=== PATIENT | female | born 1950 | race Caucasian/White ===

== ENCOUNTER 2017-01-01 16:59 | Inpatient (IN) | payer MEDICARE ==
[2017-01-01] MEDS: Albuterol 2.5 MG/3 ML NEB.SOL* (0.083%) INH SCH ×2 (18:00→21:34)
[2017-01-01] MEDS ORDERED: Piperac/Tazob 3.375 gm in NS* 3.375 GM/100 ML BAG IVPB ONE (18:00)
[2017-01-01 19:00] LABS: Albumin 3.8 g/dL (3.2-5.2); BUN/Creatinine Ratio 12.3 (8-20); C Reactive Protein 128.24 mg/L (< 5.00); Calcium 9.7 mg/dL (8.6-10.3); EGFR African American 117.3 (>60); EGFR Non-African American 91.2 (>60); Globulin 3.6 g/dL (2-4); Potassium 3.5 mmol/L (3.5-5.0); Total Bilirubin 0.5 mg/dL (0.2-1.0); Total Protein 7.4 g/dL (6.4-8.9)
[2017-01-01] MEDS: guaiFENesin/CODIEN 100MG-10MG* 5 ML UDC PO PRN (20:13)
--- NOTE | 2017-01-01 21:18 | HP ---
ADMITTING HISTORY AND PHYSICAL: DATE OF ADMISSION: 01/01/17 PRESENTING COMPLAINT: Paroxysmal cough, wheezing, right upper lobe pneumonia with consolidation. HISTORY OF PRESENT ILLNESS: Anali Bassett is a 66-year-old white female. Ten days ago, she developed sore throat, following that paroxysmal coughing; this worsened. She came in to my office to see a nurse practitioner last week, who started her on nebulizer and she worsened. A chest x-ray was ordered on . There was a right infrahilar mass noted. I therefore ordered a chest CAT scan on 12/31/16 that showed a small focus of alveolar consolidation at the apical segment of the right upper lobe with air bronchograms suggesting pneumonia. Blood work included a CBC on 12/27/16, white count 9.7, hemoglobin 12.6, hematocrit 38, platelet count 327, neutrophil percentage 81.8%. Her cough has progressed and become more paroxysmal with periods of apnea with coughing episodes with difficulty taking a deep breath. Consequently, she came in to my office today and I elected to admit her directly to the [facility]. It took some persuasion, but she agreed to do this. She has had no fevers, but she has had night sweats. No rigors or chills. She is not bringing up much sputum. No hemoptysis. She has some dyspnea particularly on exertion. She has no chest pain. PREVIOUS MEDICAL HISTORY: Tonsillectomy, age 2; total hysterectomy but has intact right ovary; bilateral mastectomy, May of 2014; she had a skin pinch graft on 04/26/15. OTHER SURGERIES: Laminectomy, C3 to C7, 2000. She has had a fracture of the right index finger. She has a history of breast cancer with carcinoma in situ. Surgery of her breast cancer, which was poorly differentiated, on 01/05/14. It was HER-2 positive. It was ER positive, [place] negative. She has had a bilateral mastectomy and radiotherapy. OTHER COMORBIDITIES: Insomnia, osteoarthritis of the knee, Dupuytren's contracture, depression, hypertension, primary hypothyroidism, obesity, mild intermittent asthma, hyperlipidemia, and gout. CURRENT MEDICATIONS: 1. Albuterol 0.63 in 3 mL solution for nebulizer; she has been using this 4 times a day. 2. Amlodipine 2.5 mg daily. 3. Anastrozole 1 mg daily. 4. Centrum Silver 1 tablet daily. 5. Vitamin D 1000 units daily. 6. Guaifenesin with Codeine 100 mg/5 mL every 6 hours as needed. 7. Diclofenac 75 mg 1 twice a day as needed. 8. Duloxetine 20 mg 2 tablets daily. 9. Flunisolide nasal spray 25 mcg 2 sprays daily as needed. 10. Furosemide 20 mg half a pill 3 times a week. 11. Gabapentin 2 pills 3 times a day. 12. Klor-Con 20 mEq on the day she takes furosemide. 13. Levothyroxine 112 mcg a day. 14. Misoprostol 200 mcg twice daily. 15. Symbicort 160/4.5 per actuation 2 puffs twice daily. MEDICATION ALLERGIES: ADHESIVE TAPE, ERYTHROMYCIN. FAMILY HISTORY: Mother, carcinoma of the lung. Maternal grandmother, atherosclerosis, hypertensive disease. Maternal grandfather, kidney disease with kidney failure. Father has cancer. SOCIAL HISTORY: Lifelong nonsmoker. Does not drink alcohol. REVIEW OF SYSTEMS: Review of systems x12: Respiratory: Wheezing, shortness of breath, a sensation of suction in her lungs, difficulty catching her breath, oxygen saturation variable with coughing fits, 90% to 98% in the medical office. She has gas pain in her abdomen. She has fatigue. PHYSICAL EXAMINATION In my office: GENERAL: She had no cyanosis, anemia, jaundice, clubbing, or lymphadenopathy. She did not appear hemodynamically compromised. She was not dehydrated clinically. She has paroxysms of coughing which caused great distress. VITAL SIGNS: Height 5 feet 6.5 inches, weight 216 pounds, body mass index 34.3 , her blood pressure 132/94, temperature 99.5 degrees Fahrenheit, pulse 100 beats per minute, respiratory rate 16. HEENT: Tympanic membranes were normal. NECK: Supple. No goiter. RESPIRATORY: Chest expansion was full and symmetrical. Percussion note resonant. Breath sounds were diminished. She had wide-spread expiratory wheezes , particularly in the right upper chest. There were some crackles in right upper chest and some rhonchi. CARDIOVASCULAR: Her pulse was regular, normal character and volume. Venous pressure not elevated. Her heart sounds were normal. No added sounds or murmurs. No pedal edema. Pedal pulses present. No carotid bruits. ABDOMEN: No distention, masses, tenderness, or organomegaly. NERVOUS SYSTEM: Alert and oriented. Conjugate eye movements. Cranial nerves II through XII intact. Arms and Legs: Full power. Normal tone. Gait was normal. ASSESSMENT AND PLAN: 1. Right upper lobe pneumonia: This patient presents with community-acquired pneumonia. This is also a cause in exacerbation of asthma. I will bring her in to the hospital as a full admission to give her IV antibacterials, in particular Zosyn and azithromycin. Prior to that, I will check blood cultures, a rapid flu test, sputum Gram stain and culture, blood cultures, and other routine lab work. I will ask Respiratory Therapy to see her. She will have oxygen therapy as needed. I will give her a cough suppressant. She will have nebulizer treatments and oral prednisone. 2. Hypertension: Not acute problem. 3. Primary hypothyroidism: Not a problem. 4. Obesity: Ongoing situation. 5. History of breast cancer: She will continue on her aromatase inhibitor. I discussed with the patient DVT prophylaxis and she agrees to this. I discussed resuscitation status. At present, she wants to be full code. [id number] #: [id number] [facility]
[2017-01-01] MEDS: Mometasone 220 MCG MDI INH SCH (21:34)
[2017-01-01] MEDS: Azithromycin IV(*) 500 MG in NS 0.9% 250 ML* 250 ML IVPB SCH (22:03)
[2017-01-01] MEDS: Gabapentin CAP(*) 300 MG PO SCH (22:04)
[2017-01-01] MEDS: predniSONE TAB* 20 MG PO SCH (22:05)
[2017-01-01] MEDS: Misoprostol TAB* 200 MCG PO SCH (22:05)
[2017-01-01] MEDS: Heparin VIAL(*) 5000 UNITS/ML VIAL (FIVE THOUSAND) SUBCUT SCH (22:26)
[2017-01-01] MEDS: Acetaminophen TAB* 325 MG PO PRN (22:58)
[2017-01-01] MEDS: Diclofenac Sodium EC TAB* 25 MG PO SCH (23:05)
[2017-01-02] MEDS: Piperac/Tazob 3.375 gm in NS* 3.375 GM/100 ML BAG IVPB SCH ×3 (00:56→16:51)
[2017-01-02] MEDS: Albuterol 2.5 MG/3 ML NEB.SOL* (0.083%) INH SCH ×6 (01:42→23:18)
[2017-01-02] MEDS: guaiFENesin/CODIEN 100MG-10MG* 5 ML UDC PO PRN ×3 (05:33→20:08)
[2017-01-02] MEDS: Heparin VIAL(*) 5000 UNITS/ML VIAL (FIVE THOUSAND) SUBCUT SCH ×3 (05:33→21:45)
[2017-01-02] MEDS: Levothyroxine TAB* 112 MCG TAB PO SCH (05:37)
[2017-01-02 06:41] LABS: Hematocrit 36 % (35-47); Hemoglobin 11.8 g/dl (12.0-16.0); Mean Corpuscular HGB Conc 33 g/dl (31-36); Mean Corpuscular Hemoglobin 28 pg (27-31); Mean Corpuscular Volume 84 fL (80-97); Mean Platelet Volume 7 um3 (7.4-10.4); Red Blood Count 4.23 10^6/ul (4.0-5.4); Red Cell Distribution Width 15 % (10.5-15); White Blood Count 12.8 10^3/ul (3.5-10.8)
[2017-01-02] MEDS: Mometasone 220 MCG MDI INH SCH ×2 (08:22→19:47)
[2017-01-02] MEDS: DULoxetine DR CAP* 20 MG CAP.DR PO SCH (10:23)
[2017-01-02] MEDS: Misoprostol TAB* 200 MCG PO SCH ×2 (10:24→20:09)
[2017-01-02] MEDS: Diclofenac Sodium EC TAB* 25 MG PO SCH ×2 (10:24→20:09)
[2017-01-02] MEDS: predniSONE TAB* 20 MG PO SCH ×2 (10:25→20:09)
[2017-01-02] MEDS: Gabapentin CAP(*) 300 MG PO SCH ×3 (10:25→20:48)
--- NOTE | 2017-01-02 10:26 | PN ---
Subjective - Subjective Reason for Note: Progress Note History: She continues to have a paroxysmal cough - this is becoming more productive. She has pain in her right lower rib cage from all this coughing. She has had no fevers or shakes. She has shortness of breath talking. She has a poor appetite. She had a small bowel movement this morning. Otherwise, no new symptoms Active Problems: Active Problems Right upper lobe pneumonia (Acute) J18.1 Chronic back pain (Chronic) M54.9, G89.29 Essential hypertension (Chronic) I10 Obesity (Chronic) E66.9 Primary hypothyroidism (Chronic) E03.9 Current Medications: Current Medications Acetaminophen (Tylenol Tab*) 650 mg PO Q4H PRN PRN Reason: PAIN/FEVER Last Admin: 01/01/17 22:58 Dose: 650 mg Albuterol (Ventolin 2.5 Mg/3 Ml Neb.Nia*) 2.5 mg INH Q4H [facility] Amlodipine Besylate (Norvasc Tab*) 2.5 mg PO DAILY [facility] Anastrozole (Arimidex (Nf)) 1 mg PO QAM [facility] Diclofenac Sodium (Voltaren Ec Tab*) 75 mg PO BID [facility] Last Admin: 01/01/17 23:05 Dose: 75 mg Duloxetine HCl (Cymbalta Cap*) 40 mg PO DAILY [facility] Gabapentin (Neurontin Cap(*)) 600 mg PO TID [facility] Last Admin: 01/01/17 22:04 Dose: 600 mg Guaifenesin/Codeine Phosphate (Robitussin Ac 100mg-10mg*) 5 ml PO Q6H PRN PRN Reason: COUGH Last Admin: 01/02/17 05:33 Dose: 5 ml Heparin Sodium (Porcine) (Heparin Vial(*)) 5,000 units SUBCUT Q8HR [facility] Last Admin: 01/02/17 05:33 Dose: 5,000 units Azithromycin 500 mg/ Sodium (Chloride) 250 mls @ 250 mls/hr IVPB Q24H [facility] Last Admin: 01/01/17 22:03 Dose: 250 mls/hr Piperacillin Sod/Tazobactam Sod (Zosyn 3.375 Gm In Ns Premix*) 3.375 gm in 100 mls @ 25 mls/hr IVPB Q8H [facility] Last Admin: 01/02/17 00:56 Dose: 25 mls/hr Levothyroxine Sodium (Synthroid Tab*) 112 mcg PO DAILY@0600 [facility] Last Admin: 01/02/17 05:37 Dose: 112 mcg Misoprostol (Cytotec Tab*) 200 mcg PO BID [facility] Last Admin: 01/01/17 22:05 Dose: 200 mcg Mometasone Furoate (Asmanex 220 Mcg Mdi *) 2 puff INH RT.BID [facility] Last Admin: 01/02/17 08:22 Dose: 2 puff Prednisone (Deltasone Tab*) 20 mg PO BID [facility] Last Admin: 01/01/17 22:05 Dose: 20 mg Home Medications: Home Medications Medication Instructions Recorded Confirmed Type Furosemide 10 tab PO SEE INSTRUCTIONS 03/18/14 01/01/17 History Levothyroxine Sodium 112 mcg PO QAM 03/18/14 01/01/17 History Psyllium [Metamucil] 1 cap PO QPM 03/18/14 01/01/17 History Budesonide-Formoterol Fumarate 2 puff INH QAM 03/21/14 01/01/17 History [Symbicort 160-4.5 Mcg/Act] Flunisolide (Nasal) [Flunisolide] 2 spray BOTH NARES QAM PRN 05/19/14 01/01/17 History Anastrozole [Arimidex] 1 mg PO QAM 11/11/14 01/01/17 History DULoxetine CAP* [Cymbalta CAP*] 1 cap PO BEDTIME 04/19/15 01/01/17 History Gabapentin CAP(*) [Neurontin 2 cap PO TID 04/19/15 01/01/17 History CAP(*)] Tizanidine HCl [Zanaflex] 1 - 2 tab PO DAILY PRN 10/19/15 01/01/17 History Acetaminophen [Arthritis Pain] 1 tab PO TID PRN 11/20/15 01/01/17 History Docusate Sodium [Gnp Stool 250 mg PO DAILY 11/20/15 01/01/17 History Softener] Loperamide CAP* [Imodium CAP*] 1 cap PO ONCE PRN 11/20/15 01/01/17 History Multiple Vitamins W/ Minerals 1 tab PO QAM 11/20/15 01/01/17 History [Multivitamin Adults 50+] Polyethylene Glycol 3350 [Miralax] 1 dose PO DAILY PRN 11/20/15 01/01/17 History Potassium Chloride Microencaps 20 meq PO QAM 11/20/15 01/01/17 History [Klor-Con M20] Senna TAB* [Senokot TAB*] 2 tab PO DAILY PRN 11/20/15 01/01/17 History Vitamin D2 1,000 unit PO QAM 11/20/15 01/01/17 History Amlodipine Besylate [Norvasc 5 mg 5 mg PO DAILY 12/12/16 01/01/17 History tab] Diclofenac [Zorvolex] 75 mg PO BID 12/12/16 01/01/17 History Misoprostol TAB* [Cytotec TAB*] 200 mg PO BID 12/12/16 01/01/17 History Guaifenesin [Guaifenesin ER] 1,200 mg PO BID 01/01/17 01/01/17 History Allergies: Allergies Allergy/AdvReac Type Severity Reaction Status Date / Time Adhesive Tape Allergy Rash Verified 12/12/16 16:03 [Tegaderm Dressing] Erythromycin Allergy Diarrhea Verified 12/12/16 16:03 Objective - Vital Signs Vital Signs: Vital Signs 01/01/17 01/01/17 01/01/17 17:30 18:03 21:30 Temperature 99.4 F 97.8 F Pulse Rate 89 82 96 Respiratory 30 20 Rate Blood Pressure 136/85 160/93 (mmHg) O2 Sat by Pulse 98 98 99 Oximetry 01/01/17 01/01/17 01/01/17 21:34 22:04 23:13 Temperature 98.3 F Pulse Rate 62 97 Respiratory 17 16 Rate Blood Pressure 158/98 (mmHg) O2 Sat by Pulse 98 97 Oximetry 01/02/17 01/02/17 01/02/17 00:03 01:42 03:09 Temperature 97.7 F Pulse Rate 51 69 Respiratory 17 16 Rate Blood Pressure 127/86 (mmHg) O2 Sat by Pulse 97 100 Oximetry 01/02/17 01/02/17 01/02/17 05:36 07:31 08:00 Temperature 97.3 F Pulse Rate 77 77 77 Respiratory 16 16 Rate Blood Pressure 113/92 (mmHg) O2 Sat by Pulse 98 98 98 Oximetry - Intake and Output Intake and Output: Intake & Output 12/30/16 12/31/16 01/01/17 01/02/17 11:59 11:59 11:59 11:59 Intake Total 1835 Output Total 600 Balance 1235 Weight 214 lb 1.6 oz Intake: IVPB 495 Oral 1340 Output: Urine 600 Other: # Bowel Movements 0 ADLs: Meal Record Start: 01/01/17 17: 34 Freq: DAILY@0900,1400,1800 Status: Active Document 01/01/17 17:30 [id number] (Rec: 01/02/17 09:24 [id number] MED-M10) Created 01/01/17 17:34 System (Rec: 01/01/17 17:34 System [id number]) Document 01/01/17 18:00 [id number] (Rec: 01/01/17 19:39 [id number] MED-C09) Intake and Output Start: 01/01/17 17: 34 Freq: DAILY@0600,1400,2200 Status: Active Created 01/01/17 17:34 System (Rec: 01/01/17 17:34 System [id number]) Document 01/01/17 22:00 [id number] (Rec: 01/01/17 22:11 [id number] MED-C09) Document 01/02/17 04:24 [id number] (Rec: 01/02/17 04:24 [id number] MED-C42) - Physical Exam General: No Cyanosis, No Anemia, No Jaundice, No Lymphadenopathy, No Clubbing Lungs and Chest: Yes: Chest Expansion Full, Chest Expansion Symetrica, Percussion Note Resonant, Vessicular Breath Sounds, Crackles - coarse crackles right upper chest, Wheezes - expiratory wheeze particularly prominent right upper chest, Respiratory Distress, Use of Accessory Muscles, Other - paroxysmal coughing Heart Rate and Rhythm: Regular JVP: Not Elevated Additional Cardiovascular: Yes: Normal Heart Sounds. No: Heart Murmur, Pedal Edema Abdominal Exam: Yes: Soft, Bowel Sounds Present. No: Distention, Abdominal Mass , Abdominal Tenderness Results - Results Lab Results: Laboratory Results - last 24 hr 01/01/17 01/01/17 01/01/17 17:29 18:23 18:23 WBC RBC Hgb Hct MCV MCH MCHC RDW Plt Count MPV Neut % (Auto) Lymph % (Auto) Norman % (Auto) Eos % (Auto) Baso % (Auto) Absolute Neuts (auto) Absolute Lymphs (auto) Absolute Monos (auto) Absolute Eos (auto) Absolute Basos (auto) Absolute Nucleated RBC Nucleated RBC % ESR 79 H Sodium 138 Potassium 3.5 Chloride 101 Carbon Dioxide 29 Anion Gap 8 BUN 8 Creatinine 0.65 Est GFR ( Amer) 117.3 Est GFR (Non-Af Amer) 91.2 BUN/Creatinine Ratio 12.3 Glucose 130 H Calcium 9.7 Total Bilirubin 0.50 AST 15 ALT 22 Alkaline Phosphatase 51 C-Reactive Protein 128.24 H Total Protein 7.4 Albumin 3.8 Globulin 3.6 Albumin/Globulin Ratio 1.1 Procalcitonin < 0.1 Influenza A (Rapid) Influenza B (Rapid) 01/01/17 01/02/17 23:14 06:09 WBC 12.8 H RBC 4.23 Hgb 11.8 L Hct 36 MCV 84 MCH 28 MCHC 33 RDW 15 Plt Count 356 MPV 7 L Neut % (Auto) 90.8 H Lymph % (Auto) 5.9 L Norman % (Auto) 3.0 Eos % (Auto) 0 Baso % (Auto) 0.3 Absolute Neuts (auto) 11.7 H Absolute Lymphs (auto) 0.8 L Absolute Monos (auto) 0.4 Absolute Eos (auto) 0 Absolute Basos (auto) 0 Absolute Nucleated RBC 0 Nucleated RBC % 0 ESR Sodium Potassium Chloride Carbon Dioxide Anion Gap BUN Creatinine Est GFR ( Amer) Est GFR (Non-Af Amer) BUN/Creatinine Ratio Glucose Calcium Total Bilirubin AST ALT Alkaline Phosphatase C-Reactive Protein Total Protein Albumin Globulin Albumin/Globulin Ratio Procalcitonin Influenza A (Rapid) Negative Influenza B (Rapid) Negative Assessment - Problem List Assessment: Patient Problems Right upper lobe pneumonia (Acute) Chronic back pain (Chronic) Essential hypertension (Chronic) Obesity (Chronic) Primary hypothyroidism (Chronic) Breast cancer, right (Chronic 05/27/14) Plan: Right upper lobe pneumonia (Acute) She continues to have distress from her paroxysmal coughing and she has dyspnea. I note her procalcitonin was negative , but her CRP and Sed rate were elevated. I will repeat the CXR today. Her rapid flu test was negative. She continues to require IV antibacterials and oral prednisone. Chronic back pain (Chronic) controlled Essential hypertension (Chronic) BP on target Obesity (Chronic) ongoing Primary hypothyroidism (Chronic) secondary diagnosis Breast cancer, right (Chronic 05/27/14) secondary diagnosis I spoke with the patient. She is aware of her diagnosis and agrees she continues to require acute medical care.
[2017-01-02] MEDS: amLODIPine TAB* 5 MG PO SCH (10:27)
[2017-01-02] MEDS: CMC:Anastrozole (NF) 1 MG TAB PO SCH (10:31)
--- NOTE | 2017-01-02 12:27 | RAD ---
INDICATION: Worsening pneumonia. COMPARISON: Comparison is made with a prior chest x-ray study from December 26, [address] of the chest from December 31, 2016. TECHNIQUE: Dual-energy PA and lateral views of the chest were obtained. FINDINGS: The heart is within normal limits in size. There is increased density in the right cardiophrenic angle which correlates with a prominent pericardial fat pad on the prior CT study. The lungs are clear. No pleural effusion is present. The patient is status post right axillary node dissection. IMPRESSION: NO EVIDENCE FOR ACTIVE CARDIOPULMONARY DISEASE.
[2017-01-02] MEDS: Acetaminophen TAB* 325 MG PO PRN ×2 (14:25→20:48)
[2017-01-02] MEDS: Azithromycin IV(*) 500 MG in NS 0.9% 250 ML* 250 ML IVPB SCH (21:28)
[2017-01-03] MEDS: Piperac/Tazob 3.375 gm in NS* 3.375 GM/100 ML BAG IVPB SCH ×3 (01:05→17:37)
[2017-01-03] MEDS: Albuterol 2.5 MG/3 ML NEB.SOL* (0.083%) INH SCH ×6 (02:56→23:09)
[2017-01-03] MEDS: Levothyroxine TAB* 112 MCG TAB PO SCH (05:24)
[2017-01-03] MEDS: guaiFENesin/CODIEN 100MG-10MG* 5 ML UDC PO PRN ×3 (05:24→17:37)
[2017-01-03] MEDS: Heparin VIAL(*) 5000 UNITS/ML VIAL (FIVE THOUSAND) SUBCUT SCH ×3 (05:25→22:22)
[2017-01-03 05:47] LABS: Hematocrit 32 % (35-47); Hemoglobin 10.7 g/dl (12.0-16.0); Mean Corpuscular HGB Conc 34 g/dl (31-36); Mean Corpuscular Hemoglobin 28 pg (27-31); Mean Corpuscular Volume 84 fL (80-97); Mean Platelet Volume 7 um3 (7.4-10.4); Red Blood Count 3.81 10^6/ul (4.0-5.4); Red Cell Distribution Width 15 % (10.5-15); White Blood Count 10.9 10^3/ul (3.5-10.8)
[2017-01-03 07:13] LABS: Albumin 3.3 g/dL (3.2-5.2); BUN/Creatinine Ratio 13.8 (8-20); C Reactive Protein 81.67 mg/L (< 5.00); Calcium 9.1 mg/dL (8.6-10.3); Direct Bilirubin 0.1 mg/dL (0.03-0.18); EGFR African American 117.3 (>60); EGFR Non-African American 91.2 (>60); Indirect Bilirubin 0.3 mg/dL (0.3-1.0); Total Bilirubin 0.4 mg/dL (0.2-1.0); Total Protein 6.3 g/dL (6.4-8.9)
--- NOTE | 2017-01-03 08:03 | PN ---
Subjective - Subjective Reason for Note: Progress Note History: She continues to have a paroxysmal cough with respiratory distress. She has had loosening of her cough with more sputum production. Her lungs remain tight and she has a lot of wheezing. She can't talk without exhausting coughing attacks. She is tolerating the antibacterials. Her appetite is recovering and she has had a normal bowel movement Active Problems: Active Problems Right upper lobe pneumonia (Acute) J18.1 Chronic back pain (Chronic) M54.9, G89.29 Essential hypertension (Chronic) I10 Obesity (Chronic) E66.9 Primary hypothyroidism (Chronic) E03.9 Current Medications: Current Medications Acetaminophen (Tylenol Tab*) 650 mg PO Q4H PRN PRN Reason: PAIN/FEVER Last Admin: 01/02/17 20:48 Dose: 650 mg Albuterol (Ventolin 2.5 Mg/3 Ml Neb.Nia*) 2.5 mg INH Q4H [facility] Last Admin: 01/03/17 02:56 Dose: 2.5 mg Amlodipine Besylate (Norvasc Tab*) 2.5 mg PO DAILY [facility] Last Admin: 01/02/17 10:27 Dose: 2.5 mg Anastrozole (Arimidex (Nf)) 1 mg PO QAM [facility] Last Admin: 01/02/17 10:31 Dose: 1 mg Diclofenac Sodium (Voltaren Ec Tab*) 75 mg PO BID [facility] Last Admin: 01/02/17 20:09 Dose: 75 mg Duloxetine HCl (Cymbalta Cap*) 40 mg PO DAILY [facility] Last Admin: 01/02/17 10:23 Dose: 40 mg Gabapentin (Neurontin Cap(*)) 600 mg PO TID [facility] Last Admin: 01/02/17 20:48 Dose: 600 mg Guaifenesin/Codeine Phosphate (Robitussin Ac 100mg-10mg*) 5 ml PO Q6H PRN PRN Reason: COUGH Last Admin: 01/03/17 05:24 Dose: 5 ml Heparin Sodium (Porcine) (Heparin Vial(*)) 5,000 units SUBCUT Q8HR [facility] Last Admin: 01/03/17 05:25 Dose: 5,000 units Azithromycin 500 mg/ Sodium (Chloride) 250 mls @ 250 mls/hr IVPB Q24H [facility] Last Admin: 01/02/17 21:28 Dose: 250 mls/hr Piperacillin Sod/Tazobactam Sod (Zosyn 3.375 Gm In Ns Premix*) 3.375 gm in 100 mls @ 25 mls/hr IVPB Q8H [facility] Last Admin: 01/03/17 01:05 Dose: 25 mls/hr Levothyroxine Sodium (Synthroid Tab*) 112 mcg PO DAILY@0600 [facility] Last Admin: 01/03/17 05:24 Dose: 112 mcg Misoprostol (Cytotec Tab*) 200 mcg PO BID [facility] Last Admin: 01/02/17 20:09 Dose: 200 mcg Mometasone Furoate (Asmanex 220 Mcg Mdi *) 2 puff INH RT.BID [facility] Last Admin: 01/02/17 19:47 Dose: 2 puff Prednisone (Deltasone Tab*) 20 mg PO BID [facility] Last Admin: 01/02/17 20:09 Dose: 20 mg Home Medications: Home Medications Medication Instructions Recorded Confirmed Type Furosemide 10 tab PO SEE INSTRUCTIONS 03/18/14 01/01/17 History Levothyroxine Sodium 112 mcg PO QAM 03/18/14 01/01/17 History Psyllium [Metamucil] 1 cap PO QPM 03/18/14 01/01/17 History Budesonide-Formoterol Fumarate 2 puff INH QAM 03/21/14 01/01/17 History [Symbicort 160-4.5 Mcg/Act] Flunisolide (Nasal) [Flunisolide] 2 spray BOTH NARES QAM PRN 05/19/14 01/01/17 History Anastrozole [Arimidex] 1 mg PO QAM 11/11/14 01/01/[address] CAP* [Cymbalta CAP*] 1 cap PO BEDTIME 04/19/15 01/01/17 History Gabapentin CAP(*) [Neurontin 2 cap PO TID 04/19/15 01/01/17 History CAP(*)] Tizanidine HCl [Zanaflex] 1 - 2 tab PO DAILY PRN 10/19/15 01/01/17 History Acetaminophen [Arthritis Pain] 1 tab PO TID PRN 11/20/15 01/01/17 History Docusate Sodium [Gnp Stool 250 mg PO DAILY 11/20/15 01/01/17 History Softener] Loperamide CAP* [Imodium CAP*] 1 cap PO ONCE PRN 11/20/15 01/01/17 History Multiple Vitamins W/ Minerals 1 tab PO QAM 11/20/15 01/01/17 History [Multivitamin Adults 50+] Polyethylene Glycol 3350 [Miralax] 1 dose PO DAILY PRN 11/20/15 01/01/17 History Potassium Chloride Microencaps 20 meq PO QAM 11/20/15 01/01/17 History [Klor-Con M20] Senna TAB* [Senokot TAB*] 2 tab PO DAILY PRN 11/20/15 01/01/17 History Vitamin D2 1,000 unit PO QAM 11/20/15 01/01/17 History Amlodipine Besylate [Norvasc 5 mg 5 mg PO DAILY 12/12/16 01/01/17 History tab] Diclofenac [Zorvolex] 75 mg PO BID 12/12/16 01/01/17 History Misoprostol TAB* [Cytotec TAB*] 200 mg PO BID 12/12/16 01/01/17 History Guaifenesin [Guaifenesin ER] 1,200 mg PO BID 01/01/17 01/01/17 History Allergies: Allergies Allergy/AdvReac Type Severity Reaction Status Date / Time Adhesive Tape Allergy Rash Verified 12/12/16 16:03 [Tegaderm Dressing] Erythromycin Allergy Diarrhea Verified 12/12/16 16:03 Objective - Vital Signs Vital Signs: Vital Signs 01/02/17 01/02/17 01/02/17 08:00 10:25 11:25 Temperature 97.3 F Pulse Rate 77 91 Respiratory 16 24 14 Rate Blood Pressure 148/93 (mmHg) O2 Sat by Pulse 98 98 Oximetry 01/02/17 01/02/17 01/02/17 11:42 12:25 14:14 Temperature Pulse Rate 72 Respiratory 16 16 18 Rate Blood Pressure (mmHg) O2 Sat by Pulse 98 Oximetry 01/02/17 01/02/17 01/02/17 15:11 15:22 16:07 Temperature 98.5 F Pulse Rate 81 86 Respiratory 20 18 18 Rate Blood Pressure 142/82 (mmHg) O2 Sat by Pulse 100 97 Oximetry 01/02/17 01/02/17 01/02/17 19:51 20:00 20:22 Temperature 97.6 F Pulse Rate 78 109 Respiratory 18 18 24 Rate Blood Pressure 140/70 (mmHg) O2 Sat by Pulse 96 94 Oximetry 01/02/17 01/02/17 01/02/17 20:48 22:48 23:15 Temperature 97.9 F Pulse Rate 71 Respiratory 16 18 16 Rate Blood Pressure 151/86 (mmHg) O2 Sat by Pulse 97 Oximetry 01/02/17 01/03/17 01/03/17 23:21 02:58 07:22 Temperature 97.3 F Pulse Rate 81 68 63 Respiratory 16 18 18 Rate Blood Pressure 138/68 (mmHg) O2 Sat by Pulse 98 96 97 Oximetry - Intake and Output Intake and Output: Intake & Output 12/31/16 01/01/17 01/02/17 01/03/17 11:59 11:59 11:59 11:59 Intake Total 1835 1965 Output Total 600 Balance 1235 1965 Weight 214 lb 1.6 oz Intake: IV Fluids 105 zosyn 105 IVPB 495 10 zosyn 10 Oral 1340 1850 Output: Urine 600 Other: Estimated Void Medium # Bowel Movements 0 0 # Voids 1 ADLs: Meal Record Start: 01/01/17 17: 34 Freq: DAILY@0900,1400,1800 Status: Active Document 01/01/17 17:30 [id number] (Rec: 01/02/17 09:24 [id number] MED-M10) Created 01/01/17 17:34 System (Rec: 01/01/17 17:34 System RESP-C01) Document 01/01/17 18:00 [id number] (Rec: 01/01/17 19:39 [id number] MED-C09) Document 01/02/17 09:00 [id number] (Rec: 01/02/17 11:51 [id number] MED-C11) Document 01/02/17 13:46 [id number] (Rec: 01/02/17 13:46 [id number] MED-C11) Document 01/02/17 18:00 [id number] (Rec: 01/02/17 23:08 [id number] MEDL-C02) Intake and Output Start: 01/01/17 17: 34 Freq: DAILY@0600,1400,2200 Status: Active Created 01/01/17 17:34 System (Rec: 01/01/17 17:34 System RESP-C01) Document 01/01/17 22:00 [id number] (Rec: 01/01/17 22:11 [id number] MED-C09) Document 01/02/17 04:24 [id number] (Rec: 01/02/17 04:24 [id number] MED-C42) Document 01/02/17 13:46 [id number] (Rec: 01/02/17 13:48 [id number] MED-C11) Document 01/02/17 22:00 [id number] (Rec: 01/02/17 23:10 [id number] MEDL-C02) Document 01/03/17 04:38 [id number] (Rec: 01/03/17 04:38 [id number] MED-C15) - Physical Exam General Physical Exam Comment: She has one coughing paroxysm followed by the next. She is using accessory muscles of respiration and has marked expiratory wheezing. General: No Cyanosis, No Anemia, No Jaundice, No Clubbing Lungs and Chest: Yes: Chest Expansion Full - prolonged expiratory phase, Chest Expansion Symetrica, Percussion Note Resonant, Crackles, Wheezes, Respiratory Distress, Use of Accessory Muscles, Other - cough++++. No: Vessicular Breath Sounds Heart Rate and Rhythm: Normal JVP: Not Elevated Additional Cardiovascular: Yes: Normal Heart Sounds. No: Heart Murmur, Pedal Edema Abdominal Exam: Yes: Soft, Bowel Sounds Present. No: Distention, Abdominal Mass , Abdominal Tenderness Results - Results Lab Results: Laboratory Results - last 24 hr 01/03/17 01/03/17 05:02 05:02 WBC 10.9 H RBC 3.81 L Hgb 10.7 L Hct 32 L MCV 84 MCH 28 MCHC 34 RDW 15 Plt Count 304 MPV 7 L Neut % (Auto) 90.1 H Lymph % (Auto) 5.6 L Barren % (Auto) 3.9 Eos % (Auto) 0 Baso % (Auto) 0.4 Absolute Neuts (auto) 9.8 H Absolute Lymphs (auto) 0.6 L Absolute Monos (auto) 0.4 Absolute Eos (auto) 0 Absolute Basos (auto) 0 Absolute Nucleated RBC 0 Nucleated RBC % 0 Sodium 138 Potassium 4.0 Chloride 104 Carbon Dioxide 22 Anion Gap 12 H BUN 9 Creatinine 0.65 Est GFR ( Amer) 117.3 Est GFR (Non-Af Amer) 91.2 BUN/Creatinine Ratio 13.8 Glucose 141 H Calcium 9.1 Total Bilirubin 0.40 Direct Bilirubin 0.10 Indirect Bilirubin 0.3 AST 17 ALT 20 Alkaline Phosphatase 50 C-Reactive Protein 81.67 H Total Protein 6.3 L Albumin 3.3 Globulin 3.0 Albumin/Globulin Ratio 1.1 Assessment - Problem List Assessment: Patient Problems Right upper lobe pneumonia (Acute) Chronic back pain (Chronic) Essential hypertension (Chronic) Obesity (Chronic) Primary hypothyroidism (Chronic) Breast cancer, right (Chronic 05/27/14) Plan: Right upper lobe pneumonia (Acute) She has marked exacerbation of her airways disease with distressing paroxysms of coughing with little time for recovery inbetween. She is having nebulizer treatments and oral steroids. Her pneumonia is recovering - more evident on CT than on CXR Chronic back pain (Chronic) secondary diagnosis Essential hypertension (Chronic) secondary diagnosis Obesity (Chronic) secondary diagnosis Primary hypothyroidism (Chronic) secondary diagnosis Breast cancer, right (Chronic 05/27/14) secondary diagnosis I discussed the above with the patient. We will continue with the current regimen. She continues to require an acute hospital bed for both IV antibacterials and respiratory therapy
[2017-01-03] MEDS ORDERED: Polyethylene Glycol 3350 BTL* 238 GM BTL PO PRN (08:07)
[2017-01-03] MEDS: Mometasone 220 MCG MDI INH SCH ×2 (08:20→19:22)
[2017-01-03] MEDS ORDERED: Polyethylene Glycol 3350* 17 GM PACKET PO PRN (09:05)
[2017-01-03] MEDS: Diclofenac Sodium EC TAB* 25 MG PO SCH ×2 (10:03→20:10)
[2017-01-03] MEDS: amLODIPine TAB* 5 MG PO SCH (10:03)
[2017-01-03] MEDS: Misoprostol TAB* 200 MCG PO SCH ×2 (10:04→20:13)
[2017-01-03] MEDS: DULoxetine DR CAP* 20 MG CAP.DR PO SCH (10:04)
[2017-01-03] MEDS: Benzonatate CAP* 100 MG PO PRN ×2 (10:04→20:10)
[2017-01-03] MEDS: predniSONE TAB* 20 MG PO SCH ×2 (10:04→20:09)
[2017-01-03] MEDS: CMC:Anastrozole (NF) 1 MG TAB PO SCH (10:06)
[2017-01-03] MEDS: Acetaminophen TAB* 325 MG PO PRN ×2 (11:31→20:11)
[2017-01-03] MEDS: Gabapentin CAP(*) 300 MG PO SCH ×3 (11:31→20:11)
[2017-01-03] MEDS: Azithromycin IV(*) 500 MG in NS 0.9% 250 ML* 250 ML IVPB SCH (20:01)
[2017-01-04] MEDS: guaiFENesin/CODIEN 100MG-10MG* 5 ML UDC PO PRN ×3 (01:20→20:32)
[2017-01-04] MEDS: Piperac/Tazob 3.375 gm in NS* 3.375 GM/100 ML BAG IVPB SCH ×3 (01:21→17:31)
[2017-01-04] MEDS: Albuterol 2.5 MG/3 ML NEB.SOL* (0.083%) INH SCH ×6 (03:21→23:03)
[2017-01-04] MEDS: Levothyroxine TAB* 112 MCG TAB PO SCH (05:10)
[2017-01-04] MEDS: Heparin VIAL(*) 5000 UNITS/ML VIAL (FIVE THOUSAND) SUBCUT SCH ×3 (05:10→20:37)
[2017-01-04] MEDS: Mometasone 220 MCG MDI INH SCH ×2 (08:56→20:15)
[2017-01-04] MEDS: amLODIPine TAB* 5 MG PO SCH (10:10)
--- NOTE | 2017-01-04 10:17 | PN ---
Subjective - Subjective Reason for Note: Progress Note History: She continues to have a paroxysmal cough and dyspnea/wheeze. Yesterday, her O2 desaturated when she was walking. She continues to receive IV antibacterials and oral steroids without adverse effect. She managed to get some sleep last night for the first time and feels improved as a result. She has twinges of pain in her back when she coughs Current Medications: Current Medications Acetaminophen (Tylenol Tab*) 650 mg PO Q4H PRN PRN Reason: PAIN/FEVER Last Admin: 01/03/17 20:11 Dose: 650 mg Albuterol (Ventolin 2.5 Mg/3 Ml Neb.Nia*) 2.5 mg INH Q4H [facility] Last Admin: 01/04/17 08:56 Dose: 2.5 mg Amlodipine Besylate (Norvasc Tab*) 2.5 mg PO DAILY [facility] Last Admin: 01/03/17 10:03 Dose: 2.5 mg Anastrozole (Arimidex (Nf)) 1 mg PO QAM [facility] Last Admin: 01/03/17 10:06 Dose: 1 mg Benzonatate (Tessalon Cap*) 100 mg PO TID PRN PRN Reason: COUGH Last Admin: 01/03/17 20:10 Dose: 100 mg Diclofenac Sodium (Voltaren Ec Tab*) 75 mg PO BID [facility] Last Admin: 01/03/17 20:10 Dose: 75 mg Duloxetine HCl (Cymbalta Cap*) 40 mg PO DAILY [facility] Last Admin: 01/03/17 10:04 Dose: 40 mg Gabapentin (Neurontin Cap(*)) 600 mg PO TID [facility] Last Admin: 01/03/17 20:11 Dose: 600 mg Guaifenesin/Codeine Phosphate (Robitussin Ac 100mg-10mg*) 5 ml PO Q6H PRN PRN Reason: COUGH Last Admin: 01/04/17 01:20 Dose: 5 ml Heparin Sodium (Porcine) (Heparin Vial(*)) 5,000 units SUBCUT Q8HR [facility] Last Admin: 01/04/17 05:10 Dose: 5,000 units Azithromycin 500 mg/ Sodium (Chloride) 250 mls @ 250 mls/hr IVPB Q24H [facility] Last Admin: 01/03/17 20:01 Dose: 250 mls/hr Piperacillin Sod/Tazobactam Sod (Zosyn 3.375 Gm In Ns Premix*) 3.375 gm in 100 mls @ 25 mls/hr IVPB Q8H [facility] Last Admin: 01/04/17 01:21 Dose: 25 mls/hr Levothyroxine Sodium (Synthroid Tab*) 112 mcg PO DAILY@0600 [facility] Last Admin: 01/04/17 05:10 Dose: 112 mcg Misoprostol (Cytotec Tab*) 200 mcg PO BID [facility] Last Admin: 01/03/17 20:13 Dose: 200 mcg Mometasone Furoate (Asmanex 220 Mcg Mdi *) 2 puff INH RT.BID [facility] Last Admin: 01/04/17 08:56 Dose: 2 puff Polyethylene Glycol/Electrolytes (Miralax*) 17 gm PO DAILY PRN PRN Reason: CONSTIPATION Prednisone (Deltasone Tab*) 20 mg PO BID [facility] Last Admin: 01/03/17 20:09 Dose: 20 mg Home Medications: Home Medications Medication Instructions Recorded Confirmed Type Furosemide 10 tab PO SEE INSTRUCTIONS 03/18/14 01/01/17 History Levothyroxine Sodium 112 mcg PO QAM 03/18/14 01/01/17 History Psyllium [Metamucil] 1 cap PO QPM 03/18/14 01/01/17 History Budesonide-Formoterol Fumarate 2 puff INH QAM 03/21/14 01/01/17 History [Symbicort 160-4.5 Mcg/Act] Flunisolide (Nasal) [Flunisolide] 2 spray BOTH NARES QAM PRN 05/19/14 01/01/17 History Anastrozole [Arimidex] 1 mg PO QAM 11/11/14 01/01/[address] CAP* [Cymbalta CAP*] 1 cap PO BEDTIME 04/19/15 01/01/17 History Gabapentin CAP(*) [Neurontin 2 cap PO TID 04/19/15 01/01/17 History CAP(*)] Tizanidine HCl [Zanaflex] 1 - 2 tab PO DAILY PRN 10/19/15 01/01/17 History Acetaminophen [Arthritis Pain] 1 tab PO TID PRN 11/20/15 01/01/17 History Docusate Sodium [Gnp Stool 250 mg PO DAILY 11/20/15 01/01/17 History Softener] Loperamide CAP* [Imodium CAP*] 1 cap PO ONCE PRN 11/20/15 01/01/17 History Multiple Vitamins W/ Minerals 1 tab PO QAM 11/20/15 01/01/17 History [Multivitamin Adults 50+] Polyethylene Glycol 3350 [Miralax] 1 dose PO DAILY PRN 11/20/15 01/01/17 History Potassium Chloride Microencaps 20 meq PO QAM 11/20/15 01/01/17 History [Klor-Con M20] Senna TAB* [Senokot TAB*] 2 tab PO DAILY PRN 11/20/15 01/01/17 History Vitamin D2 1,000 unit PO QAM 11/20/15 01/01/17 History Amlodipine Besylate [Norvasc 5 mg 5 mg PO DAILY 12/12/16 01/01/17 History tab] Diclofenac [Zorvolex] 75 mg PO BID 12/12/16 01/01/17 History Misoprostol TAB* [Cytotec TAB*] 200 mg PO BID 12/12/16 01/01/17 History Guaifenesin [Guaifenesin ER] 1,200 mg PO BID 01/01/17 01/01/17 History Allergies: Allergies Allergy/AdvReac Type Severity Reaction Status Date / Time Adhesive Tape Allergy Rash Verified 12/12/16 16:03 [Tegaderm Dressing] Erythromycin Allergy Diarrhea Verified 12/12/16 16:03 Objective - Vital Signs Vital Signs: Vital Signs 01/03/17 01/03/17 01/03/17 11:31 12:18 12:43 Temperature 98.1 F Pulse Rate 80 80 Respiratory 22 18 18 Rate Blood Pressure 152/87 (mmHg) O2 Sat by Pulse 98 98 Oximetry 01/03/17 01/03/17 01/03/17 13:31 15:01 15:37 Temperature 97.9 F Pulse Rate 81 Respiratory 18 16 24 Rate Blood Pressure 151/89 (mmHg) O2 Sat by Pulse 96 Oximetry 01/03/17 01/03/17 01/03/17 16:03 17:01 19:22 Temperature Pulse Rate 80 74 Respiratory 16 Rate Blood Pressure (mmHg) O2 Sat by Pulse 97 96 Oximetry 01/03/17 01/03/17 01/03/17 20:00 20:11 22:11 Temperature Pulse Rate Respiratory 16 24 18 Rate Blood Pressure (mmHg) O2 Sat by Pulse Oximetry 01/03/17 01/03/17 01/04/17 23:09 23:23 03:21 Temperature 97.8 F Pulse Rate 69 78 90 Respiratory 16 Rate Blood Pressure 141/94 (mmHg) O2 Sat by Pulse 95 96 99 Oximetry 01/04/17 01/04/17 07:22 08:00 Temperature 97.6 F Pulse Rate 80 Respiratory 14 18 Rate Blood Pressure 155/91 (mmHg) O2 Sat by Pulse 97 Oximetry - Intake and Output Intake and Output: Intake & Output 01/01/17 01/02/17 01/03/17 01/04/17 11:59 11:59 11:59 11:59 Intake Total 1835 2084 2180 Output Total 600 0 Balance 1234 2084 2179 Weight 214 lb 1.6 oz Intake: IV Fluids 105 270 NS (0.9%) 270 zosyn 105 IVPB 495 10 490 ABX - AZITHROMYCIN 275 zosyn 10 215 Oral 1340 1970 1420 Output: Urine 600 0 Other: Estimated Void Medium Large # Bowel Movements 0 0 0 # Voids 1 4 ADLs: Meal Record Start: 01/01/17 17: 34 Freq: DAILY@0900,1400,1800 Status: Active Document 01/01/17 17:30 [id number] (Rec: 01/02/17 09:24 [id number] MED-M10) Created 01/01/17 17:34 System (Rec: 01/01/17 17:34 System RESP-C01) Document 01/01/17 18:00 [id number] (Rec: 01/01/17 19:39 [id number] MED-C09) Document 01/02/17 09:00 [id number] (Rec: 01/02/17 11:51 [id number] MED-C11) Document 01/02/17 13:46 [id number] (Rec: 01/02/17 13:46 [id number] MED-C11) Document 01/02/17 18:00 [id number] (Rec: 01/02/17 23:08 [id number] MEDL-C02) Document 01/03/17 09:00 [id number] (Rec: 01/03/17 12:30 [id number] MED-C11) Document 01/03/17 14:00 [id number] (Rec: 01/03/17 14:56 [id number] MED-C11) Document 01/03/17 18:00 [id number] (Rec: 01/03/17 20:41 [id number] MED-C11) Document 01/04/17 09:00 [id number] (Rec: 01/04/17 09:33 [id number] MED-C11) Intake and Output Start: 01/01/17 17: 34 Freq: DAILY@0600,1400,2200 Status: Active Created 01/01/17 17:34 System (Rec: 01/01/17 17:34 System RESP-C01) Document 01/01/17 22:00 [id number] (Rec: 01/01/17 22:11 [id number] MED-C09) Document 01/02/17 04:24 [id number] (Rec: 01/02/17 04:24 [id number] MED-C42) Document 01/02/17 13:46 [id number] (Rec: 01/02/17 13:48 [id number] MED-C11) Document 01/02/17 22:00 [id number] (Rec: 01/02/17 23:10 [id number] MEDL-C02) Document 01/03/17 04:38 [id number] (Rec: 01/03/17 04:38 [id number] MED-C15) Document 01/03/17 14:00 [id number] (Rec: 01/03/17 14:56 [id number] MED-C11) Document 01/03/17 21:44 [id number] (Rec: 01/03/17 21:46 [id number] MED-C11) Document 01/04/17 05:36 [id number] (Rec: 01/04/17 05:37 [id number] MEDL-C01) - Physical Exam General: No Cyanosis, No Anemia, No Jaundice, No Clubbing Lungs and Chest: Yes: Chest Expansion Full, Chest Expansion Symetrica, Percussion Note Resonant, Crackles, Wheezes, Respiratory Distress, Use of Accessory Muscles, Other - cough+++. No: Vessicular Breath Sounds Heart Rate and Rhythm: Regular Additional Cardiovascular: Yes: Normal Heart Sounds. No: Heart Murmur, Absent Pedal Pulse Assessment - Problem List Assessment: Patient Problems Right upper lobe pneumonia (Acute) Breast cancer, right (Chronic 05/27/14) Chronic back pain (Chronic) Essential hypertension (Chronic) Obesity (Chronic) Primary hypothyroidism (Chronic) Plan: Right upper lobe pneumonia (Acute) she is recovering slowly. She continues to require breathing treatments and IV antibacterials. I will maintain her dose of prednisone. I think she will need another 24 hours of acute medical care. Breast cancer, right (Chronic 05/27/14) secondary diagnosis Chronic back pain (Chronic) secondary diagnosis Essential hypertension (Chronic) stable Obesity (Chronic)secondary diagnosis Primary hypothyroidism (Chronic) secondary diagnosis I discussed the above with the patient and she agrees with the management plan.
[2017-01-04] MEDS: Acetaminophen TAB* 325 MG PO PRN ×2 (10:25→20:31)
[2017-01-04] MEDS: CMC:Anastrozole (NF) 1 MG TAB PO SCH (10:27)
[2017-01-04] MEDS: Gabapentin CAP(*) 300 MG PO SCH ×3 (10:28→20:33)
[2017-01-04] MEDS: Benzonatate CAP* 100 MG PO PRN ×2 (10:28→20:35)
[2017-01-04] MEDS: predniSONE TAB* 20 MG PO SCH ×2 (10:28→20:33)
[2017-01-04] MEDS: Diclofenac Sodium EC TAB* 25 MG PO SCH ×2 (10:30→20:34)
[2017-01-04] MEDS: DULoxetine DR CAP* 20 MG CAP.DR PO SCH (10:31)
[2017-01-04] MEDS: Misoprostol TAB* 200 MCG PO SCH ×2 (10:32→20:35)
[2017-01-04] MEDS ORDERED: Albuterol 2.5 MG/3 ML NEB.SOL* (0.083%) ONE (20:06)
[2017-01-05] MEDS: Azithromycin IV(*) 500 MG in NS 0.9% 250 ML* 250 ML IVPB SCH ×2
[2017-01-05] MEDS: Acetaminophen TAB* 325 MG PO PRN ×2 (02:03→14:35)
[2017-01-05] MEDS: Piperac/Tazob 3.375 gm in NS* 3.375 GM/100 ML BAG IVPB SCH ×3 (02:03→17:41)
[2017-01-05] MEDS: Albuterol 2.5 MG/3 ML NEB.SOL* (0.083%) INH SCH ×7 (03:03→22:59)
[2017-01-05 05:51] LABS: Hematocrit 32 % (35-47); Hemoglobin 10.5 g/dl (12.0-16.0); Mean Corpuscular HGB Conc 33 g/dl (31-36); Mean Corpuscular Hemoglobin 28 pg (27-31); Mean Corpuscular Volume 85 fL (80-97); Mean Platelet Volume 7 um3 (7.4-10.4); Red Blood Count 3.74 10^6/ul (4.0-5.4); Red Cell Distribution Width 15 % (10.5-15); White Blood Count 8.9 10^3/ul (3.5-10.8)
[2017-01-05] MEDS: Levothyroxine TAB* 112 MCG TAB PO SCH (05:57)
[2017-01-05] MEDS: Heparin VIAL(*) 5000 UNITS/ML VIAL (FIVE THOUSAND) SUBCUT SCH ×3 (05:58→21:24)
[2017-01-05 06:04] LABS: BUN/Creatinine Ratio 11.9 (8-20); C Reactive Protein 41.2 mg/L (< 5.00); Calcium 9.1 mg/dL (8.6-10.3); EGFR African American 131.2 (>60); Potassium 3.7 mmol/L (3.5-5.0)
[2017-01-05] MEDS: Mometasone 220 MCG MDI INH SCH ×2 (09:35→19:08)
[2017-01-05] MEDS: amLODIPine TAB* 5 MG PO SCH (09:36)
[2017-01-05] MEDS: DULoxetine DR CAP* 20 MG CAP.DR PO SCH (09:37)
[2017-01-05] MEDS: Misoprostol TAB* 200 MCG PO SCH ×2 (09:37→19:57)
[2017-01-05] MEDS: predniSONE TAB* 20 MG PO SCH ×2 (09:37→19:57)
[2017-01-05] MEDS: Gabapentin CAP(*) 300 MG PO SCH ×3 (09:38→19:56)
[2017-01-05] MEDS: Diclofenac Sodium EC TAB* 25 MG PO SCH ×2 (09:38→19:56)
[2017-01-05] MEDS: CMC:Anastrozole (NF) 1 MG TAB PO SCH (09:40)
[2017-01-05] MEDS: Benzonatate CAP* 100 MG PO PRN (09:50)
[2017-01-05] MEDS: guaiFENesin/CODIEN 100MG-10MG* 5 ML UDC PO PRN (09:50)
[2017-01-06] MEDS: Piperac/Tazob 3.375 gm in NS* 3.375 GM/100 ML BAG IVPB SCH (00:35)
[2017-01-06] MEDS: Albuterol 2.5 MG/3 ML NEB.SOL* (0.083%) INH SCH ×3 (02:52→12:01)
[2017-01-06] MEDS: Heparin VIAL(*) 5000 UNITS/ML VIAL (FIVE THOUSAND) SUBCUT SCH (05:31)
[2017-01-06] MEDS: Levothyroxine TAB* 112 MCG TAB PO SCH (05:31)
[2017-01-06 06:37] LABS: Hematocrit 35 % (35-47); Hemoglobin 11.4 g/dl (12.0-16.0); Mean Corpuscular HGB Conc 32 g/dl (31-36); Mean Corpuscular Hemoglobin 28 pg (27-31); Mean Corpuscular Volume 85 fL (80-97); Mean Platelet Volume 7 um3 (7.4-10.4); Red Blood Count 4.16 10^6/ul (4.0-5.4); Red Cell Distribution Width 15 % (10.5-15); White Blood Count 11.9 10^3/ul (3.5-10.8)
[2017-01-06 07:23] VITALS: BP 141/92
[2017-01-06] MEDS ORDERED: ceFUROXime TAB(*) 250 MG PO ONE (07:51)
--- NOTE | 2017-01-06 07:54 | RAD ---
Indication: Follow-up pneumonia. 2 views chest including dual energy PA views are reviewed with previous exam dated January 02, 2017. Cardiomegaly is noted. Lung hassan demonstrate no pleural fluid, pneumonia or pneumothorax. Multiple clips are noted in the right axilla. IMPRESSION: No change is noted since previous exam of January 02, 2017 with no definite pneumonia.
[2017-01-06] MEDS: Mometasone 220 MCG MDI INH SCH (08:31)
[2017-01-06] MEDS ORDERED: predniSONE TAB* 20 MG PO SCH ×2 (09:00)
[2017-01-06] MEDS: Gabapentin CAP(*) 300 MG PO SCH (09:54)
[2017-01-06] MEDS: CMC:Anastrozole (NF) 1 MG TAB PO SCH (09:54)
[2017-01-06] MEDS: amLODIPine TAB* 5 MG PO SCH (09:54)
[2017-01-06] MEDS: Diclofenac Sodium EC TAB* 25 MG PO SCH (09:55)
[2017-01-06] MEDS: DULoxetine DR CAP* 20 MG CAP.DR PO SCH (09:55)
[2017-01-06] MEDS: Misoprostol TAB* 200 MCG PO SCH (09:56)
[2017-01-06] MEDS: Acetaminophen TAB* 325 MG PO PRN (10:08)
--- NOTE | 2017-01-06 23:52 | DS ---
DISCHARGE SUMMARY: DATE OF ADMISSION: 01/01/17 DATE OF DISCHARGE: 01/06/17 DISCHARGE DIAGNOSES: 1. Right upper lobe pneumonia. 2. Acute exacerbation of asthmatic bronchitis. COMORBIDITIES: Asthma. SECONDARY DIAGNOSES: 1. Breast cancer, right breast. 2. Chronic back pain. 3. Essential hypertension. 4. Obesity. 5. Primary hypothyroidism. HISTORY: Anali Bassett is a 66-year-old white female. Her presentation is documented in my admitting history and physical. She presented to the patient medical office with a history of 10 days of sore throat followed by paroxysmal coughing and worsening asthma. On 11/28/16, a chest x-ray suggested a right infrahilar mass. On 12/31/16, a chest CT showed a small focus of valvular consolidation in the apical segments of the right upper lobe. We treated her as a viral respiratory tract infection with exacerbation of asthma. This did not help. When she presented to my office, she was acutely dyspneic and was continuously paroxysmally coughing and was having difficulty catching her breath. PHYSICAL EXAMINATION: 66.5 inches, 216 pounds, BMI 34.3. Blood pressure 132/94 , temperature 99.5, pulse of 100, respiration rate 16. She had no cyanosis, jaundice, clubbing, or adenopathy. She has had right mastectomy and is wearing a compression bandage on her right arm. Cardiovascular System: Pulse regular. Normal character and volume. Venous pressure not elevated. Heart sounds are normal. No added sounds or murmurs. No pedal edema. No carotid bruits. Respiratory System: Paroxysmal coughing, using accessory muscles of respiration. She had widespread wheezes particularly in the right upper chest. Abdomen: No distention, masses, tenderness, or organomegaly. Nervous System: Benign. ASSESSMENT: In my office, my assessment was right upper lobe pneumonia. She needed to be brought into the hospital for parenteral Zosyn and azithromycin treatment and respiratory therapy. She also had asthmatic bronchitis and required continued prednisone therapy. INVESTIGATIONS: On 01/02/17, white count 12.8, hemoglobin 11.8, hematocrit 36, platelet count 356, percent neutrophils 19.8. Chemistry: CMP was within normal limits except for glucose of 130, nonfasting. C-reactive protein 128.24. Influenza A and B were negative. Microbiology: Urine negative for Legionella and Streptococcus pneumoniae antibody. Blood venous cultures were negative. HOSPITAL COURSE: e treated her with IV azithromycin and cefuroxime. She had very slow resolution of her symptoms during hospital stay, which was characterized by requiring nebulizer treatments for her acute exacerbation of asthma and bronchitis. She also was hypoxemic when she walked and distressed. This steadily recovered on the day of discharge. She is feeling much better. She coughed up a mucus plug. She had some chest pain from the coughing. Her cough is now looser and she is bringing up some sputum. At rest, her breathing has improved. Physical exam on the date of discharge, temperature 97.7, pulse 69, oxygen saturation 98% on room air, blood pressure 141/92. She had no cyanosis, anemia , jaundice, clubbing, or lymphadenopathy. No longer using accessory muscles of respiration or showing acute respiratory distress at rest. Cardiovascular System: Pulse regular. Normal character and volume. Heart sounds are normal. No added sounds or murmurs. No pedal edema. No carotid bruits. Respiratory System: She has prolonged expiratory phase of respiration. Percussion note resonant. Breath sounds was vesicular with widespread wheezes. Abdominal Examination: No distention, mass, tenderness, or organomegaly. She is alert and oriented x3. She is walking without any problems. Investigations on 01/05/17, CMP was normal aside from a glucose of 142. C- reactive protein on 01/06/17 was 30.2. CBC on 01/06/17, white count 11.9, hemoglobin 11.4, hematocrit 35, platelets 361. ASSESSMENT AND PLAN: 1. Right upper lobe pneumonia. I think this is resolved. I will give her another 5 days of cefuroxime 500 mg twice daily orally. 2. Acute exacerbation of asthma/bronchitis. She continues to wheeze. At home , she has a nebulizer which she can use for rescue breathing and she has Symbicort and albuterol as MDIs, which she will continue. She will visit my office later in the week for followup. 3. History of breast cancer. She will continue on her aromatase inhibitor. 4. Hypertension. She will return to her usual regimen at home. 5. Primary hypothyroidism. Continue current medication. 6. Depression. She will continue current medication. 7. Obesity. This is a long-term project. 8. Chronic back pain. She will manage this as usual. DISCHARGE MEDICATIONS: 1. Cefuroxime 500 mg twice daily for 5 days. 2. Prednisone 20 mg daily. 3. Levothyroxine 112 mcg daily. 4. Furosemide 10 mg daily. 5. Metamucil 1 cap every evening. 6. Budesonide formoterol (Symbicort) 160/4.5 mcg per actuation 2 puffs every morning. 7. Flunisolide nasal spray 2 sprays each nostril each day. 8. Anastrozole 1 mg daily. 9. Gabapentin 600 mg 3 times a day. 10. Duloxetine 40 mg q.h.s. 11. Tizanidine 1 to 2 tablets each day as needed. 12. Senna 2 tablets every day as needed. 13. Vitamin D 1000 units daily. 14. KCl 20 mEq daily. 15. Multivitamin 1 a day. 16. Docusate sodium 250 mg daily. 17. Acetaminophen 1 tablet 3 times a day. 18. PEG 17 g daily for constipation. 19. Diclofenac 75 mg twice daily. 20. Amlodipine 5 mg twice daily. 21. Misoprostol 200 mcg twice daily. 22. Guaifenesin 1200 mg twice daily as needed. 23. She has an albuterol nebulizer which she can use as a rescue breathing. [id number] #: [id number] [facility]
== END 2017-01-06 11:00 | disposition home or self-care (01) | DRG 194 ==
LOC: MED 17:18 → OBSVTOIN 17:18
PROVIDERS: ADMIT Internal Medicine; ATTEND Internal Medicine
DX: J18.9 Pneumonia, unspecified organism (principal); J45.901 Unspecified asthma with (acute) exacerbation; I10 Essential (primary) hypertension; G89.29 Other chronic pain; E66.9 Obesity, unspecified; E03.9 Hypothyroidism, unspecified; F32.9 Major depressive disorder, single episode, unspecified; M10.9 Gout, unspecified; M17.10 Unilateral primary osteoarthritis, unspecified knee; Z85.3 Personal history of malignant neoplasm of breast; Z68.36 Body mass index [BMI] 36.0-36.9, adult; Z92.3 Personal history of irradiation; Z79.899 Other long term (current) drug therapy; Z88.1 Allergy status to other antibiotic agents; Z91.048 Other nonmedicinal substance allergy status; Z80.1 Family history of malignant neoplasm of trachea, bronchus and lung; Z82.49 Family history of ischemic heart disease and other diseases of the circulatory system; Z84.1 Family history of disorders of kidney and ureter
CPT/HCPCS: 36415; 71020; 80048; 80053; 80076; 84145; 85025; 85027; 85652; 86140; 87040; 87502; 87899; 94640; 94760; A9270-GY; J0456; J1644; J2543; J7512

== ENCOUNTER 2017-02-05 06:50 | Day surgery (SDC) | payer MEDICARE ==
[~2017-02-05 06:50] MED LIST: Buffered Lidocaine 1% SYRIN* 3 ML/SYR SYRINGE INTRADERM ONE
[2017-02-05] MEDS ORDERED: Midazolam* 1 MG/ML 2 ML VIAL (2 MG) ONE ×2 (08:28→08:33)
[2017-02-05 08:59] VITALS: BP 145/79
--- NOTE | 2017-02-05 11:21 | OP ---
OPERATIVE NOTE: DATE OF OPERATION: 02/05/17 DATE OF : 50 SURGEON: Flavio Lomeli M.D. PREOPERATIVE DIAGNOSIS: Cataract, right eye. POSTOPERATIVE DIAGNOSIS: Cataract, right eye. OPERATIVE PROCEDURE: Phacoemulsification right eye with IOL. PROCEDURE: The patient was brought to the operating room after being given 1/2% Alcaine with epinep hrine drops in the preoperative area. The eye was prepped and draped in the usual sterile fashion. Sterile drape and eyelid speculum were placed. Again, topical 1/2% Alcaine with epinephrine was gi john. A paracentesis incision was made at the 9 o'clock position with the No.75 blade. Clear cornea incision 2.2 x 2.2-mm was created at the 12 o'clock position starting at the anterior limbus using the 2.2-mm keratome. The anterior chamber was irrigated with 0.4 mL of 1% non-preservative intracam eral lidocaine and filled with DisCoVisc. A capsulorrhexis was completed using the cystotome and jory bach Utrata forceps. Hydrodissection was performed with balanced salt solution. The lens nucleus was r emoved with the Phacoemulsification handpiece without incident. Cortex was removed with the irrigat ion-aspiration handpiece. The capsular bag was re-inflated using DisCoVisc and an [id number] 21.5-diopt er implant was inserted with the shooter and oriented to the 83-degree meridian. The horizontal ref erence oconnell were made with the patient in the preoperative area in a seated position. The irrigatio n- aspiration handpiece was used to remove all residual DisCoVisc. The eye was refilled with balanc ed salt solution and the wound checked and found to be watertight. Topical Maxitrol drops were give n. [id number]/[facility] #: [id number]
[2017-02-05] MEDS ORDERED: acetaZOLAMIDE TAB* 250 MG ONE (12:48)
[2017-02-05] MEDS ORDERED: Phenylephrine 2.5% OPTH.SOL* 2 ML BTL ONE (12:49)
[2017-02-05] MEDS ORDERED: Neomycin/Polymy/Dex OPTH.SUSP* MAXITROL 0.1% 5 ML ONE (12:49)
[2017-02-05] MEDS ORDERED: Proparacaine 0.5% OPHTH.SOL* 15 ML BTL ONE (12:49)
[2017-02-05] MEDS ORDERED: Flurbiprofen 0.03% OPTH.SOL* 2.5 ML BTL ONE (12:49)
[2017-02-05] MEDS ORDERED: Povidone Iodine 5% OPTH* 30 ML BTL ONE (12:49)
[2017-02-05] MEDS ORDERED: Lidocaine 1% MPF* 2 ML VIAL ONE (12:49)
[2017-02-05] MEDS ORDERED: Cyclopentolate 1% OPTH.SOL* 2 ML BTL ONE (12:49)
[2017-02-05] MEDS ORDERED: Lidocaine 2% EPI 1:200000 MPF* 20 ML VIAL ONE (12:49)
== END 2017-02-05 09:08 | disposition home or self-care (01) ==
LOC: OREAST 06:50
PROVIDERS: ATTEND Specialist
DX: H25.811 Combined forms of age-related cataract, right eye (principal); H35.371 Puckering of macula, right eye; I10 Essential (primary) hypertension; J45.909 Unspecified asthma, uncomplicated; E03.9 Hypothyroidism, unspecified; Z85.3 Personal history of malignant neoplasm of breast
CPT/HCPCS: A9270-GY; J2250; V2787

== ENCOUNTER 2017-02-12 08:16 | Day surgery (SDC) | payer MEDICARE ==
[~2017-02-12 08:16] MED LIST changes: +Acetaminophen TAB* 325 MG PO PRN
[2017-02-12] MEDS ORDERED: Midazolam* 1 MG/ML 5 ML VIAL (5 MG) ONE (09:50)
[2017-02-12 10:46] VITALS: BP 153/88
--- NOTE | 2017-02-12 13:08 | OP ---
DATE OF OPERATION: 02/12/2017 - [facility] DATE OF : 1950. SURGEON: Flavio Lomeli M.D. PREOPERATIVE DIAGNOSIS: Cataract left eye. POSTOPERATIVE DIAGNOSIS: Cataract left eye. OPERATIVE PROCEDURE: Phacoemulsification left eye with IOL. DESCRIPTION OF PROCEDURE: The patient was brought to the operating room after being given 1/2% Alcaine with epinephrine drops in the preoperative area. The eye was prepped and draped in the usual sterile fashion. Sterile drape and eyelid speculum were placed. Again, topical 1/2% Alcaine with epinephrine was given. A paracentesis incision was made at the 3 o'clock position with the No.75 blade. Clear cornea incision 2.2 x 2.2-mm was created at the 6 o'clock position starting at the anterior limbus using the 2.2-mm keratome. The anterior chamber was irrigated with 0.4 mL of 1% non-preservative intracameral lidocaine and filled with DisCoVisc. A capsulorrhexis was completed using the cystotome and the Utrata forceps. Hydrodissection was performed with balanced salt solution. The lens nucleus was removed with the Phacoemulsification handpiece without incident. Cortex was removed with the irrigation-aspiration handpiece. The capsular bag was re-inflated using DisCoVisc and an [id number] 21 implant was inserted with the shooter, oriented to the 103 degree meridian. The patient's horizontal reference oconnell were made with the patient seated in the preoperative area. Intraoperative oconnell made in reference to that. The irrigation-aspiration handpiece was used to remove all residual DisCoVisc. The eye was refilled with balanced salt solution and the wound checked and found to be watertight. Topical Maxitrol drops were given. [id number]/[facility] #: [id number] [facility]
[2017-02-12] MEDS ORDERED: Neomycin/Polymy/Dex OPTH.SUSP* MAXITROL 0.1% 5 ML ONE (14:02)
[2017-02-12] MEDS ORDERED: acetaZOLAMIDE TAB* 250 MG ONE (14:02)
[2017-02-12] MEDS ORDERED: Cyclopentolate 1% OPTH.SOL* 2 ML BTL ONE (14:02)
[2017-02-12] MEDS ORDERED: Flurbiprofen 0.03% OPTH.SOL* 2.5 ML BTL ONE (14:02)
[2017-02-12] MEDS ORDERED: Povidone Iodine 5% OPTH* 30 ML BTL ONE (14:02)
[2017-02-12] MEDS ORDERED: Phenylephrine 2.5% OPTH.SOL* 2 ML BTL ONE (14:02)
[2017-02-12] MEDS ORDERED: Proparacaine 0.5% OPHTH.SOL* 15 ML BTL ONE (14:02)
[2017-02-12] MEDS ORDERED: Lidocaine 2% EPI 1:200000 MPF* 20 ML VIAL ONE (14:02)
[2017-02-12] MEDS ORDERED: Lidocaine 1% MPF* 2 ML VIAL ONE (14:02)
== END 2017-02-12 11:03 | disposition home or self-care (01) ==
LOC: OREAST 08:16
PROVIDERS: ATTEND Specialist
DX: H25.812 Combined forms of age-related cataract, left eye (principal); I10 Essential (primary) hypertension; E03.9 Hypothyroidism, unspecified; H35.371 Puckering of macula, right eye; J45.909 Unspecified asthma, uncomplicated
CPT/HCPCS: A9270-GY; J2250; V2787

== ENCOUNTER 2017-06-10 10:25 | Emergency (ER) | payer MEDICARE ==
[2017-06-10 12:25] VITALS: BP 145/96
--- NOTE | 2017-06-10 12:25 | RAD ---
Indication: Fall, chest pain. 2 views of the chest including dual energy PA views demonstrates cardiomegaly. Elevated right hemidiaphragm is noted. Axillary dissection is noted. Left lung field is clear. IMPRESSION: Postoperative changes in the right axilla. Lungs are clear. Mild cardiomegaly is noted.
--- NOTE | 2017-06-10 12:26 | RAD ---
INDICATION: Left wrist injury. TECHNIQUE: 3 views of the left wrist were obtained. FINDINGS: The bones are in normal alignment. No fracture is seen. Joint spaces appear maintained. IMPRESSION: NO EVIDENCE FOR FRACTURE.
--- NOTE | 2017-06-10 12:33 | RAD ---
Indication: Left hand pain. 4 views of left hand demonstrates degenerative changes of the trapezium first metacarpal joint. No fracture is identified. No abnormal erosions are noted. IMPRESSION: Degenerative changes of the trapezium first metacarpal joint without evidence of fracture.
--- NOTE | 2017-06-10 12:52 | UC ---
Bri Puentes Thomas, [facility] on 06/10/17 at 1150 . Upper Extremity HPI - HPI Summary HPI Summary: The pt is a 66 y/o F [place] [facility] [place]/o CP, L hand, and L shoulder pain that began 5 days ago s/p a fall when she was walking a dog. She was holding the leash when the dog noticed a cat and suddenly ran She reports that she fell on her chest on cement. The pt describes the pain as an ache and rates the pain 4/ 10. The pain is aggravated by movement and her chest pain is aggravated by deep breaths. The patient has treated the tooth pain with Orajel BUS DRIVER. Pt additionally c/o a fractured tooth, dizziness shortly after the fall, lip abrasion, ecchymosis to her fingers, hip pain (attributed to osteoarthritis), and abrasions to her left hand. She does report that my head bounced on the cement. Pt denies LOC. She is not on blood thinners. PMHx: hypothyroidism, CA, atrial septal defect, aneurysm. SHx: no smoking, no alcohol use, no illicit drug use. She is right-handed. She also has chronic lymphedema resulting from her breast cancer treatments. She was hospitalized with PNA earlier this year. She is retired and is a former caregiver. She has recently finished physical therapy. Nurses Note: she fell last while walking the dog. She says that the leash cut into the left hand. She also landed on the left hand, chest and her chin. She c/o abrasions to the left hand, pain and swelling, chest pain, and a broken tooth ( upper front). She has been using orajel on the tooth and arthotech. - History of Current Complaint Chief Complaint: UCTrauma Stated Complaint: ARM INJURY Time Seen by Provider: 06/10/17 11:35 Hx From Patient Unobtainable Due To: Dementia Onset/Duration: Lasting Days - 5, Still Present Pain Intensity: 4 Pain Scale Used: 0-10 Numeric Character: Aching Aggravating Factor(s): Movement - and deep breaths for CP Alleviating Factor(s): Nothing Associated Signs And Symptoms: Positive: Swelling - to her left hand, Bruising - to fingers, Other - POS: broken tooth, dizziness shortly after fall, abrasions to left hand. Negative: Fever Related History: Dominant Hand Right - Allergies/Home Medications Allergies/Adverse Reactions: Allergies Allergy/AdvReac Type Severity Reaction Status Date / Time Adhesive Tape Allergy Rash Verified 06/10/17 10:53 [Tegaderm Dressing] Erythromycin Allergy Diarrhea Verified 06/10/17 10:53 PMH/Surg Hx/FS Hx/Imm Hx Previously Healthy: No - arthritis Endocrine History: Hypothyroidism Cardiovascular History: Other Other Cardiovascular History: Atrial septal defect, aneurysm Cancer History: Other Other Cancer History: POS: CA Other History Of: Negative For: Anticoagulant Therapy - Surgical History Surgical History: Yes Surgery Procedure, Year, and Place: ATYPICAL HYPERPLASIA,1993-LEFT CHEST WALL. [id number] ,(Left Hemilaminotomy or hemilaminotomies by Dr. Weiss in 2000). RSD NERVE BLOCK 1994,. 1995-HYSTERECTOMY. sinus with DR. WATKINS -2010. JASON MASTECTOMIES WITH RIGHT LYMPH NODES REMOVED -05/2014. HEMATOMA EXCISION RT SIDE MASTECTOMY SITEX2(OPENWOUND - TREATED THROUGH WOUND CLINIC),. power port placement; NOW REMOVED. 1980-SURGERY FOR ENDOMETRIOSIS- REMOVAL OF OVARY. SKIN GRAFT RIGHT BREAST WITH DR. WILKINSON IN 2014. 2015- LATISIMUS FLAP- TO THE RIGHT CHEST WOUND - Family History Known Family History: Positive: Cardiac Disease, Other - POS: CA - Social History Alcohol Use: None Substance Use Type: None Smoking Status (MU): Never Smoked Tobacco - Immunization History Most Recent Influenza Vaccination: fall 2015 Most Recent Tetanus Shot: UP TO DATE Most Recent Pneumonia Vaccination: 12/04/2016 Review of Systems Constitutional: Negative Skin: Other - JPOS: abrasions to left hand Eyes: Negative ENT: Dental Pain - with fractured tooth, Other - POS: lip abrasion Respiratory: Negative Cardiovascular: Chest Pain Gastrointestinal: Negative Genitourinary: Negative Motor: Negative Neurovascular: Negative Musculoskeletal: Edema - chronic lymphedema from brest cancer treatments, Other : - POS: L shoudler pain, L hand pain Neurological: Other - POS: dizziness shortly following her fall; NEG: LOC Psychological: Negative All Other Systems Reviewed And Are Negative: Yes Physical Exam Triage Information Reviewed: Yes Vital Signs: Initial Vital Signs Temp 98.3 F 06/10/17 10:48 Pulse 78 06/10/17 10:48 Resp 16 06/10/17 10:48 BP 160/103 06/10/17 10:48 Pulse Ox 99 06/10/17 10:48 Vital Signs Reviewed: Yes - Additional Comments Appearance: The patient is well-appearing, is in no pain distress, and is well- nourished. Eyes: Conjunctiva are clear. ENT: The hearing is grossly normal, the pharynx is normal, and the TMs are normal. There is no muffled or hoarse voice. Neck: The neck is supple and nontender. Respiratory: The chest is nontender. The lungs are clear, there are normal breath sounds, and there is no respiratory distress. Cardiovascular: THERE IS TENDERNESS OVER THE LEFT STERNUM WHERE IT JOINS THE RIBS IN THE LOWER HALF. Heart is regular rate and rhythm. There is no murmur. Abdomen: The abdomen is soft and nontender. There is no organomegaly. Bowel sounds: present Musculoskeletal: THERE IS MODERATE SWELLING OF THE DORSUM OF THE LEFT HAND CROSSING OVER THE 2ND, 3RD, 4TH, AND 5TH METACARPALS. THERE IS ECCHYMOSIS WELL OVER THE 2ND, 3RD, 4TH, AND 5TH PHALANGES. ON THE RING FINGER OF THE LEFT HAND, THERE IS DECREASED FLEXION OF THE FLEXOR DIGITORUM SUBLIMIS. THERE IS ECCHYMOSIS AT THE VOLAR ASPECT OF THE 4TH METACARPAL PHALANYGEAL JOINT. IT APPEARS THAT THE FLEXOR DIGITORUM SUPERFICIALIS IS INTACT BUT MOVEMENT IS DIMINISHED. The patient moves all extremities. Neurological: The patient is alert. Psychological: The patient displays age appropriate behavior Skin: THERE IS A SLIGHT AMOUNT OF SUBUNGAL HEMATOMA UNDER THE NAIL OF THE FOURTH FINGER. NO RELEASE IS REQUIRED. ALTHOUGH THERE IS ERYTHEMA TO THE ROUND CRUSTING, THERE DOES NOT APPEAR TO BE AN INFECTION. Negative for rashes. Diagnostics - Radiology Hand XR Xray Interpretation: No Acute Changes - Hand XR reveals Degenerative changes of the trapezium first metacarpal joint without evidence of fracture. ED physician has reviewed this report and agrees. Radiology Interpretation Completed By: Radiologist Wrist XR Xray Interpretation: No Acute Changes - Wrist XR reveals no evidence for fracture. ED physician has reviewed this report and agrees. Radiology Interpretation Completed By: Radiologist CXR Xray Interpretation: No Acute Changes - CXR reveals Postoperative changes in the right axilla. Lungs are clear. Mild cardiomegaly is noted. ED physician has reviewed this report and agrees. Radiology Interpretation Completed By: Radiologist Upper Extremity Course/Dx - Course Course Of Treatment: BP noted. Medications reviewed. Patients exam is significant for tenderness over the anterior chest. There is swelling, ecchymosis, and some erythema and crusting over the dorsum of the left hand. There are normal XR of the hand and chest. There is diminished flexion of the fourth finger although the flexor tendons appear to be intact. I recommend that she splint the hand and the fingers and follow up in 7-10 days as well as watch for infection. DDx: fracture vs. contusion; cellulitis vs. erythema of the right hand; flexion disability secondary to swelling vs flexor tendon injury of the fourth finger. The patient is diagnosed with 1. Contusion of anterior chest and dorsum of the left hand, 2. Erythema, swelling, and ecchymosis of the hand secondary to injury, 3. Diminished flexion of the fourth finger of the left hand with apparently intact flexor tendons. - Differential Dx/Diagnosis Provider Diagnoses: 1. Contusion of anterior chest and dorsum of the left hand, 2. Erythema, swelling, and ecchymosis of the hand secondary to injury, 3. Diminished flexion of the fourth finger of the left hand with apparently intact flexor tendons. Discharge - Discharge Plan Condition: Stable Disposition: HOME Patient Education Materials: Contusion in Adults (ED), Hand Sprain (ED) Referrals: Wil Bang MD [Primary Care Provider] - Additional Instructions: Thank you for helping us improve patient care by filling out the My Point Survey. Your blood pressure reading today was 160/103, indicating HYPERTENSION. Follow- up with your primary care provider within 4 weeks for blood pressure readings and further evaluation. WE DISCUSSED: 1. You have bruised the area of your joints between your sternum and ribs. The radiologist doesn't see any new injury to bones or your lungs. 2. The injury to your left hand has resulted in decreased movement and strength. This should get better, especially the movement to make a fist including your ring finger. 3. use splint and "ayesha tape" two fingers together to give support. Use this for 3-7 days. Try warm moist heat in the morning; elevate and ice if it hurts during the day. 4. Watch for any signs of infection: increasing redness, swelling, temperature. 5. Re check with orthopedics if you have continued pain or disability in 2 weeks. Sooner for any new symptoms/ The documentation as recorded by the Bri guerrero Thomas accurately reflects the service I personally performed and the decisions made by me, Hermelindo Willoughby MD.
== END 2017-06-10 13:04 | disposition home or self-care (01) ==
LOC: UCEAST 10:25
DX: S20.219A Contusion of unspecified front wall of thorax, initial encounter (principal); S60.222A Contusion of left hand, initial encounter; S02.5XXA Fracture of tooth (traumatic), initial encounter for closed fracture; S00.511A Abrasion of lip, initial encounter; W18.30XA Fall on same level, unspecified, initial encounter; Y93.K1 Activity, walking an animal; Y92.9 Unspecified place or not applicable; E03.9 Hypothyroidism, unspecified; Q21.1 Atrial septal defect; Z88.1 Allergy status to other antibiotic agents; Z91.048 Other nonmedicinal substance allergy status
CPT/HCPCS: 71020; 99212; G0463

== ENCOUNTER 2018-02-10 05:54 | Inpatient (IN) | payer MEDICARE ==
[~2018-02-10 05:54] MED LIST changes: -Acetaminophen TAB* 325 MG PO PRN; +Buffered Lidocaine 0.9% SYRIN* 5 ML/SYR SYRINGE INTRADERM ONE; -Buffered Lidocaine 1% SYRIN* 3 ML/SYR SYRINGE INTRADERM ONE
--- OUTSIDE RECORDS SUMMARY | 2018-02-10 06:00 | XMS REPORT ---
:1950 External Reference #:[id number] Author Organization [employer] Address [address] [address] Phone [phone] Care Team Providers Name Role Phone Wil Bang MD Primary Care Physician Unavailable Payers Type Date Identification Numbers Payment Provider Subscriber Commercial Policy Number: [id number] [employer]Tod[employer] Options Anali Bassett PayID: [id number] [address] [address] Attn: [place] [address] [facility] Expires: 2016 Policy Number: Medicare Anali Bassett [id number] PayID: [id number] [address] [place] [address] Problems Date Description Provider Status Onset: 01/31/2014 Palpitations Maxime Brown M.D. Active Onset: 01/31/2014 Paroxysmal supraventricular Maxime Brown M.D. Active tachycardia Onset: 01/31/2014 Ostium secundum type atrial septal Maxime Brown M.D. Active defect Onset: 01/31/2014 Electrocardiogram abnormal Maxime Brown M.D. Active Onset: 05/01/2015 Cervical spondylosis without Lance Shipley M.D. Active myelopathy Onset: 07/17/2016 Localized, primary osteoarthritis River Dent M.D. Active Onset: 08/04/2017 Brachial neuritis Greyson Mock M.D. Active Family History Date Family Member(s) Problem(s) Comments General Heart Disease Mother, grandmother, brothers General Lung Cancer Mother, with mets General Colon Cancer General Stomach Cancer General Cancer Social History Type Date Description Comments Marital Status Single Lives With Alone Occupation Disabled Work Status Currently Working ETOH Use Denies alcohol use Smoking Patient has never smoked Recreational Drug Use Denies Drug Use Daily Caffeine Consumes on average 1 cup of occasional green tea hot tea per day Exercise Type/Frequency Exercises sporadically Tries to take at least a small walk every day Allergies, Adverse Reactions, Alerts Date Description Reaction Status Severity Comments 01/31/2014 Erythromycin Nausea and Vomiting active Medications Medication Date Status Form Strength Qnty SIG Indications Ordering Provider Oxycodone-Acetam 01/28 Active Tablets 5-325mg 30tab 1 by mouth M17.11 Dirk inophen s every 4-6 Filipe, hours as M.DRad needed for pain. Diltiazem CD 12/23 Active Caps ER 120mg 90cap 2 by mouth I10 24HR s every day Rachelle Brown M.D. Furosemide 10/04 Active Tablets 20mg 45tab 1/2 by s mouth three F. times per jeff Brown M.D. Klor-Con M20 05/02 Active Tablets ER 20Meq 60tab 1 by mouth s daily Rachelle Brown M.D. Levothyroxine Active Tablets 112mcg 90tab 1 by mouth Unknown / s every day for 6 days then 1/2 tab by mouth for one day repeat weekly. Centrum Silver Active Tablets 1 by mouth Unknown /0000 every day Colace Active Capsules 100mg 60cap 1 by mouth Unknown /0000 s daily prn Metamucil Active Capsules 0.52gm 60cap 1 cap by Unknown /0000 s mouth daily prn Symbicort Active Aerosol 160-4.5mc 90day 2 puffs by Unknown /0000 g/Act sup mouth qd Gabapentin Active Capsules 300mg 90cap 2 tablet Unknown /0000 s po tid ( dose change Dr. Larsen) Senna Active Tablets 8.6mg 30tab take one Unknown /0000 s tablet by mouth at bedtime (constipati on) as needed Imodium A-D Active Liquid 1mg/7.5ML as needed Unknown /0000 (rare use) Vitamin D-3 Active Capsules 1000Unit 90cap 1 by mouth Unknown /0000 s every day Tizanidine HCL Active Capsules 4mg 1 po bid Unknown / Ventolin HFA Active Aerosol 108(90Bas 2 puffs by Unknown /0000 e) mouth four mcg/Act times a day as needed Guaifenesin ER Active Tablets ER 1200mg 1 by mouth Unknown 12HR twice a day prn Misoprostol Active Tablets 200mcg 1 PO bid Unknown Tylenol 8 Hour Active Tablets ER 650mg 1 tab 2-3 Unknown Arthritis Pain /0000 times daily Anastrozole Active Tablets 1mg 1 po qd Unknown Diclofenac Active Tablets DR 75mg take 1 Unknown Sodium /0000 tablet twice a day with food Systane Active Solution 0.4-0.3% 2-3 times Unknown daily prn Miralax Active Powder 1/2 cap Unknown / every other day (rare use) Fluticasone Active Suspension 50mcg/Act Pop, ZACK Boateng Forearm Crutches 11/10 Hx M17.11 Dirk Mei Dent M.DRad 12/22 Amlodipine 09/24 Hx Tablets 2.5mg 180ta 1 tab twice I10 Maxime Bes bs a day Rachelle Brown, 12/23 M.D. Klor-Con M20 05/02 Hx Tablets ER 20Meq 90tab 1 by po bid s Rachelle Brown, 05/02 M.D. Eplerenone 05/02 Hx Tablets 25mg 100ta 1 by mouth 401.0 bs every day Rachelle Brown, 07/19 M.D. Furosemide 05/02 Hx Tablets 20mg 1 by mouth Ryanne Green F. - Thurs or joelle Brown, 10/04 directed M.D. Compazine Hx Tablets 10mg 20tab 1 every 6 Unknown /0000 s hours as - needed 10/03 nausea [address]th[address] Hx Tablets [address] 75-0.2mg 60tab take one Unknown /0000 s tablet by - mouth twice 12/22 /2017 Dexamethasone Hx Tablets 4mg 90tab 2 tabs by Unknown /0000 s mouth twice - a day with 06/08 chemotherap /2013 y treatments Furosemide Hx Tablets 20mg 7tabs 1 by mouth Unknown /0000 bid - 06/08 Tizanidine HCL Hx Capsules 4mg 30cap 1/2 tab am, Unknown /0000 s 1 tab pm - 05/01 Flovent HFA Hx Aerosol 220mcg/Ac 1unit inhale 2 Unknown /0000 t s puffs by - mouth twice 05/02 Hydrocodone Hx Tablets 5-325mg 30tab 1 tab every Unknown Bitartrate/Aceta /0000 s 6 hours prn minophen - 05/04 Flunisolide Hx Solution 25mcg/Act 1unit 2 sprays Unknown /0000 (0.025%) s each - nostril 01/26 everyday as needed Arimidex Hx Tablets 1mg 90tab 1 by mouth Unknown /0000 s every day - 12/[address] 20mg 1 by mouth Unknown /0000 Part every other - day (as of 01/1608/06/17) Cyclobenzaprine Hx Tablets 5mg 1 tablet by Unknown HCL /0000 mouth three - times a day 01/26 as needed Vitamin A Hx Capsules 8000Unit 1 a day Unknown /0000 - 09/23 Turmeric Hx Capsules 500mg 1 PO bid Unknown /0000 - 12/22 Medications Administered in Office Medication Date Status Form Strength Qnty SIG Indications Ordering Provider Depomedrol Administered Injection Dirk Filipe, 40MG 018 M.D. Depomedrol Administered Injection Dirk Filipe, 40MG 018 M.D. Depomedrol Administered Injection Dirk Filipe, 40MG 017 M.D. Depomedrol Administered Injection Dirk Filipe, 40MG 017 M.D. Depomedrol Administered Injection Geri 40MG 017 JOSE Shetty Depomedrol Administered Injection Geri 40MG 017 JOSE Shetty Depomedrol Administered Injection Dirk Filipe, 40MG 017 M.D. Depomedrol Administered Injection Dirk Filipe, 40MG 016 M.D. Depomedrol Administered Injection Dirk Filipe, 40MG 016 M.D. Depomedrol Administered Injection Dirk Filipe, 40MG 016 M.D. Depomedrol Administered Injection Dirk Filipe, 40MG 016 M.D. Depomedrol Administered Injection Dirk Filipe, 40MG 016 M.D. Depomedrol Administered Injection Dirk Filipe, 40MG 016 M.D. Inj, Administered Injection Fili D. Regadenoson, 014 Vandana Saez 0.1 MG Technetium TC Administered Injection Fili Tasneem 99M 014 Vandana Saez Tetrofosmin, Per Unit Dose Up To 40 Millicuries Vital Signs Date Vital Result Comment 01/28/2018 Height 66.5 inches 5'6.50" Weight 192.00 lb BP Systolic 118 mmHg BP Diastolic 68 mmHg Respiratory Rate 20 /min Body Temperature 98.2 F Pain Level 4 BMI (Body Mass Index) 30.5 kg/m2 01/16/2018 Height 66.5 inches 5'6.50" Weight 196.00 lb Heart Rate 64 /min BP Systolic Sitting 128 mmHg L/A Reg cuff BP Diastolic Sitting 74 mmHg L/A Reg cuff BMI (Body Mass Index) 31.2 kg/m2 Ejection Fraction 55-60% Echo 12/25/2017 12/31/2017 Heart Rate 72 /min BP Systolic Sitting 124 mmHg BP Diastolic Sitting 74 mmHg 12/23/2017 Height 66.5 inches 5'6.50" Weight 197.38 lb with shoes Heart Rate 76 /min BP Systolic Sitting 138 mmHg LA, l cuff BP Diastolic Sitting 88 mmHg LA, l cuff BMI (Body Mass Index) 31.4 kg/m2 Ejection Fraction 55%-60% echo 08/14/17 11/10/2017 Height 66.5 inches 5'6.50" Weight 197.00 lb BP Systolic 138 mmHg BP Diastolic 78 mmHg Respiratory Rate 20 /min Pain Level 5 BMI (Body Mass Index) 31.3 kg/m2 08/25/2017 Height 66.5 inches 5'6.50" Weight 196.00 lb Heart Rate 72 /min BP Systolic Sitting 140 mmHg BP Diastolic Sitting 80 mmHg Pain Level 6 BMI (Body Mass Index) 31.2 kg/m2 08/06/2017 Height 66.5 inches 5'6.50" Weight 196.38 lb with shoes Heart Rate 68 /min BP Systolic Sitting 140 mmHg LA lrg cuff BP Diastolic Sitting 86 mmHg LA lrg cuff BMI (Body Mass Index) 31.2 kg/m2 Ejection Fraction 55% - 60% echo 10/29/16 08/04/2017 Height 66.5 inches 5'6.50" Weight 197.00 lb Heart Rate 82 /min BP Systolic Sitting 120 mmHg BP Diastolic Sitting 72 mmHg Pain Level 5 BMI (Body Mass Index) 31.3 kg/m2 05/05/2017 Height 66.5 inches 5'6.50" Weight 203.75 lb w/shoes Heart Rate 72 /min 73 home cuff BP Systolic Sitting 140 mmHg LA lg cuff BP Diastolic Sitting 80 mmHg LA lg cuff BP Systolic Standing 134 mmHg home cuff BP Diastolic Standing 95 mmHg home cuff BMI (Body Mass Index) 32.4 kg/m2 Ejection Fraction 55-60% Echo 10/29/16 03/19/2017 Height 66.5 inches 5'6.50" Weight 210.00 lb Heart Rate 86 /min BP Systolic 144 mmHg BP Diastolic 98 mmHg Body Temperature 98.2 F BMI (Body Mass Index) 33.4 kg/m2 01/27/2017 Height 66.5 inches 5'6.50" Weight 212.00 lb w/shoes Heart Rate 74 /min BP Systolic 144 mmHg home cuff BP Diastolic 96 mmHg home cuff BP Systolic Sitting 160 mmHg LA lg cuff BP Diastolic Sitting 90 mmHg LA lg cuff BP Systolic Standing 138 mmHg la repeat sitting BP Diastolic Standing 81 mmHg la repeat sitting BMI (Body Mass Index) 33.7 kg/m2 Ejection Fraction 55-60% Echo 10/29/16 12/11/2016 Height 66.5 inches 5'6.50" Weight 216.00 lb BP Systolic Sitting 154 mmHg BP Diastolic Sitting 82 mmHg Respiratory Rate 16 /min Pain Level 5 BMI (Body Mass Index) 34.3 kg/m2 10/31/2016 Height 66.5 inches 5'6.50" Weight 214.75 lb Heart Rate 66 /min irreg BP Systolic Sitting 142 mmHg LA, large BP Diastolic Sitting 94 mmHg LA, large BMI (Body Mass Index) 34.1 kg/m2 Ejection Fraction 55%-60% 10/29/16 10/23/2016 Height 66.5 inches 5'6.50" Weight 205.00 lb Pain Level 7 BMI (Body Mass Index) 32.6 kg/m2 09/24/2016 Height 66.5 inches 5'6.50" Weight 218.00 lb w/shoes Heart Rate 74 /min BP Systolic Sitting 142 mmHg LA lg cuff BP Diastolic Sitting 98 mmHg LA lg cuff BMI (Body Mass Index) 34.7 kg/m2 Ejection Fraction 55-60% Echo 09/05/15 07/17/2016 Height 66.5 inches 5'6.50" Weight 205.00 lb Pain Level 6 BMI (Body Mass Index) 32.6 kg/m2 04/17/2016 Height 66.5 inches 5'6.50" Weight 205.00 lb Heart Rate 85 /min BP Systolic 150 mmHg BP Diastolic 100 mmHg BMI (Body Mass Index) 32.6 kg/m2 01/10/2016 Height 66.50 inches 5'6.50" Weight 203.00 lb Heart Rate 79 /min BP Systolic 130 mmHg BP Diastolic 90 mmHg BMI (Body Mass Index) 32.3 kg/m2 08/17/2015 Height 66.5 inches 5'6.50" Weight 203.75 lb w/ shoes Heart Rate 80 /min BP Systolic Sitting 136 mmHg LA, lg cuff BP Diastolic Sitting 98 mmHg LA, lg cuff BP Systolic Recheck 146 mmHg la sit repeat BP Diastolic Recheck 90 mmHg la sit repeat BMI (Body Mass Index) 32.4 kg/m2 Ejection Fraction 55-60% 12/27/14 ECHO 05/01/2015 Height 66.5 inches 5'6.50" Weight 198.00 lb Heart Rate 76 /min BP Systolic Sitting 180 mmHg BP Diastolic Sitting 110 mmHg Pain Level 5 neck/head BMI (Body Mass Index) 31.5 kg/m2 10/04/2014 Height 66.5 inches 5'6.50" Weight 186.00 lb w/o shoes Heart Rate 78 /min BP Systolic Sitting 160 mmHg la reg cuff BP Diastolic Sitting 100 mmHg la reg cuff Respiratory Rate 12 /min BMI (Body Mass Index) 29.6 kg/m2 08/03/2014 Height 66.5 inches 5'6.50" Weight 184.25 lb Heart Rate 84 /min BP Systolic 152 mmHg LA reg cuff BP Diastolic 98 mmHg LA reg cuff BMI (Body Mass Index) 29.3 kg/m2 07/12/2014 Height 66.5 inches 5'6.50" Weight 182.25 lb Heart Rate 74 /min BP Systolic 168 mmHg LA reg cuff BP Diastolic 101 mmHg LA reg cuff BP Systolic Sitting 152 mmHg LA reg cuff BP Diastolic Sitting 100 mmHg LA reg cuff Respiratory Rate 14 /min BMI (Body Mass Index) 29.0 kg/m2 06/09/2014 Height 66.5 inches 5'6.50" Weight 180.25 lb with shoes Heart Rate 72 /min BP Systolic Sitting 126 mmHg LA reg cuff BP Diastolic Sitting 74 mmHg LA reg cuff Respiratory Rate 15 /min BMI (Body Mass Index) 28.7 kg/m2 05/02/2014 Height 66.5 inches 5'6.50" Weight 170.00 lb Heart Rate 68 /min BP Systolic Sitting 140 mmHg BP Diastolic Sitting 94 mmHg BMI (Body Mass Index) 27.0 kg/m2 01/31/2014 Height 66.5 inches 5'6.50" Weight 190.00 lb Heart Rate 80 /min BP Systolic 160 mmHg right arm, reg cuff BP Diastolic 92 mmHg right arm, reg cuff BP Systolic Sitting 144 mmHg left arm, reg cuff BP Diastolic Sitting 82 mmHg left arm, reg cuff BP Systolic Standing 126 mmHg left arm, reg cuff BP Diastolic Standing 80 mmHg left arm, reg cuff Respiratory Rate 20 /min BMI (Body Mass Index) 30.2 kg/m2 Results Test Date Test Result H/L Range Note CBC Auto Diff 12/24/2017 White Blood Count 6.8 10^3/uL 3.5-10.8 Red Blood Count 4.73 10^6/uL 4.0-5.4 Hemoglobin 13.4 g/dL 12.0-16.0 Hematocrit 40 % 35-47 Mean Corpuscular Volume 85 fL 80-97 Mean Corpuscular Hemoglobin 28 pg 27-31 Mean Corpuscular HGB Conc 33 g/dL 31-36 Red Cell Distribution Width 15 % 10.5-15 Platelet Count 288 10^3/uL 150-450 Mean Platelet Volume 7.7 um3 7.4-10.4 Abs Neutrophils 5.2 10^3/uL 1.5-7.7 Abs Lymphocytes 1.1 10^3/uL 1.0-4.8 Abs Monocytes 0.4 10^3/uL 0-0.8 Abs Eosinophils 0.1 10^3/uL 0-0.6 Abs Basophils 0.1 10^3/uL 0-0.2 Abs Nucleated RBC 0 10^3/uL Granulocyte % 76.0 % 38-83 Lymphocyte % 15.5 % Low 25-47 Monocyte % 6.0 % 0-7 Eosinophil % 1.5 % 0-6 Basophil % 1.0 % 0-2 Nucleated Red Blood Cells % 0 Comp Metabolic Panel 12/24/2017 Sodium 138 mmol/L 133-145 Potassium 4.2 mmol/L 3.5-5.0 Chloride 103 mmol/L 101-111 Co2 Carbon Dioxide 29 mmol/L 22-32 Anion Gap 6 mmol/L 2-11 Glucose 121 mg/dL High 70-100 Blood Urea Nitrogen 9 mg/dL 6-24 Creatinine 0.74 mg/dL 0.51-0.95 BUN/Creatinine Ratio 12.2 8-20 Calcium 9.6 mg/dL 8.6-10.3 Total Protein 6.4 g/dL 6.4-8.9 Albumin 4.1 g/dL 3.2-5.2 Globulin 2.3 g/dL 2-4 Albumin/Globulin Ratio 1.8 1-3 Total Bilirubin 0.60 mg/dL 0.2-1.0 Alkaline Phosphatase 52 U/L 34-104 Alt 21 U/L 7-52 Ast 21 U/L 13-39 Egfr Non- 78.3 >60 Egfr 100.7 >60 1 Laboratory test finding 12/24/2017 TSH (Thyroid Stim 0.32 mcIU/mL Low 0.34 -5.60 2 Horm) Magnesium 2.0 mg/dL 1.9-2.7 3 Arthritis Panel 11/11/2017 Erythrocyte Sed Rate 26 mm/Hr 0-40 Uric Acid 4.2 mg/dL 2.3-6.6 Rheumatoid Factor <15 IU/mL <15 4 Anti-Nuclear Antibody 0.4 U 5 Cyclic Citrullinated Peptide <15.6 U 6 Interpretation See Comment 7 Laboratory test finding 08/17/2015 B-Type Natriuretic 43 pg/mL 8 Peptide BNP CBC Auto Diff 08/17/2015 White Blood Count 5.6 10^3/uL 4.8-10.8 Red Blood Count 4.59 10^6/uL 4.0-5.4 Hemoglobin 12.4 g/dL 12.0-16.0 Hematocrit 39 % 35-47 Mean Corpuscular Volume 86 fL 80-97 Mean Corpuscular Hemoglobin 27 pg 27-31 Mean Corpuscular HGB Conc 32 g/dL 31-36 Red Cell Distribution Width 16 % High 10.5-15 Platelet Count 442 10^3/uL 150-450 Mean Platelet Volume 7 um3 Low 7.4-10.4 Abs Neutrophils 4.1 10^3/uL 1.5-7.7 Abs Lymphocytes 0.9 10^3/uL Low 1.0-4.8 Abs Monocytes 0.4 10^3/uL 0-0.8 Abs Eosinophils 0.2 10^3/uL 0-0.6 Abs Basophils 0.1 10^3/uL 0-0.2 Abs Nucleated RBC 0 10^3/uL Granulocyte % 72.7 % 38-83 Lymphocyte % 15.7 % Low 25-47 Monocyte % 7.6 % 1-9 Eosinophil % 3.0 % 0-6 Basophil % 1.0 % 0-2 Nucleated Red Blood Cells % 0 Lipid Panel - JF 08/17/2015 Creatine Kinase(CK) 152 U/L 10-223 Comp Metabolic Panel 08/17/2015 Sodium 138 mmol/L 133-145 Potassium 4.4 mmol/L 3.5-5.0 Chloride 101 mmol/L 101-111 Co2 Carbon Dioxide 30 mmol/L 22-32 Anion Gap 7 mmol/L 2-11 Glucose 94 mg/dL 70-100 Blood Urea Nitrogen 9 mg/dL 6-24 Creatinine 0.78 mg/dL 0.51-0.95 BUN/Creatinine Ratio 11.5 8-20 Calcium 9.6 mg/dL 8.6-10.3 Total Protein 6.8 g/dL 6.4-8.9 Albumin 3.9 g/dL 3.2-5.2 Globulin 2.9 g/dL 2-4 Albumin/Globulin Ratio 1.3 1-3 Total Bilirubin 0.30 mg/dL 0.2-1.0 Alkaline Phosphatase 62 U/L 34-104 Alt 19 U/L 7-52 Ast 22 U/L 13-39 Egfr Non- 74.4 >60 Egfr 95.6 >60 9 Lipid Profile (Trig/Chol/HDL) 08/17/2015 Triglycerides 89 mg/dL 10 Cholesterol 200 mg/dL 11 HDL Cholesterol 51.5 mg/dL 12 LDL Cholesterol 131 mg/dL 13 Laboratory test finding 08/17/2015 Magnesium 2.1 mg/dL 1.9-2.7 Laboratory test finding 10/07/2014 B Type Natriuretic Peptide 60 pg/mL 14 Laboratory test finding 10/07/2014 Magnesium 2.0 mg/dL 1.9-2.7 Comp Metabolic Panel 10/07/2014 Sodium 135 mmol/L 133-145 Potassium 4.3 mmol/L 3.5-5.0 Chloride 104 mmol/L 101-111 Co2 Carbon Dioxide 29 mmol/L 22-32 Anion Gap 2 mmol/L 2-11 Glucose 100 mg/dL 70-100 Blood Urea Nitrogen 9 mg/dL 6-24 Creatinine 0.75 mg/dL 0.51-0.95 BUN/Creatinine Ratio 12.0 8-20 Calcium 9.4 mg/dL 8.6-10.3 Total Protein 6.6 g/dL 6.4-8.9 Albumin 3.7 g/dL 3.2-5.2 Globulin 2.9 g/dL 2-4 Albumin/Globulin Ratio 1.3 1-3 Total Bilirubin 0.40 mg/dL 0.2-1.0 Alkaline Phosphatase 52 U/L 34-104 Alt 27 U/L 7-52 Ast 23 U/L 13-39 Egfr Non- 77.8 >60 Egfr 100.1 >60 15 CBC Auto Diff 10/07/2014 White Blood Count 7.5 10^3/uL 4.8-10.8 Red Blood Count 4.31 10^6/uL 4.0-5.4 Hemoglobin 12.5 g/dL 12.0-16.0 Hematocrit 37 % 35-47 Mean Corpuscular Volume 87 fL 80-97 Mean Corpuscular Hemoglobin 29 pg 27-31 Mean Corpuscular HGB Conc 34 g/dL 31-36 Red Cell Distribution Width 15 % 10.5-15 Platelet Count 252 10^3/uL 150-450 Mean Platelet Volume 7 um3 Low 7.4-10.4 Abs Neutrophils 6.3 10^3/uL 1.5-7.7 Abs Lymphocytes 0.6 10^3/uL Low 1.0-4.8 Abs Monocytes 0.5 10^3/uL 0-0.8 Abs Eosinophils 0.1 10^3/uL 0-0.6 Abs Basophils 0.1 10^3/uL 0-0.2 Abs Nucleated RBC 0 10^3/uL Granulocyte % 84.5 % High 38-83 Lymphocyte % 7.3 % Low 25-47 Monocyte % 6.1 % 1-9 Eosinophil % 1.1 % 0-6 Basophil % 1.0 % 0-2 Nucleated Red Blood Cells % 0 CBC Auto Diff 08/26/2014 White Blood Count 5.4 10^3/uL 4.8-10.8 Red Blood Count 4.43 10^6/uL 4.0-5.4 Hemoglobin 12.7 g/dL 12.0-16.0 Hematocrit 39 % 35-47 Mean Corpuscular Volume 87 fL 80-97 Mean Corpuscular Hemoglobin 29 pg 27-31 Mean Corpuscular HGB Conc 33 g/dL 31-36 Red Cell Distribution Width 16 % High 10.5-15 Platelet Count 218 10^3/uL 150-450 Mean Platelet Volume 7 um3 Low 7.4-10.4 Abs Neutrophils 4.6 10^3/uL 1.5-7.7 Abs Lymphocytes 0.3 10^3/uL Low 1.0-4.8 Abs Monocytes 0.4 10^3/uL 0-0.8 Abs Eosinophils 0.1 10^3/uL 0-0.6 Abs Basophils 0 10^3/uL 0-0.2 Abs Nucleated RBC 0 10^3/uL Granulocyte % 84.7 % High 38-83 Lymphocyte % 6.1 % Low 25-47 Monocyte % 7.0 % 1-9 Eosinophil % 1.5 % 0-6 Basophil % 0.7 % 0-2 Nucleated Red Blood Cells % 0 Comp Metabolic Panel 08/26/2014 Sodium 138 mmol/L 133-145 Potassium 4.0 mmol/L 3.5-5.0 16 Chloride 104 mmol/L 101-111 Co2 Carbon Dioxide 29 mmol/L 22-32 Anion Gap 5 mmol/L 2-11 Glucose 97 mg/dL 70-100 Blood Urea Nitrogen 12 mg/dL 6-24 Creatinine 0.67 mg/dL 0.51-0.95 BUN/Creatinine Ratio 17.9 8-20 Calcium 9.5 mg/dL 8.6-10.3 Total Protein 6.5 g/dL 6.4-8.9 Albumin 3.8 g/dL 3.2-5.2 Globulin 2.7 g/dL 2-4 Albumin/Globulin Ratio 1.4 1-3 Total Bilirubin 0.50 mg/dL 0.2-1.0 Alkaline Phosphatase 47 U/L 34-104 Alt 28 U/L 7-52 Ast 29 U/L 13-39 Egfr Non- 88.6 >60 Egfr 114.0 >60 17 Laboratory test finding 08/26/2014 Magnesium 2.0 mg/dL 1.9-2.7 TSH (Thyroid Stimulating Horm) 0.84 IU/mL 0.34-5.60 Laboratory test finding 07/15/2014 B Type Natriuretic Peptide 67 pg/mL 18 Troponin I 0.01 ng/mL <0.03 19 Magnesium 1.9 mg/dL 1.9-2.7 Basic Metabolic Panel 07/15/2014 Sodium 139 mmol/L 133-145 Potassium 4.2 mmol/L 3.7-5.6 Chloride 105 mmol/L 101-111 Co2 Carbon Dioxide 28 mmol/L 22-32 Anion Gap 6 mmol/L 2-11 Glucose 99 mg/dL 70-100 Blood Urea Nitrogen 15 mg/dL 6-24 Creatinine 0.73 mg/dL 0.51-0.95 BUN/Creatinine Ratio 20.5 High 8-20 Calcium 8.9 mg/dL 8.6-10.3 Egfr Non- 80.5 >60 Egfr 103.6 >60 20 Laboratory test finding 06/15/2014 Troponin I 0.01 ng/mL <0.03 21 Magnesium 2.0 mg/dL 1.9-2.7 Basic Metabolic Panel 06/15/2014 Sodium 141 mmol/L 133-145 Potassium 4.4 mmol/L 3.7-5.6 Chloride 106 mmol/L 101-111 Co2 Carbon Dioxide 33 mmol/L High 22-32 Anion Gap 2 mmol/L 2-11 Glucose 87 mg/dL 70-100 Blood Urea Nitrogen 13 mg/dL 6-24 Creatinine 0.69 mg/dL 0.51-0.95 BUN/Creatinine Ratio 18.8 8-20 Calcium 9.3 mg/dL 8.6-10.3 Egfr Non- 85.9 >60 Egfr 110.5 >60 22 CKMB 05/13/2014 CKMB ng/mL 1.7 ng/mL 0.6-6.3 Laboratory test finding 05/13/2014 Troponin I 0.04 ng/mL <0.03 23 Basic Metabolic Panel 05/06/2014 Sodium 139 mmol/L 133-145 Potassium 4.1 mmol/L 3.7-5.6 Chloride 106 mmol/L 101-111 Co2 Carbon Dioxide 29 mmol/L 22-32 Anion Gap 4 mmol/L 2-11 Glucose 108 mg/dL High 70-100 Blood Urea Nitrogen 9 mg/dL 6-24 Creatinine 0.73 mg/dL 0.51-0.95 BUN/Creatinine Ratio 12.3 8-20 Calcium 8.8 mg/dL 8.6-10.3 Egfr Non- 80.5 >60 Egfr 103.6 >60 24 Laboratory test finding 05/06/2014 Troponin I 0.06 ng/mL <0.03 25 Magnesium 2.0 mg/dL 1.9-2.7 C Reactive Protein 1.27 mg/L < 5.00 26 Erythrocyte Sed Rate 15 mm/Hr 0-30 Basic Metabolic Panel 03/21/2014 Sodium 139 mmol/L 133-145 Potassium 3.5 mmol/L Low 3.7-5.6 Chloride 108 mmol/L 101-111 Co2 Carbon Dioxide 27 mmol/L 22-32 Anion Gap 4 mmol/L 2-11 Glucose 96 mg/dL 70-100 Blood Urea Nitrogen 13 mg/dL 6-24 Creatinine 0.64 mg/dL 0.51-0.95 BUN/Creatinine Ratio 20.3 High 8-20 Calcium 8.6 mg/dL 8.6-10.3 Egfr Non- 93.7 >60 Egfr 120.5 >60 27 Laboratory test finding 03/21/2014 Magnesium 2.0 mg/dL 1.9-2.7 CBC No Diff 03/21/2014 White Blood Count 5.0 10^3/uL 4.8-10.8 Red Blood Count 3.51 10^6/uL Low 4.0-5.4 Hemoglobin 10.2 g/dL Low 12.0-16.0 Hematocrit 30 % Low 35-47 Mean Corpuscular Volume 85 fL 80-97 Mean Corpuscular Hemoglobin 29 pg 27-31 Mean Corpuscular HGB Conc 34 g/dL 31-36 Red Cell Distribution Width 17 % High 10.5-15 Platelet Count 274 10^3/uL 150-450 Mean Platelet Volume 7 um3 Low 7.4-10.4 1 Because ethnic data is not always readily available, this report includes an eGFR for both -Americans and non- Americans. The National Kidney Disease Education Program (NKDEP) does not endorse the use of the MDRD equation for patients that are not between the ages of 18 and 70, are , have extremes of body size, muscle mass, or nutritional status, or are non- or non-. According to the National Kidney Foundation, irrespective of diagnosis, the stage of the disease is based on the level of kidney function: Stage Description GFR(mL/min/1.73 m(2)) 1 Kidney damage with normal or decreased GFR 90 2 Kidney damage with mild decrease in GFR 60-89 3 Moderate decrease in GFR 30-59 4 Severe decrease in GFR 15-29 5 Kidney failure <15 (or dialysis) 2 cc pmd Copy Result to: WIL BANG ([id number]) 3 cc pmd Copy Result to: WIL BANG ([id number]) 4 Test Performed by: [address] [id number] 5 REFERENCE VALUE <=1.0 (Negative) 6 REFERENCE VALUE <20.0 (Negative) 7 Tests for antibodies to dsDNA and LAURA antigens are not performed automatically unless the SUSIE result is > or= 3.0 U. Studies performed at [facility] indicate that positive SUSIE results <3.0 U are rarely accompanied by positive second order tests. Test Performed by: [facility] [address] [address] 8 >100 to <200 pg/mL: likely compensated congestive heart failure (CHF) 200 to 400 pg/mL: likely moderate CHF >400 pg/mL: likely moderate to severe CHF 9 Because ethnic data is not always readily available, this report includes an eGFR for both -Americans and non- Americans. The National Kidney Disease Education Program (NKDEP) does not endorse the use of the MDRD equation for patients that are not between the ages of 18 and 70, are , have extremes of body size, muscle mass, or nutritional status, or are non- or non-. According to the National Kidney Foundation, irrespective of diagnosis, the stage of the disease is based on the level of kidney function: Stage Description GFR(mL/min/1.73 m(2)) 1 Kidney damage with normal or decreased GFR 90 2 Kidney damage with mild decrease in GFR 60-89 3 Moderate decrease in GFR 30-59 4 Severe decrease in GFR 15-29 5 Kidney failure <15 (or dialysis) 10 Desirable <150 Borderline high 150-199 High 200-499 Very High >500 11 Desirable <200 Borderline high 200-239 High >239 12 Low <40 Desirable: 40-60 High: >60 13 Desirable: <100 mg/dL Near Optimal: 100-129 mg/dL Borderline High: 130-159 mg/dL High: 160-189 mg/dL Very High: >189 mg/dL 14 >100 to <200 pg/mL: likely compensated congestive heart failure (CHF) 200 to 400 pg/mL: likely moderate CHF >400 pg/mL: likely moderate to severe CHF [facility] 15 Because ethnic data is not always readily available, this report includes an eGFR for both -Americans and non- Americans. The National Kidney Disease Education Program (NKDEP) does not endorse the use of the MDRD equation for patients that are not between the ages of 18 and 70, are , have extremes of body size, muscle mass, or nutritional status, or are non- or non-. According to the [employer], irrespective of diagnosis, the stage of the disease is based on the level of kidney function: Stage Description GFR(mL/min/1.73 m(2)) 1 Kidney damage with normal or decreased GFR 90 2 Kidney damage with mild decrease in GFR 60-89 3 Moderate decrease in GFR 30-59 4 Severe decrease in GFR 15-29 5 Kidney failure <15 (or dialysis) 16 Potassium reference range changed effective 08/07/14 17 Because ethnic data is not always readily available, this report includes an eGFR for both -Americans and non- Americans. The National Kidney Disease Education Program (NKDEP) does not endorse the use of the MDRD equation for patients that are not between the ages of 18 and 70, are , have extremes of body size, muscle mass, or nutritional status, or are non- or non-. According to the [employer], irrespective of diagnosis, the stage of the disease is based on the level of kidney function: Stage Description GFR(mL/min/1.73 m(2)) 1 Kidney damage with normal or decreased GFR 90 2 Kidney damage with mild decrease in GFR 60-89 3 Moderate decrease in GFR 30-59 4 Severe decrease in GFR 15-29 5 Kidney failure <15 (or dialysis) 18 >100 to <200 pg/mL: likely compensated congestive heart failure (CHF) 200 to 400 pg/mL: likely moderate CHF >400 pg/mL: likely moderate to severe CHF [place] [facility] 19 Reference Range and Interpretation: TnI (ng/mL) Interpretation Less Than 0.03 ng/mL Not supportive of diagnosis of MS 0.03 - 0.50 ng/mL Indeterminate: suggest serial studies if clinically indicated. Greater than 0.5 ng/mL Consistent with diagnosis of MS 20 Because ethnic data is not always readily available, this report includes an eGFR for both -Americans and non- Americans. The National Kidney Disease Education Program (NKDEP) does not endorse the use of the MDRD equation for patients that are not between the ages of 18 and 70, are , have extremes of body size, muscle mass, or nutritional status, or are non- or non-. According to the [employer], irrespective of diagnosis, the stage of the disease is based on the level of kidney function: Stage Description GFR(mL/min/1.73 m(2)) 1 Kidney damage with normal or decreased GFR 90 2 Kidney damage with mild decrease in GFR 60-89 3 Moderate decrease in GFR 30-59 4 Severe decrease in GFR 15-29 5 Kidney failure <15 (or dialysis) 21 Reference Range and Interpretation: TnI (ng/mL) Interpretation Less Than 0.03 ng/mL Not supportive of diagnosis of MS 0.03 - 0.50 ng/mL Indeterminate: suggest serial studies if clinically indicated. Greater than 0.5 ng/mL Consistent with diagnosis of MS 22 Because ethnic data is not always readily available, this report includes an eGFR for both -Americans and non- Americans. The National Kidney Disease Education Program (NKDEP) does not endorse the use of the MDRD equation for patients that are not between the ages of 18 and 70, are , have extremes of body size, muscle mass, or nutritional status, or are non- or non-. According to the [employer], irrespective of diagnosis, the stage of the disease is based on the level of kidney function: Stage Description GFR(mL/min/1.73 m(2)) 1 Kidney damage with normal or decreased GFR 90 2 Kidney damage with mild decrease in GFR 60-89 3 Moderate decrease in GFR 30-59 4 Severe decrease in GFR 15-29 5 Kidney failure <15 (or dialysis) 23 Result TnIDx:0.04 Called to QUITA Schafer at: 12:01:52 by:[id number] Read back by: QUITA Schafer Reference Range and Interpretation: TnI (ng/mL) Interpretation Less Than 0.03 ng/mL Not supportive of diagnosis of MS 0.03 - 0.50 ng/mL Indeterminate: suggest serial studies if clinically indicated. Greater than 0.5 ng/mL Consistent with diagnosis of MS 24 Because ethnic data is not always readily available, this report includes an eGFR for both -Americans and non- Americans. The National Kidney Disease Education Program (NKDEP) does not endorse the use of the MDRD equation for patients that are not between the ages of 18 and 70, are , have extremes of body size, muscle mass, or nutritional status, or are non- or non-. According to the National [employer], irrespective of diagnosis, the stage of the disease is based on the level of kidney function: Stage Description GFR(mL/min/1.73 m(2)) 1 Kidney damage with normal or decreased GFR 90 2 Kidney damage with mild decrease in GFR 60-89 3 Moderate decrease in GFR 30-59 4 Severe decrease in GFR 15-29 5 Kidney failure <15 (or dialysis) 25 --- 05/06/14 0825 --- Troponin I previously reported as: 0.07 ng/mL Reference Range and Interpretation: TnI (ng/mL) Interpretation Less Than 0.03 ng/mL Not supportive of diagnosis of MS 0.03 - 0.50 ng/mL Indeterminate: suggest serial studies if clinically indicated. Greater than 0.5 ng/mL Consistent with diagnosis of MS 26 Acute inflammation: >10.00 27 Because ethnic data is not always readily available, this report includes an eGFR for both -Americans and non- Americans. The National Kidney Disease Education Program (NKDEP) does not endorse the use of the MDRD equation for patients that are not between the ages of 18 and 70, are , have extremes of body size, muscle mass, or nutritional status, or are non- or non-. According to the National [employer], irrespective of diagnosis, the stage of the disease is based on the level of kidney function: Stage Description GFR(mL/min/1.73 m(2)) 1 Kidney damage with normal or decreased GFR 90 2 Kidney damage with mild decrease in GFR 60-89 3 Moderate decrease in GFR 30-59 4 Severe decrease in GFR 15-29 5 Kidney failure <15 (or dialysis) Procedures Date CPT Code Description Status 12/25/2017 86128 ECHO Transthoracic, Real-Time 2D With Doppler And Color Completed Flow 12/25/2017 22051 ECHO Transthoracic, Real-Time 2D With Doppler And Color Completed Flow 12/23/2017 46156 EKG Tracing & Interpretation Completed 11/10/2017 10291 Inject/Drain Joint/Bursa Major Completed 09/06/2017 49431 Holter Monitor Review (24 hr)dr tsang & sophie Completed only 09/03/2017 99108 ECG Monitor/Recording W/Visual Superimposition Scanning Completed 08/14/2017 43369 ECHO Transthoracic, Real-Time 2D With Doppler And Color Completed Flow 08/06/2017 95685 EKG Tracing & Interpretation Completed 08/04/2017 13958 Inject/Drain Joint/Bursa Major Completed 03/19/2017 40424 Inject/Drain Joint/Bursa Major Completed 01/27/2017 57776 EKG Tracing & Interpretation Completed 10/29/2016 83559 ECHO Transthoracic, Real-Time 2D With Doppler And Color Completed Flow 10/23/2016 31242 Inject/Drain Joint/Bursa Major Completed 09/24/2016 73568 EKG Tracing & Interpretation Completed 07/17/2016 20723 Inject/Drain Joint/Bursa Major Completed 04/17/2016 84832 Inject/Drain Joint/Bursa Major Completed 01/10/2016 70577 Inject/Drain Joint/Bursa Major Completed 09/05/2015 93075 ECHO Transthoracic, Real-Time 2D With Doppler And Color Completed Flow 08/17/2015 76303 EKG Tracing & Interpretation Completed 07/12/2015 96282 Hyperbaric Oxygen Therapy By Physician Completed 07/11/2015 11468 Hyperbaric Oxygen Therapy By Physician Completed 07/06/2015 73434 Hyperbaric Oxygen Therapy By Physician Completed 07/04/2015 12996 Hyperbaric Oxygen Therapy By Physician Completed 06/29/2015 18652 Hyperbaric Oxygen Therapy By Physician Completed 06/28/2015 89051 Hyperbaric Oxygen Therapy By Physician Completed 06/27/2015 95228 Hyperbaric Oxygen Therapy By Physician Completed 06/22/2015 07601 Hyperbaric Oxygen Therapy By Physician Completed 06/21/2015 53776 Hyperbaric Oxygen Therapy By Physician Completed 06/20/2015 74229 Hyperbaric Oxygen Therapy By Physician Completed 06/15/2015 98808 Hyperbaric Oxygen Therapy By Physician Completed 06/14/2015 47309 Hyperbaric Oxygen Therapy By Physician Completed 06/13/2015 81173 Hyperbaric Oxygen Therapy By Physician Completed 06/08/2015 14963 Hyperbaric Oxygen Therapy By Physician Completed 06/07/2015 32668 Hyperbaric Oxygen Therapy By Physician Completed 06/06/2015 15781 Hyperbaric Oxygen Therapy By Physician Completed 06/01/2015 20510 Hyperbaric Oxygen Therapy By Physician Completed 05/31/2015 09961 Hyperbaric Oxygen Therapy By Physician Completed 05/30/2015 81430 Hyperbaric Oxygen Therapy By Physician Completed 05/26/2015 33401 Hyperbaric Oxygen Therapy By Physician Completed 05/25/2015 78760 Hyperbaric Oxygen Therapy By Physician Completed 05/24/2015 79756 Hyperbaric Oxygen Therapy By Physician Completed 05/23/2015 03728 Hyperbaric Oxygen Therapy By Physician Completed 05/18/2015 16118 Hyperbaric Oxygen Therapy By Physician Completed 05/17/2015 39093 Hyperbaric Oxygen Therapy By Physician Completed 05/16/2015 40864 Hyperbaric Oxygen Therapy By Physician Completed 05/15/2015 81607 Hyperbaric Oxygen Therapy By Physician Completed 05/11/2015 93457 Hyperbaric Oxygen Therapy By Physician Completed 05/10/2015 05815 Hyperbaric Oxygen Therapy By Physician Completed 05/09/2015 34246 Hyperbaric Oxygen Therapy By Physician Completed 05/04/2015 73933 Hyperbaric Oxygen Therapy By Physician Completed 05/03/2015 47913 Hyperbaric Oxygen Therapy By Physician Completed 05/02/2015 32774 Hyperbaric Oxygen Therapy By Physician Completed 04/27/2015 28681 Hyperbaric Oxygen Therapy By Physician Completed 04/25/2015 55397 Hyperbaric Oxygen Therapy By Physician Completed 04/21/2015 98734 Hyperbaric Oxygen Therapy By Physician Completed 04/19/2015 09541 Hyperbaric Oxygen Therapy By Physician Completed 12/27/2014 40540 ECHO Transthorasic Realtime 2D W Doppler & Color Completed [facility] 10/04/2014 33721 EKG Tracing & Interpretation Completed 08/16/2014 58872 ECHO Transthorasic Realtime 2D W Doppler & Color Completed [facility] 07/12/2014 28065 EKG Tracing & Interpretation Completed 05/27/2014 61036 Mastectomy Mod Radical Not Including Pectoralis Major Completed Muscle 05/02/2014 20048 EKG Tracing & Interpretation Completed 04/29/2014 08103 ECHO Transthorasic Realtime 2D W Doppler & Color Completed [facility] 03/21/2014 65853 ECHO Transthorasic Realtime 2D W Doppler & Color Completed [facility] 02/02/2014 33559 Stress Test Completed 02/02/2014 63578 Myocardial Perfusion Imaging Tomographic (Spect) Completed Multiple Studies 01/31/2014 26801 EKG Tracing & Interpretation Completed 01/19/2014 01465 ECHO Transthorasic Realtime 2D W Doppler & Color Completed [facility] Encounters Type Date Location Provider CPT E/M Dx Office Visit 01/16/2018 9:00a [facility] Monique Larsen N.P. 08106 I10 I47.1 Q21.1 I49.1 R00.2 Office Visit 12/31/2017 2:00p [facility] [place] [address] I10 Office Visit 12/23/2017 10:20a [facility] Maxime Brown M.D. 90006 I10 I49.1 R00.2 I34.0 I47.1 I27.20 Office Visit 11/10/2017 8:00a [facility] M.D. 20852 M17.11 C.M.ARad M17.12 Office Visit 08/25/2017 11:30a [facility] Mock 57833 M47.22 Of [facility] M.DRad Office Visit 08/06/2017 11:20a [facility] Maxime Bush 02913 I10 Vandana Brown Q21.1 R00.2 I34.0 I27.20 R94.31 Office Visit 08/04/2017 1:30p [facility] Mock 34038 M54.12 Of [facility] M.DRad Office Visit 05/05/2017 8:30a [facility] JIAN Nagel 38424 I10 Q21.1 Office Visit 03/19/2017 8:15a [facility] M.D. 40498 M16.11 C.M.ARad M17.0 Office Visit 01/27/2017 10:20a [facility] Maxime Brown 35848 R06.00 Vandana Q21.1 I10 Office Visit 12/11/2016 9:15a [facility] M.D. 48894 M17.0 C.M.A. M17.12 M17.11 M54.42 Office Visit 10/31/2016 2:30p [facility] JIAN Nagel 27385 I10 Office Visit 10/23/2016 3:15p [facility] M.D. 93608 M54.42 C.M.A. M17.11 M17.12 M17.0 W00.0xxA M25.552 M51.06 Office Visit 09/24/2016 11:20a [facility] Maxime Brown M.D. 83313 Q21.1 I10 R06.00 Office Visit 01/10/2016 8:00a [facility] M.D. 71337 M17.0 Of [facility] Office Visit 08/17/2015 3:30p [facility] Maxime Brown, 19934 C50.911 Vandana Q21.1 I10 I50.32 R00.2 Office Visit 05/25/2015 1:45p [facility] P[facility] M.D. 49755 990 [facility] 174.9 909.2 Office Visit 05/01/2015 1:00p [facility] Lance Shipley, 59437 721.0 Of [facility] Vandana Office Visit 11/14/2014 10:59a [facility], JIAN Harmon 70663 611.89 Hospitalists 174.9 V45.71 Office Visit 10/04/2014 3:20p [facility] Maxime Brown M.D. 83837 745.5 427.0 428.32 401.9 Office Visit 08/03/2014 3:30p [facility] JIAN Nagel 67237 745.5 427.0 428.32 401.0 174.9 Office Visit 07/12/2014 3:20p [facility] Maxime Brown M.D. 39786 745.5 427.0 785.1 428.32 401.0 Office Visit 06/09/2014 3:30p [facility] JIAN Nagel 35949 427.0 401.0 745.5 Office Visit 05/02/2014 3:00p [facility] Maxime Brown M.D. 47346 745.5 427.0 785.1 794.31 401.0 Office Visit 03/21/2014 8:00a [facility] Maxime Brown M.D. 30796 745.5 427.0 V58.11 Office Visit 01/31/2014 2:00p [facility] Maxime Brown M.D. 76015 785.1 V58.11 427.0 745.5 794.31 Plan of Care Future Appointment(s):02/23/2018 10:30 am - [facility] M.D. at [facility]..02/10/2018 7:30 am - [facility]01/28/2018 - [facility] M.D.M17.11 Unilateral primary osteoarthritis, right kneeNew Medication:Oxycodone-Acetaminophen 5-325 mgFollow up:Follow up: 10-14 days after surgery Please stop diclofinac 5 days prior to surgery.Z01.818 Encounter for other preprocedural examination
[2018-02-10] MEDS ORDERED: ceFAZolin 2 GM PREMIX (*) 2 GM/50 ML BAG IVPB ONE (06:07)
[2018-02-10] MEDS ORDERED: fentaNYL* 50 MCG/ML 2 ML VIAL (100 MCG VIAL) ONE (06:57)
[2018-02-10] MEDS ORDERED: Midazolam* 1 MG/ML 2 ML VIAL (2 MG) ONE ×4 (06:58→08:35)
[2018-02-10] MEDS ORDERED: Famotidine IV* 10 MG/ML 2 ML (20 mg) ONE (08:34)
[2018-02-10] MEDS ORDERED: Dexamethasone IV* 4 MG/ML 1 ML (4 MG) ONE (08:34)
[2018-02-10] MEDS ORDERED: Propofol* 10 MG/ML 20 ML BTL IV PUSH ONE ×3 (08:34→10:43)
[2018-02-10] MEDS ORDERED: Hetastarch 6% in NS* 500 ML IV ONE (08:37)
[2018-02-10] MEDS ORDERED: Lidocaine 2% PF * 5 ML VIAL ONE (08:51)
[2018-02-10] MEDS ORDERED: Bupivacaine 0.5% PF 10 ML VIAL INJ ONE ×2 (08:53→08:55)
[2018-02-10] MEDS ORDERED: ROPIVACAINE 5 MG/ML 30 ML BTL (0.5%) ONE (08:53)
[2018-02-10] MEDS ORDERED: Lidocaine 1% MPF wEPI 200,000* 30 ML SDV ONE (08:55)
[2018-02-10] MEDS ORDERED: EPHEDrine (Pressors)* 50 MG/ML VIAL ONE (09:01)
[2018-02-10] MEDS ORDERED: Acetaminophen TAB* 325 MG PO PRN (11:18)
[2018-02-10] MEDS ORDERED: oxyCODONE/Acetamin 5/325 MG* TAB PO PRN (11:18)
[2018-02-10] MEDS ORDERED: Morphine VIAL* 4 MG/ML VIAL (1 ml vial) IV PRN (11:18)
[2018-02-10] MEDS ORDERED: diPHENhydraMINE PO* 25 MG PO PRN (11:18)
[2018-02-10] MEDS ORDERED: diPHENhydraMINE IV* 50 MG/ML 1 ml VIAL (BENADRYL) IV PRN (11:18)
[2018-02-10] MEDS ORDERED: Albuterol HFA INHALER* 8 gm MDI INH PRN (11:32)
[2018-02-10] MEDS ORDERED: Albuterol 2.5 MG/3 ML NEB.SOL* (0.083%) INH PRN (11:32)
[2018-02-10] MEDS ORDERED: Nalbuphine* 20 MG/ML 1 ML VIAL IV PRN (11:41)
[2018-02-10] MEDS ORDERED: PROCHLORPERAZINE INJ 5 MG/ML 2 ML VIAL IV PRN (11:41)
[2018-02-10] MEDS ORDERED: Levalbuterol 0.63MG/3ML NEB* UNIT OF USE INH PRN (11:41)
[2018-02-10] MEDS ORDERED: DiMENhydriNATE IV* 50 MG/ML VIAL IV PUSH PRN (11:41)
[2018-02-10] MEDS ORDERED: Naloxone* 0.4 MG/ML 1 ML VIAL IV PRN (11:41)
[2018-02-10] MEDS ORDERED: fentaNYL* 50 MCG/ML 2 ML VIAL (100 MCG VIAL) IV PRN ×2 (11:41)
[2018-02-10] MEDS ORDERED: oxyCODONE/Acetamin 5/325 MG* TAB ONE (11:49)
--- NOTE | 2018-02-10 14:01 | RAD ---
Indication: Right total knee replacement. 2 views of the right knee demonstrates bipolar right knee replacement in satisfactory position. No evidence of periprosthetic fracture is noted. IMPRESSION: Right knee replacement in satisfactory position.
[2018-02-10] MEDS: Gabapentin CAP(*) 300 MG PO SCH ×2 (14:03→21:47)
[2018-02-10] MEDS: Morphine VIAL* 4 MG/ML VIAL (1 ml vial) IV PRN ×2 (14:03→15:01)
[2018-02-10] MEDS: oxyCODONE TAB* 5 MG TAB PO PRN ×2 (15:00→19:51)
[2018-02-10] MEDS: Artificial Tears* 15 ML BTL BOTH EYES SCH ×2 (15:02→21:47)
[2018-02-10] MEDS: ceFAZolin 1 GM in Dextrose (*) 1 GM/50 ML BAG IVPB SCH (16:15)
[2018-02-10] MEDS ORDERED: HYDROmorphone INJ* 2 MG/ML CARPUJECT SYRINGE IV SLOW PU PRN (16:22)
[2018-02-10] MEDS ORDERED: Ketorolac INJ* 30 MG/ML 1 ML VIAL IV PUSH PRN (16:25)
[2018-02-10] MEDS: Psyllium PAK PO SCH ×2 (16:33→21:46)
[2018-02-10] MEDS ORDERED: HYDROmorphone INJ* 2 MG/ML CARPUJECT SYRINGE ONE (16:37)
[2018-02-10] MEDS ORDERED: Ketorolac INJ* 30 MG/ML 1 ML VIAL ONE (16:37)
[2018-02-10] MEDS: HYDROmorphone INJ* 2 MG/ML CARPUJECT SYRINGE IV SLOW PU PRN ×2 (16:39→21:51)
[2018-02-10] MEDS: Ketorolac INJ* 30 MG/ML 1 ML VIAL IV PUSH PRN (16:40)
[2018-02-10 19:19] LABS: Hematocrit 30 % (35-47); Hemoglobin 10.2 g/dl (12.0-16.0); Mean Corpuscular HGB Conc 34 g/dl (31-36); Mean Corpuscular Hemoglobin 29 pg (27-31); Mean Corpuscular Volume 86 fL (80-97); Mean Platelet Volume 7.2 um3 (7.4-10.4); Platelet Count 222 10^3/ul (150-450); Red Blood Count 3.52 10^6/ul (4.0-5.4); Red Cell Distribution Width 15 % (10.5-15); White Blood Count 7.3 10^3/ul (3.5-10.8)
[2018-02-10 19:38] LABS: EGFR Non-African American 103.7 (>60)
[2018-02-10] MEDS: Diclofenac Sodium EC TAB* 25 MG PO SCH (21:46)
[2018-02-10] MEDS: Misoprostol TAB* 200 MCG PO SCH (21:47)
[2018-02-10] MEDS: Docusate CAP* 100 MG PO SCH (21:47)
[2018-02-10] MEDS: Polyethylene Glycol 3350* 17 GM PACKET PO PRN (21:58)
[2018-02-10] MEDS ORDERED: Magnesium Sulfate 1 GM IV* 1 GM/100 ML BAG IV ONE (23:30)
[2018-02-11] MEDS: oxyCODONE/Acetamin 5/325 MG* TAB PO PRN ×4 (00:05→17:53)
[2018-02-11] MEDS: ceFAZolin 1 GM in Dextrose (*) 1 GM/50 ML BAG IVPB SCH ×2 (00:56→08:38)
[2018-02-11] MEDS ORDERED: Levothyroxine TAB* 112 MCG TAB PO SCH (06:00)
[2018-02-11 06:05] LABS: Hematocrit 28 % (35-47); Hemoglobin 9.5 g/dl (12.0-16.0); Mean Platelet Volume 7.5 um3 (7.4-10.4); Platelet Count 241 10^3/ul (150-450)
[2018-02-11 06:22] LABS: EGFR Non-African American 97.8 (>60)
[2018-02-11] MEDS: oxyCODONE TAB* 5 MG TAB PO PRN ×3 (07:27→20:52)
[2018-02-11] MEDS: Artificial Tears* 15 ML BTL BOTH EYES SCH ×3 (08:41→20:54)
[2018-02-11] MEDS: Mometasone/Formoter 200/5 MDI INH SCH (08:41)
[2018-02-11] MEDS ORDERED: Prenatal Vitamin TAB PO SCH (09:00)
[2018-02-11] MEDS: CMCS - Anastrozole (NF) 1 MG TAB PO SCH (09:05)
[2018-02-11] MEDS: Aspirin TAB* 325 MG PO SCH (09:05)
[2018-02-11] MEDS: Diclofenac Sodium EC TAB* 25 MG PO SCH ×2 (09:06→20:52)
[2018-02-11] MEDS: Gabapentin CAP(*) 300 MG PO SCH ×3 (09:07→20:52)
[2018-02-11] MEDS: Docusate CAP* 100 MG PO SCH ×2 (09:07→20:52)
[2018-02-11] MEDS: Diltiazem CD CAP* 240 MG PO SCH (09:07)
[2018-02-11] MEDS: Vitamin THERAPEUTIC TAB PO SCH (09:07)
[2018-02-11] MEDS: Furosemide TAB* 20 MG PO SCH (09:08)
[2018-02-11] MEDS: Cholecalciferol TAB* 1000 UNITS PO SCH (09:08)
[2018-02-11] MEDS: Misoprostol TAB* 200 MCG PO SCH ×2 (09:08→20:53)
[2018-02-11] MEDS: Potassium Chlor TAB* 20 MEQ TAB.ER PO SCH (09:08)
[2018-02-11] MEDS: guaiFENesin ER TAB 600 MG PO SCH (09:08)
[2018-02-11] MEDS: Cyclobenzaprine TAB* 10 MG PO PRN ×2 (09:16→16:57)
--- NOTE | 2018-02-11 10:26 | OP ---
CC: Dr. Suazo; Dr. Bang * DATE OF OPERATION: 02/10/18 - ROOM #342 DATE OF : 50 SURGICAL CARE: Right knee. SURGEON: [facility] MD ASSISTANTS: 1. JIAN Arriaga, senior executive assistant. 2. Francia Estes, salesperson surgical appliances. ANESTHESIOLOGIST: Dr. Josue Cox. ANESTHESIA: Right thigh Hossein canal block and spinal anesthetic and IV sedation. PRE-OP DIAGNOSIS: Severe arthritis of the right knee especially in the lateral compartment with some valgus. POST-OP DIAGNOSIS: Severe arthritis of the right knee especially in the lateral compartment with some valgus. OPERATIVE PROCEDURE: Right total knee replacement. COMPONENTS UTILIZED: Rory Persona knee, all components were cemented. A size 6 standard femur, a 32 patella, a size E tibial surface and a 10 articular surface. COMPLICATIONS: There were no complications. DRAINS: Two drains right knee at the end of the case. BLOOD LOSS: 200 mL. REPLACEMENT: Crystalloid fluids. INDICATIONS: Severe knee arthritis. She has had this for several years. She has tried the nonoperative care and has been no longer responsive to nonoperative care. This knee is increasingly painful, locking, catching, and no longer responsive to nonoperative care. DESCRIPTION OF PROCEDURE: The patient was brought to the operating room and placed on the operating room table in the supine position. The right thigh block was administered on the distal portion of the femoral nerve and then the spinal anesthetic was administered in the seated position with IV sedation. The patient was returned to the supine position. A Hernandez catheter was inserted and then the patient was carefully positioned on the operating room table. The right proximal thigh was wrapped with a tourniquet. The right posterior tibial pulse was noted to be 2+. The right leg was given a preliminary chlorhexidine prep and then the formal ChloraPrep from the tourniquet to the tips of the toes. After prepping, draping and sealing off, we did our universal protocol time-out confirming Anali Bassett and a plan for right total knee replacement. We all agreed and we proceeded. The surgical care was done largely without tourniquet with the hip and knee acutely flexed and the right foot placed on a padded foot piece kept the hip and knee flexed acutely. The skin incision went from two fingerbreadths proximal to the superior pole of the patella to the medial aspect of the tibial tubercle. The skin and subcu divided down to the prepatellar bursa, which was traversed and then the knee was entered medial parapatellar. On the tibia, we divided the soft tissues down to the bone. A couple of centimeters medial to the tibial tubercle and went up to the medial joint line and then to the medial patella and then going proximal from there, we stayed close to the vastus medialis muscle and the quadriceps tendon, going 3 to 4 cm proximal to superior pole of the patella. The knee had clear goldish synovial fluid. She had complete eburnation of bone on the lateral tibial plateau, lateral femoral condyle was scooping up the lateral tibial plateau posteriorly. Osteophytes medial tibia, medial and lateral femoral condyles, intercondylar and patellar. The knee had several loose bodies 4 to 5 posteriorly to the size of BBs and then bigger one the size of a P and the biggest was couple centimeters somewhat oblong. Some of these were among the cruciate ligaments and one was posterior to the posterior cruciate ligament. The remains of the anterior horn medial meniscus were excised. Some synovectomy was completed around the patella. The anteromedial soft tissues on the tibia were elevated subperiosteally going around to the deep MCL and into the posterior medial corner of the knee. The lateral meniscus was carefully excised. The distal anterior femur was exposed subperiosteally for referencing and measuring and careful hemostasis checked and achieved throughout utilizing electrocautery. The patella had been made so that could be everted and the patellar tendon was carefully protected throughout the case. The proximal tibial cut was made. First our goal here was to have a tibial surface and have a slight posterior slope and be perpendicular to the long axis of the tibia, removing a little bone from the lowest scooped out portion in the tibia. Next, the femoral intramedullary drill was utilized and the canal was identified. The canal was suctioned to discourage embolization. The distal femoral cutting guide was applied at 0 with 6 degrees of valgus for right and this cut was completed and we had an extension gap of that was very satisfactory for 10. The femur was measured for a size 6. The anterior, posterior, and chamfering cuts were completed with attention to external rotation of a few degrees and we then finished removal of the posterior horn, lateral meniscus, the PCL, osteophyte, and the posterior medial femoral condyle and the medial meniscus carefully preserving the MCL and at this stage, we had nice ligamentous balance in flexion with a 10 mm block as well. The femur was completed with the intercondylar cutout. Care was taken to see that all osteophytes were removed. The tibia was then completed for a size E and the knee was articulated and extended with E tibia, 10 articular surface and the 6 femur with the knee showing full extension, stable ligaments in extension and stable ligaments in 90 degrees of flexion. The patella was cut flat and a 32 was chosen. Three drill holes were made and these were undercut. A lateral release was not necessary. The femur was cleaned x6 with saline, suctioned empty and then the bone plug was inserted. The leg was then exsanguinated and the tourniquet elevated to 275. The knee was cleaned in extension with 2.5 L of pulsed saline irrigation. The knee was cleaned in flexion with retractors in place and bony surfaces were cleaned and then dried with lap sponges. The cement was mixed. The components were cemented into position, patella followed by tibia, followed by femur. Each was impacted. Excess cement was removed and the knee was articulated and extended during the final hardening. The tourniquet was then deflated. We checked posteriorly for retained cement fragments and bleeding points. Careful hemostasis was achieved during the closure utilizing electrocautery. We irrigated several times during closure with the saline. The posteromedial soft tissues pericapsular were infiltrated with a mixture of 1% Xylocaine with epinephrine mixed with 0.5% Marcaine without epinephrine and 40 cc of this mixture were utilized during our closure. The quadriceps mechanism was reapproximated with interrupted #1 Polysorb in figure- of-eight fashion. The same with the medial retinaculum, more distally we used 0 Polysorb. The bursa, deep fascia closed with interrupted 0 Polysorb and then the superficial subcu closed with 3-0 Polysorb and the skin was closed with delon. The drains were brought out the lateral suprapatellar pouch. The surgery was washed and dried and covered with Betadine soaked release followed by sterile gauze, sterile Webril, cryotherapy cuff, ABD pads, further Webril and then a 6-inch Kvng bandage loosely applied. Knee was flexed completely several times during the closure, extended completely. The ligaments were staple, alignment satisfactory and the posterior tibial pulse was 2+ at the end of the case. The patient was returned to the recovery room in stable and satisfactory condition having tolerated the procedure very well. [id number]/[facility] #: [id number] ALICIA
--- NOTE | 2018-02-11 11:51 | PN ---
Progress Note - Progress Note Date of Service: 02/11/18 SOAP: Subjective: []Patient seen OOB in chair. She feels well without complaint of knee pain at this time. Denies chest pain, shortness of breath, dizziness or nausea. Overnight she had a 6 beat run of tachycardia. Objective: [] Vital Signs Temp 97.5 F 02/11/18 07:12 Pulse 67 02/11/18 09:05 Resp 18 02/11/18 11:34 BP 103/55 02/11/18 09:05 Pulse Ox 98 02/11/18 07:57 Intake & Output 02/10/18 02/11/18 02/11/18 18:59 06:59 18:59 Intake Total 2360 2981 1325 Output Total 1980 1950 Balance 380 1031 1325 Intake: IV Fluids 2000 956 1100 ABX - CEFAZOLIN 110 LR 1500 956 990 hetastarch 500 IVPB 55 ABX - CEFAZOLIN 55 Medicated IV 110 GEN - Magnesium 110 Oral 360 1860 225 Output: Hemovac Amount #1 450 Wound Vac 450 Hernandez 1500 1500 Residual 30 Hernandez 16 Fr 30 Laboratory Last Values WBC 7.3 10^3/ul (3.5-10.8) 02/10/18 19:11 RBC 3.52 10^6/ul (4.0-5.4) L 02/10/18 19:11 Hgb 9.5 g/dl (12.0-16.0) L 02/11/18 05:39 Hct 28 % (35-47) L 02/11/18 05:39 MCV 86 fL (80-97) 02/10/18 19:11 MCH 29 pg (27-31) 02/10/18 19:11 MCHC 34 g/dl (31-36) 02/10/18 19:11 RDW 15 % (10.5-15) 02/10/18 19:11 Plt Count 241 10^3/ul (150-450) 02/11/18 05:39 MPV 7.5 um3 (7.4-10.4) 02/11/18 05:39 Sodium 138 mmol/L (139-145) L 02/11/18 05:39 Potassium 3.8 mmol/L (3.5-5.0) 02/11/18 05:39 Chloride 105 mmol/L (101-111) 02/11/18 05:39 Carbon Dioxide 30 mmol/L (22-32) 02/11/18 05:39 Anion Gap 3 mmol/L (2-11) 02/11/18 05:39 BUN 9 mg/dL (6-24) 02/11/18 05:39 Creatinine 0.61 mg/dL (0.51-0.95) 02/11/18 05:39 Est GFR ( Amer) 125.8 (>60) 02/11/18 05:39 Est GFR (Non-Af Amer) 97.8 (>60) 02/11/18 05:39 BUN/Creatinine Ratio 14.8 (8-20) 02/11/18 05:39 Glucose 100 mg/dL (70-100) 02/11/18 05:39 Calcium 8.7 mg/dL (8.6-10.3) 02/11/18 05:39 Magnesium 1.8 mg/dL (1.9-2.7) L 02/10/18 19:11 TSH 0.24 mcIU/mL (0.34-5.60) L 02/10/18 19:11 Free T4 1.25 ng/dL (0.61-1.12) H 02/10/18 19:11 Free T3 2.60 pg/mL (2.5-3.9) 02/10/18 19:11 General: Well appearing, NAD RLE: Right knee dressing CDI. Drain was pulled this morning by Dr Dnet without complication. Thigh soft, able to flex and extend at knee, DF/PF intact. 2+ DP pulse. Sensation intact distally BL LE: Calves supple and nontender without erythema, edema or palpable cords. Assessment: []POD 1 SP right total knee arthroplasty Plan: []WBAT PT/OT ASA 325 QD Appreciate medical management by Dr. Vickers <Samaria Tran - Last Filed: 02/11/18 11:54> - Progress Note SOAP: Subjective: [] Objective: [] Assessment: [] Plan: [] <[facility] - Last Filed: 02/12/18 07:48>
[2018-02-11] MEDS: Psyllium PAK PO SCH (20:53)
[2018-02-11] MEDS ORDERED: Polyethylene Glycol 3350* 17 GM PACKET ONE (20:58)
[2018-02-11] MEDS: Polyethylene Glycol 3350* 17 GM PACKET PO PRN (21:01)
[2018-02-12] MEDS: oxyCODONE/Acetamin 5/325 MG* TAB PO PRN ×2 (03:18→09:03)
[2018-02-12 05:36] LABS: Hematocrit 25 % (35-47); Hemoglobin 8.6 g/dl (12.0-16.0); Mean Platelet Volume 7.6 um3 (7.4-10.4); Platelet Count 192 10^3/ul (150-450)
[2018-02-12] MEDS: oxyCODONE TAB* 5 MG TAB PO PRN ×3 (05:51→21:12)
[2018-02-12 05:56] LABS: EGFR Non-African American 83.5 (>60)
[2018-02-12] MEDS: Cyclobenzaprine TAB* 10 MG PO PRN (06:54)
--- NOTE | 2018-02-12 08:35 | PN ---
Progress Note - Progress Note Date of Service: 02/12/18 Note: POD #2. VSS. Hct 25% from 28%. Awake, alert, cooperative and breathing easily. Distresses are the left neck, right knee and left knee feeling of giving way. She notes that she did well yesterday with walker ambulation. She slept through the night until about 5:30A. Her neck has been helped some with heat pad and blanket. She receives cervical epidural injections, last 01/2018, for cervical spondylosis (arthritis, disc disease, stenosis). She has limited ROM of her neck with pains. 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 Sensory intact hands to touch radial, median, ulnar with altered ulnar touch right little. Lifts left leg. Right knee dressing change: Surgery is clean and dry and new betadine dressing applied. Exercises done right hip, knee, ankle. Active IR, ER right hip. Does small heel slide right. Right ankle active up, down, in and out movements. Right PT pulse is 2 plus. Sensory intact feet. Impressions: Acute blood loss anemia. Cervical spondylosis Right total knee replacement, making progress. Plans: Up with walker. PMRU consult.
[2018-02-12] MEDS: Artificial Tears* 15 ML BTL BOTH EYES SCH ×3 (08:58→21:14)
[2018-02-12] MEDS: Mometasone/Formoter 200/5 MDI INH SCH (08:58)
[2018-02-12] MEDS: Magnesium Hydroxide LIQ* 30 ML UDC PO PRN ×3 (09:00→21:28)
[2018-02-12] MEDS: CMCS - Anastrozole (NF) 1 MG TAB PO SCH (09:01)
[2018-02-12] MEDS: Vitamin THERAPEUTIC TAB PO SCH (09:02)
[2018-02-12] MEDS: Docusate CAP* 100 MG PO SCH ×2 (09:02→21:14)
[2018-02-12] MEDS: Diclofenac Sodium EC TAB* 25 MG PO SCH ×2 (09:02→21:12)
[2018-02-12] MEDS: Potassium Chlor TAB* 20 MEQ TAB.ER PO SCH (09:02)
[2018-02-12] MEDS: Diltiazem CD CAP* 240 MG PO SCH (09:02)
[2018-02-12] MEDS: guaiFENesin ER TAB 600 MG PO SCH (09:03)
[2018-02-12] MEDS: Aspirin TAB* 325 MG PO SCH (09:03)
[2018-02-12] MEDS: Gabapentin CAP(*) 300 MG PO SCH ×3 (09:03→21:13)
[2018-02-12] MEDS: Cholecalciferol TAB* 1000 UNITS PO SCH (09:03)
[2018-02-12] MEDS: Misoprostol TAB* 200 MCG PO SCH ×2 (09:03→21:13)
[2018-02-12] MEDS ORDERED: Bisacodyl SUPP* 10 MG SUPP PR PRN (11:18)
[2018-02-12] MEDS: tiZANidine TAB* 2 MG PO SCH ×3 (13:15→21:13)
[2018-02-12] MEDS ORDERED: tiZANidine TAB* 2 MG PO SCH (14:00)
[2018-02-12] MEDS: Psyllium PAK PO SCH (21:43)
[2018-02-13] MEDS: oxyCODONE TAB* 5 MG TAB PO PRN ×2 (01:04→10:05)
[2018-02-13 05:53] LABS: Hematocrit 25 % (35-47); Hemoglobin 8.4 g/dl (12.0-16.0); Mean Platelet Volume 7.7 um3 (7.4-10.4); Platelet Count 208 10^3/ul (150-450)
[2018-02-13] MEDS: oxyCODONE/Acetamin 5/325 MG* TAB PO PRN ×2 (07:23→14:33)
[2018-02-13] MEDS: Mometasone/Formoter 200/5 MDI INH SCH (07:33)
[2018-02-13] MEDS: Misoprostol TAB* 200 MCG PO SCH (08:19)
[2018-02-13] MEDS: tiZANidine TAB* 2 MG PO SCH ×2 (08:19→14:29)
[2018-02-13] MEDS: Gabapentin CAP(*) 300 MG PO SCH ×2 (08:19→14:29)
[2018-02-13] MEDS: guaiFENesin ER TAB 600 MG PO SCH (08:19)
[2018-02-13] MEDS: Cholecalciferol TAB* 1000 UNITS PO SCH (08:19)
[2018-02-13] MEDS: Diltiazem CD CAP* 240 MG PO SCH (08:19)
[2018-02-13] MEDS: Vitamin THERAPEUTIC TAB PO SCH (08:19)
[2018-02-13] MEDS: Potassium Chlor TAB* 20 MEQ TAB.ER PO SCH (08:19)
[2018-02-13] MEDS: Furosemide TAB* 20 MG PO SCH (08:20)
[2018-02-13] MEDS: Docusate CAP* 100 MG PO SCH (08:21)
[2018-02-13] MEDS: Diclofenac Sodium EC TAB* 25 MG PO SCH (08:21)
[2018-02-13] MEDS: Aspirin TAB* 325 MG PO SCH (08:21)
[2018-02-13] MEDS: CMCS - Anastrozole (NF) 1 MG TAB PO SCH (08:22)
[2018-02-13] MEDS: Artificial Tears* 15 ML BTL BOTH EYES SCH ×2 (08:26→14:31)
--- NOTE | 2018-02-13 09:28 | PN ---
Progress Note - Progress Note Date of Service: 02/13/18 Note: POD #3, Temp OK. BP is generally low. She is cold and has had some dizziness. Hgb is now 8.4, Hct 25% I and O is satisfactory. Awake alert cooperative. Right leg good and progressing on her flexion. She is able to toe and heel raise bilaterally and small squat bilaterally. Imp: Acute anemia, will give one unit PRBCs today, she is agreeable. Plans: Same Disposition: PMRU or penitentiary facility
[2018-02-13] MEDS: Ketorolac INJ* 30 MG/ML 1 ML VIAL IV PUSH PRN (10:06)
[2018-02-13 18:16] VITALS: BP 100/57
--- NOTE | 2018-02-14 09:28 | DS ---
DISCHARGE SUMMARY: DATE OF ADMISSION: 02/10/18 DATE OF DISCHARGE: 02/13/18 ATTENDING PHYSICIAN: Dr. Dent.* (DICTATED BY JIAN WEI) CHIEF COMPLAINT: 1. Right knee pain. 2. Breast cancer. 3. Hypertension. 4. Hypothyroidism. 5. Depression. DISCHARGE DIAGNOSES: 1. Status post right total knee arthroplasty. 2. History of breast cancer. 3. Neck pain. 4. Hypertension. 5. Hypothyroidism. 6. Depression. PROCEDURE: Right total knee replacement. CONSULTATIONS: 1. Physical Therapy. 2. Occupational Therapy. 3. Hospitalist. 4. PMRU. BRIEF HISTORY: Ms. Bassett is a very pleasant 67-year-old female with a history of severe osteoarthritis which she has had for several years and has failed nonoperative care. She elected to undergo a right total knee arthroplasty by Dr. River Dent on 02/10/18. HOSPITAL COURSE: The patient was admitted to [facility] on 02/10/18 where she underwent an uncomplicated right total knee arthroplasty by Dr. River Dent with an estimated blood loss of 200 mL. The patient recovered on the surgical short-stay unit. On postoperative day 2, her Hernandez was removed and she was voiding on her own without difficulty. She had multiple bowel motions throughout her stay. She advanced to regular diet without difficulty and her pain was controlled with p.o. Percocet. She remains weightbearing as tolerated on the right lower extremity without difficulty, advanced appropriately with physical therapy and occupational therapy and deemed appropriate for continued rehabilitation. Her DVT prophylaxis was managed with aspirin 325 mg daily. By postoperative day 3, she was orthopedically and medically stable for discharge to [facility] for continued rehabilitation. PHYSICAL EXAMINATION: General: Well appearing, in no acute distress. Alert and oriented. Resting comfortably in bed. Vital Signs: Temperature 97.6, heart rate 77, respirations 16, oxygen saturation 99% on room air, blood pressure 92/60. Examination of the right total knee was done by Dr. Dent which showed that the surgery was clean, dry, and intact. The patient was able to do a heel slide on the right with active ankle motions up and down, in and out. Right posterior tibial pulses were 2+, and sensations were intact. LABORATORY DATA: On date of discharge includes H and H of 8.4 and 25. DISCHARGE MEDICATIONS: Include, 1. Arimidex. 2. Albuterol inhaler. 3. Voltaren. 4. Cardizem CD. 5. Lasix. 6. Neurontin. 7. Mucinex. 8. Misoprostol. 9. Symbicort. 10. Percocet. 11. Potassium. 12. Tizanidine 13. Aspirin. CONDITION ON DISCHARGE: Stable. DISCHARGE INSTRUCTIONS: Ms. Bassett is a very pleasant 67-year-old female, postoperative day 3, status post a right total knee arthroplasty which was uncomplicated. She is orthopedically and medically stable for discharge to [facility] for continued rehabilitation. The patient did receive 1 unit of blood on 02/13/18 for fatigue and for weakness. She will take aspirin 325 mg p.o. daily for DVT prophylaxis. She will remain weightbearing as tolerated on the right lower extremity. She will continue Percocet for pain control and Colace up to 3 times a day to prevent constipation. She will follow up with Dr. Dent in approximately 10 to 14 days for incision check and suture removal. She was instructed to go to the ER should she develop chest pain or shortness of breath. Should she develop increasing pain, redness, or drainage along the incision site, she is to call the office. JIAN WEI [id number]/[place] #: [id number] ALICIA
== END 2018-02-13 14:40 | DRG 470 ==
LOC: AA 05:54 → SSU 12:40
PROVIDERS: ADMIT Orthopaedic Surgery; ATTEND Orthopaedic Surgery
PROC: 0SRC0J9 Replacement of Right Knee Joint with Synthetic Substitute, Cemented, Open Approach (ICD-10-PCS; principal; 2018-02-10 07:30)
PROC: 30233N1 Transfusion of Nonautologous Red Blood Cells into Peripheral Vein, Percutaneous Approach (ICD-10-PCS; 2018-02-13)
DX: M17.11 Unilateral primary osteoarthritis, right knee (principal); D62 Acute posthemorrhagic anemia; I25.3 Aneurysm of heart; E03.9 Hypothyroidism, unspecified; F32.9 Major depressive disorder, single episode, unspecified; E78.5 Hyperlipidemia, unspecified; M72.0 Palmar fascial fibromatosis [Dupuytren]; I27.20 Pulmonary hypertension, unspecified; E66.9 Obesity, unspecified; M10.9 Gout, unspecified; J45.20 Mild intermittent asthma, uncomplicated; I95.9 Hypotension, unspecified; J00 Acute nasopharyngitis [common cold]; M47.812 Spondylosis without myelopathy or radiculopathy, cervical region; M50.30 Other cervical disc degeneration, unspecified cervical region; M48.02 Spinal stenosis, cervical region; R00.0 Tachycardia, unspecified; M21.061 Valgus deformity, not elsewhere classified, right knee; M25.761 Osteophyte, right knee; F41.9 Anxiety disorder, unspecified; I11.0 Hypertensive heart disease with heart failure; I50.9 Heart failure, unspecified; I08.1 Rheumatic disorders of both mitral and tricuspid valves; Z85.3 Personal history of malignant neoplasm of breast; Z79.82 Long term (current) use of aspirin; Z88.1 Allergy status to other antibiotic agents; Z87.01 Personal history of pneumonia (recurrent); Z90.710 Acquired absence of both cervix and uterus; Z82.49 Family history of ischemic heart disease and other diseases of the circulatory system; Z80.1 Family history of malignant neoplasm of trachea, bronchus and lung; Z81.2 Family history of tobacco abuse and dependence; Z98.42 Cataract extraction status, left eye; Z98.41 Cataract extraction status, right eye; Z90.13 Acquired absence of bilateral breasts and nipples; Z68.30 Body mass index [BMI] 30.0-30.9, adult
CPT/HCPCS: 36415; 80048; 83735; 84439; 84443; 84481; 85014; 85018; 85027; 85049; 86850; 86900; 86901; 86922; 88305; 88311; 93005; A9270-GY; C1776; G8978-GP-CL; G8979-GP-CI; G8987-GO-CL; G8988-GO-CI; J0690; J1100; J1170; J1885; J2001; J2250; J2270; J2704; J2795; J3010; J3475; P9040

== ENCOUNTER 2018-02-13 15:01 | Inpatient (IN) | payer MEDICARE ==
[2018-02-13] MEDS ORDERED: Acetaminophen TAB* 325 MG PO PRN (15:44)
[2018-02-13] MEDS ORDERED: Bisacodyl SUPP* 10 MG SUPP PR PRN (15:44)
[2018-02-13] MEDS ORDERED: Senna TAB PO PRN (15:44)
[2018-02-13] MEDS ORDERED: Magnesium Hydroxide LIQ* 30 ML UDC PO PRN (15:44)
[2018-02-13] MEDS ORDERED: Albuterol HFA INHALER* 8 gm MDI INH PRN (16:19)
[2018-02-13] MEDS: oxyCODONE/Acetamin 5/325 MG* TAB PO PRN ×2 (16:50→21:21)
[2018-02-13] MEDS ORDERED: tiZANidine TAB* 2 MG PO SCH (17:00)
[2018-02-13] MEDS: tiZANidine TAB* 2 MG PO SCH (17:21)
--- NOTE | 2018-02-13 21:10 | HP ---
ADMISSION HISTORY AND PHYSICAL: DATE OF ADMISSION: 02/13/18 REASON FOR ADMISSION: Right total knee replacement. HISTORY OF PRESENT ILLNESS: Anali Bassett is a 67-year-old female. She has a medical history significant for breast cancer. She had bilateral mastectomy done and this was followed by radiation therapy. She developed a hematoma in the area of her right breast. She had an open wound, which was difficult to heal. She spend a lot of time in the wound clinic and had hyperbaric oxygen. She had a flap done by Dr. Swift. Prior to having the flap; however, the patient had a wound VAC. She felt that the pressure of having the wound VAC and the strap around her neck caused her to have neck pain. She had had a previous laminectomy in 2000 in the cervical region. The patient had an MRI and was sent to see Dr. Lance Shipley. She eventually was sent to the pain clinic. She had cervical epidural steroid injections done by Dr. Dong. The patient also has a history of significant asthma. The patient has had right knee pain, which had failed conservative treatment. She saw Dr. River Dent. X- rays were taken, which showed [id number] arthritis. It was decided the best course of action would be for her to have a right total knee replacement. The patient was admitted to [facility] on 02/10/18. She underwent a right total knee replacement that day. Postoperatively, she has been slow to mobilize. She is now being admitted for inpatient rehab so that she might return to independent living. PAST MEDICAL HISTORY: Significant for the aforementioned breast cancer. She has a history of neck pain as well. She has had a hysterectomy and bilateral mastectomies as well as a cervical laminectomy. She has a history of hypertension as well as hypothyroidism and depression. CURRENT MEDICATIONS: Include: 1. Arimidex. 2. She is on an albuterol inhaler. 3. She takes Voltaren. 4. Cardizem CD. 5. Lasix. 6. Neurontin. 7. Mucinex. 8. Misoprostol. 9. Symbicort. 10. Percocet. 11. Potassium. 12. Tizanidine. ALLERGIES: Include ERYTHROMYCIN. SOCIAL HISTORY: She is a nonsmoker, nondrinker. She lives by herself in a 1- bedroom apartment. She has a friend, who is going to be able to get her groceries. REVIEW OF SYSTEMS: The patient has no current shortness of breath, chest pain. She was able to have a bowel movement today. PHYSICAL EXAMINATION VITAL SIGNS: The patient's temperature is 97.8, blood pressure is 100/50, pulse 65, respirations 16. HEENT: Her extraocular movements are intact. Tongue is midline. NECK: Supple. LUNGS: Sound clear to auscultation bilaterally. HEART: Sounds regular. S1, S2 audible. ABDOMEN: Soft and nontender. EXTREMITIES: Her right knee has a wound, which is clean and dry. Peripheral pulses were intact. NEUROLOGIC: Sensation was intact. Muscle strength was 5/5 except the right leg , which is 3/5 secondary to pain. She can dorsiflex the right foot with at least 4/5 strength. Her functional exam, she transfers with min assist. ASSESSMENT: Right total knee placement in a patient with significant asthma and breast cancer. PLAN: Our plan is to integrate her into a comprehensive and therapeutic rehab program. We will have the following goals: 1. Physical Therapy will see the patient, they are going to work on functional transfer training, ambulation training with a walker. 2. Occupational Therapy will see the patient, work on her activities of daily living including toileting and toilet transfers. 3. Heparin for DVT prophylaxis. She will be discharged home on an aspirin a day per Dr. Dent. 4. Adequate analgesia. 5. The patient had postop anemia and was transfused. We will check a hemoglobin and hematocrit in the morning. 6. Her bowels will be regulated. 7. immigration services officer will be closely involved to make sure that any services and equipment the patient requires are in place prior to discharge. 8. For breast cancer, we are going to continue her Arimidex. 9. For her arthritis, we will continue her misoprostol plus Voltaren. She also takes Neurontin for her neck pain as well as Zanaflex. 10. Home with appropriate services. ESTIMATED LENGTH OF STAY: One week. [id number]/[facility] #: [id number] [facility]
[2018-02-13] MEDS: Docusate CAP* 100 MG PO SCH (21:19)
[2018-02-13] MEDS: Gabapentin CAP(*) 300 MG PO SCH (21:19)
[2018-02-13] MEDS: Heparin VIAL(*) 5000 UNITS/ML VIAL (FIVE THOUSAND) SUBCUT SCH (21:20)
[2018-02-13] MEDS: Diclofenac Sodium EC TAB* 25 MG PO SCH (21:23)
[2018-02-13] MEDS: Artificial Tears* 15 ML BTL BOTH EYES SCH (21:23)
[2018-02-13] MEDS: Mometasone/Formoter 200/5 MDI INH SCH (21:28)
[2018-02-13] MEDS: Misoprostol TAB* 200 MCG PO SCH (21:35)
[2018-02-14] MEDS: oxyCODONE/Acetamin 5/325 MG* TAB PO PRN ×5 (01:35→20:37)
[2018-02-14] MEDS: Heparin VIAL(*) 5000 UNITS/ML VIAL (FIVE THOUSAND) SUBCUT SCH ×3 (05:05→21:39)
[2018-02-14 06:07] LABS: Hematocrit 28 % (35-47); Hemoglobin 9.3 g/dl (12.0-16.0); Mean Corpuscular HGB Conc 34 g/dl (31-36); Mean Corpuscular Hemoglobin 29 pg (27-31); Mean Corpuscular Volume 86 fL (80-97); Mean Platelet Volume 7.1 um3 (7.4-10.4); Platelet Count 234 10^3/ul (150-450); Red Cell Distribution Width 15 % (10.5-15)
[2018-02-14] MEDS: Cholecalciferol TAB* 1000 UNITS PO SCH (08:14)
[2018-02-14] MEDS: Potassium Chlor TAB* 20 MEQ TAB.ER PO SCH (08:14)
[2018-02-14] MEDS: Diclofenac Sodium EC TAB* 25 MG PO SCH ×2 (08:15→20:34)
[2018-02-14] MEDS: Diltiazem CD CAP* 240 MG PO SCH (08:15)
[2018-02-14] MEDS: Gabapentin CAP(*) 300 MG PO SCH ×3 (08:15→20:36)
[2018-02-14] MEDS: Vitamin THERAPEUTIC TAB PO SCH (08:15)
[2018-02-14] MEDS: Misoprostol TAB* 200 MCG PO SCH ×2 (08:15→20:36)
[2018-02-14] MEDS: guaiFENesin ER TAB 600 MG PO SCH (08:15)
[2018-02-14] MEDS: Docusate CAP* 100 MG PO SCH ×2 (08:16→20:36)
[2018-02-14] MEDS: CMCS:Anastrozole (NF) 1 MG TAB PO SCH (08:18)
[2018-02-14] MEDS: tiZANidine TAB* 2 MG PO SCH ×2 (08:18→17:00)
[2018-02-14] MEDS: Artificial Tears* 15 ML BTL BOTH EYES SCH ×3 (08:19→20:39)
[2018-02-14] MEDS: Mometasone/Formoter 200/5 MDI INH SCH ×2 (08:20→19:47)
--- NOTE | 2018-02-14 11:06 | PN ---
Progress Note Date of Service: 02/14/18 Note: RADHA JAVIER was visited. Nursing notes read and reviewed. Therapy evaluations in progress. No chest pain, shortness of breath or abdominal pain. No bowel movement yet. Current Medications: Active Medications Generic Name Dose Route Start Last Admin Trade Name Freq PRN Reason Stop Dose Admin Acetaminophen 650 mg 02/13/18 15:44 Tylenol Tab* PO Q6H PRN FEVER/PAIN Albuterol 2 puff 02/13/18 16:19 Ventolin Hfa Inhaler* INH Q6H PRN SOB/WHEEZING Anastrozole 1 mg 02/14/18 09:00 02/14/18 08:18 Arimidex (Nf) PO 1 mg DAILY AME Administration Bisacodyl 10 mg 02/13/18 15:44 Dulcolax Supp* [place] DAILY PRN CONSTIPATION Cholecalciferol 1,000 units 02/14/18 09:00 02/14/18 08:14 Vitamin D Tab* PO 1,000 units DAILY AME Administration Diclofenac Sodium 75 mg 02/13/18 21:00 02/14/18 08:15 Voltaren Ec Tab* PO 75 mg BID AME Administration Diltiazem HCl 240 mg 02/14/18 09:00 02/14/18 08:15 Cardizem Cd Cap* PO 240 mg DAILY AME Administration Docusate Sodium 100 mg 02/13/18 21:00 02/14/18 08:16 Colace Cap* PO 100 mg BID AME Administration Furosemide 10 mg 02/16/18 09:00 Lasix Tab* PO MOWEFR AME Gabapentin 600 mg 02/13/18 21:00 02/14/18 08:15 Neurontin Cap(*) PO 600 mg TID AME Administration Guaifenesin 600 mg 02/14/18 09:00 02/14/18 08:15 Mucinex* PO 600 mg DAILY AME Administration Heparin Sodium (Porcine) 5,000 units 02/13/18 22:00 02/14/18 05:05 Heparin Vial(*) SUBCUT 5,000 units Q8HR AME Administration Magnesium Hydroxide 30 ml 02/13/18 15:44 Milk Of Magnesia Liq* PO Q6H PRN CONSTIPATION Misoprostol 200 mcg 02/13/18 21:00 02/14/18 08:15 Cytotec Tab* PO 200 mcg BID AME Administration Mometasone Furoate/Formoterol Fumar 2 puff 02/13/18 21:00 02/14/18 08:20 Dulera 200/5 Mdi* INH 2 puff BID AME Administration Protocol Multivitamins 1 tab 02/14/18 09:00 02/14/18 08:15 Theragran Tab* PO 1 tab DAILY AME Administration Oxycodone/Acetaminophen 1 tab 02/13/18 16:11 02/13/18 16:50 Percocet 5/325 Tab* PO 1 tab Q4H PRN Administration PAIN - MODERATE TO SEVERE Oxycodone/Acetaminophen 2 tab 02/13/18 16:12 02/14/18 05:41 Percocet 5/325 Tab* PO 2 tab Q4H PRN Administration PAIN - SEVERE Polyvinyl Alcohol 1 drop 02/13/18 21:00 02/14/18 08:19 Polyvinyl Alcohol 1.4% Opth* BOTH EYES 1 drop TID AME Administration Potassium Chloride 20 meq 02/14/18 09:00 02/14/18 08:14 Klor Con Er Tab* PO 20 meq DAILY AME Administration Senna 2 tab 02/13/18 15:44 Senokot Tab* PO BEDTIME PRN CONSTIPATION Tizanidine HCl 4 mg 02/13/18 17:00 02/14/18 08:18 Zanaflex Tab* PO 4 mg 0800,1700 AME Administration Vital Signs: Vital Signs Temp Pulse Resp BP Pulse Ox 97.8 F 64 18 105/58 100 02/14/18 04:53 02/14/18 04:53 02/14/18 10:34 02/14/18 04:53 02/14/18 04:53 Lab Results: Laboratory Results - last 24 hr 02/14/18 05:58 WBC 5.0 RBC 3.20 L Hgb 9.3 L Hct 28 L MCV 86 MCH 29 MCHC 34 RDW 15 Plt Count 234 MPV 7.1 L Exam: GEN: no acute distress. alert and appropriate. LUNGS: clear to auscultation bilaterally. CV: regular rate and rhythm ABD: + bowel sounds, soft, non-tender, non-distened. EXT: mild bilateral LE edema. Right knee delon c/d/i. Assessment/Plan: 67yo woman s/p right TKR with acute post-op anemia and h/o breast cancer. #Right TKR: f/u with Dr. Dent. WBAT. #DVT ppx: sc heparin on PMRU but will take ASA at d/c per Dr. Dent. #Acute post-op anemia: s/p transfusion on 02/13. H/H better today. Recheck tomorrow. #Constipation: add miralax and schedule senna #Breast cancer: continue Arimedex #Pain: continue home regimen of misoprostol, voltaren, tizanidine and neurontin. Post-op added percocet prn. #continue PT/OT #Advanced directives: full code. #Estimated LOS: IPOC on Friday. 02/14/18 11:06
[2018-02-14] MEDS: Polyethylene Glycol 3350* 17 GM PACKET PO SCH (12:22)
[2018-02-14] MEDS: Senna TAB PO SCH (20:37)
[2018-02-15] MEDS: oxyCODONE/Acetamin 5/325 MG* TAB PO PRN ×6 (01:13→22:44)
[2018-02-15] MEDS: Heparin VIAL(*) 5000 UNITS/ML VIAL (FIVE THOUSAND) SUBCUT SCH ×3 (05:37→22:45)
[2018-02-15 06:20] LABS: ABS Basophils 0 10^3/ul (0-0.2); ABS Eosinophils 0.2 10^3/ul (0-0.6); ABS Lymphocytes 0.8 10^3/ul (1.0-4.8); ABS Monocytes 0.4 10^3/ul (0-0.8); ABS Neutrophils 3.4 10^3/ul (1.5-7.7); ABS Nucleated RBC 0 10^3/ul; Eosinophil % 3.1 % (0-6); Hematocrit 26 % (35-47); Hemoglobin 8.8 g/dl (12.0-16.0); Mean Corpuscular HGB Conc 34 g/dl (31-36); Mean Corpuscular Hemoglobin 30 pg (27-31); Mean Corpuscular Volume 86 fL (80-97); Mean Platelet Volume 7.4 um3 (7.4-10.4); Nucleated Red Blood Cells % 0; Platelet Count 260 10^3/ul (150-450); Red Blood Count 2.98 10^6/ul (4.0-5.4); Red Cell Distribution Width 14 % (10.5-15); White Blood Count 4.8 10^3/ul (3.5-10.8)
--- NOTE | 2018-02-15 08:12 | PN ---
Progress Note Date of Service: 02/15/18 Note: RADHA JAVIER was visited. Nursing and therapy notes read and reviewed. She reports throbbing in the right leg from the buttock all the way down her leg to the foot. In the past she has tolerated 900mg neurontin for cervical radicular pain. She is annoyed by intermittent numbness in the right hand. No chest pain , shortness of breath or abdominal pain. Current Medications: Active Medications Generic Name Dose Route Start Last Admin Trade Name Freq PRN Reason Stop Dose Admin Acetaminophen 650 mg 02/13/18 15:44 Tylenol Tab* PO Q6H PRN FEVER/PAIN Albuterol 2 puff 02/13/18 16:19 Ventolin Hfa Inhaler* INH Q6H PRN SOB/WHEEZING Anastrozole 1 mg 02/14/18 09:00 02/14/18 08:18 Arimidex (Nf) PO 1 mg DAILY AME Administration Bisacodyl 10 mg 02/13/18 15:44 Dulcolax Supp* [place] DAILY PRN CONSTIPATION Cholecalciferol 1,000 units 02/14/18 09:00 02/14/18 08:14 Vitamin D Tab* PO 1,000 units DAILY AME Administration Diclofenac Sodium 75 mg 02/13/18 21:00 02/14/18 20:34 Voltaren Ec Tab* PO 75 mg BID AME Administration Diltiazem HCl 240 mg 02/14/18 09:00 02/14/18 08:15 Cardizem Cd Cap* PO 240 mg DAILY AME Administration Docusate Sodium 100 mg 02/13/18 21:00 02/14/18 20:36 Colace Cap* PO 100 mg BID AME Administration Furosemide 10 mg 02/16/18 09:00 Lasix Tab* PO MOWEFR AME Gabapentin 900 mg 02/15/18 09:00 Neurontin Cap(*) PO TID AME Guaifenesin 600 mg 02/14/18 09:00 02/14/18 08:15 Mucinex* PO 600 mg DAILY AME Administration Heparin Sodium (Porcine) 5,000 units 02/13/18 22:00 02/15/18 05:37 Heparin Vial(*) SUBCUT 5,000 units Q8HR AME Administration Magnesium Hydroxide 30 ml 02/13/18 15:44 Milk Of Magnesia Liq* PO Q6H PRN CONSTIPATION Misoprostol 200 mcg 02/13/18 21:00 02/14/18 20:36 Cytotec Tab* PO 200 mcg BID AME Administration Mometasone Furoate/Formoterol Fumar 2 puff 02/13/18 21:00 02/14/18 19:47 Dulera 200/5 Mdi* INH 2 puff BID AME Administration Protocol Multivitamins 1 tab 02/14/18 09:00 02/14/18 08:15 Theragran Tab* PO 1 tab DAILY AME Administration Oxycodone/Acetaminophen 1 tab 02/13/18 16:11 02/14/18 20:37 Percocet 5/325 Tab* PO 1 tab Q4H PRN Administration PAIN - MODERATE TO SEVERE Oxycodone/Acetaminophen 2 tab 02/13/18 16:12 02/15/18 05:37 Percocet 5/325 Tab* PO 2 tab Q4H PRN Administration PAIN - SEVERE Polyethylene Glycol/Electrolytes 17 gm 02/14/18 12:00 02/14/18 12:22 Miralax* PO 17 gm DAILY AME Administration Polyvinyl Alcohol 1 drop 02/13/18 21:00 02/14/18 20:39 Polyvinyl Alcohol 1.4% Opth* BOTH EYES 1 drop TID AME Administration Potassium Chloride 20 meq 02/14/18 09:00 02/14/18 08:14 Klor Con Er Tab* PO 20 meq DAILY AME Administration Senna 2 tab 02/14/18 21:00 02/14/18 20:37 Senokot Tab* PO 2 tab BEDTIME AME Administration Tizanidine HCl 4 mg 02/13/18 17:00 02/14/18 17:00 Zanaflex Tab* PO 4 mg 0800,1700 AME Administration Vital Signs: Vital Signs Temp Pulse Resp BP Pulse Ox 98.6 F 64 18 103/62 96 02/15/18 05:37 02/15/18 05:37 02/15/18 05:37 02/15/18 05:37 02/15/18 07:20 Lab Results: Laboratory Results - last 24 hr 02/15/18 05:26 WBC 4.8 RBC 2.98 L Hgb 8.8 L Hct 26 L MCV 86 MCH 30 MCHC 34 RDW 14 Plt Count 260 MPV 7.4 Neut % (Auto) 71.2 Lymph % (Auto) 16.0 L [place] % (Auto) 8.9 H Eos % (Auto) 3.1 Baso % (Auto) 0.8 Absolute Neuts (auto) 3.4 Absolute Lymphs (auto) 0.8 L Absolute Monos (auto) 0.4 Absolute Eos (auto) 0.2 Absolute Basos (auto) 0 Absolute Nucleated RBC 0 Nucleated RBC % 0 Exam: GEN: no acute distress. alert and appropriate. LUNGS: clear to auscultation bilaterally. CV: regular rate and rhythm ABD: + bowel sounds, soft, non-tender, non-distened. EXT: mild bilateral LE edema. NEURO: bilateral LE with normal sensation and motor at toes/ankles 5/5 ble. Assessment/Plan: 67yo woman s/p right TKR with acute post-op anemia and h/o breast cancer. #Right TKR: f/u with Dr. Dent. WBAT. #DVT ppx: sc heparin on PMRU but will take ASA at d/c per Dr. Dent. #Acute post-op anemia: s/p transfusion on 02/13. H/H down again today. Recheck tomorrow. #Constipation: on scheduled bowel meds including miralax #Breast cancer: continue Arimedex #Pain: continue home regimen of misoprostol, voltaren, tizanidine. For what appears to be sciatica increase neurontin from 600mg tid to 900mg tid. Post-op added percocet prn. #Right hand numbness: I did an EMG/NCS on 01/15/18 showing at least moderate CTS and chronic right C8 radiculopathy vs lower trunk plexopathy. She has not had f /u with Dr. Dong yet who ordered the study. She is s/p C3-7 posterior laminectomies in 2000. #continue PT/OT #Advanced directives: full code. #Estimated LOS: IPOC on Friday. 02/15/18 08:07
[2018-02-15] MEDS: Artificial Tears* 15 ML BTL BOTH EYES SCH ×3 (08:42→20:57)
[2018-02-15] MEDS: Polyethylene Glycol 3350* 17 GM PACKET PO SCH (08:43)
[2018-02-15] MEDS: Gabapentin CAP(*) 300 MG PO SCH ×3 (08:46→20:53)
[2018-02-15] MEDS: Diclofenac Sodium EC TAB* 25 MG PO SCH ×2 (08:47→20:55)
[2018-02-15] MEDS: guaiFENesin ER TAB 600 MG PO SCH (08:48)
[2018-02-15] MEDS: Diltiazem CD CAP* 240 MG PO SCH (08:48)
[2018-02-15] MEDS: Potassium Chlor TAB* 20 MEQ TAB.ER PO SCH (08:48)
[2018-02-15] MEDS: Vitamin THERAPEUTIC TAB PO SCH (08:48)
[2018-02-15] MEDS: Misoprostol TAB* 200 MCG PO SCH ×2 (08:48→20:54)
[2018-02-15] MEDS: Cholecalciferol TAB* 1000 UNITS PO SCH (08:48)
[2018-02-15] MEDS: Docusate CAP* 100 MG PO SCH ×2 (08:48→20:55)
[2018-02-15] MEDS: tiZANidine TAB* 2 MG PO SCH ×2 (08:50→17:04)
[2018-02-15] MEDS: CMCS:Anastrozole (NF) 1 MG TAB PO SCH (08:52)
[2018-02-15] MEDS: Mometasone/Formoter 200/5 MDI INH SCH ×2 (08:55→19:25)
[2018-02-15] MEDS: Senna TAB PO SCH (20:54)
[2018-02-16] MEDS: oxyCODONE/Acetamin 5/325 MG* TAB PO PRN ×5 (02:59→20:14)
[2018-02-16] MEDS: Heparin VIAL(*) 5000 UNITS/ML VIAL (FIVE THOUSAND) SUBCUT SCH ×3 (05:58→22:03)
[2018-02-16 06:49] LABS: ABS Basophils 0 10^3/ul (0-0.2); ABS Eosinophils 0.2 10^3/ul (0-0.6); ABS Lymphocytes 0.8 10^3/ul (1.0-4.8); ABS Monocytes 0.4 10^3/ul (0-0.8); ABS Neutrophils 3.1 10^3/ul (1.5-7.7); ABS Nucleated RBC 0 10^3/ul; Eosinophil % 3.7 % (0-6); Hematocrit 28 % (35-47); Hemoglobin 9.7 g/dl (12.0-16.0); Lymphocyte % 18.3 % (25-47); Mean Corpuscular HGB Conc 34 g/dl (31-36); Mean Corpuscular Hemoglobin 30 pg (27-31); Mean Corpuscular Volume 86 fL (80-97); Mean Platelet Volume 6.9 um3 (7.4-10.4); Nucleated Red Blood Cells % 0.1; Platelet Count 317 10^3/ul (150-450); Red Blood Count 3.29 10^6/ul (4.0-5.4); Red Cell Distribution Width 14 % (10.5-15); White Blood Count 4.5 10^3/ul (3.5-10.8)
[2018-02-16 07:07] LABS: EGFR Non-African American 80.8 (>60)
[2018-02-16] MEDS: Mometasone/Formoter 200/5 MDI INH SCH ×2 (07:34→20:15)
[2018-02-16] MEDS: tiZANidine TAB* 2 MG PO SCH ×2 (09:43→16:06)
[2018-02-16] MEDS: CMCS:Anastrozole (NF) 1 MG TAB PO SCH (09:43)
[2018-02-16] MEDS: Artificial Tears* 15 ML BTL BOTH EYES SCH ×3 (09:43→20:13)
[2018-02-16] MEDS: Cholecalciferol TAB* 1000 UNITS PO SCH (09:45)
[2018-02-16] MEDS: Diclofenac Sodium EC TAB* 25 MG PO SCH ×2 (09:45→20:13)
[2018-02-16] MEDS: Docusate CAP* 100 MG PO SCH ×2 (09:47→20:13)
[2018-02-16] MEDS: Diltiazem CD CAP* 240 MG PO SCH (09:47)
[2018-02-16] MEDS: Gabapentin CAP(*) 300 MG PO SCH ×3 (09:48→20:14)
[2018-02-16] MEDS: guaiFENesin ER TAB 600 MG PO SCH (09:51)
[2018-02-16] MEDS: Misoprostol TAB* 200 MCG PO SCH ×2 (09:51→20:13)
[2018-02-16] MEDS: Potassium Chlor TAB* 20 MEQ TAB.ER PO SCH (09:51)
[2018-02-16] MEDS: Vitamin THERAPEUTIC TAB PO SCH (09:52)
[2018-02-16] MEDS: Furosemide TAB* 20 MG PO SCH (10:35)
[2018-02-16] MEDS: Polyethylene Glycol 3350* 17 GM PACKET PO SCH (10:40)
--- NOTE | 2018-02-16 12:53 | PMRUTEAM ---
PMRU: Team Meeting Current Status: Nursing: Current Status Skin Deviations [Right Knee] Incision Skin Deviation Description [ cryo unit in place Right Knee] Physical Therapy: Current Status Bed Mobility Assistance Independent Transfer Moblility Assistance Contact Guard Assist Transfer/Bed Mobility Rolling Walker Recommended Devices Ambulation Assistance Contact Guard Assist Ambulation Assistive Devices Rolling Walker Number of Feet Patient 70 Ambulated Stairs Assistance Contact Guard Assist Stairs Recommended Devices Two Rails Number of Stairs 3 Occupational Therapy: Current Status Upper Body Dressing Supervision Lower Body Dressing Mod Assist Bathing Mod Assist Toileting Mod Assist Toilet Transfer Contact Guard Assist Shower Transfer Contact Guard Assist Eating Independent Rec Therapy: Current Status Summary of Assessment and Pt. was open to conversation - talkative and Clinical Impression engaged throughout. Pt. spoke a lot about her best friend as her main support and enjoying time with her. Pt. identified with interests and involvement in them prior to admission. Pt. was interested in Plaid puzzles - provided them to her. Pt. was open to continued leisure visits. Treatment Goals Pt. will engage in leisure activities while on the unit. Treatment Plan Provide RT services and encourage involvement. Social Work: Current Status Discharge Plan return home with home care svs and support from friends Potential for Family Training TBD Anticipated Discharge Home Destination Discharge With home care svs and support from friends Goals: Physical Therapy: Initial Goals Bed Mobility Assistance Independent Transfer Mobility Assistance Independent Transfer/Bed Mobility Rolling Walker Recommended Devices Ambulation Independent Ambulation Recommended Devices Rolling Walker Ambulation Distance 150 Stairs Assistance Independent Stair Recommended Devices Two Rails Number of Stairs 5 Physical Therapy: Updated Goals Transfer/Bed Mobility Rolling Walker Recommended Devices Occupational Therapy: Initial Goals Goals to be Completed in (Days 10-14 ) Upper Body Bathing Routine Modified Independent with Upper Body Bathing Assistive with long handled sponge Devices Lower Body Bathing Routine Modified Independent with Lower Body Bathing Assistive with long handled sponge, shower chair Devices Comment Upper Body Dressing Routine Independent Lower Body Dressing Routine Modified Independent with Lower Body Dressing Assistive wiht sock aid, melting supervisor, LH shoe horn Devices Toilet Hygeine and Clothing Modified Independent with Management Routine Toilet Hygeine and Clothing raised toilet seat with handles Management Assistive Devices Toilet Transfer Routine Modified Independent with Tub Transfer Routine Modified Independent with Functional Transfers for ADL Modified Independent with Grooming Routine Independent Feeding Routine Modified Independent with Social Work: Goals Discharge Plan return home with home care svs and support from friends Potential for Family Training TBD Anticipated Discharge Home Destination Discharge With home care svs and support from friends Care Plan: Care Plan ADL's - Improve/Maintain Start: 02/14/18 11:51 Freq: DAILY Status: Active Target: Protocol: Activity Type Activity Date Activity User E-Sign Co-Sign Detail Recorded Client Recorded Date Recorded By Document 02/14/18 11:51 [id number] 02/14/18 11:52 [id number] 02/14/18 11:51 PMRU Outcome: ADL's/ADL Transfers Orders/Interventions Occupational Therapy Evaluation & Treatment Communication Tool in Patient Room Patient to receive OT 5x/wk for 60-120 Therex min/day Self Care Management Group Therapy UE/LE ADL's with Assist Yes: mod I ADL Transfers with Assist Yes: mod I Toileting: Transfers,Clothing Management Yes: mod I ,Hygeine w/Assist Progression Toward Outcome/Goals Progressing DVT Prophylaxis- Improve/Maintain Start: 02/13/18 22:03 Freq: DAILY Status: Active Target: Protocol: Activity Type Activity Date Activity User E-Sign Co-Sign Detail Recorded Client Recorded Date Recorded By Document 02/16/18 02:57 [id number] 02/16/18 02:57 [id number] 02/16/18 02:57 PMRU Outcome: DVT Prophylaxis Outcome/Goals Remains Free of DVT Free of complications from current DVT Complies with DVT Prophylaxis /Treatment Progression Toward Outcome/Goals Progressing Discharge Planning - Improve/Maintain Start: 02/13/18 16:47 Freq: DAILY Status: Active Target: Protocol: Activity Type Activity Date Activity User E-Sign Co-Sign Detail Recorded Client Recorded Date Recorded By Document 02/16/18 02:57 [id number] 02/16/18 02:57 [id number] 02/16/18 02:57 PMRU Outcome: Discharge Planning Update Patient Family No Outcome/Goals Demonstrates Understanding of Discharge Plan Homecare Referral - See Comment Progression Toward Outcome/Goals Progressing Education-Improve/Maintain Start: 02/13/18 16:47 Freq: DAILY Status: Active Target: Protocol: Activity Type Activity Date Activity User E-Sign Co-Sign Detail Recorded Client Recorded Date Recorded By Document 02/16/18 02:57 [id number] 02/16/18 02:57 [id number] 02/16/18 02:57 PMRU Outcome: Education Outcome/Goals Encourage Questions Progression Toward Outcome/Goals Progressing /GI-Improve/Maintain Start: 02/13/18 22:03 Freq: DAILY Status: Active Target: Protocol: Activity Type Activity Date Activity User E-Sign Co-Sign Detail Recorded Client Recorded Date Recorded By Document 02/16/18 02:57 [id number] 02/16/18 02:57 [id number] 02/16/18 02:57 PMRU Outcome: Genitourinary/ Gastrointestinal Genitourinary- Outcome/Goals Maintain/ Achieve Urinary Continence Maintain/ Achieve Adequate Urinary Output Gastrointestinal-Outcome/Goals Bowel Regularity at Home Progression Toward Outcome/Goals - Progressing Progression Toward Outcome/Goals - GI Progressing Outcome/Goals Met Comment pt up to BR Medication Administration Start: 02/13/18 16:47 Freq: DAILY Status: Active Target: Protocol: Activity Type Activity Date Activity User E-Sign Co-Sign Detail Recorded Client Recorded Date Recorded By Document 02/16/18 02:57 [id number] [email or web address] 02/16/18 02:57 [id number] 02/16/18 02:57 PMRU Outcome: Medication Administration Assess Patient Knowledge/Teach Med Yes Education for all Meds Outcome/Goals Patient Independent with Medication Administration at Home Progression Towards Outcome/Goals Progressing Is Patient Going Home on Lovenox? No Pain/Comfort- Improve/Maintain Start: 02/13/18 16:47 Freq: DAILY Status: Active Target: Protocol: Activity Type Activity Date Activity User E-Sign Co-Sign Detail Recorded Client Recorded Date Recorded By Document 02/16/18 02:57 [id number] 02/16/18 02:57 [id number] 02/16/18 02:57 PMRU Outcome: Pain/Comfort Outcome/Goals Demonstrates Knowledge and Use of Available Comfort Measures Achieves Acceptable Comfort/Pain Level as Determined by Patient/Condit Maintain Comfort Level Allowing Patient to Fully Participate in Rehab Progression Toward Outcome/Goals Progressing Outcome/Goals Met Comment pain medication given, cryo unit and heat pack in place Skin- Improve/Maintain Start: 02/13/18 16:47 Freq: DAILY Status: Active Target: Protocol: Activity Type Activity Date Activity User E-Sign Co-Sign Detail Recorded Client Recorded Date Recorded By Document 02/16/18 02:57 [id number] [email or web address] 02/16/18 02:57 [id number] 02/16/18 02:57 PMRU Outcome: Skin Skin Risk Level Low Skin Orders Spenco Boots Outcome/Goals Maintain/ Improve Skin Intergrity Surgical Incisions Healing Progression Toward Outcome/Goals Progressing Medicine Note: Length of Stay: 10 days Anticipated Discharge Destination: Home Tentative Discharge Date: 02/24/18 Discharged to: Home
--- NOTE | 2018-02-16 16:20 | PN ---
Progress Note Date of Service: 02/16/18 Note: ANALI JAVIER was visited. Therapy notes read and reviewed. Anali was discussed in interdisciplinary team rounds. She is slow to make progress. Got winded walking to the bathroom but her sats were fine. No chest pain Current Medications: Active Medications Generic Name Dose Route Start Last Admin Trade Name Freq PRN Reason Stop Dose Admin Acetaminophen 650 mg 02/13/18 15:44 Tylenol Tab* PO Q6H PRN FEVER/PAIN Albuterol 2 puff 02/13/18 16:19 Ventolin Hfa Inhaler* INH Q6H PRN SOB/WHEEZING Anastrozole 1 mg 02/14/18 09:00 02/16/18 09:43 Arimidex (Nf) PO 1 mg DAILY AME Administration Bisacodyl 10 mg 02/13/18 15:44 Dulcolax Supp* MD DAILY PRN CONSTIPATION Cholecalciferol 1,000 units 02/14/18 09:00 02/16/18 09:45 Vitamin D Tab* PO 1,000 units DAILY AME Administration Diclofenac Sodium 75 mg 02/13/18 21:00 02/16/18 09:45 Voltaren Ec Tab* PO 75 mg BID AME Administration Diltiazem HCl 240 mg 02/14/18 09:00 02/16/18 09:47 Cardizem Cd Cap* PO 240 mg DAILY AME Administration Docusate Sodium 100 mg 02/13/18 21:00 02/16/18 09:47 Colace Cap* PO 100 mg BID AME Administration Furosemide 10 mg 02/16/18 09:00 02/16/18 10:35 Lasix Tab* PO 10 mg MOWEFR AME Administration Gabapentin 900 mg 02/15/18 09:00 02/16/18 14:38 Neurontin Cap(*) PO 900 mg TID AME Administration Guaifenesin 600 mg 02/14/18 09:00 02/16/18 09:51 Mucinex* PO 600 mg DAILY AME Administration Heparin Sodium (Porcine) 5,000 units 02/13/18 22:00 02/16/18 14:43 Heparin Vial(*) SUBCUT 5,000 units Q8HR AME Administration Magnesium Hydroxide 30 ml 02/13/18 15:44 Milk Of Magnesia Liq* PO Q6H PRN CONSTIPATION Misoprostol 200 mcg 02/13/18 21:00 02/16/18 09:51 Cytotec Tab* PO 200 mcg BID AME Administration Mometasone Furoate/Formoterol Fumar 2 puff 02/13/18 21:00 02/16/18 07:34 Dulera 200/5 Mdi* INH 2 puff BID AME Administration Protocol Multivitamins 1 tab 02/14/18 09:00 02/16/18 09:52 Theragran Tab* PO 1 tab DAILY AME Administration Oxycodone/Acetaminophen 1 tab 02/13/18 16:11 02/14/18 20:37 Percocet 5/325 Tab* PO 1 tab Q4H PRN Administration PAIN - MODERATE TO SEVERE Oxycodone/Acetaminophen 2 tab 02/13/18 16:12 02/16/18 16:05 Percocet 5/325 Tab* PO 2 tab Q4H PRN Administration PAIN - SEVERE Polyethylene Glycol/Electrolytes 17 gm 02/14/18 12:00 02/16/18 10:40 Miralax* PO Not Given DAILY AME Polyvinyl Alcohol 1 drop 02/13/18 21:00 02/16/18 14:43 Polyvinyl Alcohol 1.4% Opth* BOTH EYES 1 drop TID AME Administration Potassium Chloride 20 meq 02/14/18 09:00 02/16/18 09:51 Klor Con Er Tab* PO 20 meq DAILY AME Administration Senna 2 tab 02/14/18 21:00 02/15/18 20:54 Senokot Tab* PO 2 tab BEDTIME AME Administration Tizanidine HCl 4 mg 02/13/18 17:00 02/16/18 16:06 Zanaflex Tab* PO 4 mg 0800,1700 AME Administration Vital Signs: Vital Signs Temp Pulse Resp BP Pulse Ox 98.5 F 57 18 123/71 98 02/16/18 05:59 02/16/18 05:59 02/16/18 16:05 02/16/18 05:59 02/16/18 05:59 Lab Results: Laboratory Results - last 24 hr 02/16/18 02/16/18 06:41 06:41 WBC 4.5 RBC 3.29 L Hgb 9.7 L Hct 28 L MCV 86 MCH 30 MCHC 34 RDW 14 Plt Count 317 MPV 6.9 L Neut % (Auto) 69.4 Lymph % (Auto) 18.3 L Crowley % (Auto) 8.0 H Eos % (Auto) 3.7 Baso % (Auto) 0.6 Absolute Neuts (auto) 3.1 Absolute Lymphs (auto) 0.8 L Absolute Monos (auto) 0.4 Absolute Eos (auto) 0.2 Absolute Basos (auto) 0 Absolute Nucleated RBC 0 Nucleated RBC % 0.1 Sodium 141 Potassium 4.0 Chloride 105 Carbon Dioxide 31 Anion Gap 5 BUN 6 Creatinine 0.72 Est GFR ( Amer) 103.9 Est GFR (Non-Af Amer) 80.8 BUN/Creatinine Ratio 8.3 Glucose 86 Calcium 8.9 Total Bilirubin 0.50 AST 14 ALT 13 Alkaline Phosphatase 45 Total Protein 5.7 L Albumin 3.2 Globulin 2.5 Albumin/Globulin Ratio 1.3 Exam: GEN: no acute distress. alert and appropriate. LUNGS: clear to auscultation bilaterally. CV: regular rate and rhythm ABD: + bowel sounds, soft, non-tender, non-distened. EXT: right knee wound clean, LE edema. NEURO: bilateral LE with normal sensation and able to dorsiflex 5/5. Assessment/Plan: 1. Right TKR: f/u with Dr. Dent. WBAT. PT/OT 2. DVT ppx: sc heparin on PMRU but will take ASA at d/c per Dr. Dent. 3. Acute post-op anemia: s/p transfusion on 02/13. H/H down again today. Recheck tomorrow. 4. Constipation: on scheduled bowel meds including miralax 5. Breast cancer: continue Arimedex 6. Pain: continue home regimen of misoprostol, voltaren, tizanidine. Neurontin increased to 900mg tid. Post-op added percocet prn. 7. 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 She has not had f/u with Dr. Dong yet who ordered the study. She is s/p C3-7 posterior laminectomies in 2000. 8. Advanced directives: full code. 02/16/18 16:22
[2018-02-16] MEDS: Senna TAB PO SCH (20:13)
[2018-02-17] MEDS: oxyCODONE/Acetamin 5/325 MG* TAB PO PRN ×5 (02:27→20:20)
[2018-02-17] MEDS: Heparin VIAL(*) 5000 UNITS/ML VIAL (FIVE THOUSAND) SUBCUT SCH ×3 (05:26→21:17)
[2018-02-17] MEDS: Artificial Tears* 15 ML BTL BOTH EYES SCH ×3 (07:34→21:17)
[2018-02-17] MEDS: Cholecalciferol TAB* 1000 UNITS PO SCH (07:34)
[2018-02-17] MEDS: CMCS:Anastrozole (NF) 1 MG TAB PO SCH (07:34)
[2018-02-17] MEDS: Diltiazem CD CAP* 240 MG PO SCH (07:35)
[2018-02-17] MEDS: Diclofenac Sodium EC TAB* 25 MG PO SCH ×2 (07:35→21:15)
[2018-02-17] MEDS: Gabapentin CAP(*) 300 MG PO SCH ×3 (07:36→21:16)
[2018-02-17] MEDS: Docusate CAP* 100 MG PO SCH ×2 (07:36→21:16)
[2018-02-17] MEDS: guaiFENesin ER TAB 600 MG PO SCH (07:37)
[2018-02-17] MEDS: Misoprostol TAB* 200 MCG PO SCH ×2 (07:37→21:16)
[2018-02-17] MEDS: Mometasone/Formoter 200/5 MDI INH SCH ×2 (07:38→19:41)
[2018-02-17] MEDS: Polyethylene Glycol 3350* 17 GM PACKET PO SCH (07:39)
[2018-02-17] MEDS: Potassium Chlor TAB* 20 MEQ TAB.ER PO SCH (07:39)
[2018-02-17] MEDS: Vitamin THERAPEUTIC TAB PO SCH (07:40)
[2018-02-17] MEDS: tiZANidine TAB* 2 MG PO SCH ×2 (07:43→17:19)
--- NOTE | 2018-02-17 12:35 | PMRUTEAM ---
PMRU: Team Meeting Current Status: Nursing: Current Status Skin Deviations [Right Knee] Incision Skin Deviation Description [ drsg and cryounit in place Right Knee] Physical Therapy: Current Status Bed Mobility Assistance Independent Transfer Moblility Assistance Contact Guard Assist Transfer/Bed Mobility Rolling Walker Recommended Devices Ambulation Assistance Contact Guard Assist Ambulation Assistive Devices Rolling Walker Number of Feet Patient 160' Ambulated Stairs Assistance Contact Guard Assist Stairs Recommended Devices Two Rails Number of Stairs 3 Occupational Therapy: Current Status Upper Body Dressing Supervision Lower Body Dressing Contact Guard Assist Lower Body Dressing Progress with netbackup admin/sock aid Bathing Min Assist Bathing Progress assist for right foot and rear perineal area Toileting Min Assist Toilet Transfer Contact Guard Assist Shower Transfer Min Assist Eating Independent Rec Therapy: Current Status Summary of Assessment and RT assessment complete and pt. is aware of RT Clinical Impression services. Pt. has been pleasant and cooperative during leisure visits. Provided pt. with leisure material (Kanshuu puzzles) for her room. Treatment Goals Pt. will engage in leisure activities while on the unit. Treatment Plan Provide RT services and encourage involvement. Social Work: Current Status Discharge Plan return home with home care svs and support from friends Potential for Family Training TBD - pt lives alone Anticipated Discharge Home Destination Discharge With VNS and support from friends Nutrition: Current Status Monitoring full assessment planned on 02/20 per NDS protocol. Initial/tentative goals as outlined below. Goals: Physical Therapy: Initial Goals Bed Mobility Assistance Independent Transfer Mobility Assistance Independent Transfer/Bed Mobility Rolling Walker Recommended Devices Ambulation Independent Ambulation Recommended Devices Rolling Walker Ambulation Distance 150 Stairs Assistance Independent Stair Recommended Devices Two Rails Number of Stairs 5 Physical Therapy: Updated Goals Transfer/Bed Mobility Rolling Walker Recommended Devices Occupational Therapy: Initial Goals Goals to be Completed in (Days 10-14 ) Upper Body Bathing Routine Modified Independent with Upper Body Bathing Assistive with long handled sponge Devices Lower Body Bathing Routine Modified Independent with Lower Body Bathing Assistive with long handled sponge, shower chair Devices Comment Upper Body Dressing Routine Independent Lower Body Dressing Routine Modified Independent with Lower Body Dressing Assistive wiht sock aid, netbackup admin, LH shoe horn Devices Toilet Hygeine and Clothing Modified Independent with Management Routine Toilet Hygeine and Clothing raised toilet seat with handles Management Assistive Devices Toilet Transfer Routine Modified Independent with Tub Transfer Routine Modified Independent with Functional Transfers for ADL Modified Independent with Grooming Routine Independent Feeding Routine Modified Independent with Nutrition: Goals Intervention Goals 1. adequate po intake to support lean body mass and hydration without add'l wt gain 2. achieve and maintain regular bowel pattern without constipation or diarrhea 3. Skin will remain intact without s/sx breakdown Social Work: Goals Discharge Plan return home with home care svs and support from friends Potential for Family Training TBD - pt lives alone Anticipated Discharge Home Destination Discharge With VNS and support from friends Care Plan: Care Plan ADL's - Improve/Maintain Start: 02/14/18 11:51 Freq: DAILY Status: Active Target: Protocol: Activity Type Activity Date Activity User E-Sign Co-Sign Detail Recorded Client Recorded Date Recorded By Document 02/16/18 15:42 [id number] 02/16/18 15:42 [id number] 02/16/18 15:42 PMRU Outcome: ADL's/ADL Transfers Orders/Interventions Occupational Therapy Evaluation & Treatment Communication Tool in Patient Room Patient to receive OT 5x/wk for 60-120 Therex min/day Self Care Management Group Therapy UE/LE ADL's with Assist Yes: mod I ADL Transfers with Assist Yes: mod I Toileting: Transfers,Clothing Management Yes: mod I ,Hygeine w/Assist Progression Toward Outcome/Goals Progressing Outcome/Goals Met Pt participated fair in ADL treatment session, limited 2* pain . Will benefit from continued AE training to maximize independence and safety as pt lives alone. DVT Prophylaxis- Improve/Maintain Start: 02/13/18 22:03 Freq: DAILY Status: Active Target: Protocol: Activity Type Activity Date Activity User E-Sign Co-Sign Detail Recorded Client Recorded Date Recorded By Document 02/17/18 01:26 [id number] 02/17/18 01:27 [id number] 02/17/18 01:26 PMRU Outcome: DVT Prophylaxis Outcome/Goals Remains Free of DVT Complies with DVT Prophylaxis /Treatment Demonstrates Knowledge of DVT Prevention/ Treatment Progression Toward Outcome/Goals Progressing Discharge Planning - Improve/Maintain Start: 02/13/18 16:47 Freq: DAILY Status: Active Target: Protocol: Activity Type Activity Date Activity User E-Sign Co-Sign Detail Recorded Client Recorded Date Recorded By Document 02/16/18 02:57 [id number] 02/16/18 02:57 [id number] 02/16/18 02:57 PMRU Outcome: Discharge Planning Update Patient Family No Outcome/Goals Demonstrates Understanding of Discharge Plan Homecare Referral - See Comment Progression Toward Outcome/Goals Progressing Education-Improve/Maintain Start: 02/13/18 16:47 Freq: DAILY Status: Active Target: Protocol: Activity Type Activity Date Activity User E-Sign Co-Sign Detail Recorded Client Recorded Date Recorded By Document 02/17/18 01:26 [id number] 02/17/18 01:27 02/17/18 01:26 PMRU Outcome: Education Outcome/Goals Encourage Questions Progression Toward Outcome/Goals Progressing /GI-Improve/Maintain Start: 02/13/18 22:03 Freq: DAILY Status: Active Target: Protocol: Activity Type Activity Date Activity User E-Sign Co-Sign Detail Recorded Client Recorded Date Recorded By Document 02/17/18 01:26 [id number] 02/17/18 01:27 02/17/18 01:26 PMRU Outcome: Genitourinary/ Gastrointestinal Genitourinary- Outcome/Goals Maintain/ Achieve Urinary Continence Gastrointestinal-Outcome/Goals Maintain/ Achieve Bowel Regularity in Accordance with Pt's Baseline Prevent Constipation Laxatives as Ordered Progression Toward Outcome/Goals - Progressing Progression Toward Outcome/Goals - GI Progressing Medication Administration Start: 02/13/18 16:47 Freq: DAILY Status: Active Target: Protocol: Activity Type Activity Date Activity User E-Sign Co-Sign Detail Recorded Client Recorded Date Recorded By Document 02/17/18 01:26 [id number] 02/17/18 01:27 [id number] 02/17/18 01:26 PMRU Outcome: Medication Administration Assess Patient Knowledge/Teach Med Yes Education for all Meds Outcome/Goals Patient Independent with Medication Administration at Home Demonstrates Understanding Progression Towards Outcome/Goals Progressing Is Patient Going Home on Lovenox? No Mobility- Improve/Maintain Start: 02/17/18 08:04 Freq: DAILY Status: Active Target: Protocol: Activity Type Activity Date Activity User E-Sign Co-Sign Detail Recorded Client Recorded Date Recorded By Document 02/17/18 08:04 [id number] 02/17/18 08:07 [id number] 02/17/18 08:04 PMRU Outcome: Mobility Physical Therapy Evaluation and Yes Treatment Activity OOB with Assistance Yes WBAT Yes: R LE Device Yes: front wheeled walker Assistance Yes: CGA with gait belt and walker Patient to be seen 5x/wk for 60-120 min/ Therex day for: Mobility Training Gait Training Balance Outcome/Goals Maintain/ Achieve Baseline Mobility Status Improve Mobility Status Demonstrates Proper Use of Assistive Devices Free from Complications of Immobility Progression Toward Outcome/Goals Progressing Bed Mobility Yes: Ind Transfers Yes: Ind with walker Gait x ft Yes: Ind with walker x150ft W/C Mobility x ft No Up/Down Stairs Yes: Ind with 2 rails x5 steps With HEP Yes Pain/Comfort- Improve/Maintain Start: 02/13/18 16:47 Freq: DAILY Status: Active Target: Protocol: Activity Type Activity Date Activity User E-Sign Co-Sign Detail Recorded Client Recorded Date Recorded By Document 02/17/18 01:26 [id number] 02/17/18 01:27 [id number] 02/17/18 01:26 PMRU Outcome: Pain/Comfort Outcome/Goals Demonstrates Knowledge and Use of Available Comfort Measures Achieves Acceptable Comfort/Pain Level as Determined by Patient/Condit Maintain Comfort Level Allowing Patient to Fully Participate in Rehab Progression Toward Outcome/Goals Progressing Skin- Improve/Maintain Start: 02/13/18 16:47 Freq: DAILY Status: Active Target: Protocol: Activity Type Activity Date Activity User E-Sign Co-Sign Detail Recorded Client Recorded Date Recorded By Document 02/17/18 01:26 [id number] 02/17/18 01:27 [id number] 02/17/18 01:26 PMRU Outcome: Skin Skin Risk Level Low Skin Orders Spenco Boots Turn/Position q2hr While in Bed Outcome/Goals Free from Decubitus Surgical Incisions Healing Progression Toward Outcome/Goals Progressing Medicine Note: Length of Stay: 7 days Anticipated Discharge Destination: Home Tentative Discharge Date: 02/24/18 Discharged to: home
--- NOTE | 2018-02-17 17:26 | PN ---
Progress Note Date of Service: 02/17/18 Note: RADHA JAVIER was visited. Therapy notes read and reviewed. She was discussed in interdisciplinary team rounds. She has not been getting her levothroxine. Her normal dose is 112 mcg daily. Her last TSH was low and free T4 was high. The patient states that Dr. Vikcers (covering for Dr. Bang) wanted her to take 100 mcg daily. Will order this and confirm with Dr. Vickers Current Medications: Active Medications Generic Name Dose Route Start Last Admin Trade Name Freq PRN Reason Stop Dose Admin Acetaminophen 650 mg 02/13/18 15:44 Tylenol Tab* PO Q6H PRN FEVER/PAIN Albuterol 2 puff 02/13/18 16:19 Ventolin Hfa Inhaler* INH Q6H PRN SOB/WHEEZING Anastrozole 1 mg 02/14/18 09:00 02/17/18 07:34 Arimidex (Nf) PO 1 mg DAILY AME Administration Bisacodyl 10 mg 02/13/18 15:44 Dulcolax Supp* [place] DAILY PRN CONSTIPATION Cholecalciferol 1,000 units 02/14/18 09:00 02/17/18 07:34 Vitamin D Tab* PO 1,000 units DAILY AME Administration Diclofenac Sodium 75 mg 02/13/18 21:00 02/17/18 07:35 Voltaren Ec Tab* PO 75 mg BID AME Administration Diltiazem HCl 240 mg 02/14/18 09:00 02/17/18 07:35 Cardizem Cd Cap* PO 240 mg DAILY AME Administration Docusate Sodium 100 mg 02/13/18 21:00 02/17/18 07:36 Colace Cap* PO 100 mg BID AME Administration Furosemide 10 mg 02/16/18 09:00 02/16/18 10:35 Lasix Tab* PO 10 mg MOWEFR AME Administration Gabapentin 900 mg 02/15/18 09:00 02/17/18 14:41 Neurontin Cap(*) PO 900 mg TID AME Administration Guaifenesin 600 mg 02/14/18 09:00 02/17/18 07:37 Mucinex* PO 600 mg DAILY AME Administration Heparin Sodium (Porcine) 5,000 units 02/13/18 22:00 02/17/18 14:46 Heparin Vial(*) SUBCUT 5,000 units Q8HR AME Administration Levothyroxine Sodium 100 mcg 02/18/18 06:00 Synthroid Tab* PO DAILY@0600 AME Magnesium Hydroxide 30 ml 02/13/18 15:44 Milk Of Magnesia Liq* PO Q6H PRN CONSTIPATION Misoprostol 200 mcg 02/13/18 21:00 02/17/18 07:37 Cytotec Tab* PO 200 mcg BID AME Administration Mometasone Furoate/Formoterol Fumar 2 puff 02/13/18 21:00 02/17/18 07:38 Dulera 200/5 Mdi* INH 2 puff BID AME Administration Protocol Multivitamins 1 tab 02/14/18 09:00 02/17/18 07:40 Theragran Tab* PO 1 tab DAILY AME Administration Oxycodone/Acetaminophen 1 tab 02/13/18 16:11 02/14/18 20:37 Percocet 5/325 Tab* PO 1 tab Q4H PRN Administration PAIN - MODERATE TO SEVERE Oxycodone/Acetaminophen 2 tab 02/13/18 16:12 02/17/18 15:39 Percocet 5/325 Tab* PO 2 tab Q4H PRN Administration PAIN - SEVERE Polyethylene Glycol/Electrolytes 17 gm 02/14/18 12:00 02/17/18 07:39 Miralax* PO 17 gm DAILY AME Administration Polyvinyl Alcohol 1 drop 02/13/18 21:00 02/17/18 14:40 Polyvinyl Alcohol 1.4% Opth* BOTH EYES 1 drop TID AME Administration Potassium Chloride 20 meq 02/14/18 09:00 02/17/18 07:39 Klor Con Er Tab* PO 20 meq DAILY AME Administration Senna 2 tab 02/14/18 21:00 02/16/18 20:13 Senokot Tab* PO 2 tab BEDTIME AME Administration Tizanidine HCl 4 mg 02/13/18 17:00 02/17/18 17:19 Zanaflex Tab* PO 4 mg 0800,1700 AME Administration Vital Signs: Vital Signs Temp Pulse Resp BP Pulse Ox 98.0 F 57 16 109/60 96 02/17/18 15:49 02/17/18 15:49 02/17/18 17:22 02/17/18 15:49 02/17/18 15:49 Exam: GEN: no acute distress. alert and appropriate. LUNGS: clear to auscultation bilaterally. CV: regular rate and rhythm ABD: + bowel sounds, soft, non-tender, non-distened. EXT: right knee wound clean, LE edema. NEURO: bilateral LE with normal sensation and able to dorsiflex 5/5. Assessment/Plan: 1. Right TKR: f/u with Dr. Dent. WBAT. PT/OT 2. DVT ppx: sc heparin on PMRU but will take ASA at d/c per Dr. Dent. 3. Acute post-op anemia: s/p transfusion on 02/13. Follow. Recheck later this week 4. Constipation: on scheduled bowel meds including miralax 5. Breast cancer: continue Arimedex 6. Pain: continue home regimen of misoprostol, voltaren, tizanidine. Neurontin increased to 900mg tid. Post-op added percocet prn. 7. 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 She has not had f/u with Dr. Dong yet who ordered the study. She is s/p C3-7 posterior laminectomies in 2000. 8. Advanced directives: full code. 02/17/18 17:26
[2018-02-17] MEDS: Senna TAB PO SCH (21:16)
[2018-02-18] MEDS: oxyCODONE/Acetamin 5/325 MG* TAB PO PRN ×6 (00:24→21:44)
[2018-02-18] MEDS: Levothyroxine TAB* 100 MCG TAB PO SCH (04:24)
[2018-02-18] MEDS: Heparin VIAL(*) 5000 UNITS/ML VIAL (FIVE THOUSAND) SUBCUT SCH ×3 (05:42→20:51)
[2018-02-18] MEDS ORDERED: Levothyroxine TAB* 112 MCG TAB PO SCH (06:00)
[2018-02-18] MEDS: Mometasone/Formoter 200/5 MDI INH SCH ×2 (07:27→19:42)
[2018-02-18] MEDS: Artificial Tears* 15 ML BTL BOTH EYES SCH ×3 (07:40→20:48)
[2018-02-18] MEDS: CMCS:Anastrozole (NF) 1 MG TAB PO SCH (07:40)
[2018-02-18] MEDS: tiZANidine TAB* 2 MG PO SCH ×2 (07:40→17:14)
[2018-02-18] MEDS: Gabapentin CAP(*) 300 MG PO SCH ×3 (07:41→20:49)
[2018-02-18] MEDS: Diltiazem CD CAP* 240 MG PO SCH (07:41)
[2018-02-18] MEDS: Cholecalciferol TAB* 1000 UNITS PO SCH (07:41)
[2018-02-18] MEDS: Diclofenac Sodium EC TAB* 25 MG PO SCH ×2 (07:41→20:50)
[2018-02-18] MEDS: Docusate CAP* 100 MG PO SCH ×2 (07:41→20:51)
[2018-02-18] MEDS: Polyethylene Glycol 3350* 17 GM PACKET PO SCH (07:42)
[2018-02-18] MEDS: Vitamin THERAPEUTIC TAB PO SCH (07:42)
[2018-02-18] MEDS: guaiFENesin ER TAB 600 MG PO SCH (07:42)
[2018-02-18] MEDS: Potassium Chlor TAB* 20 MEQ TAB.ER PO SCH (07:42)
[2018-02-18] MEDS: Misoprostol TAB* 200 MCG PO SCH ×2 (07:42→20:49)
[2018-02-18] MEDS: Furosemide TAB* 20 MG PO SCH (07:55)
--- NOTE | 2018-02-18 17:57 | PN ---
Progress Note Date of Service: 02/18/18 Note: RADHA JAVIER was visited. Therapy notes read and reviewed. She had an episode of pain in the right knee last night that worried her. Did well in therapy today. Current Medications: Active Medications Generic Name Dose Route Start Last Admin Trade Name Freq PRN Reason Stop Dose Admin Acetaminophen 650 mg 02/13/18 15:44 Tylenol Tab* PO Q6H PRN FEVER/PAIN Albuterol 2 puff 02/13/18 16:19 Ventolin Hfa Inhaler* INH Q6H PRN SOB/WHEEZING Anastrozole 1 mg 02/14/18 09:00 02/18/18 07:40 Arimidex (Nf) PO 1 mg DAILY AME Administration Bisacodyl 10 mg 02/13/18 15:44 Dulcolax Supp* [place] DAILY PRN CONSTIPATION Cholecalciferol 1,000 units 02/14/18 09:00 02/18/18 07:41 Vitamin D Tab* PO 1,000 units DAILY AME Administration Diclofenac Sodium 75 mg 02/13/18 21:00 02/18/18 07:41 Voltaren Ec Tab* PO 75 mg BID AME Administration Diltiazem HCl 240 mg 02/14/18 09:00 02/18/18 07:41 Cardizem Cd Cap* PO 240 mg DAILY AME Administration Docusate Sodium 100 mg 02/13/18 21:00 02/18/18 07:41 Colace Cap* PO 100 mg BID AME Administration Furosemide 10 mg 02/16/18 09:00 02/18/18 07:55 Lasix Tab* PO 10 mg MOWEFR AME Administration Gabapentin 900 mg 02/15/18 09:00 02/18/18 13:09 Neurontin Cap(*) PO 900 mg TID AME Administration Guaifenesin 600 mg 02/14/18 09:00 02/18/18 07:42 Mucinex* PO 600 mg DAILY AME Administration Heparin Sodium (Porcine) 5,000 units 02/13/18 22:00 02/18/18 14:30 Heparin Vial(*) SUBCUT 5,000 units Q8HR AME Administration Levothyroxine Sodium 100 mcg 02/18/18 06:00 02/18/18 04:24 Synthroid Tab* PO 100 mcg DAILY@0600 AME Administration Magnesium Hydroxide 30 ml 02/13/18 15:44 Milk Of Magnesia Liq* PO Q6H PRN CONSTIPATION Misoprostol 200 mcg 02/13/18 21:00 02/18/18 07:42 Cytotec Tab* PO 200 mcg BID AME Administration Mometasone Furoate/Formoterol Fumar 2 puff 02/13/18 21:00 02/18/18 07:27 Dulera 200/5 Mdi* INH 2 puff BID AME Administration Protocol Multivitamins 1 tab 02/14/18 09:00 02/18/18 07:42 Theragran Tab* PO 1 tab DAILY AME Administration Oxycodone/Acetaminophen 1 tab 02/13/18 16:11 02/14/18 20:37 Percocet 5/325 Tab* PO 1 tab Q4H PRN Administration PAIN - MODERATE TO SEVERE Oxycodone/Acetaminophen 2 tab 02/13/18 16:12 02/18/18 17:13 Percocet 5/325 Tab* PO 2 tab Q4H PRN Administration PAIN - SEVERE Polyethylene Glycol/Electrolytes 17 gm 02/14/18 12:00 02/18/18 07:42 Miralax* PO Not Given DAILY AME Polyvinyl Alcohol 1 drop 02/13/18 21:00 02/18/18 14:30 Polyvinyl Alcohol 1.4% Opth* BOTH EYES 1 drop TID AME Administration Potassium Chloride 20 meq 02/14/18 09:00 02/18/18 07:42 Klor Con Er Tab* PO 20 meq DAILY AME Administration Senna 2 tab 02/14/18 21:00 02/17/18 21:16 Senokot Tab* PO 2 tab BEDTIME AME Administration Tizanidine HCl 4 mg 02/13/18 17:00 02/18/18 17:14 Zanaflex Tab* PO 4 mg 0800,1700 AME Administration Vital Signs: Vital Signs Temp Pulse Resp BP Pulse Ox 98.1 F 61 18 113/60 95 02/18/18 15:53 02/18/18 15:53 02/18/18 17:15 02/18/18 15:53 02/18/18 15:53 Exam: GEN: no acute distress. alert and appropriate. LUNGS: clear to auscultation bilaterally. CV: regular rate and rhythm ABD: + bowel sounds, soft, non-tender, non-distened. EXT: right knee wound clean, LE edema. Some ecchymoses RLE NEURO: bilateral LE with normal sensation and able to dorsiflex 5/5. Assessment/Plan: 1. Right TKR: f/u with Dr. Dent. WBAT. PT/OT 2. DVT ppx: sc heparin on PMRU but will take ASA at d/c per Dr. Dent. 3. Acute post-op anemia: s/p transfusion on 02/13. Follow. Recheck later this week 4. Constipation: on scheduled bowel meds including miralax 5. Breast cancer: continue Arimedex 6. Pain: continue home regimen of misoprostol, voltaren, tizanidine. Neurontin increased to 900mg tid. Post-op added percocet prn. 7. 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 She has not had f/u with Dr. Dong yet who ordered the study. She is s/p C3-7 posterior laminectomies in 2000. 8. Advanced directives: full code. 02/18/18 17:57
[2018-02-18] MEDS: Senna TAB PO SCH (20:51)
[2018-02-19] MEDS: oxyCODONE/Acetamin 5/325 MG* TAB PO PRN ×5 (01:47→21:21)
[2018-02-19] MEDS: Levothyroxine TAB* 100 MCG TAB PO SCH (06:02)
[2018-02-19] MEDS: Heparin VIAL(*) 5000 UNITS/ML VIAL (FIVE THOUSAND) SUBCUT SCH ×3 (06:03→21:10)
[2018-02-19] MEDS: Mometasone/Formoter 200/5 MDI INH SCH ×2 (08:26→20:08)
[2018-02-19] MEDS: Vitamin THERAPEUTIC TAB PO SCH (09:21)
[2018-02-19] MEDS: guaiFENesin ER TAB 600 MG PO SCH (09:26)
[2018-02-19] MEDS: Misoprostol TAB* 200 MCG PO SCH ×2 (09:26→20:08)
[2018-02-19] MEDS: Artificial Tears* 15 ML BTL BOTH EYES SCH ×3 (09:27→20:06)
[2018-02-19] MEDS: Diclofenac Sodium EC TAB* 25 MG PO SCH ×2 (09:29→20:08)
[2018-02-19] MEDS: tiZANidine TAB* 2 MG PO SCH ×2 (09:32→16:49)
[2018-02-19] MEDS: Diltiazem CD CAP* 240 MG PO SCH (09:34)
[2018-02-19] MEDS: CMCS:Anastrozole (NF) 1 MG TAB PO SCH (09:35)
[2018-02-19] MEDS: Polyethylene Glycol 3350* 17 GM PACKET PO SCH (09:39)
[2018-02-19] MEDS: Gabapentin CAP(*) 300 MG PO SCH ×3 (09:39→20:07)
[2018-02-19] MEDS: Cholecalciferol TAB* 1000 UNITS PO SCH (09:40)
[2018-02-19] MEDS: Potassium Chlor TAB* 20 MEQ TAB.ER PO SCH (09:40)
[2018-02-19] MEDS: Docusate CAP* 100 MG PO SCH ×2 (09:41→20:11)
--- NOTE | 2018-02-19 17:18 | PN ---
Progress Note Date of Service: 02/19/18 Note: RADHA JAVIER was visited. Therapy notes read and reviewed. She has less pain today and is feeling much more confident about herself. Looks good Current Medications: Active Medications Generic Name Dose Route Start Last Admin Trade Name Freq PRN Reason Stop Dose Admin Acetaminophen 650 mg 02/13/18 15:44 Tylenol Tab* PO Q6H PRN FEVER/PAIN Albuterol 2 puff 02/13/18 16:19 Ventolin Hfa Inhaler* INH Q6H PRN SOB/WHEEZING Anastrozole 1 mg 02/14/18 09:00 02/19/18 09:35 Arimidex (Nf) PO 1 mg DAILY AME Administration Bisacodyl 10 mg 02/13/18 15:44 Dulcolax Supp* [place] DAILY PRN CONSTIPATION Cholecalciferol 1,000 units 02/14/18 09:00 02/19/18 09:40 Vitamin D Tab* PO 1,000 units DAILY AME Administration Diclofenac Sodium 75 mg 02/13/18 21:00 02/19/18 09:29 Voltaren Ec Tab* PO 75 mg BID AME Administration Diltiazem HCl 240 mg 02/14/18 09:00 02/19/18 09:34 Cardizem Cd Cap* PO 240 mg DAILY AME Administration Docusate Sodium 100 mg 02/13/18 21:00 02/19/18 09:41 Colace Cap* PO 100 mg BID AME Administration Furosemide 10 mg 02/16/18 09:00 02/18/18 07:55 Lasix Tab* PO 10 mg MOWEFR AME Administration Gabapentin 900 mg 02/15/18 09:00 02/19/18 14:30 Neurontin Cap(*) PO 900 mg TID AME Administration Guaifenesin 600 mg 02/14/18 09:00 02/19/18 09:26 Mucinex* PO 600 mg DAILY AME Administration Heparin Sodium (Porcine) 5,000 units 02/13/18 22:00 02/19/18 14:30 Heparin Vial(*) SUBCUT 5,000 units Q8HR AME Administration Levothyroxine Sodium 100 mcg 02/18/18 06:00 02/19/18 06:02 Synthroid Tab* PO 100 mcg DAILY@0600 AME Administration Magnesium Hydroxide 30 ml 02/13/18 15:44 Milk Of Magnesia Liq* PO Q6H PRN CONSTIPATION Misoprostol 200 mcg 02/13/18 21:00 02/19/18 09:26 Cytotec Tab* PO 200 mcg BID AME Administration Mometasone Furoate/Formoterol Fumar 2 puff 02/13/18 21:00 02/19/18 08:26 Dulera 200/5 Mdi* INH 2 puff BID AME Administration Protocol Multivitamins 1 tab 02/14/18 09:00 02/19/18 09:21 Theragran Tab* PO 1 tab DAILY AME Administration Oxycodone/Acetaminophen 1 tab 02/13/18 16:11 02/14/18 20:37 Percocet 5/325 Tab* PO 1 tab Q4H PRN Administration PAIN - MODERATE TO SEVERE Oxycodone/Acetaminophen 2 tab 02/13/18 16:12 02/19/18 15:57 Percocet 5/325 Tab* PO 2 tab Q4H PRN Administration PAIN - SEVERE Polyethylene Glycol/Electrolytes 17 gm 02/14/18 12:00 02/19/18 09:39 Miralax* PO 17 gm DAILY AME Administration Polyvinyl Alcohol 1 drop 02/13/18 21:00 02/19/18 14:30 Polyvinyl Alcohol 1.4% Opth* BOTH EYES 1 drop TID AME Administration Potassium Chloride 20 meq 02/14/18 09:00 02/19/18 09:40 Klor Con Er Tab* PO 20 meq DAILY AME Administration Senna 2 tab 02/14/18 21:00 02/18/18 20:51 Senokot Tab* PO Not Given BEDTIME AME Tizanidine HCl 4 mg 02/13/18 17:00 02/19/18 16:49 Zanaflex Tab* PO 4 mg 0800,1700 AME Administration Vital Signs: Vital Signs Temp Pulse Resp BP Pulse Ox 97.2 F 74 18 130/80 99 02/19/18 06:00 02/19/18 08:30 02/19/18 17:11 02/19/18 06:50 02/19/18 08:30 Exam: GENERAL APPEARANCE: no acute distress. alert and appropriate. LUNGS: clear to auscultation bilaterally. HEART: regular rate and rhythm ABDOMEN: + bowel sounds, soft, non-tender, non-distened. EXTREMITIES: right knee wound clean, LE edema. Some ecchymoses RLE NEUROLOGIC: bilateral LE with normal sensation and able to dorsiflex 5/5. Assessment/Plan: 1. Right TKR: f/u with Dr. Dent. WBAT. PT/OT 2. DVT ppx: sc heparin on PMRU but will take ASA at d/c per Dr. Dent. 3. Acute post-op anemia: s/p transfusion on 02/13. Follow. Recheck later this week 4. Constipation: on scheduled bowel meds including miralax 5. Breast cancer: continue Arimedex 6. Pain: continue home regimen of misoprostol, voltaren, tizanidine. Neurontin increased to 900mg tid. Post-op added percocet prn. 7. 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 8. Advanced directives: full code. 02/19/18 17:19
[2018-02-19] MEDS: Senna TAB PO SCH (20:01)
[2018-02-20] MEDS: oxyCODONE/Acetamin 5/325 MG* TAB PO PRN ×5 (01:33→21:20)
[2018-02-20] MEDS: Levothyroxine TAB* 100 MCG TAB PO SCH (06:19)
[2018-02-20] MEDS: Heparin VIAL(*) 5000 UNITS/ML VIAL (FIVE THOUSAND) SUBCUT SCH ×3 (06:19→21:07)
[2018-02-20 06:30] LABS: Hematocrit 31 % (35-47); Hemoglobin 10.3 g/dl (12.0-16.0); Mean Corpuscular HGB Conc 34 g/dl (31-36); Mean Corpuscular Hemoglobin 29 pg (27-31); Mean Corpuscular Volume 87 fL (80-97); Mean Platelet Volume 6.6 um3 (7.4-10.4); Platelet Count 365 10^3/ul (150-450); Red Blood Count 3.52 10^6/ul (4.0-5.4); Red Cell Distribution Width 15 % (10.5-15); White Blood Count 4.6 10^3/ul (3.5-10.8)
[2018-02-20 06:52] LABS: ABS Basophils 0 10^3/ul (0-0.2); ABS Eosinophils 0.2 10^3/ul (0-0.6); ABS Monocytes 0.4 10^3/ul (0-0.8); ABS Nucleated RBC 0 10^3/ul; Eosinophil % 4.4 % (0-6); Lymphocyte % 21.7 % (25-47); Nucleated Red Blood Cells % 0.1
[2018-02-20] MEDS: Polyethylene Glycol 3350* 17 GM PACKET PO SCH (07:41)
[2018-02-20] MEDS: CMCS:Anastrozole (NF) 1 MG TAB PO SCH (07:42)
[2018-02-20] MEDS: Furosemide TAB* 20 MG PO SCH (07:42)
[2018-02-20] MEDS: Vitamin THERAPEUTIC TAB PO SCH (07:43)
[2018-02-20] MEDS: Diclofenac Sodium EC TAB* 25 MG PO SCH ×2 (07:43→20:56)
[2018-02-20] MEDS: Diltiazem CD CAP* 240 MG PO SCH (07:43)
[2018-02-20] MEDS: guaiFENesin ER TAB 600 MG PO SCH (07:43)
[2018-02-20] MEDS: Artificial Tears* 15 ML BTL BOTH EYES SCH ×3 (07:43→20:55)
[2018-02-20] MEDS: Misoprostol TAB* 200 MCG PO SCH ×2 (07:43→20:56)
[2018-02-20] MEDS: tiZANidine TAB* 2 MG PO SCH ×2 (07:43→16:32)
[2018-02-20] MEDS: Gabapentin CAP(*) 300 MG PO SCH ×3 (07:44→21:02)
[2018-02-20] MEDS: Cholecalciferol TAB* 1000 UNITS PO SCH (07:44)
[2018-02-20] MEDS: Potassium Chlor TAB* 20 MEQ TAB.ER PO SCH (07:45)
[2018-02-20] MEDS: Docusate CAP* 100 MG PO SCH ×2 (07:46→21:04)
[2018-02-20] MEDS: Mometasone/Formoter 200/5 MDI INH SCH ×2 (07:47→20:55)
--- NOTE | 2018-02-20 17:06 | PN ---
Progress Note Date of Service: 02/20/18 Note: RADHA JAVIER was visited. Therapy notes read and reviewed. She is feeling a bit more confident but still a little worried about herself. "I need to learn to trust myself." Current Medications: Active Medications Generic Name Dose Route Start Last Admin Trade Name Freq PRN Reason Stop Dose Admin Acetaminophen 650 mg 02/13/18 15:44 02/20/18 03:38 Tylenol Tab* PO 325 mg Q6H PRN Administration FEVER/PAIN Albuterol 2 puff 02/13/18 16:19 Ventolin Hfa Inhaler* INH Q6H PRN SOB/WHEEZING Anastrozole 1 mg 02/14/18 09:00 02/20/18 07:42 Arimidex (Nf) PO 1 mg DAILY AME Administration Bisacodyl 10 mg 02/13/18 15:44 Dulcolax Supp* [place] DAILY PRN CONSTIPATION Cholecalciferol 1,000 units 02/14/18 09:00 02/20/18 07:44 Vitamin D Tab* PO 1,000 units DAILY AME Administration Diclofenac Sodium 75 mg 02/13/18 21:00 02/20/18 07:43 Voltaren Ec Tab* PO 75 mg BID AME Administration Diltiazem HCl 240 mg 02/14/18 09:00 02/20/18 07:43 Cardizem Cd Cap* PO 240 mg DAILY AME Administration Docusate Sodium 100 mg 02/13/18 21:00 02/20/18 07:46 Colace Cap* PO Not Given BID AME Furosemide 10 mg 02/16/18 09:00 02/20/18 07:42 Lasix Tab* PO 10 mg MOWEFR AME Administration Gabapentin 900 mg 02/15/18 09:00 02/20/18 14:28 Neurontin Cap(*) PO 900 mg TID AME Administration Guaifenesin 600 mg 02/14/18 09:00 02/20/18 07:43 Mucinex* PO 600 mg DAILY AME Administration Heparin Sodium (Porcine) 5,000 units 02/13/18 22:00 02/20/18 14:30 Heparin Vial(*) SUBCUT 5,000 units Q8HR AME Administration Levothyroxine Sodium 100 mcg 02/18/18 06:00 02/20/18 06:19 Synthroid Tab* PO 100 mcg DAILY@0600 AME Administration Magnesium Hydroxide 30 ml 02/13/18 15:44 Milk Of Magnesia Liq* PO Q6H PRN CONSTIPATION Misoprostol 200 mcg 02/13/18 21:00 02/20/18 07:43 Cytotec Tab* PO 200 mcg BID AME Administration Mometasone Furoate/Formoterol Fumar 2 puff 02/13/18 21:00 02/20/18 07:47 Dulera 200/5 Mdi* INH 2 puff BID AME Administration Protocol Multivitamins 1 tab 02/14/18 09:00 02/20/18 07:43 Theragran Tab* PO 1 tab DAILY AME Administration Oxycodone/Acetaminophen 1 tab 02/13/18 16:11 02/20/18 16:33 Percocet 5/325 Tab* PO 1 tab Q4H PRN Administration PAIN - MODERATE TO SEVERE Oxycodone/Acetaminophen 2 tab 02/13/18 16:12 02/20/18 06:20 Percocet 5/325 Tab* PO 2 tab Q4H PRN Administration PAIN - SEVERE Polyethylene Glycol/Electrolytes 17 gm 02/14/18 12:00 02/20/18 07:41 Miralax* PO Not Given DAILY MAE Polyvinyl Alcohol 1 drop 02/13/18 21:00 02/20/18 14:28 Polyvinyl Alcohol 1.4% Opth* BOTH EYES 1 drop TID AME Administration Potassium Chloride 20 meq 02/14/18 09:00 02/20/18 07:45 Klor Con Er Tab* PO 20 meq DAILY AME Administration Senna 2 tab 02/14/18 21:00 02/19/18 20:01 Senokot Tab* PO Not Given BEDTIME AME Tizanidine HCl 4 mg 02/13/18 17:00 02/20/18 16:32 Zanaflex Tab* PO 4 mg 0800,1700 AME Administration Vital Signs: Vital Signs Temp Pulse Resp BP Pulse Ox 98.0 F 62 18 119/71 98 02/20/18 15:35 02/20/18 15:35 02/20/18 16:34 02/20/18 15:35 02/20/18 15:35 Lab Results: Laboratory Results - last 24 hr 02/20/18 06:07 WBC 4.6 RBC 3.52 L Hgb 10.3 L Hct 31 L MCV 87 MCH 29 MCHC 34 RDW 15 Plt Count 365 MPV 6.6 L Neut % (Auto) 65.1 Lymph % (Auto) 21.7 L [place] % (Auto) 7.9 H Eos % (Auto) 4.4 Baso % (Auto) 0.9 Absolute Neuts (auto) 3.0 Absolute Lymphs (auto) 1.0 Absolute Monos (auto) 0.4 Absolute Eos (auto) 0.2 Absolute Basos (auto) 0 Absolute Nucleated RBC 0 Nucleated RBC % 0.1 Exam: GENERAL APPEARANCE: no acute distress. alert and appropriate. LUNGS: clear to auscultation bilaterally. HEART: regular rate and rhythm ABDOMEN: + bowel sounds, soft, non-tender, non-distened. EXTREMITIES: right knee wound clean, LE edema. Some ecchymoses RLE NEUROLOGIC: bilateral LE with normal sensation and able to dorsiflex 5/5. Assessment/Plan: 1. Right TKR: f/u with Dr. Dent. WBAT. PT/OT 2. DVT ppx: sc heparin; will take ASA at d/c per Dr. Dent. 3. Acute post-op anemia: s/p transfusion on 02/13. Follow. Recheck later this week 4. Constipation: on scheduled bowel meds including miralax 5. Breast cancer: continue Arimedex 6. Pain: continue home regimen of misoprostol, voltaren, tizanidine. Neurontin increased to 900mg tid. Post-op added percocet prn. 7. 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 8. Advanced directives: full code. 02/20/18 17:06
[2018-02-20] MEDS: Senna TAB PO SCH (21:04)
[2018-02-21] MEDS: oxyCODONE/Acetamin 5/325 MG* TAB PO PRN ×5 (03:38→20:45)
[2018-02-21] MEDS: Heparin VIAL(*) 5000 UNITS/ML VIAL (FIVE THOUSAND) SUBCUT SCH ×3 (05:23→21:26)
[2018-02-21] MEDS: Levothyroxine TAB* 100 MCG TAB PO SCH (05:23)
[2018-02-21] MEDS: Vitamin THERAPEUTIC TAB PO SCH (07:43)
[2018-02-21] MEDS: Artificial Tears* 15 ML BTL BOTH EYES SCH ×3 (07:44→21:16)
[2018-02-21] MEDS: Misoprostol TAB* 200 MCG PO SCH ×2 (07:44→21:25)
[2018-02-21] MEDS: Potassium Chlor TAB* 20 MEQ TAB.ER PO SCH (07:44)
[2018-02-21] MEDS: guaiFENesin ER TAB 600 MG PO SCH (07:44)
[2018-02-21] MEDS: Docusate CAP* 100 MG PO SCH ×2 (07:44→21:16)
[2018-02-21] MEDS: Cholecalciferol TAB* 1000 UNITS PO SCH (07:44)
[2018-02-21] MEDS: Gabapentin CAP(*) 300 MG PO SCH ×3 (07:44→21:16)
[2018-02-21] MEDS: Polyethylene Glycol 3350* 17 GM PACKET PO SCH (07:45)
[2018-02-21] MEDS: Diclofenac Sodium EC TAB* 25 MG PO SCH ×2 (07:45→21:15)
[2018-02-21] MEDS: tiZANidine TAB* 2 MG PO SCH ×2 (07:45→16:29)
[2018-02-21] MEDS: Mometasone/Formoter 200/5 MDI INH SCH ×2 (07:45→21:25)
[2018-02-21] MEDS: CMCS:Anastrozole (NF) 1 MG TAB PO SCH (07:46)
[2018-02-21] MEDS: Diltiazem CD CAP* 240 MG PO SCH (07:46)
--- NOTE | 2018-02-21 08:53 | PN ---
Progress Note Date of Service: 02/21/18 Note: RADHA JAVIER was visited. Nursing and therapy notes read and reviewed. She has no complaints. Will walk with nursing staff today and tomorrow. Some increased pain in knee from rain/dampness this am, she thinks. Current Medications: Active Medications Generic Name Dose Route Start Last Admin Trade Name Freq PRN Reason Stop Dose Admin Acetaminophen 650 mg 02/13/18 15:44 02/20/18 03:38 Tylenol Tab* PO 325 mg Q6H PRN Administration FEVER/PAIN Albuterol 2 puff 02/13/18 16:19 Ventolin Hfa Inhaler* INH Q6H PRN SOB/WHEEZING Anastrozole 1 mg 02/14/18 09:00 02/21/18 07:46 Arimidex (Nf) PO 1 mg DAILY AME Administration Bisacodyl 10 mg 02/13/18 15:44 Dulcolax Supp* [place] DAILY PRN CONSTIPATION Cholecalciferol 1,000 units 02/14/18 09:00 02/21/18 07:44 Vitamin D Tab* PO 1,000 units DAILY AME Administration Diclofenac Sodium 75 mg 02/13/18 21:00 02/21/18 07:45 Voltaren Ec Tab* PO 75 mg BID AME Administration Diltiazem HCl 240 mg 02/14/18 09:00 02/21/18 07:46 Cardizem Cd Cap* PO 240 mg DAILY AME Administration Docusate Sodium 100 mg 02/13/18 21:00 02/21/18 07:44 Colace Cap* PO 100 mg BID AME Administration Furosemide 10 mg 02/16/18 09:00 02/20/18 07:42 Lasix Tab* PO 10 mg MOWEFR AME Administration Gabapentin 900 mg 02/15/18 09:00 02/21/18 07:44 Neurontin Cap(*) PO 900 mg TID AME Administration Guaifenesin 600 mg 02/14/18 09:00 02/21/18 07:44 Mucinex* PO 600 mg DAILY AME Administration Heparin Sodium (Porcine) 5,000 units 02/13/18 22:00 02/21/18 05:23 Heparin Vial(*) SUBCUT 5,000 units Q8HR AME Administration Levothyroxine Sodium 100 mcg 02/18/18 06:00 02/21/18 05:23 Synthroid Tab* PO 100 mcg DAILY@0600 AME Administration Magnesium Hydroxide 30 ml 02/13/18 15:44 Milk Of Magnesia Liq* PO Q6H PRN CONSTIPATION Misoprostol 200 mcg 02/13/18 21:00 02/21/18 07:44 Cytotec Tab* PO 200 mcg BID AME Administration Mometasone Furoate/Formoterol Fumar 2 puff 02/13/18 21:00 02/21/18 07:45 Dulera 200/5 Mdi* INH 2 puff BID AME Administration Protocol Multivitamins 1 tab 02/14/18 09:00 02/21/18 07:43 Theragran Tab* PO 1 tab DAILY AME Administration Oxycodone/Acetaminophen 1 tab 02/13/18 16:11 02/21/18 03:38 Percocet 5/325 Tab* PO 1 tab Q4H PRN Administration PAIN - MODERATE TO SEVERE Oxycodone/Acetaminophen 2 tab 02/13/18 16:12 02/21/18 07:48 Percocet 5/325 Tab* PO 2 tab Q4H PRN Administration PAIN - SEVERE Polyethylene Glycol/Electrolytes 17 gm 02/14/18 12:00 02/21/18 07:45 Miralax* PO Not Given DAILY AME Polyvinyl Alcohol 1 drop 02/13/18 21:00 02/21/18 07:44 Polyvinyl Alcohol 1.4% Opth* BOTH EYES 1 drop TID AME Administration Potassium Chloride 20 meq 02/14/18 09:00 02/21/18 07:44 Klor Con Er Tab* PO 20 meq DAILY AME Administration Senna 2 tab 02/14/18 21:00 02/20/18 21:04 Senokot Tab* PO Not Given BEDTIME AME Tizanidine HCl 4 mg 02/13/18 17:00 02/21/18 07:45 Zanaflex Tab* PO 4 mg 0800,1700 AME Administration Vital Signs: Vital Signs Temp Pulse Resp BP Pulse Ox 97.1 F 59 16 117/66 100 02/21/18 05:21 02/21/18 05:21 02/21/18 07:48 02/21/18 05:21 02/21/18 07:44 Exam: GENERAL APPEARANCE: no acute distress. alert and appropriate. LUNGS: clear to auscultation bilaterally. HEART: regular rate and rhythm ABDOMEN: + bowel sounds, soft, non-tender, non-distened. EXTREMITIES: right knee wound clean, LE edema. Some ecchymoses RLE NEUROLOGIC: bilateral LE with normal sensation and able to dorsiflex 5/5. Assessment/Plan: 1. Right TKR: f/u with Dr. Dent. WBAT. PT/OT 2. DVT ppx: sc heparin; will take ASA at d/c per Dr. Dent. 3. Acute post-op anemia: s/p transfusion on 02/13. Hb yesterday was 10.3 4. Constipation: on scheduled bowel meds including miralax 5. Breast cancer: continue Arimedex 6. Pain: continue home regimen of misoprostol, voltaren, tizanidine. Neurontin increased to 900mg tid. Post-op added percocet prn. 7. 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 8. Advanced directives: full code. 02/21/18 09:08
[2018-02-21] MEDS: Senna TAB PO SCH (21:10)
[2018-02-22] MEDS: oxyCODONE/Acetamin 5/325 MG* TAB PO PRN ×5 (02:52→21:05)
[2018-02-22] MEDS: Heparin VIAL(*) 5000 UNITS/ML VIAL (FIVE THOUSAND) SUBCUT SCH ×3 (06:02→21:09)
[2018-02-22] MEDS: Levothyroxine TAB* 100 MCG TAB PO SCH (06:02)
[2018-02-22] MEDS: tiZANidine TAB* 2 MG PO SCH ×2 (07:26→17:08)
[2018-02-22] MEDS: Artificial Tears* 15 ML BTL BOTH EYES SCH ×3 (07:26→21:08)
[2018-02-22] MEDS: Cholecalciferol TAB* 1000 UNITS PO SCH (07:26)
[2018-02-22] MEDS: CMCS:Anastrozole (NF) 1 MG TAB PO SCH (07:26)
[2018-02-22] MEDS: Diclofenac Sodium EC TAB* 25 MG PO SCH ×2 (07:27→21:08)
[2018-02-22] MEDS: Diltiazem CD CAP* 240 MG PO SCH (07:28)
[2018-02-22] MEDS: Docusate CAP* 100 MG PO SCH ×2 (07:28→21:09)
[2018-02-22] MEDS: Gabapentin CAP(*) 300 MG PO SCH ×3 (07:28→21:06)
[2018-02-22] MEDS: Polyethylene Glycol 3350* 17 GM PACKET PO SCH (07:29)
[2018-02-22] MEDS: Misoprostol TAB* 200 MCG PO SCH ×2 (07:29→21:10)
[2018-02-22] MEDS: Mometasone/Formoter 200/5 MDI INH SCH ×2 (07:29→21:00)
[2018-02-22] MEDS: Potassium Chlor TAB* 20 MEQ TAB.ER PO SCH (07:29)
[2018-02-22] MEDS: guaiFENesin ER TAB 600 MG PO SCH (07:29)
[2018-02-22] MEDS: Vitamin THERAPEUTIC TAB PO SCH (07:30)
--- NOTE | 2018-02-22 17:20 | PN ---
Progress Note Date of Service: 02/22/18 Note: RADHA JAVIER was visited. Nursing notes read and reviewed. She does note a dry mouth. This is not new. She has tried Biotin in the past. I ambulated with her about 100 feet. Deliberate pacing, but she seemed steady. Balance with hands off walker not great Current Medications: Active Medications Generic Name Dose Route Start Last Admin Trade Name Freq PRN Reason Stop Dose Admin Acetaminophen 650 mg 02/13/18 15:44 02/20/18 03:38 Tylenol Tab* PO 325 mg Q6H PRN Administration FEVER/PAIN Albuterol 2 puff 02/13/18 16:19 Ventolin Hfa Inhaler* INH Q6H PRN SOB/WHEEZING Anastrozole 1 mg 02/14/18 09:00 02/22/18 07:26 Arimidex (Nf) PO 1 mg DAILY AME Administration Bisacodyl 10 mg 02/13/18 15:44 Dulcolax Supp* CA DAILY PRN CONSTIPATION Cholecalciferol 1,000 units 02/14/18 09:00 02/22/18 07:26 Vitamin D Tab* PO 1,000 units DAILY AME Administration Diclofenac Sodium 75 mg 02/13/18 21:00 02/22/18 07:27 Voltaren Ec Tab* PO 75 mg BID AME Administration Diltiazem HCl 240 mg 02/14/18 09:00 02/22/18 07:28 Cardizem Cd Cap* PO 240 mg DAILY AME Administration Docusate Sodium 100 mg 02/13/18 21:00 02/22/18 07:28 Colace Cap* PO 100 mg BID AME Administration Furosemide 10 mg 02/16/18 09:00 02/20/18 07:42 Lasix Tab* PO 10 mg MOWEFR AME Administration Gabapentin 900 mg 02/15/18 09:00 02/22/18 14:20 Neurontin Cap(*) PO 900 mg TID AME Administration Guaifenesin 600 mg 02/14/18 09:00 02/22/18 07:29 Mucinex* PO 600 mg DAILY AME Administration Heparin Sodium (Porcine) 5,000 units 02/13/18 22:00 02/22/18 14:20 Heparin Vial(*) SUBCUT 5,000 units Q8HR AME Administration Levothyroxine Sodium 100 mcg 02/18/18 06:00 02/22/18 06:02 Synthroid Tab* PO 100 mcg DAILY@0600 AME Administration Magnesium Hydroxide 30 ml 02/13/18 15:44 Milk Of Magnesia Liq* PO Q6H PRN CONSTIPATION Misoprostol 200 mcg 02/13/18 21:00 02/22/18 07:29 Cytotec Tab* PO 200 mcg BID AME Administration Mometasone Furoate/Formoterol Fumar 2 puff 02/13/18 21:00 02/22/18 07:29 Dulera 200/5 Mdi* INH 2 puff BID AME Administration Protocol Multivitamins 1 tab 02/14/18 09:00 02/22/18 07:30 Theragran Tab* PO 1 tab DAILY AME Administration Oxycodone/Acetaminophen 1 tab 02/13/18 16:11 02/22/18 15:47 Percocet 5/325 Tab* PO 1 tab Q4H PRN Administration PAIN - MODERATE TO SEVERE Oxycodone/Acetaminophen 2 tab 02/13/18 16:12 02/22/18 02:52 Percocet 5/325 Tab* PO 2 tab Q4H PRN Administration PAIN - SEVERE Polyethylene Glycol/Electrolytes 17 gm 02/14/18 12:00 02/22/18 07:29 Miralax* PO 17 gm DAILY AME Administration Polyvinyl Alcohol 1 drop 02/13/18 21:00 02/22/18 14:21 Polyvinyl Alcohol 1.4% Opth* BOTH EYES 1 drop TID AME Administration Potassium Chloride 20 meq 02/14/18 09:00 02/22/18 07:29 Klor Con Er Tab* PO 20 meq DAILY AME Administration Senna 2 tab 02/14/18 21:00 02/21/18 21:10 Senokot Tab* PO Not Given BEDTIME AME Tizanidine HCl 4 mg 02/13/18 17:00 02/22/18 17:08 Zanaflex Tab* PO 4 mg 0800,1700 AME Administration Vital Signs: Vital Signs Temp Pulse Resp BP Pulse Ox 98.4 F 59 18 117/61 100 02/22/18 16:02 02/22/18 16:02 02/22/18 17:07 02/22/18 16:02 02/22/18 16:02 Exam: GENERAL APPEARANCE: no acute distress. alert and appropriate. LUNGS: clear to auscultation bilaterally. HEART: regular rate and rhythm ABDOMEN: + bowel sounds, soft, non-tender, non-distened. EXTREMITIES: right knee wound clean, LE edema. Some ecchymoses RLE NEUROLOGIC: bilateral LE with normal sensation and able to dorsiflex 5/5. Assessment/Plan: 1. Right TKR: f/u with Dr. Dent. WBAT. PT/OT 2. DVT ppx: sc heparin; will take ASA at d/c per Dr. Dent. 3. Acute post-op anemia: s/p transfusion on 02/13. Hb Friday was 10.3 4. Constipation: on scheduled bowel meds including miralax 5. Breast cancer: continue Arimedex 6. Pain: continue home regimen of misoprostol, voltaren, tizanidine. Neurontin increased to 900mg tid. Post-op added percocet prn. 7. 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 8. Advanced directives: full code. 02/22/18 17:21
[2018-02-22] MEDS: Benzocaine/Menthol LOZ* 1 LOZENGE PO PRN (17:56)
[2018-02-22] MEDS: Senna TAB PO SCH (21:09)
[2018-02-23] MEDS: oxyCODONE/Acetamin 5/325 MG* TAB PO PRN ×5 (01:32→21:06)
[2018-02-23] MEDS: Levothyroxine TAB* 100 MCG TAB PO SCH (05:14)
[2018-02-23] MEDS: Heparin VIAL(*) 5000 UNITS/ML VIAL (FIVE THOUSAND) SUBCUT SCH ×3 (05:17→21:11)
[2018-02-23 06:26] LABS: ABS Basophils 0.1 10^3/ul (0-0.2); ABS Eosinophils 0.2 10^3/ul (0-0.6); ABS Monocytes 0.5 10^3/ul (0-0.8); ABS Neutrophils 5.9 10^3/ul (1.5-7.7); ABS Nucleated RBC 0 10^3/ul; Eosinophil % 2.2 % (0-6); Hematocrit 31 % (35-47); Hemoglobin 10.1 g/dl (12.0-16.0); Lymphocyte % 12.6 % (25-47); Mean Corpuscular HGB Conc 33 g/dl (31-36); Mean Corpuscular Hemoglobin 29 pg (27-31); Mean Corpuscular Volume 87 fL (80-97); Mean Platelet Volume 6.4 um3 (7.4-10.4); Nucleated Red Blood Cells % 0; Platelet Count 328 10^3/ul (150-450); Red Blood Count 3.53 10^6/ul (4.0-5.4); Red Cell Distribution Width 15 % (10.5-15); White Blood Count 7.7 10^3/ul (3.5-10.8)
[2018-02-23 06:43] LABS: EGFR Non-African American 92.6 (>60)
[2018-02-23] MEDS: Cholecalciferol TAB* 1000 UNITS PO SCH (08:15)
[2018-02-23] MEDS: CMCS:Anastrozole (NF) 1 MG TAB PO SCH (08:15)
[2018-02-23] MEDS: tiZANidine TAB* 2 MG PO SCH ×2 (08:15→16:38)
[2018-02-23] MEDS: Artificial Tears* 15 ML BTL BOTH EYES SCH ×3 (08:15→21:09)
[2018-02-23] MEDS: Docusate CAP* 100 MG PO SCH ×2 (08:16→21:07)
[2018-02-23] MEDS: Gabapentin CAP(*) 300 MG PO SCH ×3 (08:16→21:07)
[2018-02-23] MEDS: Diltiazem CD CAP* 240 MG PO SCH (08:16)
[2018-02-23] MEDS: Misoprostol TAB* 200 MCG PO SCH ×2 (08:17→21:07)
[2018-02-23] MEDS: Vitamin THERAPEUTIC TAB PO SCH (08:17)
[2018-02-23] MEDS: guaiFENesin ER TAB 600 MG PO SCH (08:17)
[2018-02-23] MEDS: Potassium Chlor TAB* 20 MEQ TAB.ER PO SCH (08:17)
[2018-02-23] MEDS: Furosemide TAB* 20 MG PO SCH (08:18)
[2018-02-23] MEDS: Polyethylene Glycol 3350* 17 GM PACKET PO SCH (08:19)
[2018-02-23] MEDS: Benzocaine/Menthol LOZ* 1 LOZENGE PO PRN ×2 (08:53→15:09)
[2018-02-23] MEDS: Diclofenac Sodium EC TAB* 25 MG PO SCH ×2 (13:06→22:42)
[2018-02-23] MEDS: Mometasone/Formoter 200/5 MDI INH SCH ×2 (13:17→21:08)
--- NOTE | 2018-02-23 18:13 | PN ---
Progress Note Date of Service: 02/23/18 Note: RADHA JAVIER was visited. Therapy notes read and reviewed. For discharge in am. The hospital was not able to supply her Voltaren last night. Patient became emotional. Better now. Current Medications: Active Medications Generic Name Dose Route Start Last Admin Trade Name Freq PRN Reason Stop Dose Admin Acetaminophen 650 mg 02/13/18 15:44 02/20/18 03:38 Tylenol Tab* PO 325 mg Q6H PRN Administration FEVER/PAIN Albuterol 2 puff 02/13/18 16:19 Ventolin Hfa Inhaler* INH Q6H PRN SOB/WHEEZING Anastrozole 1 mg 02/14/18 09:00 02/23/18 08:15 Arimidex (Nf) PO 1 mg DAILY AME Administration Bisacodyl 10 mg 02/13/18 15:44 Dulcolax Supp* [place] DAILY PRN CONSTIPATION Cholecalciferol 1,000 units 02/14/18 09:00 02/23/18 08:15 Vitamin D Tab* PO 1,000 units DAILY AME Administration Diclofenac Sodium 75 mg 02/13/18 21:00 02/23/18 13:06 Voltaren Ec Tab* PO 75 mg BID AME Administration Diltiazem HCl 240 mg 02/14/18 09:00 02/23/18 08:16 Cardizem Cd Cap* PO 240 mg DAILY AME Administration Docusate Sodium 100 mg 02/13/18 21:00 02/23/18 08:16 Colace Cap* PO 100 mg BID AME Administration Furosemide 10 mg 02/16/18 09:00 02/23/18 08:18 Lasix Tab* PO 10 mg MOWEFR AME Administration Gabapentin 900 mg 02/15/18 09:00 02/23/18 14:41 Neurontin Cap(*) PO 900 mg TID AME Administration Guaifenesin 600 mg 02/14/18 09:00 02/23/18 08:17 Mucinex* PO 600 mg DAILY AME Administration Heparin Sodium (Porcine) 5,000 units 02/13/18 22:00 02/23/18 14:42 Heparin Vial(*) SUBCUT 5,000 units Q8HR AME Administration Levothyroxine Sodium 100 mcg 02/18/18 06:00 02/23/18 05:14 Synthroid Tab* PO 100 mcg DAILY@0600 AME Administration Magnesium Hydroxide 30 ml 02/13/18 15:44 Milk Of Magnesia Liq* PO Q6H PRN CONSTIPATION Misoprostol 200 mcg 02/13/18 21:00 02/23/18 08:17 Cytotec Tab* PO 200 mcg BID AME Administration Mometasone Furoate/Formoterol Fumar 2 puff 02/13/18 21:00 02/23/18 13:17 Dulera 200/5 Mdi* INH 2 puff BID AME Administration Protocol Multivitamins 1 tab 02/14/18 09:00 02/23/18 08:17 Theragran Tab* PO 1 tab DAILY AME Administration Oxycodone/Acetaminophen 1 tab 02/13/18 16:11 02/23/18 17:08 Percocet 5/325 Tab* PO 1 tab Q4H PRN Administration PAIN - MODERATE TO SEVERE Oxycodone/Acetaminophen 2 tab 02/13/18 16:12 02/23/18 01:32 Percocet 5/325 Tab* PO 2 tab Q4H PRN Administration PAIN - SEVERE Polyethylene Glycol/Electrolytes 17 gm 02/14/18 12:00 02/23/18 08:19 Miralax* PO 17 gm DAILY MAE Administration Polyvinyl Alcohol 1 drop 02/13/18 21:00 02/23/18 14:41 Polyvinyl Alcohol 1.4% Opth* BOTH EYES 1 drop TID AME Administration Potassium Chloride 20 meq 02/14/18 09:00 02/23/18 08:17 Klor Con Er Tab* PO 20 meq DAILY AME Administration Senna 2 tab 02/14/18 21:00 02/22/18 21:09 Senokot Tab* PO Not Given BEDTIME AME Throat Lozenges 1 sid 02/22/18 17:37 02/23/18 15:09 Chloraseptic Sid* PO 1 sid Q6H PRN Administration Sore Throat/Dry mouth Tizanidine HCl 4 mg 02/13/18 17:00 02/23/18 16:38 Zanaflex Tab* PO 4 mg 0800,1700 AME Administration Vital Signs: Vital Signs Temp Pulse Resp BP Pulse Ox 98.0 F 62 18 110/57 98 02/23/18 16:41 02/23/18 16:41 02/23/18 18:11 02/23/18 16:41 02/23/18 16:41 Lab Results: Laboratory Results - last 24 hr 02/23/18 02/23/18 06:08 06:08 WBC 7.7 RBC 3.53 L Hgb 10.1 L Hct 31 L MCV 87 MCH 29 MCHC 33 RDW 15 Plt Count 328 MPV 6.4 L Neut % (Auto) 77.1 Lymph % (Auto) 12.6 L [place] % (Auto) 7.1 H Eos % (Auto) 2.2 Baso % (Auto) 1.0 Absolute Neuts (auto) 5.9 Absolute Lymphs (auto) 1.0 Absolute Monos (auto) 0.5 Absolute Eos (auto) 0.2 Absolute Basos (auto) 0.1 Absolute Nucleated RBC 0 Nucleated RBC % 0 Sodium 141 Potassium 4.3 Chloride 107 Carbon Dioxide 31 Anion Gap 3 BUN 7 Creatinine 0.64 Est GFR ( Amer) 119.0 Est GFR (Non-Af Amer) 92.6 BUN/Creatinine Ratio 10.9 Glucose 88 Calcium 9.1 Total Bilirubin 0.30 AST 17 ALT 18 Alkaline Phosphatase 50 Total Protein 5.8 L Albumin 3.3 Globulin 2.5 Albumin/Globulin Ratio 1.3 Exam: GENERAL APPEARANCE: no acute distress. alert and appropriate. LUNGS: clear to auscultation bilaterally. HEART: regular rate and rhythm ABDOMEN: + bowel sounds, soft, non-tender, non-distened. EXTREMITIES: right knee wound clean NEUROLOGIC: bilateral LE with normal sensation and able to dorsiflex 5/5. Assessment/Plan: 1. Right TKR: f/u with Dr. Dent. WBAT. PT/OT 2. DVT ppx: sc heparin; will take ASA at d/c per Dr. Dent. 3. Acute post-op anemia: s/p transfusion on 02/13. Hb today was 10.1 4. Constipation: on scheduled bowel meds including miralax 5. Breast cancer: continue Arimedex 6. Pain: continue home regimen of misoprostol, voltaren, tizanidine. Neurontin increased to 900mg tid. Post-op added percocet prn. 7. 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 8. Advanced directives: full code. 9. Disposition: home in am 02/23/18 18:14 02/23/18 18:14
[2018-02-23] MEDS: Senna TAB PO SCH (21:09)
[2018-02-24] MEDS: Levothyroxine TAB* 100 MCG TAB PO SCH (05:05)
[2018-02-24] MEDS: oxyCODONE/Acetamin 5/325 MG* TAB PO PRN ×2 (05:05→12:06)
[2018-02-24] MEDS: Heparin VIAL(*) 5000 UNITS/ML VIAL (FIVE THOUSAND) SUBCUT SCH ×2 (05:09→13:08)
[2018-02-24 06:26] VITALS: BP 125/67
[2018-02-24] MEDS: Mometasone/Formoter 200/5 MDI INH SCH (08:55)
[2018-02-24] MEDS: CMCS:Anastrozole (NF) 1 MG TAB PO SCH (08:56)
[2018-02-24] MEDS: Cholecalciferol TAB* 1000 UNITS PO SCH (08:56)
[2018-02-24] MEDS: tiZANidine TAB* 2 MG PO SCH (08:57)
[2018-02-24] MEDS: Artificial Tears* 15 ML BTL BOTH EYES SCH ×2 (08:57→13:11)
[2018-02-24] MEDS: Gabapentin CAP(*) 300 MG PO SCH ×2 (08:58→13:09)
[2018-02-24] MEDS: Polyethylene Glycol 3350* 17 GM PACKET PO SCH (08:58)
[2018-02-24] MEDS: Diltiazem CD CAP* 240 MG PO SCH (08:58)
[2018-02-24] MEDS: Potassium Chlor TAB* 20 MEQ TAB.ER PO SCH (08:59)
[2018-02-24] MEDS: Misoprostol TAB* 200 MCG PO SCH (08:59)
[2018-02-24] MEDS: Vitamin THERAPEUTIC TAB PO SCH (08:59)
[2018-02-24] MEDS: guaiFENesin ER TAB 600 MG PO SCH (08:59)
[2018-02-24] MEDS: Docusate CAP* 100 MG PO SCH (08:59)
[2018-02-24] MEDS: Diclofenac Sodium EC TAB* 25 MG PO SCH (09:01)
[2018-02-24] MEDS: Benzocaine/Menthol LOZ* 1 LOZENGE PO PRN ×2 (09:30→15:28)
[2018-02-24] MEDS ORDERED: Aspirin EC TAB* 325 MG PO ONE (11:27)
--- NOTE | 2018-02-25 09:24 | DS ---
CC: Dr. Wil Bang * DISCHARGE SUMMARY: DATE OF ADMISSION: 02/13/18 DATE OF DISCHARGE: 02/24/18 DISCHARGE DIAGNOSES: 1. Right total knee replacement. 2. Breast cancer. 3. Probable cervical radiculopathy. 4. Hypothyroidism. 5. Depression. 6. Hypertension. HISTORY OF PRESENT ILLNESS AND HOSPITAL COURSE: For complete history of the events leading up to her rehab stay, please see the history and physical dictated by me on 02/13/18. While on the rehab unit, it was noted that the patient had had a previous EMG study of her upper extremities done in January. EMG and nerve conduction studies showed at least moderate carpal tunnel syndrome and chronic right C8 radiculopathy versus lower trunk plexopathy. Her Neurontin was increased from 600 three times a day to 900 mg 3 times a day. The patient otherwise was medically stable. The patient was maintained on heparin for DVT prophylaxis. Her wound healed well. Her delon were able to be removed prior to discharge. The patient was seen by both Physical and Occupational Therapy and made good gains with both disciplines. With physical therapy at the time of admission, the patient required contact guard to do a transfer, she was able to ambulate contact guard about 80 feet. With occupational therapy, at the time of admission, the patient was mod assist for lower body dressing, supervision for upper body dressing, toileting with moderate amount of assistance, toilet transfers with contact guard. By the time of discharge, the patient was independent transfers, independent ambulating, independent toileting, independent toilet transfers, and independent home management. The patient was discharged home on 02/24/18. DISCHARGE DIET: Regular. DISCHARGE MEDICATIONS: 1. Albuterol inhaler 2 puffs every 6 hours as needed. 2. Arimidex 1 mg orally every day. 3. Artificial tears 1 drop to both eyes 3 times a day. 4. Vitamin D 1000 units daily. 5. Voltaren EC 75 mg orally twice a day. 6. Diltiazem 240 mg daily. 7. Lasix 10 mg on Mondays, Wednesdays, and Fridays. 8. Gabapentin 900 mg 3 times a day. 9. Guaifenesin 600 mg daily. 10. Synthroid 100 mcg daily. 11. Misoprostol 200 mcg twice daily. 12. Percocet 1 to 2 tablets every 4 hours as needed, not to exceed 6 per day. 13. Tizanidine 4 mg twice a day. 14. Potassium chloride 20 mEq daily. 15. Symbicort 2 puffs twice daily. SERVICES AFTER DISCHARGE: Through the visiting nurse service. She will have home nursing, home physical therapy, and a home health aide. Follow up with Dr. Wil Bang in 3 to 4 weeks as well as with Dr. River Dent in 2 weeks' time. [id number]/CPS #: [id number] MTDCalderon
== END 2018-02-24 15:35 | disposition home health service (06) | DRG 560 ==
LOC: PMRU 15:01
PROVIDERS: ADMIT Physical Medicine & Rehabilitation; ATTEND Physical Medicine & Rehabilitation
PROC: F07Z5ZZ Bed Mobility Treatment (ICD-10-PCS; principal; 2018-02-13)
PROC: F07Z9ZZ Gait Training/Functional Ambulation Treatment (ICD-10-PCS; 2018-02-13)
PROC: F07Z8ZZ Transfer Training Treatment (ICD-10-PCS; 2018-02-13)
PROC: F08Z0ZZ Bathing/Showering Techniques Treatment (ICD-10-PCS; 2018-02-13)
PROC: F08Z1ZZ Dressing Techniques Treatment (ICD-10-PCS; 2018-02-13)
PROC: F08Z3ZZ Feeding/Eating Treatment (ICD-10-PCS; 2018-02-13)
DX: Z47.1 Aftercare following joint replacement surgery (principal); D62 Acute posthemorrhagic anemia; Z96.651 Presence of right artificial knee joint; M54.12 Radiculopathy, cervical region; E03.9 Hypothyroidism, unspecified; F32.9 Major depressive disorder, single episode, unspecified; C50.919 Malignant neoplasm of unspecified site of unspecified female breast; I10 Essential (primary) hypertension; K59.00 Constipation, unspecified; R20.0 Anesthesia of skin; M19.90 Unspecified osteoarthritis, unspecified site; J45.909 Unspecified asthma, uncomplicated; Z79.899 Other long term (current) drug therapy; Z88.1 Allergy status to other antibiotic agents; Z90.13 Acquired absence of bilateral breasts and nipples
CPT/HCPCS: 36415; 80053; 85025; 85027; 94640; A9270-GY; J1644

== ENCOUNTER 2019-04-13 12:05 | Day surgery (SDC) | payer MEDICARE, OTHER ==
[~2019-04-13 12:05] MED LIST changes: +Acetaminophen TAB* 325 MG PO PRN; -Buffered Lidocaine 0.9% SYRIN* 5 ML/SYR SYRINGE INTRADERM ONE; +Buffered Lidocaine 1% SYRIN* 1 ML/SYRINGE INTRADERM ONE; +Dexamethasone IV* 4 MG/ML 1 ML (4 MG) IV SLOW PU ONE; +DiMENhydriNATE IV* 50 MG/ML VIAL IV PUSH PRN; +HYDROcodone/ACETAMIN 5-325 MG* 1 TAB PO PRN; +Lactated Ringers 1000 ML Bag* 1,000 ML IV SCH; +Naloxone* 0.4 MG/ML 1 ML VIAL IV PRN; +fentaNYL* 50 MCG/ML 2 ML VIAL (100 MCG VIAL) IV PRN; +oxyCODONE/Acetamin 5/325 MG* TAB PO PRN
[2019-04-13] MEDS ORDERED: Dexamethasone IV* 4 MG/ML 1 ML (4 MG) ONE (12:54)
[2019-04-13] MEDS ORDERED: Acetaminophen TAB* 325 MG ONE ×2 (12:54→17:15)
[2019-04-13] MEDS ORDERED: ceFAZolin 2 GM in NS PREMIX(*) 2 GM/100 ML BAG IVPB ONE (12:55)
[2019-04-13] MEDS ORDERED: Buffered Lidocaine 1% SYRIN* 1 ML/SYRINGE INTRADERM ONE (12:55)
[2019-04-13] MEDS ORDERED: Bupivacaine 0.25% SDV PF* 10 ML VIAL INJ ONE (15:06)
[2019-04-13] MEDS ORDERED: Midazolam* 1 MG/ML 2 ML VIAL (2 MG) ONE (15:31)
[2019-04-13] MEDS ORDERED: Lidocaine 2% PF * 5 ML VIAL ONE (15:38)
[2019-04-13] MEDS ORDERED: Propofol* 10 MG/ML 20 ML BTL ONE (15:38)
[2019-04-13 17:19] VITALS: BP 141/87
== END 2019-04-13 17:50 | disposition home or self-care (01) ==
LOC: OR 12:05
PROVIDERS: ATTEND Plastic Surgery
DX: G56.01 Carpal tunnel syndrome, right upper limb (principal); I10 Essential (primary) hypertension; E78.5 Hyperlipidemia, unspecified; E03.9 Hypothyroidism, unspecified; I27.20 Pulmonary hypertension, unspecified; J45.909 Unspecified asthma, uncomplicated; G47.33 Obstructive sleep apnea (adult) (pediatric); Z85.3 Personal history of malignant neoplasm of breast
CPT/HCPCS: A9270-GY; J0690; J1100; J2250; J2704; J3490

== ENCOUNTER 2019-07-13 05:34 | Inpatient (IN) | payer MEDICARE, OTHER ==
--- NOTE | 2018-11-02 20:35 | HP ---
PREOPERATIVE HISTORY AND PHYSICAL: DATE OF ADMISSION: 11/17/18 ATTENDING PHYSICIAN: Dr. River Dent.* (DICTATED BY JIAN RIBEIRO) HISTORY OF PRESENT ILLNESS: Anali is a 68-year-old female with ongoing difficulties with arthritic pain in her left knee. She has failed conservative management including cortisone injections, antiinflammatories, and physical therapy. She now has elected to proceed with surgical intervention and is scheduled for left total knee arthro[place] Dent [place] [facility] [place]. She has seen Dr. Rose for pulmonary clearance and is scheduled to see Dr. Bang next week for her medical clearance as well as Dr. Brown for cardiac clearance on 11/12/18. MEDICATIONS: Please see 11/02/18 office visit for large list of current medications as well as past medical history and past surgical history. ALLERGIES: She lists erythromycin as causing GI upset, but does not cause a true allergy. FAMILY HISTORY: Her father and mother both with a history of alcoholism. Mother with a history of emphysema and lung cancer and father with a history of stomach cancer. SOCIAL HISTORY: Patient lives alone. She does need to ambulate about 11 stairs to get into her home. She denies use of alcohol, tobacco or illicit drug use. REVIEW OF SYSTEMS: She denies fevers, chills, night sweats. No known anesthesia complications. Patient denies prior history of DVT or pulmonary embolism. Remainder of 14-point review of systems reviewed and negative. PHYSICAL EXAMINATION GENERAL: She is alert and oriented x3, in no acute distress. VITALS: Done today, height 5 feet 6-1/2 inches, weight 193. Pulse 74, BP 148/ 78. HEENT: Pupils equal, round, reactive to light. NECK: She does have cervical spine tenderness diffusely and stiffness with flexion and extension. LUNGS: Clear to auscultation with no noted wheezes. HEART: Regular rate and rhythm. Positive murmur auscultated. ABDOMEN: Nontender and soft. Normoactive bowel sounds x4 quadrants. PELVIC EXAM: Deferred. MUSCULOSKELETAL EXAMINATION: Has motion from -3 degrees to 100 degrees flexion. There is no fluctuance or erythema noted. There is tenderness to palpation laterally and medially. Her calf is soft and nontender. Her neurovascular status is intact with 2+ dorsalis pedis and posterior tibial pulses. She has active dorsiflexion of the left ankle. IMPRESSION: Advanced degenerative arthritis of the left knee. PLAN: Patient is scheduled for left total knee arthroplasty on 11/17/[address] Dent [place] [facility] [place] Risks and benefits of the procedure were discussed with the patient by Dr. Dent today at her preoperative visit and she elects to proceed. As above, she will still see Dr. Bang and Dr. Brown for preoperative medical and cardiac clearances. Patient will follow up with Dr. Dent in 3 to 4 weeks postoperatively in the office. JIAN RIBEIRO [id number]/[facility] #: [id number] MTDCalderon
[~2019-07-13 05:34] MED LIST changes: -Acetaminophen TAB* 325 MG PO PRN; -Dexamethasone IV* 4 MG/ML 1 ML (4 MG) IV SLOW PU ONE; -DiMENhydriNATE IV* 50 MG/ML VIAL IV PUSH PRN; -HYDROcodone/ACETAMIN 5-325 MG* 1 TAB PO PRN; -Lactated Ringers 1000 ML Bag* 1,000 ML IV SCH; -Naloxone* 0.4 MG/ML 1 ML VIAL IV PRN; -fentaNYL* 50 MCG/ML 2 ML VIAL (100 MCG VIAL) IV PRN; -oxyCODONE/Acetamin 5/325 MG* TAB PO PRN
[2019-07-13] MEDS ORDERED: Lactated Ringers 1000 ML Bag* 1,000 ML IV SCH (06:00)
[2019-07-13] MEDS ORDERED: Famotidine IV* 10 MG/ML 2 ML (20 mg) IV ONE (06:00)
[2019-07-13] MEDS ORDERED: Famotidine IV* 10 MG/ML 2 ML (20 mg) ONE (06:03)
[2019-07-13] MEDS ORDERED: ceFAZolin 2 GM in NS PREMIX(*) 2 GM/100 ML BAG IVPB ONE (06:03)
[2019-07-13 06:48] LABS: INR 0.97 (0.82-1.09)
[2019-07-13] MEDS ORDERED: Tranexamic Acid 1,000 MG in NS 0.9% 50 ML IV ONE (07:00)
[2019-07-13] MEDS ORDERED: Lidocaine 1% MPF ** 5 ML VIAL ONE (07:23)
[2019-07-13] MEDS ORDERED: ROPIVACAINE 5 MG/ML 30 ML BTL (0.5%) ONE (07:23)
[2019-07-13] MEDS ORDERED: Bupivacaine 0.5% W/EPI SDV* 10 ML VIAL INJ ONE (07:30)
[2019-07-13] MEDS ORDERED: Midazolam* 1 MG/ML 5 ML VIAL (5 MG) ONE (07:37)
[2019-07-13] MEDS ORDERED: KETAMINE HCL* 50 MG/ML 10 ML VIAL ONE (08:16)
[2019-07-13] MEDS ORDERED: Midazolam* 1 MG/ML 2 ML VIAL (2 MG) ONE (08:18)
[2019-07-13] MEDS ORDERED: Propofol* 10 MG/ML 20 ML BTL ONE ×2 (08:24→09:31)
[2019-07-13] MEDS ORDERED: Ondansetron INJ* 2 MG/ML VIAL ONE (08:24)
[2019-07-13] MEDS ORDERED: Phenylephrine 40 MCG/ML SYRINGE ONE (08:24)
[2019-07-13] MEDS ORDERED: Acetaminophen IV 1GM/100ML * 100 ML ONE (08:50)
[2019-07-13] MEDS ORDERED: DiMENhydriNATE IV* 50 MG/ML VIAL IV PUSH PRN (09:35)
[2019-07-13] MEDS ORDERED: Naloxone* 0.4 MG/ML 1 ML VIAL IV PRN (09:35)
[2019-07-13] MEDS ORDERED: HYDROmorphone INJ1* 1 MG/ML SYRINGE ONE ×2 (09:48→10:58)
[2019-07-13] MEDS ORDERED: Magnesium Hydroxide LIQ* 30 ML UDC PO PRN (10:47)
[2019-07-13] MEDS ORDERED: Ondansetron INJ* 2 MG/ML VIAL IV PRN (10:47)
[2019-07-13] MEDS ORDERED: oxyCODONE/Acetamin 5/325 MG* TAB PO PRN (10:47)
[2019-07-13] MEDS ORDERED: traMADol TAB* 50 MG PO PRN (10:47)
[2019-07-13] MEDS ORDERED: diPHENhydraMINE PO* 25 MG PO PRN (10:47)
[2019-07-13] MEDS ORDERED: Polyethylene Glycol 3350* 17 GM PACKET PO PRN (10:47)
[2019-07-13] MEDS ORDERED: diPHENhydraMINE IV* 50 MG/ML 1 ml VIAL (BENADRYL) IV PRN (10:47)
[2019-07-13] MEDS ORDERED: Temazepam CAP* 15 MG PO PRN (10:47)
[2019-07-13] MEDS ORDERED: Morphine INJ* 2 MG/ML 1 ML SYRINGE (TWO MG - NEW SYRINGE VERSION) IV PRN (10:47)
[2019-07-13] MEDS ORDERED: Ondansetron ODT TAB* 4 MG PO PRN (10:47)
[2019-07-13] MEDS ORDERED: Albuterol 2.5 MG/3 ML NEB.SOL* (0.083%) INH PRN (10:57)
[2019-07-13] MEDS ORDERED: Albuterol HFA INHALER* 8 gm MDI INH PRN (10:57)
[2019-07-13] MEDS ORDERED: oxyCODONE TAB* 5 MG TAB ONE ×2 (10:58→11:22)
[2019-07-13] MEDS: HYDROmorphone INJ1* 1 MG/ML SYRINGE IV PRN ×3 (11:01→11:46)
[2019-07-13] MEDS: oxyCODONE TAB* 5 MG TAB PO PRN ×2 (11:05→11:23)
[2019-07-13] MEDS ORDERED: Artificial Tears* 15 ML BTL BOTH EYES PRN (11:06)
[2019-07-13] MEDS ORDERED: Midazolam* 1 MG/ML 2 ML VIAL (2 MG) IV SLOW PU ONE (11:17)
--- NOTE | 2019-07-13 11:47 | PN ---
Progress Note - Progress Note Date of Service: 07/13/19 Note: Post-op check: Nursing notified me that the patient reported severe left shoulder pain in recover. I asked the patient if she had injured the shoulder prior to surgery, but she denies inc
[2019-07-13] MEDS: Lactated Ringers 1000 ML Bag* 1,000 ML IV SCH ×2 (12:40→22:46)
[2019-07-13] MEDS: Acetaminophen TAB* 325 MG PO SCH (14:03)
[2019-07-13] MEDS: Gabapentin CAP(*) 300 MG PO SCH ×2 (14:19→19:32)
[2019-07-13] MEDS: oxyCODONE/Acetamin 5/325 MG* TAB PO PRN ×2 (14:27→19:31)
--- NOTE | 2019-07-13 14:33 | OP ---
CC: Dr. Wil Bang * DATE OF OPERATION: 07/13/19 - ROOM #351 DATE OF : 50 SURGICAL CARE: Left knee. SURGEON: River Dent MD SERVICE MECHANIC: JIAN Mclean and Francia Estes, cooling tower technician. ANESTHESIOLOGIST: Dr. Kelsy Hoffman. Left Adductor canal block, Spinal. PRE-OP DIAGNOSIS: Severe arthritis of the left knee, patellofemoral compartment and especially the medial compartment. POST-OP DIAGNOSIS: Severe arthritis of the left knee, patellofemoral compartment and especially the medial compartment. OPERATIVE PROCEDURE: Left total knee replacement. COMPONENTS UTILIZED: Rory Persona knee, size 6 femur, a 32 patella, a 10 articular surface, and a size E femur. COMPLICATIONS: There were no complications. DRAINS: There were no drains. BLOOD LOSS: 200 mL REPLACEMENT: Crystalloid fluids. DESCRIPTION OF PROCEDURE: The patient was brought to the operative room and placed on the operating table in supine position and following the administration of the anesthetic on the left, a Hernandez catheter was inserted. The left proximal thigh was wrapped with a tourniquet. The left leg was given a preliminary chlorhexidine prep and then a final ChloraPrep from the tourniquet to the tips of the toes. After prepping, draping, and sealing off, we did our universal protocol timeout confirming Anali Bassett and the plan for left total knee replacement. We all agreed and we proceeded. The left knee surgery was done without tourniquet until we got to the clean up and cementing face of the case. The surgery was done with the hip and knee acutely flexed with the left knee on a padded foot piece. The skin incision went from the medial aspect of the tibial tubercle to 2 fingerbreadths proximal to the superior pole of the patella. Skin and subcu divided down to the prepatellar bursa. The prepatellar bursa was traversed and the knee was entered medial parapatellar dividing the quad tendon at the junction of the rectus femoris and the vastus medialis tendon, staying as close to vastus medialis muscle as possible. The knee had clear straw-colored synovial fluid. On the tibia, the anteromedial soft tissues were divided down to the bone and then going medially , we stayed subperiosteally on the tibia, going around to the deep MCL into the posteromedial corner of the knee. The knee had complete eburnation of medial femoral condyle, medial tibial plateau, and marked where the patella, large patella, and trochlear osteophytes, large osteophytes on the intercondylar notch. The remains of the anterior and medial meniscus were excised. The patella was everted, synovectomy completed around the patella in the infrapatellar fat pad. The ACL and PCL were then uplifted from their femoral origins. The tibia was made so that it could be subluxated forward under the femur and the PCL was then carefully excised. Great care was taken while working posteriorly and with careful hemostasis. The distal anterior femur was exposed subperiosteally for referencing and measuring. The lateral meniscus was carefully excised. The proximal tibial cut was made first, our goal here was to have a tibial surface that will be perpendicular to the long axis of the tibia removing a couple of millimeters from the medial side and 5 to 7 mm from the lateral side. After this cut was complete, the femoral intramedullary canal was entered. The canal was suctioned to discourage embolization. The distal femoral cautery was applied with 0 and 6 degrees of valgus. This cut was completed. The extension gap was satisfactory with a 10-mm block. The femur was measured for a size 6. The anterior, posterior, and chamfering cuts were completed on the femur. We then finished removal of the posterior horn medial meniscus carefully preserving the MCL, removed small osteophyte medial and lateral femoral condyles, and finished removal of posterior along medial meniscus, the PCL, and the posterior along lateral meniscus. At this stage, we had a flexion gap at 90 degrees of 10. The femur was completed with the intercondylar cutout. The femur was then suctioned, cleaned, and suctioned x6 with saline to clean the femoral medullary canal and then the canal was plugged. The tibia was completed for a size E and the knee was then articulated and extended with an E tibia, 10 articular surface, and a 6 femur with full knee extension, stable ligaments in extension, and stable ligaments with 90 degrees of flexion. The patella was cut flat, 32 was chosen, 3 drill holes were made, these were undercut and the lateral release was not necessary. The leg was exsanguinated. The tourniquet was elevated to 275. The knee was then cleaned entirely in extension with pulse saline 2 L. The knee was then flexed, retractors were put into position, and all the bony surfaces were cleaned again with pulse saline and then all surfaces were dried. The cement was mixed and the components were cemented into position, patella, followed by tibia, followed by femur. Each component was impacted. Excess cement was removed, and the knee was articulated and extended during the final hardening. After hardening, then the pericapsular tissues were infiltrated posteromedially , medially, and laterally with Marcaine with epinephrine and closure was started. We checked posteriorly for loose bone fragments, loose cement, and bleeding points. Careful hemostasis was checked and achieved during the closure with saline. We irrigated several times during closure with the saline. I did not think the drains were necessary. We considered using tranexamic acid for this case and decided not to because we did not want to encourage clotting in the patient's vascular system given her atrial fibrillation and planned Eliquis treatment and aspirin treatment. The closure was done with a #1 Vicryl in [id number] fashion on a quad mechanism in the medial reticulatum, more distally we used 0 Vicryl, then superficial subcu closure with 3-0 Vicryl, and the skin closed with delon. The knee was extended completely and flexed completely several times during closure with extension 0 and flexion 130 and the dressing was then applied with Betadine- soaked-release sterile gauze, sterile Webril, cryotherapy cuff, ABD pads, and a 6-inch Kvng bandage loosely applied. The posterior tibial pulse was 2+ at the end of the case, and the patient was returned to recovery room in stable and satisfactory condition having tolerated the procedure very well. [id number]/CPS #: [id number] ALICIA
[2019-07-13] MEDS: ceFAZolin 1 GM ADVAN(*) 1 GM in NS 0.9% 50 ML* 50 ML IVPB SCH (15:35)
[2019-07-13] MEDS: Cyclobenzaprine TAB* 10 MG PO PRN (15:35)
--- NOTE | 2019-07-13 16:40 | CONS ---
CONSULTATION REPORT: ADDENDUM: PAST MEDICAL HISTORY: 1. Right carpal tunnel syndrome. 2. Brachial neuritis. 3. Cervical spondylosis without myelopathy. 4. Breast carcinoma in situ, HER2 positive, ER positive, NH negative, poorly differentiated, status post bilateral mastectomy and radiation therapy in 2013. ASSESSMENT AND PLAN: Ms. Bassett is a 68-year-old female with past medical history of hypertension, hyperlipidemia, asthma, osteoarthritis, ostium secundum type atrial septal defect, status post atrial septal defect closure, paroxysmal supraventricular tachycardia, atrial fibrillation, who was admitted for an elective left total knee arthroplasty. 1. Left total knee arthroplasty. Management as per Orthopedics. 2. Paroxysmal atrial fibrillation. She is in normal sinus rhythm at this time and as per Cardiology note, she has been maintaining normal sinus rhythm while on propafenone. Her Holter showed increased PACs, but no evidence of atrial fibrillation. The recommendation was to continue low-dose metoprolol 25 mg p.o. daily and this already ordered in the hospital. They also recommended continuation of propafenone to suppress her atrial fibrillation. Apixaban was held prior to the procedure, but Cardiology recommended continuation of aspirin and metoprolol without interruption. She will be monitored on telemetry. 3. Hypertension. Blood pressure is controlled. We will continue metoprolol and diltiazem. 4. Asthma. It is stable at this time. We will continue bronchodilators. 5. History of breast cancer. Continue anastrozole. 6. Hypothyroidism. We will continue levothyroxine. 7. DVT prophylaxis. The patient was on Eliquis as outpatient for her atrial fibrillation and this was held prior to surgery and it should be resumed as soon as possible as per Orthopedics. 8. Code status is full. TIME SPENT: Approximately 65 minutes was spent with the patient's interview, medical records review, physical examination to complete this consultation, more than half of this time was spent [id number] with the patient and coordination of care. [id number]/[facility] #: [id number] ALICIA
[2019-07-13] MEDS: Metoprolol Succinate XL TAB* 25 MG PO SCH (17:46)
--- NOTE | 2019-07-13 18:43 | CONS ---
CONTINUATION ADDENDUM NOW INCLUDED ON THIS REPORT CC: Dr. Wil Bang; Dr. Dent * CONSULTATION REPORT: DATE OF CONSULT: 07/13/19 TIME OF EVALUATION: 11:30 a.m. PRIMARY CARE PROVIDER: Dr. Wil Bang. REQUESTING PHYSICIAN: Dr. Dent. REASON FOR CONSULT: Management of comorbidities. HISTORY OF PRESENT ILLNESS: Ms. Bassett is a 68-year-old female with a past medical history of paroxysmal supraventricular tachycardia, breast CA, hypertension, hyperlipidemia, depression, osteoarthritis, bronchitis, obstructive sleep apnea with mild pulmonary hypertension, asthma, who presented for an elective left knee arthroplasty. She failed outpatient therapy and now elects to have arthroplasty done. As per the PA report, the patient had no significant complications during surgery. During my interview, the patient's major complaint was left shoulder pain. She states that anti-inflammatory drugs were discontinued prior to her surgery and she has had severe left shoulder pain for a week, but she did not want to say anything as she was afraid her surgery would be canceled. In the PACU area, she received Dilaudid and stated that the left shoulder pain was already improving by the time I evaluated her. She denied chest pain, palpitations, or shortness of breath. PAST MEDICAL HISTORY: 1. Hypertension. 2. Hyperlipidemia. 3. Asthma. 4. Osteoarthritis. 5. Cervical spondylosis. 6. Ostium secundum type atrial septal defect. 7. Paroxysmal supraventricular tachycardia with atrial fibrillation. MEDICATION LIST: 1. Acetaminophen 650 mg p.o. t.i.d. 2. Albuterol 1 nebulized twice a day as needed for shortness of breath. 3. Albuterol HFA 2 puffs inhaled 4 times daily p.r.n. shortness of breath. 4. Arimidex 1 mg p.o. daily. 5. Eliquis 5 mg p.o. b.i.d. 6. Aspirin 81 mg p.o. daily. 7. Symbicort 160/4.5 two puffs inhaled daily. 8. Cholecalciferol 1000 units p.o. daily. 9. Voltaren 75 mg p.o. b.i.d. 10. Cardizem ER 180 mg p.o. daily. 11. Colace 100 mg p.o. at bedtime as needed for constipation. 12. Fluticasone nasal spray 50 mcg 1 spray to both nares daily. 13. Furosemide 20 mg p.o. every other day. 14. Gabapentin 600 mg p.o. t.i.d. 15. Guaifenesin 1200 mg p.o. b.i.d. 16. Levothyroxine 100 mcg p.o. daily. 17. Metoprolol succinate 25 mg p.o. at bedtime. 18. Misoprostol 200 mcg p.o. b.i.d. 19. Multivitamin 1 tablet p.o. daily. 20. MiraLAX 17 g p.o. daily as needed for constipation. 21. Potassium chloride 20 mEq p.o. daily. 22. Propafenone 225 mg p.o. b.i.d. 23. Artificial tears 1 drop to both eyes t.i.d. as needed for dry eyes. 24. Metamucil 1 capsule p.o. at bedtime. 25. Tizanidine 4 mg p.o. b.i.d. ALLERGIES: To ERYTHROMYCIN. FAMILY HISTORY: Father and mother had a history of alcoholism. Mother also had emphysema and lung cancer and father had stomach cancer. SOCIAL HISTORY: There is no history of alcohol, tobacco, or drug use. Surrogate decision maker is her brother, Alvarez Hernández, phone number is [phone]. REVIEW OF SYSTEMS: Somewhat limited as the patient is recovering from anesthesia, but besides her left shoulder pain, she does not offer any other complaints. PHYSICAL EXAM: Vital Signs: Temperature 97.4, heart rate is 67, respiratory rate is 16, oxygen saturation is 100% on 2 L nasal cannula, blood pressure is 149/81. General: The patient is an elderly lady, lying in bed, in no acute distress. HEENT: Pupils are equal. Moist mucous membranes. CVS: Normal S1, S2. Regular rate and rhythm. Chest: Breath sounds present bilaterally with no added sounds. Abdomen is soft. Bowel sounds are present. Extremities: The patient has a Cryo unit to her left knee. Neuro: She is arousable, oriented to self and place. Able to follow simple commands. CONTINUATION ADDENDUM: PAST MEDICAL HISTORY: 1. Right carpal tunnel syndrome. 2. Brachial neuritis. 3. Cervical spondylosis without myelopathy. 4. Breast carcinoma in situ, HER2 positive, ER positive, MO negative, poorly differentiated, status post bilateral mastectomy and radiation therapy in 2014. ASSESSMENT AND PLAN: Ms. Bassett is a 68-year-old female with past medical history of hypertension, hyperlipidemia, asthma, osteoarthritis, ostium secundum type atrial septal defect, status post atrial septal defect closure, paroxysmal supraventricular tachycardia, atrial fibrillation, who was admitted for an elective left total knee arthroplasty. 1. Left total knee arthroplasty. Management as per Orthopedics. 2. Paroxysmal atrial fibrillation. She is in normal sinus rhythm at this time and as per Cardiology note, she has been maintaining normal sinus rhythm while on propafenone. Her Holter showed increased PACs, but no evidence of atrial fibrillation. The recommendation was to continue low-dose metoprolol 25 mg p.o. daily and this already ordered in the hospital. They also recommended continuation of propafenone to suppress her atrial fibrillation. Apixaban was held prior to the procedure, but Cardiology recommended continuation of aspirin and metoprolol without interruption. She will be monitored on telemetry. 3. Hypertension. Blood pressure is controlled. We will continue metoprolol and diltiazem. 4. Asthma. It is stable at this time. We will continue bronchodilators. 5. History of breast cancer. Continue anastrozole. 6. Hypothyroidism. We will continue levothyroxine. 7. DVT prophylaxis. The patient was on Eliquis as outpatient for her atrial fibrillation and this was held prior to surgery and it should be resumed as soon as possible as per Orthopedics. 8. Code status is full. TIME SPENT: Approximately 65 minutes was spent with the patient's interview, medical records review, physical examination to complete this consultation, more than half of this time was spent [id number] with the patient and coordination of care. [id number]/CPS #: [id number] A- [id number]/CPS #: [id number] ALICIA
[2019-07-13] MEDS: tiZANidine TAB* 2 MG PO SCH (19:32)
[2019-07-13] MEDS: Docusate CAP* 100 MG PO SCH (19:33)
[2019-07-13] MEDS: guaiFENesin ER TAB 600 MG PO SCH (19:33)
[2019-07-13] MEDS: Magnesium Hydroxide LIQ* 30 ML UDC PO SCH (19:34)
[2019-07-13] MEDS: PROPAFENONE 325 MG PO SCH (23:11)
[2019-07-13] MEDS: Misoprostol TAB* 200 MCG PO SCH (23:11)
[2019-07-14] MEDS: Acetaminophen TAB* 325 MG PO SCH ×4 (00:02→23:49)
[2019-07-14] MEDS: oxyCODONE/Acetamin 5/325 MG* TAB PO PRN ×4 (00:07→21:06)
[2019-07-14] MEDS: ceFAZolin 1 GM ADVAN(*) 1 GM in NS 0.9% 50 ML* 50 ML IVPB SCH ×2 (00:08→07:52)
[2019-07-14] MEDS: oxyCODONE TAB* 5 MG TAB PO PRN ×3 (03:18→17:00)
[2019-07-14] MEDS: Levothyroxine TAB* 100 MCG TAB PO SCH (06:10)
--- NOTE | 2019-07-14 07:14 | PN ---
Progress Note - Progress Note Date of Service: 07/14/19 Note: POD #1 VSStable. X-ray post op all satisfactory. AM labs are pending. Patient uncomfortable as expected and not distressed. Awake, cooperative and responsive. Breathing easily. Blood soaked dressing changed left knee. Surgery has no active bleeding now and is dry, swollen. Skin color is normal. All washed with soap and water. New dressing betadine/telfa, gauze and loose aamir. Left foot PT pulse is 2 plus and moving left ankle up and down, toes too. Imp: Stable. Plans Check labs and up with walker for TKR protocol.
[2019-07-14 08:27] LABS: Hematocrit 28 % (35-47); Hemoglobin 9.6 g/dL (12.0-16.0); Mean Platelet Volume 7.3 fL (7.4-10.4); Platelet Count 227 10^3/uL (150-450)
[2019-07-14 08:45] LABS: Calcium 8.7 mg/dL (8.6-10.3); EGFR Non-African American 76.8 (>60); Potassium 3.8 mmol/L (3.5-5.0)
[2019-07-14] MEDS ORDERED: Aspirin EC TAB* 81 MG TAB.EC PO SCH (09:00)
[2019-07-14] MEDS: Fluticasone NASAL SPRAY 50MCG* 16 gm SPRAY BTL BOTH NARES SCH (09:36)
[2019-07-14] MEDS: Vitamin THERAPEUTIC TAB PO SCH (09:37)
[2019-07-14] MEDS: Potassium Chlor TAB* 20 MEQ TAB.ER PO SCH (09:37)
[2019-07-14] MEDS: Magnesium Hydroxide LIQ* 30 ML UDC PO SCH ×2 (09:37→21:09)
[2019-07-14] MEDS: Cholecalciferol TAB* 1000 UNITS PO SCH (09:38)
[2019-07-14] MEDS: guaiFENesin ER TAB 600 MG PO SCH ×2 (09:38→21:05)
[2019-07-14] MEDS: Misoprostol TAB* 200 MCG PO SCH ×2 (09:38→21:09)
[2019-07-14] MEDS: Gabapentin CAP(*) 300 MG PO SCH ×3 (09:38→21:08)
[2019-07-14] MEDS: Diltiazem CD CAP* 180 MG PO SCH (09:38)
[2019-07-14] MEDS: Docusate CAP* 100 MG PO SCH ×2 (09:38→21:06)
[2019-07-14] MEDS: CMCS: Anastrozole (NF) 1 MG TAB PO SCH (09:39)
[2019-07-14] MEDS: tiZANidine TAB* 2 MG PO SCH ×2 (09:39→21:06)
[2019-07-14] MEDS: PROPAFENONE 325 MG PO SCH ×2 (09:40→21:05)
[2019-07-14 09:43] LABS: Hepatitis C Antibody Negative (Negative)
[2019-07-14] MEDS: Lactated Ringers 1000 ML Bag* 1,000 ML IV SCH ×2 (09:45→21:19)
[2019-07-14] MEDS: Mometasone/Formoter 200/5 MDI INH SCH (10:02)
--- NOTE | 2019-07-14 11:54 | PN ---
INTERNAL MEDICINE PROGRESS NOTE: DATE OF VISIT: 07/14/19 - ROOM #351 HISTORY: The patient being seen in followup after left total knee replacement. I am covering for Dr. Bang, who is her primary care physician. She is feeling okay. She said there was bleeding from her knee this morning. Dr. Dent came in and rewrapped her knee. She has an ice pack on it. She has no other complaints. PHYSICAL EXAMINATION: Vital Signs: Blood pressure 152/77, pulse 59, respirations 16, temperature 97.4, O2 sat 99%. She is lying in bed. No acute distress. Chest is clear. Heart: Normal S1, S2. No murmurs, gallops, or rubs. Abdomen is soft and nontender. Extremities: Left knee wrapped with cooling packs. Right knee with SCD. LABORATORY DATA: From today, H and H 9.8/28, which is a drop from preoperative H and H. Sodium 140, potassium 3.8, chloride 106, CO2 of 30, BUN/creatinine 6/ 0.75, glucose 91. IMPRESSION: 1. Status post knee replacement. Dressing changes per Dr. Dent. The patient is to follow total knee replacement protocol. 2. Drop in H and H. This will be followed. 3. History of hypertension. Blood pressure is slightly high. We will follow. 4. Paroxysmal atrial fibrillation. The patient is in normal sinus rhythm. She remains on propafenone. 5. History of asthma. The patient is to stay on bronchodilators. 6. DVT prophylaxis. Discussed with PA from Orthopedics. The patient to be on Lovenox for the next couple of days and then resume Eliquis. [id number]/[facility] #: [id number] [facility]
[2019-07-14] MEDS ORDERED: Enoxaparin(*) 30 MG/0.3 ML SYR SUBCUT ONE (12:00)
[2019-07-14] MEDS ORDERED: Aspirin TAB* 325 MG PO SCH ×2 (12:00→18:00)
[2019-07-14] MEDS: Aspirin 81 mg CHEW TAB* 81 MG TAB.CHEW PO SCH (13:40)
[2019-07-14] MEDS: Metoprolol Succinate XL TAB* 25 MG PO SCH (16:53)
[2019-07-15] MEDS: oxyCODONE/Acetamin 5/325 MG* TAB PO PRN ×5 (03:53→23:23)
[2019-07-15] MEDS: oxyCODONE TAB* 5 MG TAB PO PRN (06:14)
[2019-07-15] MEDS: Levothyroxine TAB* 100 MCG TAB PO SCH (06:14)
[2019-07-15] MEDS: Acetaminophen TAB* 325 MG PO SCH ×3 (06:20→23:14)
[2019-07-15 06:28] LABS: Hematocrit 27 % (35-47); Platelet Count 219 10^3/uL (150-450)
[2019-07-15] MEDS: Mometasone/Formoter 200/5 MDI INH SCH (07:25)
[2019-07-15] MEDS: Lactated Ringers 1000 ML Bag* 1,000 ML IV SCH ×2 (07:35→18:58)
[2019-07-15] MEDS: Cyclobenzaprine TAB* 10 MG PO PRN ×2 (07:43→20:52)
[2019-07-15] MEDS: tiZANidine TAB* 2 MG PO SCH ×2 (09:22→20:51)
[2019-07-15] MEDS: Cholecalciferol TAB* 1000 UNITS PO SCH (09:22)
[2019-07-15] MEDS: guaiFENesin ER TAB 600 MG PO SCH ×2 (09:22→20:51)
[2019-07-15] MEDS: Vitamin THERAPEUTIC TAB PO SCH (09:22)
[2019-07-15] MEDS: CMCS: Anastrozole (NF) 1 MG TAB PO SCH (09:22)
[2019-07-15] MEDS: Furosemide TAB* 20 MG PO SCH (09:22)
[2019-07-15] MEDS: Misoprostol TAB* 200 MCG PO SCH ×2 (09:22→20:52)
[2019-07-15] MEDS: Gabapentin CAP(*) 300 MG PO SCH ×3 (09:23→20:51)
[2019-07-15] MEDS: Aspirin 81 mg CHEW TAB* 81 MG TAB.CHEW PO SCH (09:23)
[2019-07-15] MEDS: Potassium Chlor TAB* 20 MEQ TAB.ER PO SCH (09:23)
[2019-07-15] MEDS: Diltiazem CD CAP* 180 MG PO SCH (09:23)
[2019-07-15] MEDS: Docusate CAP* 100 MG PO SCH ×2 (09:23→19:19)
[2019-07-15] MEDS: Fluticasone NASAL SPRAY 50MCG* 16 gm SPRAY BTL BOTH NARES SCH (09:24)
[2019-07-15] MEDS: Magnesium Hydroxide LIQ* 30 ML UDC PO SCH ×2 (09:24→19:19)
[2019-07-15] MEDS: PROPAFENONE 325 MG PO SCH ×2 (09:24→20:51)
[2019-07-15] MEDS ORDERED: Bisacodyl SUPP* 10 MG SUPP PR PRN (10:47)
[2019-07-15] MEDS ORDERED: NS 0.9% 500 ML* 500 ML IV ONE (11:13)
--- NOTE | 2019-07-15 11:33 | PN ---
Progress Note - Progress Note Date of Service: 07/15/19 SOAP: Subjective: []Patient seen at bedside sitting in chair. Pt drowsy but able to respond to all questions appropriately. She states pain is well managed on pain meds. She states she hasn't had issues with PT/OT but has not yet done stairs. She denies CP, SOB, f/c, N/V or dizziness. Objective: [General: Alert and oriented. NAD. LLE: Dressing was changed today. Incision C/D/I with no erythema. Minimal blood on bandage. Betadine and dry 4x4 with a loose JESSE was placed. Thigh soft and nontender. She is able to lift her leg through minimal range of motion. She is able to DF/PF her ankle and f/e all digits. PT pulse 2+. Calf soft and nontender with no erythema or palpable cords. ] Assessment: [POD 2 sp left total knee replacement with Dr. Dent] Plan: [Continue PT/OT DVT prophylaxis: 40mg Lovenox sq today. Transition to Eliquis tomorrow. Continue pain management with current meds. If her drowsiness increases or BP remains low after changes from hosp then pain meds will be decreased. Dr. Vickers saw the patient concerning her low BP. She ordered a bolus and decreased her Norvasc. Encouraged IS.] Vital Signs Temp Pulse Resp BP Pulse Ox 98.9 F 61 16 91/50 95 07/15/19 10:43 07/15/19 10:43 07/15/19 10:43 07/15/19 10:43 07/15/19 10:43 Laboratory Last Values Hgb 9.0 g/dL (12.0-16.0) L 07/15/19 06:18 Hct 27 % (35-47) L 07/15/19 06:18 Plt Count 219 10^3/uL (150-450) 07/15/19 06:18 MPV 7.0 fL (7.4-10.4) L 07/15/19 06:18 INR (Anticoag Therapy) 0.97 (0.82-1.09) 07/13/19 06:29 Sodium 140 mmol/L (135-145) 07/14/19 07:56 Potassium 3.8 mmol/L (3.5-5.0) 07/14/19 07:56 Chloride 106 mmol/L (101-111) 07/14/19 07:56 Carbon Dioxide 30 mmol/L (22-32) 07/14/19 07:56 Anion Gap 4 mmol/L (2-11) 07/14/19 07:56 BUN 6 mg/dL (6-24) 07/14/19 07:56 Creatinine 0.75 mg/dL (0.51-0.95) 07/14/19 07:56 Est GFR ( Amer) 93.0 (>60) 07/14/19 07:56 Est GFR (Non-Af Amer) 76.8 (>60) 07/14/19 07:56 BUN/Creatinine Ratio 8.0 (8-20) 07/14/19 07:56 Glucose 91 mg/dL (70-100) 07/14/19 07:56 Calcium 8.7 mg/dL (8.6-10.3) 07/14/19 07:56 Hepatitis C Antibody Negative (Negative) 07/14/19 07:56 Hepatitis C Ab Index 0.03 s/c 07/14/19 07:56 Vital Signs 07/14/19 07/14/19 07/14/19 12:22 13:40 13:41 Temperature 97.4 F Pulse Rate 62 Respiratory 16 18 18 Rate Blood Pressure 93/51 (mmHg) O2 Sat by Pulse 91 Oximetry 07/14/19 07/14/19 07/14/19 15:15 15:29 15:30 Temperature 98.2 F Pulse Rate 59 Respiratory 18 18 18 Rate Blood Pressure 95/55 (mmHg) O2 Sat by Pulse 100 Oximetry 07/14/19 07/14/19 07/14/19 17:00 17:01 18:30 Temperature Pulse Rate Respiratory 18 18 18 Rate Blood Pressure (mmHg) O2 Sat by Pulse Oximetry 07/14/19 07/14/19 07/14/19 20:49 21:00 21:06 Temperature Pulse Rate Respiratory 20 16 16 Rate Blood Pressure (mmHg) O2 Sat by Pulse Oximetry 07/14/19 07/14/19 07/14/19 21:08 21:30 23:58 Temperature 98.9 F 98.0 F Pulse Rate 70 74 Respiratory 16 14 16 Rate Blood Pressure 109/51 132/78 (mmHg) O2 Sat by Pulse 92 100 Oximetry 07/15/19 07/15/19 07/15/19 03:53 04:57 04:58 Temperature 97.5 F Pulse Rate 62 Respiratory 16 20 Rate Blood Pressure 95/52 (mmHg) O2 Sat by Pulse 93 92 Oximetry 07/15/19 07/15/19 07/15/19 06:14 07:00 07:43 Temperature 97.7 F Pulse Rate 61 Respiratory 16 20 20 Rate Blood Pressure 93/50 (mmHg) O2 Sat by Pulse 94 Oximetry 07/15/19 07/15/19 07/15/19 07:46 07:53 09:23 Temperature Pulse Rate Respiratory 18 20 Rate Blood Pressure 110/52 (mmHg) O2 Sat by Pulse Oximetry 07/15/19 10:43 Temperature 98.9 F Pulse Rate 61 Respiratory 16 Rate Blood Pressure 91/50 (mmHg) O2 Sat by Pulse 95 Oximetry
[2019-07-15] MEDS: Enoxaparin(*) 40 MG/0.4 ML SYR SUBCUT SCH (13:03)
[2019-07-15] MEDS: Metoprolol Succinate XL TAB* 25 MG PO SCH (16:13)
[2019-07-16] MEDS: oxyCODONE/Acetamin 5/325 MG* TAB PO PRN ×4 (03:19→17:03)
[2019-07-16] MEDS: Lactated Ringers 1000 ML Bag* 1,000 ML IV SCH (05:23)
[2019-07-16] MEDS: Levothyroxine TAB* 100 MCG TAB PO SCH (05:23)
[2019-07-16] MEDS: Acetaminophen TAB* 325 MG PO SCH ×3 (05:25→21:19)
[2019-07-16 06:49] LABS: Hematocrit 23 % (35-47); Hemoglobin 7.8 g/dL (12.0-16.0); Mean Platelet Volume 7.2 fL (7.4-10.4); Platelet Count 188 10^3/uL (150-450)
[2019-07-16] MEDS: Mometasone/Formoter 200/5 MDI INH SCH (07:54)
[2019-07-16 07:59] LABS: Hematocrit 25 % (35-47); Hemoglobin 8.4 g/dL (12.0-16.0)
[2019-07-16] MEDS: Docusate CAP* 100 MG PO SCH ×2 (08:40→21:17)
[2019-07-16] MEDS: Magnesium Hydroxide LIQ* 30 ML UDC PO SCH ×2 (08:40→21:17)
[2019-07-16] MEDS: Cholecalciferol TAB* 1000 UNITS PO SCH (09:15)
[2019-07-16] MEDS: Aspirin 81 mg CHEW TAB* 81 MG TAB.CHEW PO SCH (09:15)
[2019-07-16] MEDS: guaiFENesin ER TAB 600 MG PO SCH ×2 (09:15→21:19)
[2019-07-16] MEDS: Gabapentin CAP(*) 300 MG PO SCH ×3 (09:15→21:18)
[2019-07-16] MEDS: Vitamin THERAPEUTIC TAB PO SCH (09:16)
[2019-07-16] MEDS: PROPAFENONE 325 MG PO SCH ×2 (09:16→21:18)
[2019-07-16] MEDS: Misoprostol TAB* 200 MCG PO SCH ×2 (09:16→21:19)
[2019-07-16] MEDS: Diltiazem CD CAP* 180 MG PO SCH (09:16)
[2019-07-16] MEDS: Potassium Chlor TAB* 20 MEQ TAB.ER PO SCH (09:16)
[2019-07-16] MEDS: tiZANidine TAB* 2 MG PO SCH ×2 (09:16→21:18)
[2019-07-16] MEDS: Fluticasone NASAL SPRAY 50MCG* 16 gm SPRAY BTL BOTH NARES SCH (09:17)
[2019-07-16] MEDS: CMCS: Anastrozole (NF) 1 MG TAB PO SCH (09:17)
[2019-07-16] MEDS: Enoxaparin(*) 40 MG/0.4 ML SYR SUBCUT SCH (12:39)
[2019-07-16] MEDS: Apixaban* 2.5 MG TAB PO SCH ×2 (13:00→21:19)
--- NOTE | 2019-07-16 16:10 | PN ---
Progress Note - Progress Note Date of Service: 07/16/19 SOAP: Subjective: [Patient seen at bedside sitting in chair. She states pain is well managed on pain meds. She states she has done PT and has not been able to do more than 3 steps. She denies CP, SOB, f/c, N/V or dizziness. Objective: [General: Alert and oriented. NAD. LLE: Dressing C/D/I. Thigh soft and nontender. She is able to lift her leg through minimal range of motion. She is able to DF/PF her ankle. PT pulse 2+. Calf soft and nontender with no erythema or palpable cords. ] Vital Signs Temp 98.0 F 07/16/19 15:13 Pulse 72 07/16/19 15:13 Resp 16 07/16/19 15:13 BP 99/52 07/16/19 15:13 Pulse Ox 90 07/16/19 15:13 Intake & Output 07/15/19 07/16/19 07/16/19 18:59 06:59 18:59 Intake Total 2195 3484 100 Output Total 1450 800 400 Balance 745 2684 -300 Intake: IV Fluids 1855 1484 LR 1375 1484 NS (0.9%) 480 Oral 340 2000 100 Output: Urine 1450 800 400 Other: Estimated Void Medium Date of Last Bowel 07/15/19 Movement # Bowel Movements 1 1 Estimated Stool Amount Medium Small # Voids 1 Assessment: [POD 3 sp left total knee replacement with Dr. Dent] Plan: [Continue PT/OT DVT prophylaxis: Eliquis 2.5mg bid x 5 days. Then we will switch to home dose. Continue pain management with current meds. Dr. Vickers saw the patient concerning her low BP. Will keep her another day for observation ob BP As a note the pt has been accepted to rehab at [facility], [place]. She adamantly stated that she did not want to go to [facility] [place]. PT had stated that she was not safe to be discharged home at this point. She does not want to expand to any rehab outside of [place] although her insurance will not cover any rehab facility other than [facility] [place]. We will assess all of this tomorrow.
[2019-07-16] MEDS: Metoprolol Succinate XL TAB* 25 MG PO SCH (17:00)
[2019-07-16] MEDS: oxyCODONE TAB* 5 MG TAB PO PRN (21:18)
--- NOTE | 2019-07-17 00:11 | PN ---
PROGRESS NOTE: DATE OF SERVICE: 07/16/19 HISTORY: The patient is concerned about going home. She was initially told that she could go to [facility], but she would prefer to go home if she is able with her knee replacement. She will not be going to [facility] as she did with her previous knee replacement. She does not meet qualifications for this. This was discussed with registered nurse hh case manager. She feels that she is making progress. PHYSICAL EXAMINATION: Vital Signs: Blood pressure had been running low. Most recent blood pressure was 90/47, pulse 67, respirations 16, and temperature 97.9. Chest: Clear. Heart: Regular. LABORATORY DATA: H and H 8.01/28 up slightly since yesterday. IMPRESSION: Patient with blood pressure running low. I will stop her diltiazem and see if her blood pressure comes up. With her blood pressures low , I do not think she is medically stable to go home yet. I will be following up with her tomorrow to see how she is doing. [id number]/[facility] #: [id number] ALICIA
[2019-07-17] MEDS: Acetaminophen TAB* 325 MG PO SCH ×2 (05:12→13:53)
[2019-07-17] MEDS: Levothyroxine TAB* 100 MCG TAB PO SCH (05:16)
[2019-07-17 05:41] LABS: Hematocrit 24 % (35-47); Hemoglobin 7.9 g/dL (12.0-16.0); Mean Platelet Volume 6.9 fL (7.4-10.4); Platelet Count 232 10^3/uL (150-450)
[2019-07-17] MEDS: Mometasone/Formoter 200/5 MDI INH SCH (07:28)
[2019-07-17] MEDS: oxyCODONE/Acetamin 5/325 MG* TAB PO PRN ×3 (08:03→19:35)
--- NOTE | 2019-07-17 09:57 | PN ---
Progress Note - Progress Note Date of Service: 07/17/19 Note: Post-op day 4 s/p left TKA: Patient seated in joint chair reading paper. She denies CP, SOB or dizziness, but still has quite a bit of pain with movement. She continues to work with PT and feels she is making progress. She hopes for discharge home soon. L ankle DF/PF intact, with intact sensation and 2+ PT pulse. Foot is warm. Dressing is taken down today. Wound is well approximated and benign. Mild edema and ecchymosis noted. Patient encouraged to continue PT. Dr. Vickers to exam pt for medical issues and determination of discharge status. We will monitor.
[2019-07-17] MEDS: Docusate CAP* 100 MG PO SCH ×2 (10:39→21:42)
[2019-07-17] MEDS: Cholecalciferol TAB* 1000 UNITS PO SCH (10:39)
[2019-07-17] MEDS: guaiFENesin ER TAB 600 MG PO SCH ×2 (10:40→20:57)
[2019-07-17] MEDS: Aspirin 81 mg CHEW TAB* 81 MG TAB.CHEW PO SCH (10:40)
[2019-07-17] MEDS: Furosemide TAB* 20 MG PO SCH (10:40)
[2019-07-17] MEDS: Apixaban* 2.5 MG TAB PO SCH ×2 (10:40→21:40)
[2019-07-17] MEDS: Vitamin THERAPEUTIC TAB PO SCH (10:40)
[2019-07-17] MEDS: Gabapentin CAP(*) 300 MG PO SCH ×3 (10:41→20:56)
[2019-07-17] MEDS: Diltiazem CD CAP* 180 MG PO SCH (10:41)
[2019-07-17] MEDS: Fluticasone NASAL SPRAY 50MCG* 16 gm SPRAY BTL BOTH NARES SCH (10:44)
[2019-07-17] MEDS: Magnesium Hydroxide LIQ* 30 ML UDC PO SCH ×2 (10:44→20:55)
[2019-07-17] MEDS: Potassium Chlor TAB* 20 MEQ TAB.ER PO SCH (10:45)
[2019-07-17] MEDS: PROPAFENONE 325 MG PO SCH ×2 (10:46→20:55)
[2019-07-17] MEDS: tiZANidine TAB* 2 MG PO SCH ×2 (10:47→20:57)
[2019-07-17] MEDS: Misoprostol TAB* 200 MCG PO SCH ×2 (10:48→20:55)
[2019-07-17] MEDS: CMCS: Anastrozole (NF) 1 MG TAB PO SCH (10:49)
[2019-07-17] MEDS: Dextran 70/Hypromellose Tears Eye Drops 15 ml BTL (for Artificials Tears) BOTH EYES PRN (10:51)
[2019-07-17] MEDS: oxyCODONE TAB* 5 MG TAB PO PRN ×3 (11:02→21:40)
--- NOTE | 2019-07-17 13:23 | PN ---
PROGRESS NOTE: DATE OF SERVICE: 07/17/19 HISTORY: The patient feels that she is improving. She is very fatigued, however. She denies shortness of breath. She feels that she wants to show the physical therapist that she is able to manage, but gets very tired. Her left leg has been quite swollen, makes it hard to move. She feels it is more swollen than the other leg was with her previous knee replacement. PHYSICAL EXAMINATION: Vital Signs: Blood pressure 131/80, pulse 90, respirations 16, temperature 97.7, O2 sat 100% on room air. She is sitting up in the chair, cooling unit on her left knee. The patient is seen alone. She is in no acute distress. Chest is clear. Heart: Normal S1, S2. She is in a bigeminal rhythm. Abdomen is nontender. Extremities show that the left leg appears much larger than the right with 1+ edema of the ankle. LABORATORY DATA: H and H 7.924. IMPRESSION: 1. Anemia postop total knee replacement of the left knee. We will transfuse 1 unit as the patient is exhibiting fatigue, symptomatic with hemoglobin less than 8. 2. Previous hypotension, improved since the patient's diltiazem was stopped. 3. History of hypertension. Blood pressure normal at this point. If blood pressure goes up, we would recommend restarting diltiazem. 4. History of breast cancer. The patient is to continue on anastrozole. 5. Hypothyroidism. To continue levothyroxine. 6. DVT prophylaxis. The patient has resumed Eliquis. 7. History of atrial fibrillation. The patient is to continue on propafenone. Also to continue on low-dose metoprolol. [id number]/[facility] #: [id number] [facility]
[2019-07-17] MEDS: Metoprolol Succinate XL TAB* 25 MG PO SCH (17:50)
[2019-07-17] MEDS: Cyclobenzaprine TAB* 10 MG PO PRN (19:36)
[2019-07-18] MEDS: oxyCODONE/Acetamin 5/325 MG* TAB PO PRN ×5 (01:48→20:30)
[2019-07-18] MEDS: Acetaminophen TAB* 325 MG PO SCH ×4 (03:36→20:32)
[2019-07-18] MEDS: Levothyroxine TAB* 100 MCG TAB PO SCH (05:47)
[2019-07-18 07:30] LABS: ABS Basophils 0.1 10^3/ul (0-0.2); ABS Eosinophils 0.2 10^3/ul (0-0.6); ABS Lymphocytes 0.6 10^3/ul (1.0-4.8); ABS Monocytes 0.5 10^3/ul (0-0.8); ABS Neutrophils 3.5 10^3/ul (1.5-7.7); Eosinophil % 3.3 %; Hematocrit 25 % (35-47); Hemoglobin 8.2 g/dL (12.0-16.0); Mean Corpuscular HGB Conc 34 g/dL (31-36); Mean Corpuscular Hemoglobin 29 pg (27-31); Mean Corpuscular Volume 86 fL (80-97); Nucleated Red Blood Cells % 0.1; Platelet Count 309 10^3/uL (150-450); Red Blood Count 2.87 10^6 /uL (3.70-4.87); Red Cell Distribution Width 16 % (10-15); White Blood Count 4.9 10^3/uL (3.5-10.8)
[2019-07-18 07:42] LABS: BUN/Creatinine Ratio 11.6 (8-20); Calcium 8.8 mg/dL (8.6-10.3); EGFR African American 102.4 (>60); EGFR Non-African American 84.6 (>60)
[2019-07-18] MEDS: Mometasone/Formoter 200/5 MDI INH SCH (08:27)
[2019-07-18] MEDS: Apixaban* 2.5 MG TAB PO SCH ×2 (09:04→20:31)
[2019-07-18] MEDS: Cholecalciferol TAB* 1000 UNITS PO SCH (09:04)
[2019-07-18] MEDS: Cyclobenzaprine TAB* 10 MG PO PRN (09:04)
[2019-07-18] MEDS: Gabapentin CAP(*) 300 MG PO SCH ×3 (09:06→20:31)
[2019-07-18] MEDS: Aspirin 81 mg CHEW TAB* 81 MG TAB.CHEW PO SCH (09:06)
[2019-07-18] MEDS: guaiFENesin ER TAB 600 MG PO SCH ×2 (09:07→20:31)
[2019-07-18] MEDS: Diltiazem CD CAP* 180 MG PO SCH (09:07)
[2019-07-18] MEDS: Vitamin THERAPEUTIC TAB PO SCH (09:08)
[2019-07-18] MEDS: Potassium Chlor TAB* 20 MEQ TAB.ER PO SCH (09:10)
[2019-07-18] MEDS: tiZANidine TAB* 2 MG PO SCH ×2 (09:10→20:31)
[2019-07-18] MEDS: PROPAFENONE 325 MG PO SCH ×2 (09:10→20:30)
[2019-07-18] MEDS: Docusate CAP* 100 MG PO SCH ×2 (09:12→20:32)
[2019-07-18] MEDS: CMCS: Anastrozole (NF) 1 MG TAB PO SCH (09:12)
[2019-07-18] MEDS: Fluticasone NASAL SPRAY 50MCG* 16 gm SPRAY BTL BOTH NARES SCH (09:12)
[2019-07-18] MEDS: Magnesium Hydroxide LIQ* 30 ML UDC PO SCH ×2 (09:12→20:32)
[2019-07-18] MEDS: Dextran 70/Hypromellose Tears Eye Drops 15 ml BTL (for Artificials Tears) BOTH EYES PRN (09:13)
[2019-07-18] MEDS: Misoprostol TAB* 200 MCG PO SCH ×2 (09:13→20:31)
--- NOTE | 2019-07-18 10:00 | PN ---
Progress Note - Progress Note Date of Service: 07/18/19 Note: POD 5 s/p LTKA: Patient is working with PT. Her pain is well managed and she feels she is making progress with movement and stability, but it is slow going. She underwent a partial blood transfusion yesterday and today feels it gave her somewhat of a "boost". She wonders if getting more blood would help more. She denies CP, SOB or dizziness. She complains of pain, swelling and tightness in her left calf today. She can DF/PF with intact sensation and 2+ DP pulse. Plan: I will order an US of her left calf. I told the patient we will defer to Dr. Vickers's assessment regarding transfusions. Patient encouraged to continue PT and pain management. We will continue to follow and plan for d/c once medically cleared.
[2019-07-18] MEDS: Furosemide TAB* 20 MG PO SCH (11:31)
--- NOTE | 2019-07-18 12:56 | PN ---
Subjective Date of Service: 07/18/19 Interval History: Patient is feeling tired, patient states her energy level go better after her transfusion, but then admits that this may be a mainly psychological component. Patient feels frustrated by her slow progress after surgery. Patient is urinating and having BMs routinely. Patient feels as if the swelling in her leg is a major cause of her pain and slow improvement. Patient denies CP, SOB, F/C, N/V, abdominal pain, diarrhea, or other pain. Family History: Unchanged from Admission Social History: Unchanged from Admission Past Medical History: Unchanged from Admission Objective Active Medications: Acetaminophen (Tylenol Tab*) 975 mg PO Q8HR [facility] Last Admin: 07/18/19 08:43 Dose: Not Given Albuterol (Ventolin 2.5 Mg/3 Ml Neb.Nia*) 2.5 mg INH RT.BID PRN PRN Reason: SOB/WHEEZING Albuterol (Ventolin Hfa Inhaler*) 2 puff INH QID PRN PRN Reason: WHEEZING Anastrozole ([facility] (Nf)) [facility] Admin: 07/18/19 09:12 Dose: 1 mg Apixaban (Eliquis*) 2.5 mg PO BID [facility] Last Admin: 07/18/19 09:04 Dose: 2.5 mg Artificial Tears (Natural Balance Tears Eye Drop) 1 drop BOTH EYES TID PRN PRN Reason: dry eyes Last Admin: 07/18/19 09:13 Dose: 1 drop Aspirin (Aspirin 81 Mg Chew Tab*) 81 mg PO DAILY [facility] Last Admin: 07/18/19 09:06 Dose: 81 mg Bisacodyl (Dulcolax Supp*) 10 mg OK DAILY PRN PRN Reason: CONSTIPATION Cholecalciferol (Vitamin D Tab*) [facility] Last Admin: 07/18/19 09:04 Dose: 1,000 units Cyclobenzaprine HCl (Flexeril Tab*) 10 mg PO Q6H PRN PRN Reason: SPASMS Last Admin: 07/18/19 09:04 Dose: 10 mg Diltiazem HCl (Cardizem Cd Cap*) [facility] Last Admin: 07/18/19 09:07 Dose: 180 mg Diphenhydramine HCl (Benadryl Iv*) 25 mg IV Q6H PRN PRN Reason: PRURITIS Diphenhydramine HCl (Benadryl Po*) 25 mg PO Q6H PRN PRN Reason: PRURITIS Docusate Sodium (Colace Cap*) 100 mg PO BID [facility] Last Admin: 07/18/19 09:12 Dose: Not Given Fluticasone Propionate (Flonase Nasal [place] 50mcg*) 1 spray BOTH NARES DAILY [facility] Last Admin: 07/18/19 09:12 Dose: 1 spray Furosemide (Lasix Tab*) 20 mg PO DAILY [facility] Last Admin: 07/18/19 11:31 Dose: 20 mg Gabapentin (Neurontin Cap(*)) 600 mg PO TID [facility] Last Admin: 07/18/19 09:06 Dose: 600 mg Guaifenesin (Mucinex*) 600 mg PO BID [facility] Last Admin: 07/18/19 09:07 Dose: 600 mg Lactated Ringer's (Lactated Ringers 1000 Ml Bag*) 1,000 mls @ 100 mls/hr IV PER RATE [facility] Last Admin: 07/16/19 05:23 Dose: 100 mls/hr Lactulose (Lactulose*) 30 ml PO BID PRN PRN Reason: CONSTIPATION Levothyroxine Sodium (Synthroid Tab*) 100 mcg PO 0600 [facility] Last Admin: 07/18/19 05:47 Dose: 100 mcg Magnesium Hydroxide (Milk Of Magnesia Liq*) 30 ml PO BID [facility] Last Admin: 07/18/19 09:12 Dose: Not Given Magnesium Hydroxide (Milk Of Magnesia Liq*) 30 ml PO Q6H PRN PRN Reason: CONSTIPATION Metoprolol Succinate (Toprol Xl Tab*) 25 mg PO QPM [facility] Last Admin: 07/17/19 17:50 Dose: 25 mg Misoprostol (Cytotec Tab*) 200 mcg PO BID [facility] Last Admin: 07/18/19 09:13 Dose: 200 mcg Mometasone Furoate/Formoterol Fumar (Dulera 200/5 Mdi*) 2 puff INH QAM [facility]; Protocol Last Admin: 07/18/19 08:27 Dose: 2 puff Morphine Sulfate (Morphine Inj (Syringe))*) 2 mg IV Q4H PRN PRN Reason: Pain - Unrelieved Last Admin: 07/14/19 20:49 Dose: 2 mg Multivitamins (Theragran Tab*) 1 tab PO DAILY [facility] Last Admin: 07/18/19 09:08 Dose: 1 tab Ondansetron HCl (Zofran Inj*) 4 mg IV Q6H PRN PRN Reason: NAUSEA Ondansetron HCl (Zofran Odt Tab*) 4 mg PO Q6H PRN PRN Reason: NAUSEA Last Admin: 07/13/19 14:28 Dose: 4 mg Oxycodone HCl (Roxycodone Tab*) 10 mg PO Q4H PRN PRN Reason: Pain - Breakthrough Last Admin: 07/17/19 21:40 Dose: 10 mg Oxycodone/Acetaminophen (Percocet 5/325 Tab*) 1 tab PO Q4H PRN PRN Reason: PAIN - MODERATE Last Admin: 07/17/19 03:23 Dose: 1 tab Oxycodone/Acetaminophen (Percocet 5/325 Tab*) 2 tab PO Q4H PRN PRN Reason: PAIN - SEVERE Last Admin: 07/18/19 11:31 Dose: 2 tab Polyethylene Glycol/Electrolytes (Miralax*) 17 gm PO DAILY PRN PRN Reason: Constipation Potassium Chloride (Klor Con Er Tab*) 20 meq PO QAM [facility] Last Admin: 07/18/19 09:10 Dose: 20 meq Propafenone HCl (Rythmol Er (Nf)) 325 mg PO BID [facility]; Protocol Last Admin: 07/18/19 09:10 Dose: 325 mg Temazepam (Restoril Cap*) 15 mg PO BEDTIME PRN PRN Reason: INSOMNIA Tizanidine HCl (Zanaflex Tab*) 4 mg PO BID [facility] Last Admin: 07/18/19 09:10 Dose: 4 mg Tramadol HCl (Ultram*) 50 mg PO Q6H PRN PRN Reason: PAIN - MODERATE Last Admin: 07/14/19 15:29 Dose: 50 mg Vital Signs - 8 hr 07/18/19 07/18/19 07/18/19 05:48 07:28 08:00 Temperature 98.2 F Pulse Rate 71 Respiratory 16 24 20 Rate Blood Pressure 125/64 (mmHg) O2 Sat by Pulse 94 Oximetry 07/18/19 07/18/19 07/18/19 08:45 09:04 09:06 Temperature Pulse Rate Respiratory 20 20 20 Rate Blood Pressure (mmHg) O2 Sat by Pulse Oximetry 07/18/19 07/18/19 07/18/19 11:31 11:34 12:47 Temperature 98.4 F Pulse Rate 90 Respiratory 20 20 20 Rate Blood Pressure 106/79 (mmHg) O2 Sat by Pulse 97 Oximetry Oxygen Devices in Use Now: None Appearance: Patient is a 68yo female who appears stated age and is sitting in the bed in NAD. Eyes: No Scleral Icterus, PERRLA Ears/Nose/Mouth/Throat: NL Teeth, Lips, Gums, Clear Oropharnyx, Mucous Membranes Moist Neck: NL Appearance and Movements; NL JVP, Trachea Midline Respiratory: Symmetrical Chest Expansion and Respiratory Effort, Clear to Auscultation Cardiovascular: NL Sounds; No Murmurs; No JVD, RRR, - - 3+ Pitting edema in LLE. 1+ in B/L LE. Abdominal: NL Sounds; No Tenderness; No Distention, No Hepatosplenomegaly Lymphatic: No Cervical Adenopathy Extremities: No Clubbing, Cyanosis Skin: No Nodules or Sclerosis, - - LLE incision covered in dressing and not visualized. Neurological: Alert and Oriented x 3, NL Sensation, NL Muscle Strength and Tone , - - CN II-XII intact. Result Diagrams: 07/18/19 07:16 07/18/19 07:16 Microbiology and Other Data: Microbiology 07/17/19 17:23 Transfusion Reaction Culture - Preliminary Blood Bag Culture Under Incubation Transfusion Reaction Gram Stain - Final Assess/Plan/Problems-Billing Assessment: Patient is a 68yo female with a PMH for HTN, pHTN, pSVT, here for elective LLE knee arthroplasty. Patient has had slow improvement post-op with hypotension, anemia, and pain who is improving slowly. - Patient Problems (1) Post-operative state Current Visit: Yes Status: Acute Code(s): Z98.890 - OTHER SPECIFIED POSTPROCEDURAL STATES SNOMED Code(s): 60598445 Comment: - Management per orthopedics - PT/OT, Bowel regimen, Urinating well - Pain control adequate. - Trend H/H (2) Anemia Current Visit: Yes Status: Acute Code(s): D64.9 - ANEMIA, UNSPECIFIED SNOMED Code(s): 908366370 Comment: - Due to acute blood loss. - Transfused 1/3 of a unit yesterday - Tired, otherwise not symptomatic - Monitor, transfuse below 8 (3) Edema Current Visit: Yes Status: Acute Code(s): R60.9 - EDEMA, UNSPECIFIED SNOMED Code(s): 502027714 Comment: - Much greater in LLE than RLE. - Doppler pending - Increase Lasix to Daily as patient thinks this is contributing significantly to difficulty with PT. (4) Hypothyroidism Current Visit: Yes Status: Acute Code(s): E03.9 - HYPOTHYROIDISM, UNSPECIFIED SNOMED Code(s): 28454584 Comment: - Continue synthroid (5) Asthma Current Visit: Yes Status: Acute Code(s): J45.909 - UNSPECIFIED ASTHMA, UNCOMPLICATED SNOMED Code(s): 854727727 Comment: - Not in exacerbation - Continue PRN and Controller inhalers. (6) Essential hypertension Current Visit: No Status: Chronic Code(s): I10 - ESSENTIAL (PRIMARY) HYPERTENSION SNOMED Code(s): 40958277 Comment: - Normotensive, continue Metoprolol, diltiazem and lasix. (7) DVT prophylaxis Current Visit: Yes Status: Acute Code(s): Z29.9 - ENCOUNTER FOR PROPHYLACTIC MEASURES, UNSPECIFIED SNOMED Code(s): 765892627 Comment: - Eliquis per Ortho (8) Full code status Current Visit: Yes Status: Acute Code(s): Z78.9 - OTHER SPECIFIED HEALTH STATUS SNOMED Code(s): 325868471
[2019-07-18] MEDS: Metoprolol Succinate XL TAB* 25 MG PO SCH (18:06)
[2019-07-19] MEDS: oxyCODONE/Acetamin 5/325 MG* TAB PO PRN ×3 (02:36→12:50)
[2019-07-19] MEDS: Acetaminophen TAB* 325 MG PO SCH ×2 (05:10→14:00)
[2019-07-19] MEDS: Levothyroxine TAB* 100 MCG TAB PO SCH (05:12)
[2019-07-19 06:27] LABS: ABS Basophils 0.1 10^3/ul (0-0.2); ABS Eosinophils 0.2 10^3/ul (0-0.6); ABS Lymphocytes 0.8 10^3/ul (1.0-4.8); ABS Monocytes 0.6 10^3/ul (0-0.8); ABS Neutrophils 3.8 10^3/ul (1.5-7.7); Eosinophil % 3.7 %; Hematocrit 27 % (35-47); Lymphocyte % 15.3 %; Mean Corpuscular HGB Conc 33 g/dL (31-36); Mean Corpuscular Hemoglobin 28 pg (27-31); Mean Corpuscular Volume 85 fL (80-97); Mean Platelet Volume 6.4 fL (7.4-10.4); Platelet Count 415 10^3/uL (150-450); Red Cell Distribution Width 16 % (10-15); White Blood Count 5.5 10^3/uL (3.5-10.8)
[2019-07-19 06:47] LABS: BUN/Creatinine Ratio 10.3 (8-20); Calcium 9.3 mg/dL (8.6-10.3); EGFR African American 104.1 (>60); Magnesium 2.1 mg/dL (1.9-2.7); Potassium 3.8 mmol/L (3.5-5.0)
[2019-07-19] MEDS: Docusate CAP* 100 MG PO SCH (07:14)
[2019-07-19] MEDS: Magnesium Hydroxide LIQ* 30 ML UDC PO SCH (07:30)
[2019-07-19] MEDS: guaiFENesin ER TAB 600 MG PO SCH (07:43)
[2019-07-19] MEDS: Cholecalciferol TAB* 1000 UNITS PO SCH (07:43)
[2019-07-19] MEDS: Apixaban* 2.5 MG TAB PO SCH (07:43)
[2019-07-19] MEDS: Potassium Chlor TAB* 20 MEQ TAB.ER PO SCH (07:43)
[2019-07-19] MEDS: Gabapentin CAP(*) 300 MG PO SCH (07:44)
[2019-07-19] MEDS: Diltiazem CD CAP* 180 MG PO SCH (07:44)
[2019-07-19] MEDS: Aspirin 81 mg CHEW TAB* 81 MG TAB.CHEW PO SCH (07:44)
[2019-07-19] MEDS: Furosemide TAB* 20 MG PO SCH (07:44)
[2019-07-19] MEDS: Fluticasone NASAL SPRAY 50MCG* 16 gm SPRAY BTL BOTH NARES SCH (07:44)
[2019-07-19] MEDS: Vitamin THERAPEUTIC TAB PO SCH (07:44)
[2019-07-19] MEDS: PROPAFENONE 325 MG PO SCH (07:44)
[2019-07-19] MEDS: CMCS: Anastrozole (NF) 1 MG TAB PO SCH (07:45)
[2019-07-19] MEDS: tiZANidine TAB* 2 MG PO SCH (07:45)
[2019-07-19] MEDS: Mometasone/Formoter 200/5 MDI INH SCH (07:45)
[2019-07-19] MEDS: Misoprostol TAB* 200 MCG PO SCH (07:45)
--- NOTE | 2019-07-19 09:41 | DS ---
Orthopedic Discharge Summary - Discharge Summary Date of Admission:07/13/19 Date of Discharge: 07/19/19 Date of Surgery: 07/13/19 Attending Orthopedic Provider: Dr. Dent Pre-operative Diagnosis: Left knee osteoarthritis Operative Procedure: Left total knee arthroplasty Disposition of Patient: Home Condition of Patient: Stable History: RADHA JAVIER is a 68 year old F with years of increasingly severe left knee pain. Patient has failed conservative management and has elected to undergo a Left total knee arthroplasty. Hospital Course: RADHA was admitted to [facility] on 07/13/19. Patient underwent a Left total knee arthroplasty without complication followed by a brief recovery in PACU and transfer to the Short Stay Surgical Unit in stable condition. Our hospitalist service, physical therapy and occupational therapy also participated in this patients care. Post-op day 1: patient was alert and in no acute distress. Dressing was clean, dry and intact. Operative extremity dorsiflexion and plantarflexion intact, sensation intact to light touch distally, DP2+. Post-op day two: dressing was changed, incision was clean , dry and intact. Patient was mildly anemic and hypotensive. POD 3: patient continued PT and continued to be anemic. She was transfused with packed red blood cells and monitored. POD 4: patient's H/H began trending up. She had extreme pain and swelling in the LLE so an US was ordered which was negavite for DVT, but her pain was still unmanageed. POD 5: Patient's pain began better managed and she made some progress with PT. POD 6: Patient was deemed to be medically and orthopedically stable for discharge. Physical therapy goals were met. Home Medications Medication Instructions Recorded Confirmed Type Psyllium Husk [Metamucil] 1 cap PO QPM 03/18/14 07/13/19 History Acetaminophen [Arthritis Pain] 650 mg PO TID 11/20/15 07/13/19 History guaiFENesin [Guaifenesin ER] 1 tab PO BID 01/01/17 07/13/19 History Budesonide/Formote 160/4.5(NF) 2 puff INH QAM 02/12/17 07/13/19 History [Symbicort 160/4.5 (NF)] Multivitamin [Multiple Vitamins] 1 tab PO QAM 11/11/17 07/13/19 History Potassium Chloride [Klor-Con M20] 20 meq PO QAM 11/11/17 07/13/19 History Propylene Glycol [Systane Balance] 1 drop BOTH EYES TID PRN 01/28/18 07/13/19 History Diclofenac Sodium EC TAB* 75 mg PO BID tab.ec 02/23/18 07/13/19 Rx [Voltaren EC TAB*] Misoprostol TAB* [Cytotec TAB*] 200 mcg PO BID tab 02/23/18 07/13/19 Rx Fluticasone NASAL SPRAY 50MCG* 1 spray BOTH NARES DAILY 07/03/18 07/13/19 History [Flonase NASAL SPRAY 50MCG*] Furosemide TAB* [Lasix TAB*] 20 mg PO EVERY OTHER DAY 07/03/18 07/13/19 History Gabapentin CAP(*) [Neurontin 300 2 tab PO TID 07/03/18 07/13/19 History CAP(*)] Levothyroxine TAB* [Synthroid 100 100 mcg PO QAM 07/03/18 07/13/19 History MCG TAB*] tiZANidine TAB* [Zanaflex TAB*] 4 mg PO BID 07/03/18 07/13/19 History Albuterol HFA INHALER* [Ventolin 2 puff INH QID PRN 11/02/18 07/13/19 History HFA Inhaler*] Anastrozole (NF) [Arimidex (NF)] 1 mg PO QAM 11/02/18 07/13/19 History Cholecalciferol TAB* [Vitamin D 1,000 units PO QAM 11/02/18 07/13/19 History TAB*] dilTIAZem HCl [Diltiazem 24Hr ER 180 mg PO QAM 11/02/18 07/13/19 History (Cd)] Apixaban* [Eliquis*] 5 mg PO BID 03/02/19 07/13/19 History Propafenone HCl [Propafenone HCl 325 mg PO BID 03/02/19 07/13/19 History ER] Aspirin [Aspir-Low] 81 mg PO QAM 04/02/19 07/13/19 History Docusate CAP* [Colace Cap*] 100 mg PO QPM PRN 04/02/19 07/13/19 History Albuterol 2.5MG/3ML (0.083%)* 1 dose PO BID PRN 07/05/19 07/13/19 History [Ventolin 2.5 MG/3 ML NEB.ARTURO*] Metoprolol Succinate XL TAB* 25 mg PO QPM 07/05/19 07/13/19 History [Toprol XL TAB*] Polyethylene Glycol 3350* 1 dose PO DAILY PRN 07/05/19 07/13/19 History [Miralax*] Discharge Instructions following Orthopedic Surgery: Activity: Weight Bearing as tolerated Continue physical therapy and occupational therapy exercises as shown Wound care: OK to shower on post-op day 3, no bathing, swimming, or submerging wound. Use gentle soap, pat dry. Cover with gauze, JESSE wrap or tape. Visiting home nurse to do wound checks. Call Orthopedic office for: Increased drainage Redness Increased pain Fever Go to ER with shortness of breath or chest pain. Diet: Regular diet Increase fluids and fiber to prevent constipation. Continue to use stool softeners, call office if no bowel motion within 48 hours. Medications See Home Medication List in your packet for medications that you should take after discharge. DVT Prophylaxis: Eliquis Dosin.5 mg, 1 tab every 12 hours x 30 days Pain Control: Percocet Dosin/325 mg 1-2 tabs by mouth every 4-6 hours as needed for pain. Maximum of 10 tabs per day. Cyclobenzaprine 10 mg three times daily as needed for muscle spasm Please note that Percocet contains Tylenol (acetaminophen). Maximum daily dose of Tylenol is 4000 mg from all sources. Antibiotics are required prior to any dental work. FOLLOW UP: Follow up with Dr. Dent Within 10-14 days, call for appointment Please call our office with any questions or concerns ([phone])
[2019-07-19 12:13] VITALS: BP 115/52
== END 2019-07-19 14:15 | disposition home health service (06) | DRG 470 ==
LOC: OR 05:34 → EDSTATUS 07:30 → SSU 12:33
PROVIDERS: ADMIT Physician Assistant Surgical; ATTEND Orthopaedic Surgery
PROC: 0SRD0J9 Replacement of Left Knee Joint with Synthetic Substitute, Cemented, Open Approach (ICD-10-PCS; principal; 2019-07-13 07:30)
PROC: 30233N1 Transfusion of Nonautologous Red Blood Cells into Peripheral Vein, Percutaneous Approach (ICD-10-PCS; 2019-07-17)
DX: M17.12 Unilateral primary osteoarthritis, left knee (principal); D62 Acute posthemorrhagic anemia; I10 Essential (primary) hypertension; Z96.651 Presence of right artificial knee joint; E78.00 Pure hypercholesterolemia, unspecified; J45.909 Unspecified asthma, uncomplicated; E03.9 Hypothyroidism, unspecified; G47.33 Obstructive sleep apnea (adult) (pediatric); E78.5 Hyperlipidemia, unspecified; F32.9 Major depressive disorder, single episode, unspecified; M25.762 Osteophyte, left knee; I48.0 Paroxysmal atrial fibrillation; M25.512 Pain in left shoulder; I95.9 Hypotension, unspecified; R60.0 Localized edema; M47.812 Spondylosis without myelopathy or radiculopathy, cervical region; Z88.1 Allergy status to other antibiotic agents; Z90.710 Acquired absence of both cervix and uterus; Z90.722 Acquired absence of ovaries, bilateral; Z98.49 Cataract extraction status, unspecified eye; Z90.13 Acquired absence of bilateral breasts and nipples; Z80.0 Family history of malignant neoplasm of digestive organs; Z80.1 Family history of malignant neoplasm of trachea, bronchus and lung; Z80.8 Family history of malignant neoplasm of other organs or systems; Z84.1 Family history of disorders of kidney and ureter; I27.20 Pulmonary hypertension, unspecified; Z85.3 Personal history of malignant neoplasm of breast; Z92.3 Personal history of irradiation; Z79.899 Other long term (current) drug therapy; Z79.82 Long term (current) use of aspirin; Z79.01 Long term (current) use of anticoagulants
CPT/HCPCS: 36415; 80048; 83735; 85014; 85018; 85025; 85049; 85610; 86078; 86803; 86850; 86900; 86901; 86922; 88305; 88311; 94640; A9270-GY; C1776; G8978-GP-CL; G8979-GP-CI; G8987-GO-CK; G8988-GO-CI; J0690; J1170; J1650; J2250; J2270; J2405; J2704; J2795; P9040

== ENCOUNTER 2019-12-14 08:45 | Inpatient (IN) | payer MEDICARE, OTHER ==
--- NOTE | 2019-12-01 14:42 | HP ---
PREOPERATIVE HISTORY AND PHYSICAL: DATE OF ADMISSION/SURGERY: 12/14/19 DATE OF OFFICE VISIT: 12/01/19 ATTENDING SURGEON: Dr. River Dent.* (DICTATED BY JIAN TONG) PROCEDURE: Right total hip replacement. CHIEF COMPLAINT: Right hip. HISTORY OF PRESENT ILLNESS: Anali is a 69-year-old female, who presents to the clinic for right hip pain due to end-stage osteoarthritis. She has failed conservative measures and therefore agreed to undergo a right total hip replacement with Dr. Dent on 12/14/19. PAST MEDICAL HISTORY: Hypertension, high cholesterol, asthma, lymphadenopathy of the right upper extremity, history of breast cancer on the right, brachial neuritis right upper extremity, osteoarthritis, cervical spondylosis, ostium secundum type atrial septal defect with mild pulmonary hypertension, tendency towards diastolic heart failure, frequent PACs and episodes of AFib. PAST SURGICAL HISTORY: In 1980, oophorectomy. In 1993, breast biopsy, left chest wall. In 1995, hysterectomy. In 2000, laminectomy C3 through C7. In 2010, endoscopic sinus surgery. In 2013, double mastectomy with right lymph node resection. In 2014, hematoma evacuation. In 2014, skin graft. In 2016, latissimus flap surgery to cover nonhealing wounds. In 2017, cataract surgery. In 2018, right total knee replacement. In 2018, atrial septal defect closure. In 2019, right carpal tunnel release. In 2019, left total knee arthroplasty. MEDICATIONS: 1. Spironolactone 25 mg 1 by mouth every day. 2. Metoprolol succinate ER 25 mg 1 every day. 3. Eliquis 5 mg 1 by mouth twice a day. 4. Cardizem CD 180 mg 1 by mouth every morning. 5. Amoxicillin 500 mg, 4 tabs 1 hour prior to dental work. 6. Furosemide 20 mg 1 tab every day. 7. Levothyroxine 100 mcg 1 by mouth daily. 8. Centrum Silver 1 daily. 9. Colace 100 mg 1 by mouth daily as needed. 10. Metamucil 0.52 g 1 cap by mouth nightly. 11. Symbicort 160/4.5 mcg per ACT 2 puffs by mouth daily. 12. Gabapentin 300 mg 2 tabs by mouth 3 times a day. 13. Senna 8.6 mg 1 by mouth at bedtime. 14. Vitamin D 1000 units 1 daily. 15. Tizanidine 4 mg by mouth twice a day. 16. Ventolin HFA 108/90 mcg per ACT 2 puffs 4 times a day. 17. Guaifenesin ER 1200 mg 1 by mouth twice a day as needed. 18. Misoprostol 200 mcg 1 by mouth twice a day. 19. Tylenol 8 Hour 650 mg 1 by mouth 3 times a day. 20. Diclofenac sodium 75 mg 1 by mouth twice a day. 21. Systane 0.4%-0.3% one drop to both eyes 2 times a day as needed. 22. MiraLAX half cap every other day as needed. 23. Fluticasone propionate 50 mcg per ACT as needed. 24. Rythmol SR 225 mg 1 by mouth twice a day. 25. Aspirin 81 mg 1 by mouth every day. ALLERGIES: ERYTHROMYCIN. FAMILY HISTORY: Positive for mother with COPD, congestive heart failure, lung cancer with metastasis, and emphysema. Father with stomach cancer and colon cancer. Brother with bone cancer, AFib and pacemaker. Maternal grandfather with kidney disease. Maternal grandmother with congestive heart failure, heart attack and AFib. Maternal uncle with pituitary gland cancer. Denies family history of DVT or PE. SOCIAL HISTORY: Denies alcohol consumption. No tobacco use. Denies illegal drug use. REVIEW OF SYSTEMS: A 14-point review of systems was reviewed with the patient, positive for current complaint, otherwise negative. Denies fevers, chills, chest pain or shortness of breath. Denies history of bleeding disorder. Denies history of DVT or PE. PHYSICAL EXAMINATION GENERAL: A 69-year-old, well-developed, well-nourished female, in no acute distress. VITAL SIGNS: Pulse 70, blood pressure 118/72, temperature 97.8, pain level 7. HEENT: Normocephalic, atraumatic. PERRLA. Throat clear. NECK: Supple. No bruits. PULMONARY: Lungs are clear to auscultation bilaterally. No wheezing, rhonchi or rales. CARDIAC: Regular rate and rhythm. S1, S2. No murmurs, gallops or rubs. No edema. ABDOMEN: Positive bowel sounds, soft, and nontender. NEUROLOGIC: Alert and oriented x3. Cranial nerves grossly intact. MUSCULOSKELETAL: Right lower extremity: The skin is intact. No abrasions or open wounds. No obvious deformity. She has an mildly antalgic gait favoring the right side. Hip flexion to 100 degrees with pain. Pain with internal and external rotation. +5/5 strength to ankle dorsiflexion and plantarflexion. +2 DP pulse. Sensation intact to light touch distally. Calf soft and nontender. DIAGNOSTIC STUDIES: Multi-view x-rays of the right hip revealed severe bone-on - bone osteoarthritic changes. ASSESSMENT AND PLAN: This patient is scheduled to undergo a right total hip replacement with Dr. Dent on 12/14/19. She was instructed to hold her Eliquis 3 days prior to surgery. Continue her aspirin and stop her diclofenac 7 days prior to surgery. Percocet will be used for postop pain management. She will follow up 12 to 14 days postop for followup and suture removal. JIAN TONG [id number]/[facility] #: [id number] ALICIA
[~2019-12-14 08:45] MED LIST changes: +Lactated Ringers 1000 ML Bag* 1,000 ML IV SCH
--- OUTSIDE RECORDS SUMMARY | 2019-12-14 08:49 | XMS REPORT | Continuity of Care Document ---
:1950 External Reference #:[id number] Author Name River Dent M.D. (transmitted by agent of provider Noemí Reed) Address [address] [place] [id number] Care Team Providers Name Role Phone Wil Bang MD - Endocrinology, Care Team Information Lap Machine Operator [phone] Diabetes & Metabolism River Dent MD - Orthopaedic Care Team Information Lap Machine Operator Surgery Problems Active Problems Provider Date Palpitations Maxime Brown M.D. Onset: 01/31/2014 Paroxysmal supraventricular tachycardia Maxime Brown M.D. Onset: 01/31 Ostium secundum type atrial septal defect Maxime Brown M.D. Onset: Electrocardiogram abnormal Maxime Brown M.D. Onset: 01/31/2014 Cervical spondylosis without myelopathy Lance Shipley M.D. Onset: 2014 Localized, primary osteoarthritis River Dent M.D. Onset: 07/17/2016 Brachial neuritis Greyson Mock M.D. Onset: 08/04/2017 Arthroplasty of knee River Dent M.D. Onset: 06/29/2018 Carpal tunnel syndrome of right wrist Greyson Mock M.D. Onset: 08/31/2018 Localized, primary osteoarthritis of the River Dent M.D. Onset: 04/21/2019 pelvic region and thigh Social History Type Date Description Comments Sex Unknown ETOH Use Denies alcohol use Tobacco Use Start: Unknown Patient has never smoked Recreational Drug Use Denies Drug Use Smoking Status Reviewed: 12/01/19 Patient has never smoked Exercise Type/Frequency per pt, currently in preparation for hip walking surgery Allergies, Adverse Reactions, Alerts Active Allergies Reaction Severity Comments Date Erythromycin Nausea and Vomiting 01/31/2014 Medications Active Medications SIG Qnty Indications Ordering Date Provider Spironolactone 1 tab by mouth 30tabs I50.9 Maxime Bush 09/17/2019 25mg every day Vandana Brown Tablets Flutter Use 2-3 times a 1units J45.909 Alicia 06/21/2019 Device day as needed ZACK Savage Metoprolol Succinate Take 1 Tablet 90tabs R00.2 Monique Larsen, 06/10/2019 ER By Mouth Every N.P. 25mg Tablets ER 24HR Day Eliquis 1 by mouth 180tabs Maxime Bush 01/11/2019 5mg Tablets twice a day Vandana Brown Cardizem CD 1 by mouth 90caps I47.1 Monique Larsen, 06/09/2018 180mg Caps ER every morning N.P. 24HR Amoxicillin take 4 capsules 16caps Z96.651 River Dent M.D. 05/18/2018 500mg by mouth one Capsules hour prior to dental work Furosemide take 1 tablet 90tabs Monique Larsen, 10/04/2014 20mg Tablets by mouth N.P. everyday Aspirin 81 1 by mouth Unknown 81mg Tablets every day DR Rythmol SR 1 by mouth Unknown 325mg Caps ER twice daily 12HR Fluticasone Propionate as needed Tasneem Lord, CIRCULATION CLERK 50mcg/Act Suspension Miralax 1/2 cap every Unknown Powder other day as needed (rare use) Systane 1 gtt both eyes Unknown 0.4-0.3% Solution 2-3 times daily prn Diclofenac Sodium take 1 tablet Unknown 75mg twice a day Tablets DR with food Tylenol 8 Hour 1 tab 2-3 times Unknown Arthritis Pain daily 650mg Tablets ER Misoprostol 1 PO bid Unknown 200mcg Tablets Guaifenesin ER 1 by mouth Unknown 1200mg twice a day prn Tablets ER 12HR Ventolin HFA 2 puffs by Unknown 108(90Base) mouth four mcg/Act Aerosol times a day as needed Tizanidine HCL 1 tab by mouth 30caps Unknown 4mg twice a day Capsules Vitamin D-3 1 by mouth 90caps Unknown 1000Unit every day Capsules Senna take one tablet 30tabs Unknown 8.6mg Tablets by mouth at bedtime (constipation) as needed Gabapentin 2 tablet po 90caps Unknown 300mg Capsules tid ( dose change Dr. Larsen) Symbicort 2 puffs by 90daysup Unknown 160-4.5mcg/Act mouth qd Aerosol Metamucil 1 cap by mouth 60caps Unknown 0.52gm Capsules nightly Colace 1 by mouth 60caps Unknown 100mg Capsules daily prn Centrum Silver 1 by mouth Unknown Tablets every day Levothyroxine Sodium 1 by mouth 90tabs Unknown every day 100mcg Tablets History Medications Aldactone 1/2 by mouth 30tabs I50.9 Maxime Bush 09/17/2019 - 25mg Tablets every day Vandana Brown 09/17/2019 Percocet 1-2 tabs by 50tabs Mak Golden 07/19/2019 - 5-325mg Tablets mouth every MD 09/16/2019 4-6 hours as needed pain Eliquis 1 tab by mouth 50tabs Mak Golden, 07/19/2019 - 2.5mg Tablets every 12 hours 09/17/2019 daily x 25 days Cyclobenzaprine HCL 1 tab by mouth 30tabs Mak Golden, 07/19/2019 - 10mg three times 09/16/2019 Tablets daily as needed for muscle spasm Medications Administered in Office Medication SIG Qnty Indications Ordering Provider Date Depomedrol 40MG River Dent M.D. 06/29/2018 Injection Cliftonrol 40MG River Dent M.D. 03/18/2018 Injection Cliftonrol 40MG River Dent M.D. 11/10/2017 Injection Depomedrol 40MG River Dent M.D. 11/10/2017 Injection Depomedrol 40MG River Dent M.D. 08/04/2017 Injection Depomedrol 40MG River Dent M.D. 08/04/2017 Injection Depomedrol 40MG Geri Shetty PA-C 03/19/2017 Injection Depomedrol 40MG Geri Shetty PA-C 03/19/2017 Injection Depomedrol 40MG River Dent M.D. 10/23/2016 Injection Depomedrol 40MG River Dent M.D. 07/17/2016 Injection Depomedrol 40MG River Dent M.D. 07/17/2016 Injection Depomedrol 40MG River Dent M.D. 04/17/2016 Injection Depomedrol 40MG River Dent M.D. 04/17/2016 Injection Depomedrol 40MG River Dent M.D. 01/10/2016 Injection Depomedrol 40MG River Dent M.D. 01/10/2016 Injection Inj, Regadenoson, 0.1 MG Fili Saez M.D. 02/02/2014 Injection Technetium TC 99M Fili Saez M.D. 02/02/2014 Tetrofosmin, Per Unit Dose Up To 40 Millicuries Injection Immunizations Description No Information Available Vital Signs Date Vital Result Comment 12/01/2019 10:51am Heart Rate 70 /min BP Systolic 118 mmHg BP Diastolic 72 mmHg Body Temperature 97.8 F Pain Level 7 11/22/2019 9:50am Height 66 inches 5'6" Weight 197.12 lb with shoes Heart Rate 66 /min Radial,regular BP Systolic Sitting 126 mmHg LA,reg cuff BP Diastolic Sitting 72 mmHg LA,reg cuff BMI (Body Mass Index) 31.8 kg/m2 Ejection Fraction 50%-55% echocardiogram 09/15/19 Results Test Acquired Date Facility Test Result H/L Range Note Basic Metabolic 11/09/2019 [facility] Sodium 140 mmol/L Normal 135-[address] [place] [address] [phone] Potassium 4.3 mmol/L Normal 3.5-5.0 Chloride 105 mmol/L Normal 101-111 Co2 Carbon Dioxide 31 mmol/L Normal 22-32 Anion Gap 4 mmol/L Normal 2-11 Glucose 98 mg/dL Normal 70-100 Blood Urea Nitrogen 12 mg/dL Normal 6-24 Creatinine 0.76 mg/dL Normal 0.51-0.95 BUN/Creatinine Ratio 15.8 Normal 8-20 Calcium 9.1 mg/dL Normal 8.6-10.3 Egfr Non- 75.5 >60 Egfr 91.3 >60 1 Laboratory test 11/09/2019 [facility] B-Type 219 pg/mL High <= 100 [address] [place] [address] Peptide BNP [phone] Basic Metabolic 10/15/2019 [facility] Sodium 140 Normal 135- [address] mmol/[place] [address] [phone] Potassium 4.3 mmol/L Normal 3.5-5.0 Chloride 104 mmol/L Normal 101-111 Co2 Carbon Dioxide 29 mmol/L Normal 22-32 Anion Gap 7 mmol/L Normal 2-11 Glucose 94 mg/dL Normal 70-100 Blood Urea Nitrogen 19 mg/dL Normal 6-24 Creatinine 0.87 mg/dL Normal 0.51-0.95 BUN/Creatinine Ratio 21.8 High 8-20 Calcium 9.5 mg/dL Normal 8.6-10.3 Egfr Non- 64.6 >60 Egfr 78.1 >60 3 Laboratory test 10/15/2019 [facility] B-Type 304 pg/mL High <= 100 [address] [place] [address] Peptide BNP [phone] Inr/Protime 07/13/2019 [facility] Inr 0.97 Normal 0.82-1.[address] [place], [place] [id number] [phone] Urine Culture And 07/05/2019 [facility] Urine Culture SEE [address] [place] [address] BELOW [phone] Urinalysis 07/05/2019 [facility] Urine Color Straw Profile [address] [place], [place] [id number] [phone] Urine Appearance Clear Urine Specific Media 1.006 Low 1.010-1.030 Urine pH 5.0 Normal 5-9 Urine Urobilinogen Negative Negative Urine Ketones Negative Negative Urine Protein Negative Negative Urine Leukocytes Negative Negative Urine Blood Negative Negative Urine Nitrite Negative Negative Urine Bilirubin Negative Negative Urine Glucose Negative Negative Type & Screen 07/05/2019 [facility] Patient Blood Type A Positive [address] [place] [address] [phone] Antibody Screen NEGATIVE Laboratory test 07/05/2019 [facility] Partial 39.7 High 26.0- 38.[address] [place] [address] Time PTT [phone] Inr/Protime 07/05/2019 [facility] Inr 1.30 High 0.82-1.[address] [place] [address] [phone] Comp Metabolic 07/05/2019 [facility] Sodium 141 mmol/L Normal 135-[address] [place] [address] [phone] Potassium 4.4 mmol/L Normal 3.5-5.0 Chloride 104 mmol/L Normal 101-111 Co2 Carbon Dioxide 32 mmol/L Normal 22-32 Anion Gap 5 mmol/L Normal 2-11 Glucose 87 mg/dL Normal 70-100 Blood Urea Nitrogen 12 mg/dL Normal 6-24 Creatinine 0.85 mg/dL Normal 0.51-0.95 BUN/Creatinine Ratio 14.1 Normal 8-20 Calcium 9.6 mg/dL Normal 8.6-10.3 Total Protein 6.4 g/dL Normal 6.4-8.9 Albumin 4.2 g/dL Normal 3.2-5.2 Globulin 2.2 g/dL Normal 2-4 Albumin/Globulin Ratio 1.9 Normal 1-3 Total Bilirubin 0.50 mg/dL Normal 0.2-1.0 Alkaline Phosphatase 64 U/L Normal 34-104 Alt 17 U/L Normal 7-52 Ast 20 U/L Normal 13-39 Egfr Non- 66.5 >60 Egfr 80.5 >60 8 CBC Auto 07/05/2019 [facility] White Blood 7.5 10^3/uL Normal 3.5-10.[address] [place] [address] [phone] Red Blood Count 4.47 10^6/uL Normal 3.70-4.87 Hemoglobin 12.8 g/dL Normal 12.0-16.0 Hematocrit 38 % Normal 35-47 Mean Corpuscular Volume 85 fL Normal 80-97 Mean Corpuscular Hemoglobin 29 pg Normal 27-31 Mean Corpuscular HGB Conc 34 g/dL Normal 31-36 Red Cell Distribution Width 16 % High 10-15 Platelet Count 320 10^3/uL Normal 150-450 Mean Platelet Volume 7.7 fL Normal 7.4-10.4 Abs Neutrophils 6.0 10^3/uL Normal 1.5-7.7 Abs Lymphocytes 0.9 10^3/uL Low 1.0-4.8 Abs Monocytes 0.3 10^3/uL Normal 0-0.8 Abs Eosinophils 0.2 10^3/uL Normal 0-0.6 Abs Basophils 0.1 10^3/uL Normal 0-0.2 Abs Nucleated RBC 0.0 10^3/uL Granulocyte % 80.1 % Lymphocyte % 12.4 % Monocyte % 4.4 % Eosinophil % 2.1 % Basophil % 1.0 % Nucleated Red Blood Cells % 0.0 Order 06/29/2019 [facility] Holter Monitor <pending> [address] [place] [id number] [phone] 1 Because ethnic data is not always [...] 5 Kidney failure <15 (or dialysis) 2 10-14 days 3 Because ethnic data is not always readily [...] 15-29 5 Kidney failure <15 (or dialysis) 4 in 2-3 weeks. 5 Standard intensity warfarin therapeutic range: 2.0-3.0 High intensity warfarin therapeutic range: 2.5-3.5 6 SEE RESULT BELOW Name: RADHA BASSETT : [address]: River Dent MD Acct: [id number] Unit: [id number] AGE: 68 Location: [facility] Re07/05/19 SEX: F Status: REG REF SPEC: [id number] [place]: 07/05/19-953 [facility] DR: River Dent MD REQ: [id number] RECD: 07/05/19-1004 STATUS: GOLDIE OWENS DR: Wil Bang MD _ SOURCE: URINE SPDESC: ORDERED: Urine Culture Procedure Result Reported Site Urine Culture Final 07/06/19- 1219 ML No Growth (<1,000 CFU/mL) * ML - Main Lab . END OF REPORT DEPARTMENT OF PATHOLOGY, [address] [place] [address] Paul Cassidy M.D. Director [facility] # [id number] 7 Standard intensity warfarin therapeutic range: 2.0-3.0 High intensity warfarin therapeutic range: 2.5-3.5 8 Because ethnic data is not always readily [...] Kidney failure <15 (or dialysis) Procedures Date Code Description Status 11/22/2019 98507 EKG Tracing & Interpretation Completed 10/22/2019 79168 EKG Tracing & Interpretation Completed 09/15/2019 38031 ECHO Transthoracic, Real-Time 2D With Doppler And Color Completed Flow 09/15/2019 74213 ECHO Transthoracic, Real-Time 2D With Doppler And Color Completed Flow 07/13/2019 87745 TKR Total Knee Replacement Completed 07/13/2019 43663 TKR Total Knee Replacement Completed 07/04/2019 71132 Holter Monitor Review (24 hr)dr tsang & sophie only Completed 06/29/2019 02091 ECG Monitor/Recording W/Visual Superimposition Scanning Completed 06/29/2019 15854 ECG Monitor/Recording W/Visual Superimposition Scanning Completed 06/10/2019 92340 EKG Tracing & Interpretation Completed Medical Devices Description No Information Available Encounters Type Date Location Provider Dx Diagnosis Office Visit 11/22/2019 [facility] Monique SRad R94.31 Abnormal 10:00a William Larsen electrocardiogram [ECG] [EKG] I10 Essential (primary) hypertension I48.0 Paroxysmal atrial fibrillation I50.32 Chronic diastolic (congestive) heart failure R06.02 Shortness of breath Z01.810 Encounter for preprocedural cardiovascular examination M16.11 Unilateral primary osteoarthritis, right hip Office Visit 10/25/2019 8:15a [facility] River Dent, M25.552 Pain in left at [facility]. hip M16.11 Unilateral primary osteoarthritis, right hip Z96.652 Presence of left artificial knee joint M43.06 Spondylolysis, lumbar region Office Visit 10/22/2019 8:30a [facility] Monique Nguyen I10 Essential ( primary) William Larsen hypertension I48.0 Paroxysmal atrial fibrillation R00.2 Palpitations I50.9 Heart failure, unspecified R06.02 Shortness of breath Office Visit 09/17/2019 3:00p [facility] Maxime Bush I10 Essential (primary) Of Cha Brown M.D. hypertension I48.0 Paroxysmal atrial fibrillation Q21.1 Atrial septal defect R00.2 Palpitations I50.9 Heart failure, unspecified R06.02 Shortness of breath Office Visit 07/18/2019 10:50a [facility] Tony D64.9 Anemia, Assoc,JIAN Coffey unspecified Hospitalists R60.9 Edema, unspecified E03.9 Hypothyroidism, unspecified J45.909 Unspecified asthma, uncomplicated I10 Essential (primary) hypertension Z96.652 Presence of left artificial knee joint Z47.1 Aftercare following joint replacement surgery Office Visit 07/13/2019 10:49a [facility] Helen I48.0 Paroxysmal atrial Assoc,parul Noyola M.D. fibrillation Hospitalists I10 Essential (primary) hypertension J45.909 Unspecified asthma, uncomplicated E03.9 Hypothyroidism, unspecified Office Visit 06/21/2019 [facility] And Alicia J45.909 Unspecified 8:30a [facility], ZACK asthma, Partition Assembly Machine Operator uncomplicated G47.33 Obstructive sleep apnea (adult) (pediatric) Z01.818 Encounter for other preprocedural examination Office Visit 06/10/2019 3:00p [facility] Monique S. I48.0 Paroxysmal atrial Foster, N.P. fibrillation I47.1 Supraventricular tachycardia R00.2 Palpitations Q21.1 Atrial septal defect R06.00 Dyspnea, unspecified Assessments Date Code Description Provider 12/01/2019 M16.11 Unilateral primary osteoarthritisRiver M.D. right hip 11/22/2019 R94.31 Abnormal electrocardiogram [ECG] Maxime Brown M.D. [EKG] 11/22/2019 R94.31 Abnormal electrocardiogram [ECG] Monique S. Foster, N.P. [EKG] 11/22/2019 I10 Essential (primary) hypertension Monique S. Foster, N.P. 11/22/2019 I48.0 Paroxysmal atrial fibrillation Monique S. Foster, N.P. 11/22/2019 I50.32 Chronic diastolic (congestive) heart Monique S. Foster, N.P. failure 11/22/2019 R06.02 Dyspnea on exertion Monique S. Foster, N.P. 11/22/2019 Z01.810 Encounter for preprocedural Monique S. Foster, N.P. cardiovascular examination 11/22/2019 M16.11 Unilateral primary osteoarthritis, Monique Larsen, N.P. right hip 11/03/2019 M16.11 Unilateral primary osteoarthritisRiver M.D. right hip 10/25/2019 M25.552 Pain in left hip River Dent M.D. 10/25/2019 M16.11 Unilateral primary osteoarthritisRiver M.D. right hip 10/25/2019 Z96.652 Presence of left artificial knee River Dent M.D. joint 10/25/2019 M43.06 Spondylolysis, lumbar region River Dent M.D. 10/22/2019 R94.31 Abnormal electrocardiogram [ECG] Maxime Brown M.D. [EKG] 10/22/2019 I10 Essential (primary) hypertension Monique S. Foster, N.P. 10/22/2019 I48.0 Paroxysmal atrial fibrillation Monique S. Foster, N.P. 10/22/2019 R00.2 Palpitations Monique S. Foster, N.P. 10/22/2019 I50.9 Chronic congestive heart failure Monique S. Foster, N.P. 10/22/2019 R06.02 Dyspnea on exertion Monique S. Foster, N.P. 09/17/2019 I10 Essential (primary) hypertension Maxime Brown M.D. 09/17/2019 I48.0 Paroxysmal atrial fibrillation Maxime Brown M.D. 09/17/2019 Q21.1 Atrial septal defect Maxime Brown M.D. 09/17/2019 R00.2 Palpitations Maxime Brown M.D. 09/17/2019 I50.9 Chronic congestive heart failure Maxime Brown M.D. 09/17/2019 R06.02 Dyspnea on exertion Maxime Brown M.D. 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 congenital malformations of heart and circulatory system 09/15/2019 Z87.74 Personal history of (corrected) Ica ECHO Schedule congenital malformations of heart and circulatory system 08/10/2019 Z96.652 Presence of left artificial knee River Dent M.D. joint 08/10/2019 M16.11 Unilateral primary osteoarthritis, River Dent M.D. right hip 08/10/2019 Z47.1 Aftercare following joint replacement River Dent M.D. surgery 07/18/2019 D64.9 Anemia, unspecified JIAN Villegas 07/18/2019 R60.9 Edema, unspecified JIAN Villegas 07/18/2019 E03.9 Hypothyroidism, unspecified JIAN Villegas 07/18/2019 J45.909 Unspecified asthma, uncomplicated JIAN Villegas 07/18/2019 I10 Essential (primary) hypertension JIAN Villegas 07/18/2019 Z96.652 Presence of left artificial knee JIAN Villegas joint 07/18/2019 Z47.1 Aftercare following joint replacement JIAN Villegas surgery 07/13/2019 I48.0 Paroxysmal atrial fibrillation Helen Noyola M.D. 07/13/2019 M17.12 Unilateral primary osteoarthritis, River Dent M.D. left knee 07/13/2019 I10 Essential (primary) hypertension Helen Noyola M.D. 07/13/2019 M17.12 Unilateral primary osteoarthritis, Ayo Blanco , [facility] left knee 07/13/2019 J45.909 Unspecified asthma, uncomplicated Helen Noyola M.D. 07/13/2019 E03.9 Hypothyroidism, unspecified Helen Noyola M.D. 07/05/2019 M17.12 Unilateral primary osteoarthritis, River Dent M.D. left knee 07/04/2019 R00.2 Palpitations Maxime Brown M.D. 07/04/2019 I49.1 Atrial premature depolarization Maxime Brown M.D. 06/29/2019 R00.2 Palpitations Nurse Visit cc 06/29/2019 I49.1 Atrial premature depolarization Maxime Brown M.D. 06/29/2019 I49.1 Atrial premature depolarization Nurse Visit cc 06/21/2019 J45.909 Unspecified asthma, uncomplicated Alicia Savage NP 06/21/2019 G47.33 Obstructive sleep apnea (adult) Alicia Savage NP (pediatric) 06/21/2019 Z01.818 Encounter for other preprocedural Alicia Savage NP examination 06/10/2019 R94.31 Abnormal electrocardiogram [ECG] Maxime Brown M.D. [EKG] 06/10/2019 I48.0 Paroxysmal atrial fibrillation Monique Larsen, N.PRad 06/10/2019 I47.1 Supraventricular tachycardia Monique Larsen, N.P. 06/10/2019 R00.2 Palpitations Monique Larsen N.P. 06/10/2019 Q21.1 Atrial septal defect Monique Larsen, N.P. 06/10/2019 R06.00 Dyspnea, unspecified Monique Larsen, N.P. Plan of Treatment Future Appointment(s):12/29/2019 10:30 am - River Dent M.D. at [facility] at [id number]/14/2019 10:00 am - River Dent M.D. at [facility] at [id number]/18/2020 9:00 am - Maxime Brown M.D. at [facility]12/01/2019 - River Dent M.D.M16.11 Unilateral primary osteoarthritis , right hipFollow up:Follow up: 12-14 days post op Stop diclofenac 1 week prior to surgery Stop Eliquis 3 days prior to surgery Continue Aspirin Functional Status Description No Information Available Mental Status Description No Information Available Referrals Description No Information Available
--- OUTSIDE RECORDS SUMMARY | 2019-12-14 08:49 | XMS REPORT | Continuity of Care Document ---
:1950 External Reference #:[id number] Author Name River Dent M.D. (transmitted by agent of provider Alicia Dotson) Address [address] [place] [id number] Care Team Providers Name Role Phone Wil Bang MD - Endocrinology, Care Team Information Abalone Processor Diabetes & Metabolism River Dnet MD - Orthopaedic Care Team Information Abalone Processor Surgery Problems Active Problems Provider Date Palpitations [...] Use Denies Drug Use Smoking Status Reviewed: 10/25/19 Patient has never smoked Exercise Type/Frequency Does not exercise Allergies, Adverse Reactions, Alerts Active Allergies Reaction [...] Capsules hour prior to dental work Furosemide Take 1 Tablet 45tabs Monique Larsen, 10/04/2014 20mg Tablets By Mouth Every N.P. Other Day Aspirin 81 1 by mouth Unknown 81mg Tablets every day DR Rythmol SR 1 by mouth Unknown 325mg Caps ER twice daily 12HR Fluticasone Propionate as needed Tasneem Lord, AUTO PAINTER HELPER 50mcg/Act Suspension Miralax 1/2 cap every Unknown [...] 09/17/2019 Percocet 1-2 tabs by 50tabs Mak Golden, 07/19/2019 - 5-325mg Tablets mouth every MD [...] Available Vital Signs Date Vital Result Comment 10/25/2019 8:37am Height 66 inches 5'6" Weight 199.00 lb Heart Rate 66 /min BP Systolic 106 mmHg BP Diastolic 62 mmHg Respiratory Rate 12 /min Body Temperature 97.4 F Pain Level 2 BMI (Body Mass Index) 32.1 kg/m2 10/22/2019 8:25am Height 66.5 inches 5'6.50" Weight 202.00 lb Heart Rate 62 /min left radial BP Systolic Sitting 134 mmHg ule reg cuff BP Diastolic Sitting 82 mmHg ule reg cuff BMI (Body Mass Index) 32.1 kg/m2 Ejection Fraction 50-55% Echo 09/15/19 Results Test Acquired Date Facility Test Result H/L Range Note Basic Metabolic 10/15/2019 [facility] Sodium 140 mmol/L Normal 135-[address] [place] [address] [phone] Potassium 4.3 mmol/L Normal 3.5-5.0 Chloride 104 mmol/L Normal 101-111 Co2 Carbon Dioxide 29 mmol/L Normal 22-32 Anion Gap 7 mmol/L Normal 2-11 Glucose 94 mg/dL Normal 70-100 Blood Urea Nitrogen 19 mg/dL Normal 6-24 Creatinine 0.87 mg/dL Normal 0.51-0.95 BUN/Creatinine Ratio 21.8 High 8-20 Calcium 9.5 mg/dL Normal 8.6-10.3 Egfr Non- 64.6 >60 Egfr 78.1 >60 1 Laboratory 10/15/2019 [facility] B-Type 304 pg/mL High <=100 2 test finding [address] [place] [address] Peptide BNP [phone] Inr/Protime 07/13/2019 [facility] Inr 0.97 Normal 0.82-1.[address] [place] [address] [phone] CBC Auto Diff 07/05/2019 [facility] White Blood 7.5 Normal 3.5 -10.[address] Count 10^3/[place] [address] [phone] Red Blood Count 4.47 10^6/uL Normal 3.70-4.87 [...] % Nucleated Red Blood Cells % 0.0 Comp Metabolic 07/05/2019 [facility] Sodium 141 mmol/L Normal 135-[address] [place] [address] [phone] Potassium 4.4 mmol/L Normal 3.5-5.0 Chloride 104 [...] Egfr Non- 66.5 >60 Egfr 80.5 >60 4 Inr/Protime 07/05/2019 [facility] Inr 1.30 High 0.82-1.[address] [place] [address] [phone] Laboratory test 07/05/2019 [facility] Partial 39.7 seconds High 26.0-38.[address] [place] [address] Time PTT [phone] Type & Screen 07/05/2019 [facility] Patient A Positive [address] [place] [place] [address] [phone] Antibody Screen NEGATIVE Urinalysis Profile 07/05/2019 [facility] Urine Color Straw [address] [place] [address] [phone] Urine Appearance Clear Urine Specific [place] 1.006 Low 1.010-1.030 Urine pH 5.0 Normal 5-9 Urine Urobilinogen Negative Negative Urine Ketones Negative Negative Urine Protein Negative Negative Urine Leukocytes Negative Negative Urine Blood Negative Negative Urine Nitrite Negative Negative Urine Bilirubin Negative Negative Urine Glucose Negative Negative Urine Culture And 07/05/2019 [facility] Urine Culture SEE RESULT [address] [place] [address] [phone] Order 06/29/2019 [facility] Holter Monitor <pending> [address] [place] [address] [phone] 1 Because ethnic data is not always [...] 5 Kidney failure <15 (or dialysis) 2 in 2-3 weeks. 3 Standard intensity warfarin therapeutic range: 2.0-3.0 High intensity warfarin therapeutic range: 2.5-3.5 4 Because ethnic data is not always readily [...] 15-29 5 Kidney failure <15 (or dialysis) 5 Standard intensity warfarin therapeutic range: 2.0-3.0 High intensity warfarin therapeutic range: 2.5-3.5 6 SEE RESULT BELOW Name: YAYAASHLYRADHA : [address]: River Dent MD Acct: [id number] Unit: [id number] AGE: 68 Location: PAT Re07/05/19 SEX: F Status: REG REF SPEC: [id number] ESPERANZA: 07/05/19-[address]: River Dent MD REQ: [id number] RECD: 07/05/19 STATUS: GOLDIE OWENS DR: Wil Bang MD _ SOURCE: URINE SPDESC: ORDERED: Urine Culture Procedure Result Reported Site Urine Culture Final 07/06/19- 1219 ML No Growth (<1,000 CFU/mL) * ML - Main Lab . END OF REPORT DEPARTMENT OF PATHOLOGY, [address] [place] [address] Paul Cassidy M.D. Director [facility] # [id number] Procedures Date Code Description Status 10/22/2019 07082 EKG Tracing & Interpretation Completed 09/15/2019 65124 ECHO Transthoracic, Real-Time 2D With Doppler And Color Completed Flow 09/15/2019 99706 ECHO Transthoracic, Real-Time 2D With Doppler And Color Completed Flow 07/13/2019 59785 TKR Total Knee Replacement Completed 07/13/2019 93446 TKR Total Knee Replacement Completed 07/04/2019 04108 Holter Monitor Review (24 hr)dr review & interp only Completed 06/29/2019 31006 ECG Monitor/Recording W/Visual Superimposition Scanning Completed 06/29/2019 31050 ECG Monitor/Recording W/Visual Superimposition Scanning Completed 06/10/2019 36025 EKG Tracing & Interpretation Completed 05/25/2019 70484 Holter Monitor Review (24 hr)dr review & interp only Completed 05/12/2019 78258 ECG Monitor/Recording W/Visual Superimposition Scanning Completed 05/12/2019 62077 ECG Monitor/Recording W/Visual Superimposition Scanning Completed 04/29/2019 45035 ECHO Transthoracic, Real-Time 2D With Doppler And Color Completed Flow 04/29/2019 79054 ECHO Transthoracic, Real-Time 2D With Doppler And Color Completed Flow Medical Devices Description No Information Available Encounters Type Date Location Provider Dx Diagnosis Office Visit 09/17/2019 [facility] Maxime Bush I10 Essential ( primary) 3:00p Of Cha Brown M.D. hypertension I48.0 Paroxysmal atrial fibrillation Q21.1 Atrial septal defect R00.2 Palpitations I50.9 Heart failure, unspecified R06.02 Shortness of breath Office Visit 07/18/2019 10:50a [facility] D64.9 Anemia, Assoc,JIAN Coffey unspecified Hospitalists R60.9 Edema, unspecified E03.9 Hypothyroidism, unspecified J45.909 Unspecified asthma, uncomplicated I10 Essential (primary) hypertension Z96.652 Presence of left artificial knee joint Z47.1 Aftercare following joint replacement surgery Office Visit 07/13/2019 10:49a [facility] I48.0 Paroxysmal atrial Assoc,parul Noyola M.D. fibrillation Hospitalists I10 Essential (primary) hypertension J45.909 Unspecified asthma, uncomplicated E03.9 Hypothyroidism, unspecified Office Visit 06/21/2019 [facility] Alicia J45.909 Unspecified 8:30a [facility] asthma, Community Relations Liaison uncomplicated G47.33 Obstructive sleep apnea (adult) (pediatric) Z01.818 Encounter for other preprocedural examination Office Visit 06/10/2019 3:00p [facility] Monique S. I48.0 Paroxysmal atrial Foster, N.P. fibrillation I47.1 Supraventricular tachycardia R00.2 Palpitations Q21.1 Atrial septal defect R06.00 Dyspnea, unspecified Office Visit 05/10/2019 8:30a [facility] Monique S. I27.20 Pulmonary Cardiology Foster, N.P. hypertension, unspecified G47.33 Obstructive sleep apnea (adult) (pediatric) I48.0 Paroxysmal atrial fibrillation I49.1 Atrial premature depolarization I47.1 Supraventricular tachycardia R00.2 Palpitations Assessments Date Code Description Provider 10/25/2019 Z96.652 Presence of left artificial knee River Dent M.D. joint 10/25/2019 M16.11 Unilateral primary osteoarthritis, River Dent M.D. right hip 10/25/2019 M43.06 Spondylolysis, lumbar region River Dent M.D. 10/22/2019 I10 Essential (primary) hypertension Monique S. [...] Dent M.D. surgery 07/18/2019 D64.9 Anemia, unspecified Tony Nowak, PA 07/18/2019 R60.9 Edema, unspecified Tony Nowak, PA 07/18/2019 E03.9 Hypothyroidism, unspecified JIAN Villegas 07/18/2019 J45.909 Unspecified asthma, uncomplicated Tony Nowak, JIAN 07/18/2019 I10 Essential (primary) hypertension JIAN Villegas 07/18/2019 Z96.652 Presence of left artificial knee JIAN Villegas joint 07/18/2019 Z47.1 Aftercare following joint replacement JIAN Villegas surgery 07/13/2019 I48.0 Paroxysmal atrial fibrillation Helen Noyola M.D. 07/13/2019 M17.12 Unilateral primary osteoarthritis, River Dent M.D. left knee 07/13/2019 I10 Essential (primary) hypertension Helen Noyola M.D. 07/13/2019 M17.12 Unilateral primary osteoarthritis, Ayo Blanco , [facility] left knee 07/13/2019 J45.909 Unspecified asthma, uncomplicated [...] (pediatric) 06/21/2019 Z01.818 Encounter for other preprocedural Alicai Savage NP examination 06/10/2019 R94.31 Abnormal electrocardiogram [ECG] Maxime Brown M.D. [EKG] 06/10/2019 I48.0 Paroxysmal atrial fibrillation Monique S. Foster, N.P. 06/10/2019 I47.1 Supraventricular tachycardia Monique S. Foster, N.P. 06/10/2019 R00.2 Palpitations Monique S. Foster, N.P. 06/10/2019 Q21.1 Atrial septal defect Monique S. Foster, N.P. 06/10/2019 R06.00 Dyspnea, unspecified Monique S. Foster, N.P. 05/25/2019 I49.1 Atrial premature depolarization Maxime Brown M.D. 05/20/2019 M17.12 Unilateral primary osteoarthritis, River Dent M.D. left knee 05/12/2019 I49.1 Atrial premature depolarization Maxime Brown M.D. 05/12/2019 I49.1 Atrial premature depolarization Nurse Visit cc 05/10/2019 I27.20 Pulmonary hypertension, unspecified Monique S. Foster, N.P. 05/10/2019 G47.33 Obstructive sleep apnea (adult) Monique S. Foster, N.P. (pediatric) 05/10/2019 I48.0 Paroxysmal atrial fibrillation Monique S. Foster, N.P. 05/10/2019 I49.1 Atrial premature depolarization Monique Larsen N.P. 05/10/2019 I47.1 Supraventricular tachycardia Monique Larsen N.P. 05/10/2019 R00.2 Palpitations Monique Larsen N.P. 04/29/2019 I27.20 Pulmonary hypertension, unspecified Maxime Brown M.D. 04/29/2019 I27.20 Pulmonary hypertension, unspecified [place] E[facility] Schedule Plan of Treatment Future Appointment(s):11/22/2019 10:00 am - Monique Larsen N.P. at [facility]01/18/2020 9:00 am - Maxime Brown M.D. at [facility] - River Dent M.D.Z96.652 Presence of left artificial knee jointNew Therapy:Physical TherapyFollow up:Follow up: As needed Use walker or the 2 ski poles Live high at home, chairs with arms Considerhip cwenenlfiiqJ04.11 Unilateral primary osteoarthritis, right hipNew Xrays:Pelvis 1-2 VWS, Ordered: 10/25/19M43.06 Spondylolysis, lumbar region Functional Status Description No Information Available Mental Status Description No Information Available Referrals Description No Information Available
--- OUTSIDE RECORDS SUMMARY | 2019-12-14 08:49 | XMS REPORT | Continuity of Care Document ---
:1950 External Reference #:[id number] Author Name Monique Larsen N.P. (transmitted by agent of provider Sophia Escalante) Address [facility] [place] [address] Care Team Providers Name Role Phone Wil Bang MD - Endocrinology, Care Team Information Precision Assembler Bench Diabetes & Metabolism River Dent MD - Orthopaedic Care Team Information Precision Assembler Bench [phone] Surgery Problems Active Problems Provider Date Palpitations Maxime Brown M.D. Onset: 01/31/2014 Paroxysmal supraventricular tachycardia Maxiem Brown M.D. Onset: 01/31 Ostium secundum type [...] Use Denies Drug Use Smoking Status Reviewed: 10/22/19 Patient has never smoked Exercise Type/Frequency Does [...] Tablets By Mouth Every N.P. Other Day Guaifenesin ER 1 by mouth Unknown 1200mg twice a day prn Tablets ER 12HR Misoprostol 1 PO bid Unknown 200mcg Tablets Tylenol 8 Hour 1 tab 2-3 times Unknown Arthritis Pain daily 650mg Tablets ER Diclofenac Sodium take 1 tablet Unknown 75mg twice a day Tablets DR with food Systane 1 gtt both eyes Unknown 0.4-0.3% Solution 2-3 times daily prn Miralax 1/2 cap every Unknown Powder other day as needed (rare use) Fluticasone Propionate as needed Tasneem Lord, BISCUIT PACKER 50mcg/Act Suspension Anastrozole one tab in the Unknown 1mg Tablets am daily Rythmol SR 1 by mouth Unknown 325mg Caps ER twice daily 12HR Aspirin 81 1 by mouth Unknown 81mg Tablets every day DR Hammond HFA 2 puffs by Unknown 108(90Base) mouth [...] Eliquis 1 tab by mouth 50tabs Mak Golden 07/19/2019 - 2.5mg Tablets every 12 hours 09/17/2019 daily x 25 days Cyclobenzaprine HCL 1 tab by mouth 30tabs Mak Golden, 07/19/2019 - 10mg three times 09/16/2019 Tablets daily as needed for muscle spasm Medications Administered in Office Medication SIG Qnty Indications Ordering Provider Date Depomedrol 40MG River Dent M.D. 06/29/2018 Injection Depomedrol 40MG River Dent M.D. 03/18/2018 Injection Estelaomedrol 40MG River Dent M.D. 11/10/2017 Injection Depomedrol 40MG River Dent M.D. 11/10/2017 Injection Depomedrol 40MG River Dent M.D. 08/04/2017 Injection Depomedrol 40MG River Dent M.D. 08/04/2017 Injection Depomedrol 40MG Geri Shetty PA-C 03/19/2017 Injection Depomedrol 40MG Geri Shetty PA-C 03/19/2017 Injection Depomedrol 40MG River Dent M.D. 10/23/2016 Injection Depomedrol 40MG River Dent M.D. 07/17/2016 Injection Depomedrol 40MG Rievr Dent M.D. 07/17/2016 Injection Depomedrol 40MG River [...] Available Vital Signs Date Vital Result Comment 10/22/2019 8:25am Height 66.5 inches 5'6.50" Weight 202.00 lb Heart Rate 62 /min left radial BP Systolic Sitting 134 mmHg ule reg cuff BP Diastolic Sitting 82 mmHg ule reg cuff BMI (Body Mass Index) 32.1 kg/m2 Ejection Fraction 50-55% Echo 09/15/19 09/17/2019 3:14pm Height 66.5 inches 5'6.50" Weight 191.00 lb with shoes Heart Rate 68 /min BP Systolic Sitting 136 mmHg lue reg cuff BP Diastolic Sitting 78 mmHg lue reg cuff BP Systolic Standing 134 mmHg lue reg cuff BP Diastolic Standing 80 mmHg lue reg cuff Respiratory Rate 14 /min BMI (Body Mass Index) 30.4 kg/m2 Ejection Fraction 50-55% echo. 09/15/19 Results Test Acquired Date Facility Test Result H/L Range Note Basic Metabolic 10/15/2019 [facility] Sodium 140 mmol/L Normal 135-[address] [place] [address] [phone] Potassium 4.3 mmol/L Normal 3.5-5.0 Chloride 104 mmol/L Normal 101-111 Co2 Carbon Dioxide 29 mmol/L Normal 22-32 Anion Gap 7 mmol/L Normal 2-11 Glucose 94 mg/dL Normal 70-100 Blood Urea Nitrogen 19 mg/dL Normal 6-24 Creatinine 0.87 mg/dL Normal 0.51-0.95 BUN/Creatinine Ratio 21.8 High 8-20 Calcium 9.5 mg/dL Normal 8.6-10.3 Egfr Non- 64.6 >60 Egfr 78.1 >60 1 Laboratory 10/15/2019 [facility] B-Type 304 pg/mL High <=100 [address] [place] [address] Peptide BNP [phone] Inr/Protime 07/13/2019 [facility] Inr 0.97 Normal 0.82-1.[address] [place] [address] [phone] CBC Auto Diff 07/05/2019 [facility] White Blood 7.5 Normal 3.5 -10.8 101 [facility] Count 10^3/[place] [address] [phone] Red Blood Count 4.47 10^6/uL Normal 3.70-4.87 [...] Blood Cells % 0.0 Comp Metabolic 07/05/2019 [facility] Sodium 141 mmol/L Normal 135-[address] [place] [address] [phone] Potassium 4.4 mmol/L Normal 3.5-5.0 Chloride 104 [...] >60 Egfr 80.5 >60 4 Inr/Protime 07/05/2019 [facility] Inr 1.30 High 0.82-1.[address] [place] [address] [phone] Laboratory test 07/05/2019 [facility] Partial 39.7 seconds High 26.0-38.[address] [place] [address] Time PTT [phone] Type & Screen 07/05/2019 [facility] Patient A Positive [address] [place] [address] [phone] Antibody Screen NEGATIVE Urinalysis Profile 07/05/2019 [facility] Urine Color Straw [address] [place] [address] [phone] Urine Appearance Clear Urine Specific [place] 1.006 Low 1.010-1.030 Urine pH 5.0 Normal 5-9 Urine Urobilinogen Negative Negative Urine Ketones Negative Negative Urine Protein Negative Negative Urine Leukocytes Negative Negative Urine Blood Negative Negative Urine Nitrite Negative Negative Urine Bilirubin Negative Negative Urine Glucose Negative Negative Urine Culture And 07/05/2019 [facility] Urine Culture SEE RESULT [address] [place] [address] [phone] Order 06/29/2019 [facility] Holter Monitor <pending> [address] [place] [address] [phone] 1 Because ethnic data is not always [...] [address]: River Dent MD Acct: [id number] Unit: [id number] AGE: 68 Location: [facility] Re07/05/19 SEX: F Status: REG REF SPEC: [id number] ESPERANZA: 07/05/19-[address]: River Dent MD REQ: [id number] RECD: 07/05/19 STATUS: GOLDIE OWENS DR: Wil Bang MD _ SOURCE: URINE SPDESC: ORDERED: Urine Culture Procedure Result Reported Site Urine Culture Final 07/06/19- 1219 ML No Growth (<1,000 CFU/mL) * ML - Main Lab . END OF REPORT DEPARTMENT OF PATHOLOGY, [address] [place] [address] Paul Cassidy M.D. Director [facility] # [id number] Procedures Date Code Description Status 10/22/2019 68791 EKG Tracing & Interpretation Completed 09/15/2019 07138 ECHO Transthoracic, Real-Time 2D With Doppler And Color Completed Flow 09/15/2019 11809 ECHO Transthoracic, Real-Time 2D With Doppler And Color Completed Flow 07/13/2019 80320 TKR Total Knee Replacement Completed 07/13/2019 25212 TKR Total Knee Replacement Completed 07/04/2019 43810 Holter Monitor Review (24 hr)dr review & interp only Completed 06/29/2019 90117 ECG Monitor/Recording W/Visual Superimposition Scanning Completed 06/29/2019 88773 ECG Monitor/Recording W/Visual Superimposition Scanning Completed 06/10/2019 77825 EKG Tracing & Interpretation Completed 05/25/2019 93638 Holter Monitor Review (24 hr)dr review & interp only Completed 05/12/2019 83220 ECG Monitor/Recording W/Visual Superimposition Scanning Completed 05/12/2019 61640 ECG Monitor/Recording W/Visual Superimposition Scanning Completed 04/29/2019 20386 ECHO Transthoracic, Real-Time 2D With Doppler And Color Completed Flow 04/29/2019 72246 ECHO Transthoracic, Real-Time 2D With Doppler And Color Completed Flow Medical Devices Description No Information Available Encounters Type Date Location Provider Dx Diagnosis Office Visit 09/17/2019 [facility] Maxime Bush I10 Essential ( primary) 3:00p Of Cha Brown M.D. hypertension I48.0 Paroxysmal atrial fibrillation Q21.1 Atrial septal defect R00.2 Palpitations I50.9 Heart failure, unspecified R06.02 Shortness of breath Office Visit 07/18/2019 10:50a [facility] D64.9 Anemia, Assoc,pc JIAN Nowak unspecified Hospitalists R60.9 Edema, unspecified E03.9 Hypothyroidism, unspecified J45.909 Unspecified asthma, uncomplicated I10 Essential (primary) hypertension Z96.652 Presence of left artificial knee joint Z47.1 Aftercare following joint replacement surgery Office Visit 07/13/2019 10:49a [facility] I48.0 Paroxysmal atrial Assoc,parul Noyola M.D. fibrillation Hospitalists I10 Essential (primary) hypertension J45.909 Unspecified asthma, uncomplicated E03.9 Hypothyroidism, unspecified Office Visit 06/21/2019 [facility] J45.909 Unspecified 8:30a [facility] asthma, Balance Engineer uncomplicated G47.33 Obstructive sleep apnea (adult) (pediatric) Z01.818 Encounter for other preprocedural examination Office Visit 06/10/2019 3:00p [facility] Monique S. I48.0 Paroxysmal atrial Foster, N.P. fibrillation I47.1 Supraventricular tachycardia R00.2 Palpitations Q21.1 Atrial septal defect R06.00 Dyspnea, unspecified Office Visit 05/10/2019 8:30a [facility] Monique S. I27.20 Pulmonary Cardiology Foster, N.P. hypertension, unspecified G47.33 Obstructive sleep apnea (adult) (pediatric) I48.0 Paroxysmal atrial fibrillation I49.1 Atrial premature depolarization I47.1 Supraventricular tachycardia R00.2 Palpitations Assessments Date Code Description Provider 10/22/2019 I10 Essential (primary) hypertension Monique S. [...] Z96.652 Presence of left artificial knee River Detn M.D. joint 08/10/2019 M16.11 Unilateral primary osteoarthritis, [...] M17.12 Unilateral primary osteoarthritis, Ayo Blanco , RPA-C left knee 07/13/2019 J45.909 Unspecified asthma, uncomplicated [...] knee 05/12/2019 I49.1 Atrial premature depolarization Maxime Bronw M.D. 05/12/2019 I49.1 Atrial premature depolarization Nurse Visit 05/10/2019 I27.20 Pulmonary hypertension, unspecified Monique S. Foster, N.P. 05/10/2019 G47.33 Obstructive sleep apnea (adult) Monique S. Foster, N.P. (pediatric) 05/10/2019 I48.0 Paroxysmal atrial fibrillation Monique S. Foster, N.P. 05/10/2019 I49.1 Atrial premature depolarization Monique S. Foster, N.P. 05/10/2019 I47.1 Supraventricular tachycardia Monique Larsen N.PRad 05/10/2019 R00.2 Palpitations Monique Larsen N.P. 04/29/2019 I27.20 Pulmonary hypertension, unspecified Maxime Brown M.D. 04/29/2019 I27.20 Pulmonary hypertension, unspecified [place] [facility] Schedule Plan of Treatment Future Appointment(s):11/22/2019 10:00 am - Monique Larsen N.P. at [facility]01/18/2020 9:00 am - Maxime Brown M.D. at [facility] 8:15 am - River Dent M.D. at [facility]/22/2019 - Monique Larsen N.P.I10 Essential (primary) xpngamefmnxhD16.0 Paroxysmal atrial uggqsoapnrttK87.2 PocyhdvxxnufK12.9 Chronic congestive heart failureNew Labs: Basic Metabolic Panel, Ordered: 10/22/19B-Type Natriuretic Peptide BNP, Ordered : 10/22/19Follow up:OV Monique 1mo OV [facility] 01/2020Recommendations:Increase Spironolactone to 1 full tab daily Take Lasix daily for 1 week. Take weights daily and call is weight not coming down Have repeat labs in 2 niwxmO15.02 Dyspnea on exertionNew Labs:B-Type Natriuretic Peptide BNP, Ordered: 10/22/19 Functional Status Description No Information Available Mental Status Description No Information Available Referrals Description No Information Available
--- OUTSIDE RECORDS SUMMARY | 2019-12-14 08:49 | XMS REPORT | Continuity of Care Document ---
:1950 External Reference #:[id number] Author Name Monique Larsen N.P. (transmitted by agent of provider Cris Allen) Address [address] [place] [id number] Care Team Providers Name Role Phone Wil Bang MD - Endocrinology, Care Team Information Cia Agent Diabetes & Metabolism River Dent MD - Orthopaedic Care Team Information Cia Agent Surgery Problems Active Problems Provider Date Palpitations [...] Use Denies Drug Use Smoking Status Reviewed: 11/22/19 Patient has never smoked Exercise Type/Frequency per [...] 12HR Fluticasone Propionate as needed Tasneem Lord, [employer] 50mcg/Act Suspension Miralax 1/2 cap every Unknown [...] Qnty Indications Ordering Provider Date Depomedrol 40MG Rievr Dent M.D. 06/29/2018 Injection Cliftonrol 40MG River Dent M.D. 03/18/2018 Injection Cliftonrol 40MG River Dent M.D. 11/10/2017 Injection Cliftonrol 40MG River Dent M.D. 11/10/2017 [...] Available Vital Signs Date Vital Result Comment 11/22/2019 9:50am Height 66 inches 5'6" Weight 197.12 lb with shoes Heart Rate 66 /min Radial,regular BP Systolic Sitting 126 mmHg LA,reg cuff BP Diastolic Sitting 72 mmHg LA,reg cuff BMI (Body Mass Index) 31.8 kg/m2 Ejection Fraction 50%-55% echocardiogram 09/15/19 10/25/2019 8:37am Height 66 inches 5'6" Weight 199.00 lb Heart Rate 66 /min BP Systolic 106 mmHg BP Diastolic 62 mmHg Respiratory Rate 12 /min Body Temperature 97.4 F Pain Level 2 BMI (Body Mass Index) 32.1 kg/m2 Results Test Acquired Date Facility Test Result H/L Range Note Basic Metabolic 11/09/2019 [facility] Sodium 140 mmol/L Normal 135-[address] [place] [address] [phone] Potassium 4.3 mmol/L Normal 3.5-5.0 Chloride 105 mmol/L Normal 101-111 Co2 Carbon Dioxide 31 mmol/L Normal 22-32 Anion Gap 4 mmol/L Normal 2-11 Glucose 98 mg/dL Normal 70-100 Blood Urea Nitrogen 12 mg/dL Normal 6-24 Creatinine 0.76 mg/dL Normal 0.51-0.95 BUN/Creatinine Ratio 15.8 Normal 8-20 Calcium 9.1 mg/dL Normal 8.6-10.3 Egfr Non- 75.5 >60 Egfr 91.3 >60 1 Laboratory test 11/09/2019 [facility] B-Type 219 pg/mL High <= 100 [address] [place] [address] Peptide BNP [phone] Basic Metabolic 10/15/2019 [facility] Sodium 140 Normal 135- [address] mmol/[place] [address] [phone] Potassium 4.3 mmol/L Normal 3.5-5.0 Chloride 104 mmol/L Normal 101-111 Co2 Carbon Dioxide 29 mmol/L Normal 22-32 Anion Gap 7 mmol/L Normal 2-11 Glucose 94 mg/dL Normal 70-100 Blood Urea Nitrogen 19 mg/dL Normal 6-24 Creatinine 0.87 mg/dL Normal 0.51-0.95 BUN/Creatinine Ratio 21.8 High 8-20 Calcium 9.5 mg/dL Normal 8.6-10.3 Egfr Non- 64.6 >60 Egfr 78.1 >60 3 Laboratory test 10/15/2019 [facility] B-Type 304 pg/mL High <= 100 [address] [place] [address] Peptide BNP [phone] Inr/Protime 07/13/2019 [facility] Inr 0.97 Normal 0.82-1.[address] [place] [address] [phone] Urine Culture And 07/05/2019 [facility] Urine Culture SEE [address] [place] [address] BELOW [phone] Urinalysis 07/05/2019 [facility] Urine Color Straw Profile [address] [place], [place] [id number] [phone] Urine Appearance Clear Urine Specific [place] 1.006 Low 1.010-1.030 Urine pH 5.0 Normal 5-9 Urine Urobilinogen Negative Negative Urine Ketones Negative Negative Urine Protein Negative Negative Urine Leukocytes Negative Negative Urine Blood Negative Negative Urine Nitrite Negative Negative Urine Bilirubin Negative Negative Urine Glucose Negative Negative Type & Screen 07/05/2019 [facility] Patient Blood Type A Positive [address] [place] [address] [phone] Antibody Screen NEGATIVE Laboratory test 07/05/2019 [facility] Partial 39.7 High 26.0- 38.[address] [place] [address] Time PTT [phone] Inr/Protime 07/05/2019 [facility] Inr 1.30 High 0.82-1.[address] [place] [address] [phone] Comp Metabolic 07/05/2019 [facility] Sodium 141 mmol/L Normal 135-[address] [place] [address] [phone] Potassium 4.4 mmol/L Normal 3.5-5.0 Chloride 104 [...] Egfr 80.5 >60 8 CBC Auto 07/05/2019 [facility] White Blood 7.5 10^3/uL Normal 3.5-10.[address] [place] [address] [phone] Red Blood Count 4.47 10^6/uL Normal 3.70-4.87 [...] Red Blood Cells % 0.0 Order 06/29/2019 [facility] Holter Monitor <pending> [address] [place] [address] [phone] 1 Because ethnic data is not always [...] [address]: River Dent MD Acct: [id number] Unit: [id number] AGE: 68 Location: [facility] Re07/05/19 SEX: F Status: REG REF SPEC: [id number] [place]: 07/05/19-953 [facility] [address]: River Dent MD REQ: [id number] RECD: 07/05/19-1004 STATUS: GOLDIE OWENS DR: Wil Bang MD _ SOURCE: URINE SPDESC: ORDERED: Urine Culture Procedure Result Reported Site Urine Culture Final 07/06/19- 1219 ML No Growth (<1,000 CFU/mL) * ML - Main Lab . END OF REPORT DEPARTMENT OF PATHOLOGY, [address] [place] [address] Paul Cassidy M.D. Director [facility] # [id number] 7 Standard intensity warfarin therapeutic range: 2.0-3.0 [...] dialysis) Procedures Date Code Description Status 11/22/2019 52479 EKG Tracing & Interpretation Completed 10/22/2019 81287 EKG Tracing & Interpretation Completed 09/15/2019 88766 ECHO Transthoracic, Real-Time 2D With Doppler And Color Completed Flow 09/15/2019 34806 ECHO Transthoracic, Real-Time 2D With Doppler And Color Completed Flow 07/13/2019 92947 TKR Total Knee Replacement Completed 07/13/2019 30685 TKR Total Knee Replacement Completed 07/04/2019 76663 Holter Monitor Review (24 hr)dr review & interp only Completed 06/29/2019 80137 ECG Monitor/Recording W/Visual Superimposition Scanning Completed 06/29/2019 30088 ECG Monitor/Recording W/Visual Superimposition Scanning Completed 06/10/2019 64398 EKG Tracing & Interpretation Completed 05/25/2019 25327 Holter Monitor Review (24 hr)dr review & interp only Completed Medical Devices Description No Information Available Encounters Type Date Location Provider Dx Diagnosis Office Visit 11/22/2019 [facility] Monique S. R94.31 Abnormal 10:00a Chava N.PRad electrocardiogram [ECG] [EKG] I10 Essential (primary) hypertension I48.0 Paroxysmal atrial fibrillation I50.32 Chronic diastolic (congestive) heart failure R06.02 Shortness of breath Office Visit 10/25/2019 8:15a [facility] Dirk Filipe, M25.552 Pain in left at [facility].D. hip M16.11 Unilateral primary osteoarthritis, right hip Z96.652 Presence of left artificial knee joint M43.06 Spondylolysis, lumbar region Office Visit 10/22/2019 8:30a [facility] Monique SRad I10 Essential ( primary) Chava N.PRad hypertension I48.0 Paroxysmal atrial fibrillation R00.2 Palpitations I50.9 Heart failure, unspecified R06.02 Shortness of breath Office Visit 09/17/2019 3:00p [facility] Maxime Bush I10 Essential (primary) Of Cha Brown M.D. hypertension I48.0 Paroxysmal atrial fibrillation Q21.1 Atrial septal defect R00.2 Palpitations I50.9 Heart failure, unspecified R06.02 Shortness of breath Office Visit 07/18/2019 10:50a [facility] Tony D64.9 Anemia, Assoc,[facility] [place], [place] unspecified Hospitalists R60.9 Edema, unspecified E03.9 Hypothyroidism, unspecified J45.909 Unspecified asthma, uncomplicated I10 Essential (primary) hypertension Z96.652 Presence of left artificial knee joint Z47.1 Aftercare following joint replacement surgery Office Visit 07/13/2019 10:49a [facility] Helen I48.0 Paroxysmal atrial Assoc,parul Noyola M.D. fibrillation Hospitalists I10 Essential (primary) hypertension J45.909 Unspecified asthma, uncomplicated E03.9 Hypothyroidism, unspecified Office Visit 06/21/2019 [facility] J45.909 Unspecified 8:30a [facility], ZACK asthma, [place] uncomplicated G47.33 Obstructive sleep apnea (adult) (pediatric) Z01.818 Encounter for other preprocedural examination Office Visit 06/10/2019 3:00p [facility] Monique S. I48.0 Paroxysmal atrial Foster, N.P. fibrillation I47.1 Supraventricular tachycardia R00.2 Palpitations Q21.1 Atrial septal defect R06.00 Dyspnea, unspecified Assessments Date Code Description Provider 11/22/2019 R94.31 Abnormal electrocardiogram [ECG] Monique Larsen, N.P. [EKG] 11/22/2019 I10 Essential (primary) hypertension Monique S. Foster, N.P. 11/22/2019 I48.0 Paroxysmal atrial fibrillation Monique S. Chava, N.P. 11/22/2019 I50.32 Chronic diastolic (congestive) heart Monique S. Chava, N.P. failure 11/22/2019 R06.02 Dyspnea on exertion Monique SRad Larsen, N.P. 11/03/2019 M16.11 Unilateral primary osteoarthritis, River Dent M.D. right hip 10/25/2019 M25.552 Pain in left hip River Dent M.D. 10/25/2019 M16.11 Unilateral primary osteoarthritis, River Dent M.D. right hip 10/25/2019 Z96.652 Presence of left artificial knee River Dent M.D. joint 10/25/2019 M43.06 Spondylolysis, lumbar region River Dent M.D. 10/22/2019 R94.31 Abnormal electrocardiogram [ECG] Maxime Brown M.D. [EKG] 10/22/2019 I10 Essential (primary) hypertension Monique Larsen, N.P. 10/22/2019 I48.0 Paroxysmal atrial fibrillation Monique Larsen, N.P. 10/22/2019 R00.2 Palpitations Monique Larsen, N.P. 10/22/2019 I50.9 Chronic congestive heart failure Monique Larsen, N.P. 10/22/2019 R06.02 Dyspnea on exertion Monique Larsen, N.P. 09/17/2019 I10 Essential (primary) hypertension Maxime [...] M.D. [EKG] 06/10/2019 I48.0 Paroxysmal atrial fibrillation Moniquebrian Larsen, N.P. 06/10/2019 I47.1 Supraventricular tachycardia Monique SRad Larsen, N.P. 06/10/2019 R00.2 Palpitations Monique Larsen, N.P. 06/10/2019 Q21.1 Atrial septal defect Monique SRad Larsen, N.P. 06/10/2019 R06.00 Dyspnea, unspecified Monique S. Chava, N.P. 05/25/2019 I49.1 Atrial premature depolarization Maxime Brown M.D. Plan of Treatment Future Appointment(s):12/01/2019 10:45 am - River Dent M.D. at [facility] at Robuim5712/14/2019 10:00 am - River Dent M.D. at [facility] at Htrrwk7901/18/2020 9:00 am - Maxime Brown M.D. at [facility]11/22/2019 - India Lala.P.R94.31 Abnormal electrocardiogram [ ECG] [EKG]I10 Essential (primary) hypertensionRecommendations:BP controlled.I48.0 Paroxysmal atrial fibrillationFollow up:01/2020 OV JFMRecommendations:Continue propafenone, toprol and cardizem.I50.32 Chronic diastolic (congestive) heart failureRecommendations:Continue lasix and spironolactone fluid status marker improved. These may be held for xrmbnriT98.02 Dyspnea on exertion Functional Status Description No Information Available Mental Status Description No Information Available Referrals Description No Information Available
[2019-12-14] MEDS ORDERED: ceFAZolin 2 GM PREMIX in ORs 2 GM/50 ML BAG ONE (10:18)
[2019-12-14] MEDS ORDERED: Midazolam* 1 MG/ML 2 ML VIAL (2 MG) ONE (11:05)
[2019-12-14] MEDS ORDERED: fentaNYL* 50 MCG/ML 5 ML VIAL (250 MCG VIAL) ONE (11:05)
[2019-12-14] MEDS ORDERED: Rocuronium* 10 MG/ML VIAL ONE ×2 (11:05→13:26)
[2019-12-14] MEDS ORDERED: Naloxone* 0.4 MG/ML 1 ML VIAL IV PRN (13:18)
[2019-12-14] MEDS ORDERED: Dexamethasone IV* 4 MG/ML 1 ML (4 MG) ONE ×2 (13:39)
[2019-12-14] MEDS ORDERED: Sugammadex * 200 MG/2 ML VIAL IV PUSH ONE (13:39)
[2019-12-14] MEDS ORDERED: Propofol* 10 MG/ML 20 ML BTL ONE (13:39)
[2019-12-14] MEDS ORDERED: Ondansetron INJ* 2 MG/ML VIAL ONE (13:39)
[2019-12-14] MEDS ORDERED: HYDROmorphone INJ1* 1 MG/ML SYRINGE ONE ×2 (14:29→14:48)
[2019-12-14] MEDS ORDERED: fentaNYL* 50 MCG/ML 2 ML VIAL (100 MCG VIAL) ONE (14:29)
[2019-12-14] MEDS ORDERED: Ondansetron INJ* 2 MG/ML VIAL IV PRN (14:30)
[2019-12-14] MEDS ORDERED: Polyethylene Glycol 3350* 17 GM PACKET PO PRN (14:30)
[2019-12-14] MEDS ORDERED: traZODone TAB* 50 MG TAB PO PRN (14:30)
[2019-12-14] MEDS ORDERED: diPHENhydraMINE IV* 50 MG/ML 1 ml VIAL (BENADRYL) IV PRN (14:30)
[2019-12-14] MEDS ORDERED: diPHENhydraMINE PO* 25 MG PO PRN (14:30)
[2019-12-14] MEDS ORDERED: traMADol TAB* 50 MG PO PRN (14:30)
[2019-12-14] MEDS ORDERED: Ondansetron ODT TAB* 4 MG PO PRN (14:30)
[2019-12-14] MEDS ORDERED: Magnesium Hydroxide LIQ* 30 ML UDC PO PRN (14:30)
[2019-12-14] MEDS ORDERED: Morphine INJ* 2 MG/ML 1 ML SYRINGE (TWO MG - NEW SYRINGE VERSION) IV PRN (14:30)
[2019-12-14] MEDS ORDERED: oxyCODONE TAB* 5 MG TAB PO PRN (14:30)
[2019-12-14] MEDS: fentaNYL* 50 MCG/ML 2 ML VIAL (100 MCG VIAL) IV PRN ×4 (14:31→14:46)
[2019-12-14] MEDS: HYDROmorphone INJ1* 1 MG/ML SYRINGE IV PRN ×5 (14:31→15:12)
[2019-12-14] MEDS ORDERED: guaiFENesin ER TAB 600 MG PO PRN (14:44)
[2019-12-14] MEDS ORDERED: Albuterol HFA INHALER* 8 gm MDI INH PRN (14:44)
[2019-12-14] MEDS ORDERED: Senna TAB 8.6 mg* TAB PO PRN (14:44)
[2019-12-14] MEDS ORDERED: HYDROmorphone INJ* 0.5 MG/0.5 ML SYRINGE IV ONE (14:48)
[2019-12-14] MEDS: HYDROmorphone INJ1* 1 MG/ML SYRINGE IV SLOW PU ONE ×2 (14:54→15:00)
[2019-12-14] MEDS ORDERED: Lactated Ringers 1000 ML Bag* 1,000 ML IV SCH (15:00)
[2019-12-14] MEDS: oxyCODONE/Acetamin 5/325 MG* TAB PO PRN ×2 (17:25→22:04)
[2019-12-14] MEDS: Ketorolac INJ* 30 MG/ML 1 ML VIAL IV PRN (20:17)
[2019-12-14] MEDS: ceFAZolin 1 GM ADVAN(*) 1 GM in NS 0.9% 50 ML* 50 ML IVPB SCH (20:59)
[2019-12-14] MEDS: Gabapentin CAP(*) 300 MG PO SCH (21:06)
[2019-12-14] MEDS: Docusate CAP* 100 MG PO SCH (21:09)
[2019-12-14] MEDS: Magnesium Hydroxide LIQ* 30 ML UDC PO SCH (21:09)
[2019-12-14] MEDS: Polyethyl Glycol/Propylene Gly OPHTH.SOLN BOTH EYES SCH (21:09)
[2019-12-14] MEDS: PROPAFENONE 325 MG PO SCH (21:10)
[2019-12-14] MEDS: Misoprostol TAB* 200 MCG PO SCH (21:11)
[2019-12-14] MEDS: PSYLLIUM HUSK PO SCH (21:14)
[2019-12-14] MEDS: Acetaminophen TAB* 325 MG PO SCH (22:03)
[2019-12-14] MEDS: Cyclobenzaprine TAB* 10 MG PO PRN (22:03)
[2019-12-15] MEDS: Ketorolac INJ* 30 MG/ML 1 ML VIAL IV PRN ×4 (02:04→22:04)
[2019-12-15] MEDS: oxyCODONE/Acetamin 5/325 MG* TAB PO PRN ×5 (02:14→19:55)
[2019-12-15] MEDS: ceFAZolin 1 GM ADVAN(*) 1 GM in NS 0.9% 50 ML* 50 ML IVPB SCH ×2 (04:07→11:41)
[2019-12-15] MEDS ORDERED: NS 0.9% 50 ML* 50 ML ONE (04:13)
[2019-12-15] MEDS: Cyclobenzaprine TAB* 10 MG PO PRN ×2 (04:14→11:24)
[2019-12-15] MEDS: Acetaminophen TAB* 325 MG PO SCH ×3 (05:42→22:04)
[2019-12-15] MEDS: Levothyroxine TAB* 100 MCG TAB PO SCH (05:42)
[2019-12-15 06:39] LABS: Calcium 8.6 mg/dL (8.6-10.3); Potassium 4.3 mmol/L (3.5-5.0)
[2019-12-15 06:44] LABS: BUN/Creatinine Ratio 13.5 (8-20); EGFR African American 94.2 (>60); EGFR Non-African American 77.8 (>60)
[2019-12-15 06:58] LABS: Hematocrit 30 % (35-47); Hemoglobin 9.1 g/dL (12.0-16.0); Mean Platelet Volume 7.7 fL (7.4-10.4); Platelet Count 241 10^3/uL (150-450)
[2019-12-15] MEDS: Docusate CAP* 100 MG PO SCH ×2 (08:24→21:52)
[2019-12-15] MEDS: Metoprolol Succinate XL TAB* 25 MG PO SCH (08:25)
[2019-12-15] MEDS: Magnesium Hydroxide LIQ* 30 ML UDC PO SCH ×2 (08:25→21:52)
[2019-12-15] MEDS: Diltiazem CD CAP* 180 MG PO SCH (08:26)
[2019-12-15] MEDS: Vitamin THERAPEUTIC TAB PO SCH (08:26)
[2019-12-15] MEDS: PROPAFENONE 325 MG PO SCH ×2 (08:27→21:51)
[2019-12-15] MEDS: Gabapentin CAP(*) 300 MG PO SCH ×3 (08:28→21:50)
[2019-12-15] MEDS: Misoprostol TAB* 200 MCG PO SCH ×2 (08:29→21:51)
--- NOTE | 2019-12-15 08:29 | PN ---
Subjective - Subjective Reason for Note: Consultation Note History: Internal medicine/primary care. 1 day post right total hip arthroplasty. She is sitting out in a chair eating breakfast. Her Hernandez catheter was removed this morning and she has voided 400 mls. He appetite is not back to normal. She has expected post-operative pain. Her vital signs remain stable. Her asthma is not exacerbated. Active Problems: Active Problems Anemia (Acute) D64.9 - Due to acute blood loss. - Transfused 1/3 of a unit yesterday - Tired, otherwise not symptomatic - Monitor, transfuse below 8 History of total right hip arthroplasty (Acute) Z96.641 Post-operative state (Acute) Z98.890 - Management per orthopedics - PT/OT, Bowel regimen, Urinating well - Pain control adequate. - Trend H/H Atrial fibrillation (Chronic) I48.91 Depression (Chronic) F32.9 Hyperlipidemia (Chronic) E78.5 Obstructive sleep apnea (Chronic) G47.33 Current Medications: Current Medications Acetaminophen (Tylenol Tab*) 975 mg PO Q8HR [facility] Last Admin: 12/15/19 05:42 Dose: Not Given Albuterol (Ventolin Hfa Inhaler*) 2 puff INH QID PRN PRN Reason: WHEEZING Apixaban (Eliquis*) 5 mg PO BID [facility] Bisacodyl (Dulcolax Supp*) 10 mg GA DAILY PRN PRN Reason: CONSTIPATION Budesonide/Formoterol Fumarate (Symbicort 160/4.5 (Nf)) 2 puff INH DAILY [facility] [place] Cyclobenzaprine HCl (Flexeril Tab*) 10 mg PO Q6H PRN PRN Reason: SPASMS Last Admin: 12/15/19 04:14 Dose: 10 mg Diltiazem HCl (Cardizem Cd Cap*) 180 mg PO QAM AME Diphenhydramine HCl (Benadryl Iv*) 25 mg IV Q6H PRN PRN Reason: PRURITIS Diphenhydramine HCl (Benadryl Po*) 25 mg PO Q6H PRN PRN Reason: PRURITIS Docusate Sodium (Colace Cap*) 100 mg PO BID [facility] [place] Last Admin: 12/14/19 21:09 Dose: 100 mg Enoxaparin Sodium (Lovenox(*)) 30 mg SUBCUT ONCE ONE Stop: 12/15/19 12:01 Enoxaparin Sodium (Lovenox(*)) 40 mg SUBCUT ONCE ONE Stop: 12/16/19 12:01 Furosemide (Lasix Tab*) 20 mg PO QAM [facility] [place] Gabapentin (Neurontin Cap(*)) 600 mg PO TID [facility] [place] Last Admin: 12/14/19 21:06 Dose: 600 mg Guaifenesin (Mucinex*) 1,200 mg PO BID PRN PRN Reason: COUGH/PHLEGM Cefazolin Sodium 1 gm/ Sodium (Chloride) 50 mls @ 200 mls/hr IVPB Q8H [facility] [place] Stop: 12/15/19 12:14 Last Admin: 12/15/19 04:07 Dose: 200 mls/hr Lactated Ringer's (Lactated Ringers 1000 Ml Bag*) 1,000 mls @ 100 mls/hr IV PER RATE [facility] [place] Last Admin: 12/15/19 05:24 Dose: 100 mls/hr Ketorolac Tromethamine (Toradol Inj*) 30 mg IV Q6H PRN PRN Reason: PAIN - MILD Stop: 12/19/19 14:29 Last Admin: 12/15/19 02:04 Dose: 30 mg Lactulose (Lactulose*) 30 ml PO BID PRN PRN Reason: CONSTIPATION Levothyroxine Sodium (Synthroid Tab*) 100 mcg PO QAM@0600 [facility] [place] Last Admin: 12/15/19 05:42 Dose: 100 mcg Magnesium Hydroxide (Milk Of Magnesia Liq*) 30 ml PO BID [facility] [place] Last Admin: 12/14/19 21:09 Dose: 30 ml Magnesium Hydroxide (Milk Of Magnesia Liq*) 30 ml PO Q6H PRN PRN Reason: CONSTIPATION Metoprolol Succinate (Toprol Xl Tab*) 25 mg PO QAM [facility] [place] Misoprostol (Cytotec Tab*) 200 mcg PO BID [facility] [place] Last Admin: 12/14/19 21:11 Dose: 200 mcg Morphine Sulfate (Morphine Inj (Syringe))*) 2 mg IV Q4H PRN PRN Reason: Pain - Unrelieved Multivitamins (Theragran Tab*) 1 tab PO DAILY [facility] [place] Non-Formulary Medication (Psyllium Husk [Metamucil]) 1 cap PO BEDTIME [facility] [place] Last Admin: 12/14/19 21:14 Dose: Not Given Ondansetron HCl (Zofran Inj*) 4 mg IV Q6H PRN PRN Reason: NAUSEA Ondansetron HCl (Zofran Odt Tab*) 4 mg PO Q6H PRN PRN Reason: NAUSEA Oxycodone HCl (Roxycodone Tab*) 5 mg PO Q4H PRN PRN Reason: Pain - Breakthrough Oxycodone/Acetaminophen (Percocet 5/325 Tab*) 1 tab PO Q4H PRN PRN Reason: PAIN - MODERATE Last Admin: 12/15/19 02:14 Dose: 1 tab Oxycodone/Acetaminophen (Percocet 5/325 Tab*) 2 tab PO Q4H PRN PRN Reason: PAIN - SEVERE Last Admin: 12/14/19 22:04 Dose: 2 tab Polyethyl Glycol/Propylene Glycol (Lubricant Eye Drops) 1 drop BOTH EYES TID [facility] [place] Last Admin: 12/14/19 21:09 Dose: 1 drop Polyethylene Glycol/Electrolytes (Miralax (17 Gm Dose Janusz)) 17 gm PO DAILY PRN PRN Reason: Constipation Propafenone HCl (Rythmol Er (Nf)) 325 mg PO BID [facility] [place]; Protocol Last Admin: 12/14/19 21:10 Dose: 325 mg Senna (Senokot 8.6 Mg Tab*) 1 tab PO BEDTIME PRN PRN Reason: CONSTIPATION Spironolactone (Aldactone Tab*) 25 mg PO QAM [facility] [place] Tramadol HCl (Ultram*) 50 mg PO Q6H PRN PRN Reason: PAIN - MODERATE Trazodone HCl (Desyrel Tab*) 25 mg PO BEDTIME PRN PRN Reason: insomnia Home Medications: Home Medications Medication Instructions Recorded Confirmed Type Psyllium Husk [Metamucil] 1 cap PO BEDTIME 03/18/14 12/14/19 History Acetaminophen [Arthritis Pain] 650 mg PO TID 11/20/15 12/14/19 History guaiFENesin [Guaifenesin ER] 1 tab PO BID PRN 01/01/17 12/14/19 History Budesonide/Formote 160/4.5(NF) 2 puff INH QAM 02/12/17 12/14/19 History [Symbicort 160/4.5 (NF)] Multivitamin [Multiple Vitamins] 1 tab PO QAM 11/11/17 12/14/19 History Propylene Glycol [Systane Balance] 1 drop BOTH EYES TID 01/28/18 12/14/19 History Misoprostol TAB* [Cytotec TAB*] 200 mcg PO BID tab 02/23/18 12/14/19 Rx Fluticasone NASAL SPRAY 50MCG* 1 spray BOTH NARES DAILY PRN 07/03/18 12/14/19 History [Flonase NASAL SPRAY 50MCG*] Furosemide TAB* [Lasix TAB*] 20 mg PO QAM 07/03/18 12/14/19 History Gabapentin CAP(*) [Neurontin 300 2 tab PO TID 07/03/18 12/14/19 History CAP(*)] Levothyroxine TAB* [Synthroid 100 100 mcg PO QAM 07/03/18 12/14/19 History MCG TAB*] tiZANidine TAB* [Zanaflex TAB*] 4 mg PO BID 07/03/18 12/14/19 History Albuterol HFA INHALER* [Ventolin 2 puff INH QID PRN 11/02/18 12/14/19 History HFA Inhaler*] Cholecalciferol TAB* [Vitamin D 1,000 units PO QAM 11/02/18 12/14/19 History TAB*] dilTIAZem HCl [Diltiazem 24Hr ER 180 mg PO QAM 11/02/18 12/14/19 History (Cd)] Apixaban* [Eliquis*] 5 mg PO BID 03/02/19 12/14/19 History Propafenone HCl [Propafenone HCl 325 mg PO BID 03/02/19 12/14/19 History ER] Docusate CAP* [Colace Cap*] 100 mg PO QPM PRN 04/02/19 12/14/19 History Metoprolol Succinate XL TAB* 25 mg PO QAM 07/05/19 12/14/19 History [Toprol XL TAB*] Polyethylene Glycol 3350* [Miralax 1 dose PO DAILY PRN 07/05/19 12/14/19 History (17 GM DOSE JANUSZ)] Amoxicillin PO (*) [Amoxicillin 4 cap PO SEE INSTRUCTIONS 12/01/19 12/14/19 History 500 MG CAP*] Aspirin EC TAB* [Ecotrin EC Low 81 mg PO QAM 12/01/19 12/14/19 History Dose 81 MG*] Diclofenac Sodium 75 mg PO BID WITH MEALS 12/01/19 12/14/19 History Sennosides [Senna] 8.6 mg PO BEDTIME PRN 12/01/19 12/14/19 History Spironolactone TAB* [Aldactone 25 mg PO QAM 12/01/19 12/14/19 History TAB*] Allergies: Allergies Allergy/AdvReac Type Severity Reaction Status Date / Time erythromycin base AdvReac Intermediate Diarrhea, Verified 12/14/19 10:22 nausea Objective - Vital Signs Vital Signs: Vital Signs 12/14/19 12/14/19 12/14/19 10:27 14:24 14:25 Temperature 96.8 F 96.8 F Pulse Rate 62 64 66 Respiratory 16 20 13 Rate Blood Pressure 145/83 132/98 (mmHg) O2 Sat by Pulse 98 99 100 Oximetry 12/14/19 12/14/19 12/14/19 14:31 14:36 14:39 Temperature Pulse Rate 71 76 Respiratory 16 20 20 Rate Blood Pressure 135/90 150/127 (mmHg) O2 Sat by Pulse 100 100 Oximetry 12/14/19 12/14/19 12/14/19 14:41 14:42 14:45 Temperature Pulse Rate 78 72 Respiratory 21 20 18 Rate Blood Pressure 155/104 157/103 (mmHg) O2 Sat by Pulse 90 100 Oximetry 12/14/19 12/14/19 12/14/19 14:46 14:48 14:50 Temperature Pulse Rate 65 Respiratory 20 20 22 Rate Blood Pressure 152/88 (mmHg) O2 Sat by Pulse 100 Oximetry 12/14/19 12/14/19 12/14/19 14:51 14:54 15:00 Temperature Pulse Rate 65 Respiratory 20 20 17 Rate Blood Pressure 118/88 (mmHg) O2 Sat by Pulse 98 Oximetry 12/14/19 12/14/19 12/14/19 15:12 15:15 15:16 Temperature Pulse Rate 65 Respiratory 20 20 16 Rate Blood Pressure 118/77 (mmHg) O2 Sat by Pulse 100 Oximetry 12/14/19 12/14/19 12/14/19 15:30 15:32 15:45 Temperature Pulse Rate 59 Respiratory 20 15 21 Rate Blood Pressure 143/34 (mmHg) O2 Sat by Pulse 100 Oximetry 12/14/19 12/14/19 12/14/19 15:49 15:55 16:00 Temperature Pulse Rate 60 60 Respiratory 12 23 16 Rate Blood Pressure 138/81 137/85 (mmHg) O2 Sat by Pulse 100 100 Oximetry 12/14/19 12/14/19 12/14/19 16:02 16:18 16:55 Temperature 97.4 F Pulse Rate 57 Respiratory 20 14 20 Rate Blood Pressure 131/75 (mmHg) O2 Sat by Pulse 100 100 Oximetry 12/14/19 12/14/19 12/14/19 17:00 17:25 17:50 Temperature 97.3 F Pulse Rate 56 Respiratory 20 18 18 Rate Blood Pressure 115/74 (mmHg) O2 Sat by Pulse 97 Oximetry 12/14/19 12/14/19 12/14/19 18:59 19:30 20:00 Temperature 97.0 F Pulse Rate 65 Respiratory 16 16 16 Rate Blood Pressure 94/55 (mmHg) O2 Sat by Pulse 100 Oximetry 12/14/19 12/14/19 12/14/19 21:06 21:26 22:03 Temperature 98.1 F Pulse Rate 54 Respiratory 16 16 16 Rate Blood Pressure 152/59 (mmHg) O2 Sat by Pulse 98 Oximetry 12/14/19 12/14/19 12/14/19 22:04 23:00 23:05 Temperature 98.4 F Pulse Rate 82 Respiratory 16 16 16 Rate Blood Pressure 118/66 (mmHg) O2 Sat by Pulse 100 Oximetry 12/15/19 12/15/19 12/15/19 00:00 02:14 03:55 Temperature 97.6 F Pulse Rate 62 Respiratory 16 16 16 Rate Blood Pressure 105/65 (mmHg) O2 Sat by Pulse 98 Oximetry 12/15/19 12/15/19 12/15/19 04:14 04:16 04:25 Temperature Pulse Rate Respiratory 16 16 Rate Blood Pressure (mmHg) O2 Sat by Pulse 98 Oximetry 12/15/19 12/15/19 06:54 07:45 Temperature 97.3 F Pulse Rate 63 Respiratory 16 16 Rate Blood Pressure 111/70 (mmHg) O2 Sat by Pulse 96 Oximetry - Intake and Output Intake and Output: Intake & Output 12/12/19 12/13/19 12/14/19 12/15/19 11:59 11:59 11:59 11:59 Intake Total 2955 Output Total 1750 Balance 1205 Weight 203 lb Intake: IV Fluids 2100 LR 2100 IVPB 115 ABX - CEFAZOLIN 115 Oral 740 Output: Urine 400 Hernandez 1350 ADLs: Meal Record Start: 12/14/19 14: 34 Freq: Status: Active Protocol: Created 12/14/19 14:34 [id number] (Rec: 12/14/19 14:34 [id number]) Document 12/14/19 19:04 [id number] (Rec: 12/14/19 19:04 [id number]) Intake and Output Start: 12/14/19 14: 34 Freq: DAILY@0600,1400,2200 Status: Active Protocol: Created 12/14/19 14:34 [id number] (Rec: 12/14/19 14:34 [id number]) Document 12/14/19 22:00 [id number] (Rec: 12/14/19 22:16 [id number]) Document 12/15/19 05:30 [id number] (Rec: 12/15/19 05:31 [id number]) Document 12/15/19 08:08 [id number] (Rec: 12/15/19 08:08 [id number]) - Physical Exam General Physical Exam Comment: Warm and well perfused. General: No Cyanosis, Yes Anemia, No Jaundice, No Clubbing Lungs and Chest: Yes: Chest Expansion Full, Chest Expansion Symetrica, Percussion Note Resonant, Vessicular Breath Sounds. No: Crackles, Wheezes, Respiratory Distress Heart Rate and Rhythm: Irregular Additional Cardiovascular: Yes: Normal Heart Sounds. No: Heart Murmur Abdominal Exam: Yes: Soft. No: Distention, Abdominal Tenderness Results - Results Lab Results: Laboratory Results - last 24 hr 12/15/19 12/15/19 06:05 06:05 Hgb 9.1 L Hct 30 L Plt Count 241 MPV 7.7 Sodium 137 Potassium 4.3 Chloride 107 Carbon Dioxide 21 L Anion Gap 9 BUN 10 Creatinine 0.74 Est GFR ( Amer) 94.2 Est GFR (Non-Af Amer) 77.8 BUN/Creatinine Ratio 13.5 Glucose 112 H Calcium 8.6 Assessment - Problem List Assessment: Patient Problems Anemia (Acute) History of total right hip arthroplasty (Acute) Post-operative state (Acute) Atrial fibrillation (Chronic) Depression (Chronic) Hyperlipidemia (Chronic) Obstructive sleep apnea (Chronic) Abnormal EKG (Chronic) Asthma (Chronic) Atrial septal aneurysm (Chronic) Breast cancer, right (Chronic 05/27/14) Chronic back pain (Chronic) DVT prophylaxis (Chronic) Edema (Chronic) Essential hypertension (Chronic) Full code status (Chronic) History of total right knee replacement (Chronic) Hypothyroidism (Chronic) Obesity (Chronic) Primary hypothyroidism (Chronic) Plan: History of total right hip arthroplasty (Acute)Post-operative state (Acute) She is doing well post operatively. She is hemodynamically stable. Anemia (Acute) She doesn't require a transfusion\ Comorbidities: Atrial fibrillation (Chronic) We are restaring anti-coagulation in stages to prevent hemorrhage post operatively - bridging with enoxaparin and will restart apixaban in a couple of days. Asthma (Chronic) this is not exacerbated. She is using incentive spirometry without any problem. Secondary diagnoses: Depression (Chronic) Hyperlipidemia (Chronic) Obstructive sleep apnea (Chronic) Abnormal EKG (Chronic) Atrial septal aneurysm (Chronic) Breast cancer, right (Chronic 05/27/14) Chronic back pain (Chronic) DVT prophylaxis (Chronic) Edema (Chronic) Essential hypertension (Chronic) Full code status (Chronic) History of total right knee replacement (Chronic) Hypothyroidism (Chronic) Obesity (Chronic) Primary hypothyroidism (Chronic) I have stopped her IVF as she is eating and drinking. I stopped her furosomide and spironolactone as I don't want to compromise her volume status. I discussed the above with Anali Bassett and she agrees with the plan. Orthopedics will decide on a safe plan of discharge.
[2019-12-15] MEDS: PTO: Budesonide/Formote 160/4.5(NF) MDI INH SCH (08:30)
[2019-12-15] MEDS: Polyethyl Glycol/Propylene Gly OPHTH.SOLN BOTH EYES SCH ×3 (08:33→21:52)
[2019-12-15] MEDS ORDERED: Spironolactone TAB* 25 MG PO SCH (09:00)
[2019-12-15] MEDS ORDERED: Furosemide TAB* 20 MG PO SCH (09:00)
[2019-12-15] MEDS ORDERED: MULTIVITAMIN PO SCH (09:00)
[2019-12-15] MEDS ORDERED: Enoxaparin(*) 30 MG/0.3 ML SYR SUBCUT ONE (12:00)
--- NOTE | 2019-12-15 12:58 | OP ---
DATE OF OPERATION: 12/14/19 - ROOM #342 DATE OF : 50 SURGICAL CARE: Right hip. SURGEON: River Dent MD. ASSISTANTS: 1. JIAN Dyer, fast food assistant restaurant manager. 2. Francia Estes, testing tech. ANESTHESIOLOGIST: Dr. Hermelindo Romo. ANESTHESIA: Endotracheal tube, general. PRE-OP DIAGNOSIS: Severe arthritis of the right hip. POST-OP DIAGNOSIS: Severe arthritis of the right hip. OPERATIVE PROCEDURE: Right total hip replacement. COMPONENTS UTILIZED: Rory Continuum cup noncemented 48 mm outer diameter with 1 screw and the liner is elevated and the elevation is located posteriorly. The liner is for a 32 head. On the femoral side, a standard M/L taper size 15 with a - 3.5 32 mm cobalt-chrome head. COMPLICATIONS: There were no complications. DRAINS: There were no drains. BLOOD LOSS: 250 mL. REPLACEMENT: Crystalloid fluids. OPERATIVE INDICATION: Severe right hip arthritis. DESCRIPTION OF PROCEDURE: The patient was brought to the operating room and placed on the operating room table in the supine position. Following the administration of the anesthetic, then a Hernandez catheter was inserted. The patient was then carefully placed in the left lateral position with 2 folded blankets under the left greater trochanter. The pelvis was secured over the ASIS and the sacrum and the groin was carefully sealed off. The downside leg was checked to see if there was no pressure on the peroneal nerve at the fibular head and neck. The right hip was then given a preliminary chlorhexidine prep and then the formal ChloraPrep x2. After prepping, draping, and sealing off, we did our universal protocol time-out confirming Anali Bassett and plan for right total hip replacement. We all agreed and we proceeded. The hip incision was approximately 5 inches in length going from the greater trochanter distally for 2 inches and then going proximally, curving somewhat posteriorly towards the posterior iliac spine. The skin and subcu divided. Careful hemostasis was checked and achieved throughout the case utilizing electrocautery. The deep fascia was opened in line with the skin incision. A Charnley retractor was inserted. The trochanteric bursa was partly excised and then swept posteriorly. The gluteus medius was retracted anteriorly with a blunt Hohmann retractor and a careful posterior approach to the hip was done with careful hemostasis. The piriformis and conjoint tendons were marked with #2 Surgidac sutures and this suture also included the underlying capsular flap. The hip had some clear goldish synovial fluid. The gluteus minimus was also retracted anteriorly and the superior capsule was then divided. The hip was dislocated without difficulty. There was complete eburnation of the bone on the superior surface of the femoral head. The femoral neck was marked with a neck cutting guide for the M/L taper stem and the neck was cut approximately a fingerbreadth proximal to the lesser trochanter. The head and neck portion removed. We then removed acetabular labrum posterosuperior, superiorly and posteriorly. Retraction for the acetabulum, sharp Hohmann anteriorly and a sharp Hohmann posteriorly, blunt Hohmann superiorly and inferiorly. The medial osteophyte was removed with osteotomes and then the fovea was cleaned with a Charnley type large curette. The reaming for the acetabulum started at 42 and then went to 48. At 48, we had nice bleeding subchondral and cancellous bone. A 48 Continuum cup was impacted into position in 45 degrees of abduction, 20 degrees of anteversion, and a single screw was placed superiorly and elevated liner was then placed posteriorly. The acetabulum was packed with a clean lap sponge and then attention was turned to the femoral side. On the femoral side, we used a canal finder and trochanteric reamer. Broaching was done size 5 through size 15, and at 15, we did a trial reduction with nice fit and it was tight with a +0 head. The 15 M/L taper standard stem was then impacted into position in approximately 15 degrees of anteversion and the trunnion was cleaned and we utilized a -3.5 32 mm head. This was placed on the clean trunnion. The hip was reduced. The hip extension was approximately neutral. There was no tendency towards dislocation with IR and ER in extension, flexion of 90 degrees allowed IR and adduction of 30 to 40 degrees prior to dislocation. The hip was cleaned several times with pulse saline irrigation. Loose adipose was debrided and hemostasis checked and achieved utilizing electro-cautery. During closure, the piriformis and conjoint tendons reapproximated through 2 drill holes to the posterosuperior greater trochanter. The fascia celena then closed with interrupted [id number] #1 Vicryl and the fascia of the gluteus agnieszka the same. The deep and superficial subcu closed with 0 and then 2-0 Polysorb and then delon on the skin. The skin was washed and dried and covered with Betadine-soaked release followed by sterile gauze, ABD pads and then paper tape. The patient was returned to the supine position and then to the hospital bed and to the recovery room in stable and satisfactory condition after extubation. The procedure was well tolerated. [id number]/[facility] #: [id number] [facility] CLINICCalderon
--- NOTE | 2019-12-15 13:11 | PN ---
Progress Note - Progress Note Date of Service: 12/15/19 SOAP: Subjective: []Patient seen and examined at bedside. She feels well and is pleasantly surprised with how well her pain is controlled. States hip replacement has so far been much easier than knee replacement. Denies CP, SOB, dizziness, nausea. Objective: []Gen: NAD RLE: Right hip dressing CDI, thigh is soft and nontender. Able to straight leg raise. DF/PF intact, DP2+, sensation intact to light touch distally. Calves supple and nontender without erythema, edema or palpable cords Assessment: []Right total hip arthroplasty POD 1 Plan: []WBAT PT/OT posterior hip precautions lovenox 30 mg today, 40 mg tomorrow then POD 3 can resume her normal eliquis 5 mg bid dosing. Per her PCP Dr Bang :stopped her IVF, stopped her furosomide and spironolactone Plan for DC home tomorrow with home nursing Vital Signs Temp 97.6 F 12/15/19 11:30 Pulse 62 12/15/19 11:30 Resp 16 12/15/19 11:30 BP 114/59 12/15/19 11:30 Pulse Ox 97 12/15/19 11:30 Intake & Output 12/14/19 12/15/19 12/15/19 18:59 06:59 18:59 Intake Total 1100 1855 687 Output Total 500 850 800 Balance 600 1005 -113 Weight 203 lb Intake: IV Fluids 1100 1000 637 LR 1100 1000 637 IVPB 115 50 ABX - CEFAZOLIN 115 50 Oral 740 Output: Urine 800 Hernandez 500 850 Laboratory Last Values Hgb 9.1 g/dL (12.0-16.0) L 12/15/19 06:05 Hct 30 % (35-47) L 12/15/19 06:05 Plt Count 241 10^3/uL (150-450) 12/15/19 06:05 MPV 7.7 fL (7.4-10.4) 12/15/19 06:05 Sodium 137 mmol/L (135-145) 12/15/19 06:05 Potassium 4.3 mmol/L (3.5-5.0) 12/15/19 06:05 Chloride 107 mmol/L (101-111) 12/15/19 06:05 Carbon Dioxide 21 mmol/L (22-32) L 12/15/19 06:05 Anion Gap 9 mmol/L (2-11) 12/15/19 06:05 BUN 10 mg/dL (6-24) 12/15/19 06:05 Creatinine 0.74 mg/dL (0.51-0.95) 12/15/19 06:05 Est GFR ( Amer) 94.2 (>60) 12/15/19 06:05 Est GFR (Non-Af Amer) 77.8 (>60) 12/15/19 06:05 BUN/Creatinine Ratio 13.5 (8-20) 12/15/19 06:05 Glucose 112 mg/dL (70-100) H 12/15/19 06:05 Calcium 8.6 mg/dL (8.6-10.3) 12/15/19 06:05
[2019-12-15] MEDS: PSYLLIUM HUSK PO SCH (21:54)
[2019-12-16] MEDS: Levothyroxine TAB* 100 MCG TAB PO SCH (05:39)
[2019-12-16] MEDS: Acetaminophen TAB* 325 MG PO SCH ×2 (05:40→13:47)
[2019-12-16] MEDS: Ketorolac INJ* 30 MG/ML 1 ML VIAL IV PRN ×2 (05:48→14:05)
[2019-12-16 06:47] LABS: Hematocrit 27 % (35-47); Hemoglobin 9.2 g/dL (12.0-16.0); Mean Platelet Volume 7.7 fL (7.4-10.4); Platelet Count 272 10^3/uL (150-450)
--- NOTE | 2019-12-16 08:18 | PN ---
Subjective - Subjective Reason for Note: Progress Note History: She had an episode of hypotension associated with opioids yesterday evening. Her BP has remained at the lower end of the range. However, she has no symptoms - she is sitting in a chair and eating her breakfast. She walked yesterday and is able to cope with the pain - it is much better than when she had the total knee arthroplasty. Her asthma is not acting up, she is using a flutter valve to prevent mucus plugging. She had x 2 loose bowel movements yesterday. She is urinating - albeit small volumes. Active Problems: Active Problems Anemia (Acute) D64.9 - Due to acute blood loss. - Transfused 1/3 of a unit yesterday - Tired, otherwise not symptomatic - Monitor, transfuse below 8 History of total right hip arthroplasty (Acute) Z96.641 Post-operative state (Acute) Z98.890 - Management per orthopedics - PT/OT, Bowel regimen, Urinating well - Pain control adequate. - Trend H/H Atrial fibrillation (Chronic) I48.91 Depression (Chronic) F32.9 Hyperlipidemia (Chronic) E78.5 Obstructive sleep apnea (Chronic) G47.33 Current Medications: Current Medications Acetaminophen (Tylenol Tab*) 975 mg PO Q8HR [facility] Last Admin: 12/16/19 05:40 Dose: 975 mg Albuterol (Ventolin Hfa Inhaler*) 2 puff INH QID PRN PRN Reason: WHEEZING Apixaban (Eliquis*) 5 mg PO BID [facility] Bisacodyl (Dulcolax Supp*) 10 mg LA DAILY PRN PRN Reason: CONSTIPATION Budesonide/Formoterol Fumarate (Symbicort 160/4.5 (Nf)) 2 puff INH DAILY [facility] Last Admin: 12/15/19 08:30 Dose: 2 puff Cyclobenzaprine HCl (Flexeril Tab*) 10 mg PO Q6H PRN PRN Reason: SPASMS Last Admin: 12/15/19 11:24 Dose: 10 mg Diltiazem HCl (Cardizem Cd Cap*) 180 mg PO QAM [facility] Last Admin: 12/15/19 08:26 Dose: 180 mg Diphenhydramine HCl (Benadryl Iv*) 25 mg IV Q6H PRN PRN Reason: PRURITIS Diphenhydramine HCl (Benadryl Po*) 25 mg PO Q6H PRN PRN Reason: PRURITIS Docusate Sodium (Colace Cap*) 100 mg PO BID [facility] Last Admin: 12/15/19 21:52 Dose: Not Given Enoxaparin Sodium (Lovenox(*)) 40 mg SUBCUT ONCE ONE Stop: 12/16/19 12:01 Gabapentin (Neurontin Cap(*)) 600 mg PO TID [facility] Last Admin: 12/15/19 21:50 Dose: 600 mg Guaifenesin (Mucinex*) 1,200 mg PO BID PRN PRN Reason: COUGH/PHLEGM Ketorolac Tromethamine (Toradol Inj*) 30 mg IV Q6H PRN PRN Reason: PAIN - MILD Stop: 12/19/19 14:29 Last Admin: 12/16/19 05:48 Dose: 30 mg Lactulose (Lactulose*) 30 ml PO BID PRN PRN Reason: CONSTIPATION Levothyroxine Sodium (Synthroid Tab*) 100 mcg PO QAM@0600 [facility] Last Admin: 12/16/19 05:39 Dose: 100 mcg Magnesium Hydroxide (Milk Of Magnesia Liq*) 30 ml PO BID [facility] Last Admin: 12/15/19 21:52 Dose: Not Given Magnesium Hydroxide (Milk Of Magnesia Liq*) 30 ml PO Q6H PRN PRN Reason: CONSTIPATION Metoprolol Succinate (Toprol Xl Tab*) 25 mg PO QAM [facility] Last Admin: 12/15/19 08:25 Dose: 25 mg Misoprostol (Cytotec Tab*) 200 mcg PO BID [facility] Last Admin: 12/15/19 21:51 Dose: 200 mcg Morphine Sulfate (Morphine Inj (Syringe))*) 2 mg IV Q4H PRN PRN Reason: Pain - Unrelieved Multivitamins (Theragran Tab*) 1 tab PO DAILY [facility] Last Admin: 12/15/19 08:26 Dose: 1 tab Non-Formulary Medication (Psyllium Husk [Metamucil]) 1 cap PO BEDTIME [facility] Last Admin: 12/15/19 21:54 Dose: Not Given Ondansetron HCl (Zofran Inj*) 4 mg IV Q6H PRN PRN Reason: NAUSEA Ondansetron HCl (Zofran Odt Tab*) 4 mg PO Q6H PRN PRN Reason: NAUSEA Oxycodone HCl (Roxycodone Tab*) 5 mg PO Q4H PRN PRN Reason: Pain - Breakthrough Oxycodone/Acetaminophen (Percocet 5/325 Tab*) 1 tab PO Q4H PRN PRN Reason: PAIN - MODERATE Last Admin: 12/15/19 19:55 Dose: 1 tab Oxycodone/Acetaminophen (Percocet 5/325 Tab*) 2 tab PO Q4H PRN PRN Reason: PAIN - SEVERE Last Admin: 12/15/19 14:32 Dose: 1 tab Polyethyl Glycol/Propylene Glycol (Lubricant Eye Drops) 1 drop BOTH EYES TID [facility] Last Admin: 12/15/19 21:52 Dose: 1 drop Polyethylene Glycol/Electrolytes (Miralax (17 Gm Dose Janusz)) 17 gm PO DAILY PRN PRN Reason: Constipation Propafenone HCl (Rythmol Er (Nf)) 325 mg PO BID [facility]; Protocol Last Admin: 12/15/19 21:51 Dose: 325 mg Senna (Senokot 8.6 Mg Tab*) 1 tab PO BEDTIME PRN PRN Reason: CONSTIPATION Tramadol HCl (Ultram*) 50 mg PO Q6H PRN PRN Reason: PAIN - MODERATE Trazodone HCl (Desyrel Tab*) 25 mg PO BEDTIME PRN PRN Reason: insomnia Home Medications: Home Medications Medication Instructions Recorded Confirmed Type Psyllium Husk [Metamucil] 1 cap PO BEDTIME 03/18/14 12/14/19 History Acetaminophen [Arthritis Pain] 650 mg PO TID 11/20/15 12/14/19 History guaiFENesin [Guaifenesin ER] 1 tab PO BID PRN 01/01/17 12/14/19 History Budesonide/Formote 160/4.5(NF) 2 puff INH QAM 02/12/17 12/14/19 History [Symbicort 160/4.5 (NF)] Multivitamin [Multiple Vitamins] 1 tab PO QAM 11/11/17 12/14/19 History Propylene Glycol [Systane Balance] 1 drop BOTH EYES TID 01/28/18 12/14/19 History Misoprostol TAB* [Cytotec TAB*] 200 mcg PO BID tab 02/23/18 12/14/19 Rx Fluticasone NASAL SPRAY 50MCG* 1 spray BOTH NARES DAILY PRN 07/03/18 12/14/19 History [Flonase NASAL SPRAY 50MCG*] Furosemide TAB* [Lasix TAB*] 20 mg PO QAM 07/03/18 12/14/19 History Gabapentin CAP(*) [Neurontin 300 2 tab PO TID 07/03/18 12/14/19 History CAP(*)] Levothyroxine TAB* [Synthroid 100 100 mcg PO QAM 07/03/18 12/14/19 History MCG TAB*] tiZANidine TAB* [Zanaflex TAB*] 4 mg PO BID 07/03/18 12/14/19 History Albuterol HFA INHALER* [Ventolin 2 puff INH QID PRN 11/02/18 12/14/19 History HFA Inhaler*] Cholecalciferol TAB* [Vitamin D 1,000 units PO QAM 11/02/18 12/14/19 History TAB*] dilTIAZem HCl [Diltiazem 24Hr ER 180 mg PO QAM 11/02/18 12/14/19 History (Cd)] Apixaban* [Eliquis*] 5 mg PO BID 03/02/19 12/14/19 History Propafenone HCl [Propafenone HCl 325 mg PO BID 03/02/19 12/14/19 History ER] Docusate CAP* [Colace Cap*] 100 mg PO QPM PRN 04/02/19 12/14/19 History Metoprolol Succinate XL TAB* 25 mg PO QAM 07/05/19 12/14/19 History [Toprol XL TAB*] Polyethylene Glycol 3350* [Miralax 1 dose PO DAILY PRN 07/05/19 12/14/19 History (17 GM DOSE JANUSZ)] Amoxicillin PO (*) [Amoxicillin 4 cap PO SEE INSTRUCTIONS 12/01/19 12/14/19 History 500 MG CAP*] Aspirin EC TAB* [Ecotrin EC Low 81 mg PO QAM 12/01/19 12/14/19 History Dose 81 MG*] Diclofenac Sodium 75 mg PO BID WITH MEALS 12/01/19 12/14/19 History Sennosides [Senna] 8.6 mg PO BEDTIME PRN 12/01/19 12/14/19 History Spironolactone TAB* [Aldactone 25 mg PO QAM 12/01/19 12/14/19 History TAB*] Allergies: Allergies Allergy/AdvReac Type Severity Reaction Status Date / Time erythromycin base AdvReac Intermediate Diarrhea, Verified 12/14/19 10:22 nausea Objective - Vital Signs Vital Signs: Vital Signs 12/15/19 12/15/19 12/15/19 08:25 08:28 08:30 Temperature Pulse Rate Respiratory 16 16 16 Rate Blood Pressure (mmHg) O2 Sat by Pulse Oximetry 12/15/19 12/15/19 12/15/19 11:24 11:30 13:47 Temperature 97.6 F Pulse Rate 62 Respiratory 16 16 22 Rate Blood Pressure 114/59 (mmHg) O2 Sat by Pulse 97 Oximetry 12/15/19 12/15/19 12/15/19 13:48 14:22 14:32 Temperature 98.2 F Pulse Rate 61 Respiratory 22 22 17 Rate Blood Pressure 105/48 (mmHg) O2 Sat by Pulse 99 Oximetry 12/15/19 12/15/19 12/15/19 19:55 20:00 21:00 Temperature 97.7 F Pulse Rate 59 Respiratory 16 16 16 Rate Blood Pressure 89/53 (mmHg) O2 Sat by Pulse 96 Oximetry 12/15/19 12/15/19 12/15/19 21:50 21:55 23:30 Temperature Pulse Rate Respiratory 18 16 16 Rate Blood Pressure (mmHg) O2 Sat by Pulse Oximetry 12/15/19 12/16/19 23:59 03:42 Temperature 97.3 F 97.8 F Pulse Rate 59 54 Respiratory 16 16 Rate Blood Pressure 101/59 97/62 (mmHg) O2 Sat by Pulse 92 98 Oximetry - Intake and Output Intake and Output: Intake & Output 12/13/19 12/14/19 12/15/19 12/16/19 11:59 11:59 11:59 11:59 Intake Total 2955 2187 Output Total 2150 800 Balance 805 1387 Weight 203 lb Intake: IV Fluids 2100 637 LR 2100 637 IVPB 115 50 ABX - CEFAZOLIN 115 50 Oral 740 1500 Output: Urine 800 800 Hernandez 1350 Other: Estimated Void Small Date of Last Bowel 12/15/19 Movement # Bowel Movements 1 Estimated Stool Amount Small ADLs: Meal Record Start: 12/14/19 14: 34 Freq: Status: Active Protocol: Created 12/14/19 14:34 [id number] (Rec: 12/14/19 14:34 [id number] SSU-C09) Document 12/14/19 19:04 [id number] (Rec: 12/14/19 19:04 [id number] TELE-M14) Document 12/15/19 18:26 [id number] (Rec: 12/15/19 18:27 [id number] SSU-M17) Intake and Output Start: 12/14/19 14: 34 Freq: DAILY@0600,1400,2200 Status: Active Protocol: Created 12/14/19 14:34 [id number] (Rec: 12/14/19 14:34 [id number] SSU-C09) Document 12/14/19 22:00 [id number] (Rec: 12/14/19 22:16 [id number] TELE-M14) Document 12/15/19 05:30 [id number] (Rec: 12/15/19 05:31 [id number] SSU-M07) Document 12/15/19 08:08 [id number] (Rec: 12/15/19 08:08 [id number] SSU-M18) Document 12/15/19 13:30 [id number] (Rec: 12/15/19 14:43 [id number] SSU-M18) Document 12/15/19 13:56 [id number] (Rec: 12/15/19 13:58 [id number] SSU-C10) Document 12/15/19 14:04 [id number] (Rec: 12/15/19 14:05 [id number] SSU-C01) Document 12/15/19 16:30 [id number] (Rec: 12/15/19 16:41 [id number] SSU-C06) Document 12/15/19 18:27 [id number] (Rec: 12/15/19 18:27 [id number] SSU-M17) Document 12/15/19 21:46 [id number] (Rec: 12/15/19 21:47 [id number] TELE-M14) Document 12/15/19 22:09 [id number] (Rec: 12/15/19 22:11 [id number] TELE-M14) Document 12/16/19 05:57 [id number] (Rec: 12/16/19 05:58 [id number] U-M17) - Physical Exam General Physical Exam Comment: Warm and well perfused. General: No Cyanosis, No Anemia, No Jaundice, No Clubbing Lungs and Chest: Yes: Chest Expansion Full, Percussion Note Resonant, Vessicular Breath Sounds. No: Crackles, Wheezes Heart Rate and Rhythm: Irregular Additional Cardiovascular: Yes: Normal Heart Sounds. No: Heart Murmur Abdominal Exam: Yes: Soft. No: Distention, Abdominal Tenderness Results - Results Lab Results: Laboratory Results - last 24 hr 12/16/19 06:09 Hgb 9.2 L Hct 27 L Plt Count 272 MPV 7.7 Assessment - Problem List Assessment: Patient Problems Anemia (Acute) History of total right hip arthroplasty (Acute) Post-operative state (Acute) Atrial fibrillation (Chronic) Depression (Chronic) Hyperlipidemia (Chronic) Obstructive sleep apnea (Chronic) Abnormal EKG (Chronic) Asthma (Chronic) Atrial septal aneurysm (Chronic) Breast cancer, right (Chronic 05/27/14) Chronic back pain (Chronic) DVT prophylaxis (Chronic) Edema (Chronic) Essential hypertension (Chronic) Full code status (Chronic) History of total right knee replacement (Chronic) Hypothyroidism (Chronic) Obesity (Chronic) Primary hypothyroidism (Chronic) Plan: History of total right hip arthroplasty (Acute)Post-operative state (Acute) She is recovering well and hopes to go home today Anemia (Acute) Her hemoglobin is stable Comorbidities: History of diastolic heart failure: I have stopped her diuretics during this acute phase of her recovery as she has a history of hypotension after surgery associated with opioids. She has no signs of heart failure at present. She can restart her diuretic therapy after discharge home. Atrial fibrillation (Chronic) We will be restarting her apixaban tomorrow Essential hypertension (Chronic) - she actually was hypotensive last night and her BP remains at the lower end of the range. I am avoiding IV saline in view of her history of diastolic CHF. Asthma (Chronic) She has no evidence of wheezing. However, she has a history of mucus plugging and she is preventing this with a flutter valve Secondary diagnoses: Depression (Chronic) Hyperlipidemia (Chronic) Obstructive sleep apnea (Chronic) Abnormal EKG (Chronic) Atrial septal aneurysm (Chronic) Breast cancer, right (Chronic 05/27/14) Chronic back pain (Chronic) DVT prophylaxis (Chronic) Edema (Chronic) Full code status (Chronic) History of total right knee replacement (Chronic) Hypothyroidism (Chronic) Obesity (Chronic) Primary hypothyroidism (Chronic) I think she is doing well from a medical point of view. If she goes home today , I recommend she restarts the apixaban tomorrow and also her usual furosemide/ spironolactone. I have suggested she should minimize the use of opioids in view of her hypotensive reaction to them.
[2019-12-16] MEDS: Misoprostol TAB* 200 MCG PO SCH (08:35)
[2019-12-16] MEDS: PROPAFENONE 325 MG PO SCH (08:35)
[2019-12-16] MEDS: Vitamin THERAPEUTIC TAB PO SCH (08:36)
[2019-12-16] MEDS: Metoprolol Succinate XL TAB* 25 MG PO SCH (08:36)
[2019-12-16] MEDS: Diltiazem CD CAP* 180 MG PO SCH (08:36)
[2019-12-16] MEDS: Docusate CAP* 100 MG PO SCH (08:36)
[2019-12-16] MEDS: Gabapentin CAP(*) 300 MG PO SCH ×2 (08:37→13:48)
[2019-12-16] MEDS: Polyethyl Glycol/Propylene Gly OPHTH.SOLN BOTH EYES SCH ×2 (08:40→13:54)
[2019-12-16] MEDS: PTO: Budesonide/Formote 160/4.5(NF) MDI INH SCH (08:41)
[2019-12-16] MEDS: Magnesium Hydroxide LIQ* 30 ML UDC PO SCH (08:57)
--- NOTE | 2019-12-16 10:09 | DS ---
Orthopedic Discharge Summary - Discharge Summary Date of Admission:12/14/19 Date of Discharge: 12/16/19 Date of Surgery: 12/14/19 Attending Orthopedic Provider: Dr Dent Pre-operative Diagnosis: Right hip osteoarthritis Operative Procedure: Right total hip replacement Disposition of Patient:Home Home care vs Outpatient services: [facility] Condition of Patient: Stable Pain medication RX at discharge: tramadol 50 mg 1 -2 tabs po q 6 hr prn pain, mdd 8 DVT prophylaxis RX at discharge: eliquis 5 mg q 12 hr - this is a home dose unchanged History: RADHA JAVIER is a 69 year old F with years of increasingly severe right hip pain. Patient has failed conservative management and has elected to undergo a right total hip replacement Hospital Course: RADHA was admitted to [facility] on 12/14/19. Patient underwent a right total hip replacement without complication followed by a brief recovery in PACU and transfer to the Short Stay Surgical Unit in stable condition. Our hospitalist service, physical therapy and occupational therapy also participated in this patients care. Post-op day 1: patient was alert and in no acute distress. Dressing was clean, dry and intact. Operative extremity dorsiflexion and plantarflexion intact, sensation intact to light touch distally, DP2+. DVT prophy was lovenox 30 mg. Post-op day two: Patient was seen at bedside, she feels well without CP, SOB, dizziness or nausea. Her BP has been soft and Dr Bang rec hold lasix and spironolactone today to be reinstated tomorrow as well as limiting opioids when BP low. Her pain medication was changed to tramadol. Her dressing removed, incision was clean, dry and intact without discharge or surrounding erythema. Incision site washed with soap and water and redressed. Able to SLR, df/pf intact, dp2+, sensation intact to light touch distally. DVT prophy was lovenox 40 mg. She will restart her home dose of eliquis 5 mg bid tomorrow, POD 3. Patient was deemed to be medically and orthopedically stable for discharge to home. Physical therapy goals were met. Home Medications Medication Instructions Recorded Confirmed Type Psyllium Husk [Metamucil] 1 cap PO BEDTIME 03/18/14 12/14/19 History Acetaminophen [Arthritis Pain] 650 mg PO TID 11/20/15 12/14/19 History guaiFENesin [Guaifenesin ER] 1 tab PO BID PRN 01/01/17 12/14/19 History Budesonide/Formote 160/4.5(NF) 2 puff INH QAM 02/12/17 12/14/19 History [Symbicort 160/4.5 (NF)] Multivitamin [Multiple Vitamins] 1 tab PO QAM 11/11/17 12/14/19 History Propylene Glycol [Systane Balance] 1 drop BOTH EYES TID 01/28/18 12/14/19 History Misoprostol TAB* [Cytotec TAB*] 200 mcg PO BID tab 02/23/18 12/14/19 Rx Fluticasone NASAL SPRAY 50MCG* 1 spray BOTH NARES DAILY PRN 07/03/18 12/14/19 History [Flonase NASAL SPRAY 50MCG*] Furosemide TAB* [Lasix TAB*] 20 mg PO QAM 07/03/18 12/14/19 History Gabapentin CAP(*) [Neurontin 300 2 tab PO TID 07/03/18 12/14/19 History CAP(*)] Levothyroxine TAB* [Synthroid 100 100 mcg PO QAM 07/03/18 12/14/19 History MCG TAB*] tiZANidine TAB* [Zanaflex TAB*] 4 mg PO BID 07/03/18 12/14/19 History Albuterol HFA INHALER* [Ventolin 2 puff INH QID PRN 11/02/18 12/14/19 History HFA Inhaler*] Cholecalciferol TAB* [Vitamin D 1,000 units PO QAM 11/02/18 12/14/19 History TAB*] dilTIAZem HCl [Diltiazem 24Hr ER 180 mg PO QAM 11/02/18 12/14/19 History (Cd)] Apixaban* [Eliquis*] 5 mg PO BID 03/02/19 12/14/19 History Propafenone HCl [Propafenone HCl 325 mg PO BID 03/02/19 12/14/19 History ER] Docusate CAP* [Colace Cap*] 100 mg PO QPM PRN 04/02/19 12/14/19 History Metoprolol Succinate XL TAB* 25 mg PO QAM 07/05/19 12/14/19 History [Toprol XL TAB*] Polyethylene Glycol 3350* [Miralax 1 dose PO DAILY PRN 07/05/19 12/14/19 History (17 GM DOSE JANUSZ)] Amoxicillin PO (*) [Amoxicillin 4 cap PO SEE INSTRUCTIONS 12/01/19 12/14/19 History 500 MG CAP*] Aspirin EC TAB* [Ecotrin EC Low 81 mg PO QAM 12/01/19 12/14/19 History Dose 81 MG*] Diclofenac Sodium 75 mg PO BID WITH MEALS 12/01/19 12/14/19 History Sennosides [Senna] 8.6 mg PO BEDTIME PRN 12/01/19 12/14/19 History Spironolactone TAB* [Aldactone TAB 25 mg PO QAM 12/01/19 12/14/19 History 25 MG*] Acetaminophen TAB* [Tylenol TAB*] 975 mg PO Q8HR tab 12/16/19 Rx Apixaban* [Eliquis*] 5 mg PO BID tab 12/16/19 Rx Docusate CAP* [Colace Cap*] 100 mg PO BID PRN #60 cap 12/16/19 Rx traMADol TAB* [Ultram*] 50 mg PO Q6H PRN #56 tab MDD 8 12/16/19 Rx Discharge Instructions following Orthopedic Surgery: Activity: * Weight Bearing as tolerated * Continue physical therapy and occupational therapy exercises as shown * you have elected to have home physical therapy, continue therapy exercises at home. Hip replacements: Continue Hip Precautions- do not cross legs or bend greater than 90 degrees/squat Wound care: * OK to shower on post-op day 3, no bathing, swimming, or submerging wound. * Use gentle soap, pat dry. Cover with gauze, JESSE wrap or tape. * you elected to have a visiting home nurse, they will perform wound checks. Visiting nurse will remove delon in 2 weeks Nurse and PT to monitor BP. systolic less than 100 please hold tramadol until BP above 100 systolic. If systolic less than 100 also call PCP to determine if need to hold blood pressure medicine (spironolactone and lasix) Call Orthopedic office for: * Increased drainage * Redness * Increased pain * Fever Go to ER with shortness of breath or chest pain. Diet: * Regular diet * Increase fluids and fiber to prevent constipation. * Continue to use stool softeners, call office if no bowel motion within 48 hours. Medications See Home Medication List in your packet for medications that you should take after discharge. DVT Prophylaxis: Eliquis Dosin mg, 1 tab every 12 hours as you normally take at home. Will increase bleeding tendency Pain Control: Tramadol 50 mg tabs: take 1 tab for moderate pain and 2 tabs for every pain every 6 hours as needed. Max 8 per day. Hold for sedation or blood pressure less than 100 systolic, wean off as soon as pain allows. Antibiotics are required prior to any dental work. FOLLOW UP: Follow up with [Filipe] Within [30] days, sooner with concerns, call for appointment Please call our office with any questions or concerns ([phone]) TIMMY Snow
[2019-12-16] MEDS ORDERED: Enoxaparin(*) 40 MG/0.4 ML SYR SUBCUT ONE (12:00)
[2019-12-16] MEDS ORDERED: oxyCODONE TAB* 5 MG TAB PO PRN (14:16)
[2019-12-16 15:10] VITALS: BP 98/64
[2019-12-17] MEDS ORDERED: Apixaban* 5 MG TAB PO SCH (09:00)
[2019-12-17] MEDS ORDERED: Apixaban* 2.5 MG TAB PO SCH ×2 (09:00)
== END 2019-12-16 17:20 | disposition home health service (06) | DRG 470 ==
LOC: AA 08:45 → SSU 14:30
PROVIDERS: ADMIT Orthopaedic Surgery; ATTEND Orthopaedic Surgery
PROC: 0SR902A Replacement of Right Hip Joint with Metal on Polyethylene Synthetic Substitute, Uncemented, Open Approach (ICD-10-PCS; principal; 2019-12-14 11:00)
DX: M16.11 Unilateral primary osteoarthritis, right hip (principal); D62 Acute posthemorrhagic anemia; I10 Essential (primary) hypertension; E78.00 Pure hypercholesterolemia, unspecified; I48.91 Unspecified atrial fibrillation; M47.812 Spondylosis without myelopathy or radiculopathy, cervical region; I27.20 Pulmonary hypertension, unspecified; I95.9 Hypotension, unspecified; T40.2X5A Adverse effect of other opioids, initial encounter; Y92.239 Unspecified place in hospital as the place of occurrence of the external cause; G47.33 Obstructive sleep apnea (adult) (pediatric); E78.5 Hyperlipidemia, unspecified; F32.9 Major depressive disorder, single episode, unspecified; G89.29 Other chronic pain; M54.9 Dorsalgia, unspecified; J44.9 Chronic obstructive pulmonary disease, unspecified; E03.9 Hypothyroidism, unspecified; E66.9 Obesity, unspecified; Z68.32 Body mass index [BMI] 32.0-32.9, adult; Z79.899 Other long term (current) drug therapy; Z79.890 Hormone replacement therapy; Z79.82 Long term (current) use of aspirin; Z79.01 Long term (current) use of anticoagulants; Z85.3 Personal history of malignant neoplasm of breast; Z90.13 Acquired absence of bilateral breasts and nipples; Z79.51 Long term (current) use of inhaled steroids; Z88.1 Allergy status to other antibiotic agents
CPT/HCPCS: 36415; 72170; 80048; 85014; 85018; 85049; 88304; 88311; A9270-GY; C1713; C1776; J0690; J1100; J1170; J1650; J1885; J2250; J2405; J2704; J3010

== ENCOUNTER 2022-07-08 09:58 | Inpatient (IN) ==
[2022-07-08] MEDS ORDERED: Albuterol/Ipratropium NEB.SOL (2.5/0.5 MG) 3 ML NEB.SOLN INH ONE (11:52)
[2022-07-08] MEDS ORDERED: Magnesium Sulfate 2 gm BAG 2 GM/50 ML BAG IVPB ONE (11:52)
[2022-07-08] MEDS ORDERED: methylPREDNISolone SOD SUCC 125 mg 2 ML VIAL IV ONE (11:53)
[2022-07-08] MEDS ORDERED: Piperacillin/Tazobac ADVAN 3.375 GM in NS 0.9% 100 ml BAG 100 ML IV ONE (11:54)
[2022-07-08 12:18] LABS: ABS Basophils 0.1 10^3/ul (0-0.2); ABS Lymphocytes 0.6 10^3/ul (1.0-4.8); ABS Monocytes 0.4 10^3/ul (0-0.8); ABS Neutrophils 14.7 10^3/ul (1.5-7.7); Eosinophil % 0.3 %; Hematocrit 43 % (35-47); Lymphocyte % 3.8 %; Mean Corpuscular HGB Conc 32 g/dL (31-36); Mean Corpuscular Hemoglobin 28 pg (27-31); Mean Corpuscular Volume 86 fL (80-97); Mean Platelet Volume 7.1 fL (7.4-10.4); Platelet Count 379 10^3/uL (150-450); Red Blood Count 5.06 10^6 /uL (3.70-4.87); Red Cell Distribution Width 16 % (10-15); White Blood Count 15.8 10^3/uL (3.5-10.8)
[2022-07-08 12:45] LABS: Albumin 4.1 g/dL (3.2-5.2); Albumin/Globulin Ratio 1.5 (1-3); Calcium 9.6 mg/dL (8.6-10.3); Globulin 2.7 g/dL (2-4); Potassium 4.6 mmol/L (3.5-5.0); Total Bilirubin 0.5 mg/dL (0.2-1.0); Total Protein 6.8 g/dL (6.4-8.9); eGFR CKD-EPI 76.4 (>60)
[2022-07-08] MEDS ORDERED: Magnesium Sulfate 2 gm BAG 2 GM/50 ML BAG ONE (13:09)
[2022-07-08 14:31] LABS: C Reactive Protein 5.3 mg/L (<8.01)
[2022-07-08] MEDS ORDERED: cefTRIAXone 1 gm/50 mL D5W 1 GM/50 ML BAG IV SCH (15:30)
[2022-07-08] MEDS ORDERED: Senna TAB 8.6 mg TAB PO PRN (15:32)
[2022-07-08] MEDS ORDERED: Polyethyl Glycol/Propylene Gly OPHTH.SOLN BOTH EYES PRN (15:32)
[2022-07-08] MEDS ORDERED: Albuterol HFA INHALER 8 gm MDI INH PRN (15:39)
[2022-07-08 15:53] LABS: High Sensitivity Troponin 1 Hr 8 pg/mL (<15)
[2022-07-08] MEDS ORDERED: Zosyn per Pharmacy NOTE FOLLOW UP SCH (16:00)
[2022-07-08] MEDS: Albuterol/Ipratropium NEB.SOL (2.5/0.5 MG) 3 ML NEB.SOLN INH SCH ×2 (16:09→19:13)
[2022-07-08] MEDS ORDERED: Polyethylene Glycol 3350 17 GM PACKET PO PRN (16:43)
[2022-07-08] MEDS ORDERED: ZOSYN 3.375 GM Q8H per EXTENDED INFUSION IV SCH (17:00)
[2022-07-08] MEDS: Linezolid 600 MG IVPREMIX(*) 600 MG/300 ML BAG IVPB SCH (17:45)
[2022-07-08] MEDS ORDERED: ZOSYN 3.375 GM x ONE DOSE over 30 miuntes IV (20:00)
[2022-07-08] MEDS: CMC:Cyclosporine 0.05% OPHTH (NF) 0.4 ML VIAL BOTH EYES SCH (20:21)
[2022-07-08] MEDS: methylPREDNISolone SOD SUCC 40 mg/ml 1 ml VIAL IV SCH (20:22)
[2022-07-08 21:29] LABS: Urine Appearance Clear; Urine Bilirubin Negative (Negative); Urine Blood Negative (Negative); Urine Color Straw; Urine Glucose 2+(150 mg/dL) (Negative); Urine Ketones Negative (Negative); Urine Nitrite Negative (Negative); Urine Protein Negative (Negative); Urine Urobilinogen Negative (Negative)
[2022-07-09] MEDS: ZOSYN 3.375 GM Q8H per EXTENDED INFUSION IV SCH ×3 (00:52→17:55)
[2022-07-09] MEDS: methylPREDNISolone SOD SUCC 40 mg/ml 1 ml VIAL IV SCH ×3 (04:47→20:45)
[2022-07-09 05:36] LABS: ABS Lymphocytes 0.4 10^3/ul (1.0-4.8); ABS Monocytes 0.1 10^3/ul (0-0.8); ABS Neutrophils 8.5 10^3/ul (1.5-7.7); Hematocrit 43 % (35-47); Hemoglobin 14.1 g/dL (12.0-16.0); Lymphocyte % 4.8 %; Mean Corpuscular HGB Conc 33 g/dL (31-36); Mean Corpuscular Hemoglobin 28 pg (27-31); Mean Corpuscular Volume 86 fL (80-97); Mean Platelet Volume 7.5 fL (7.4-10.4); Platelet Count 311 10^3/uL (150-450); Red Blood Count 5.01 10^6 /uL (3.70-4.87); Red Cell Distribution Width 16 % (10-15); White Blood Count 9.1 10^3/uL (3.5-10.8)
[2022-07-09 05:54] LABS: Calcium 9.4 mg/dL (8.6-10.3); Potassium 4.6 mmol/L (3.5-5.0); eGFR CKD-EPI 86.4 (>60)
[2022-07-09] MEDS: Linezolid 600 MG IVPREMIX(*) 600 MG/300 ML BAG IVPB SCH ×2 (06:45→16:40)
[2022-07-09] MEDS: Albuterol/Ipratropium NEB.SOL (2.5/0.5 MG) 3 ML NEB.SOLN INH SCH ×4 (08:15→18:54)
[2022-07-09] MEDS: CMC:Cyclosporine 0.05% OPHTH (NF) 0.4 ML VIAL BOTH EYES SCH ×2 (08:51→20:46)
[2022-07-09] MEDS: oxyCODONE SR 10 mg TAB PO PRN ×2 (10:18→22:05)
[2022-07-09] MEDS ORDERED: Albuterol 2.5mg/3 ml (0.083%) NEB.SOLN INH SCH (11:00)
[2022-07-09] MEDS: Sodium Chloride(INHALANT) 3% 4 ML NEB.SOLN INH SCH ×2 (11:20→18:55)
[2022-07-09] MEDS ORDERED: Iodixanol (CONTRAST) 320 MG/ML 100 ML SDV IV ONE (15:48)
[2022-07-10] MEDS: ZOSYN 3.375 GM Q8H per EXTENDED INFUSION IV SCH ×4 (01:46→23:28)
[2022-07-10] MEDS: methylPREDNISolone SOD SUCC 40 mg/ml 1 ml VIAL IV SCH ×3 (05:13→20:20)
[2022-07-10 05:45] LABS: ABS Lymphocytes 0.4 10^3/ul (1.0-4.8); ABS Monocytes 0.4 10^3/ul (0-0.8); ABS Neutrophils 10.9 10^3/ul (1.5-7.7); Hematocrit 40 % (35-47); Lymphocyte % 3.1 %; Mean Corpuscular HGB Conc 32 g/dL (31-36); Mean Corpuscular Hemoglobin 28 pg (27-31); Mean Corpuscular Volume 86 fL (80-97); Mean Platelet Volume 7.3 fL (7.4-10.4); Platelet Count 362 10^3/uL (150-450); Red Blood Count 4.68 10^6 /uL (3.70-4.87); Red Cell Distribution Width 16 % (10-15); White Blood Count 11.7 10^3/uL (3.5-10.8)
[2022-07-10 06:05] LABS: Calcium 9.7 mg/dL (8.6-10.3); Potassium 4.3 mmol/L (3.5-5.0); eGFR CKD-EPI 78.7 (>60)
[2022-07-10] MEDS: Albuterol/Ipratropium NEB.SOL (2.5/0.5 MG) 3 ML NEB.SOLN INH SCH (07:07)
[2022-07-10] MEDS: Sodium Chloride(INHALANT) 3% 4 ML NEB.SOLN INH SCH ×2 (07:08→19:25)
[2022-07-10] MEDS ORDERED: Metoprolol Tartrate 5 mg VIAL 5 ml VIAL (1 mg/ml) IV PRN (08:05)
[2022-07-10] MEDS ORDERED: Metoprolol Tartrate 5 mg VIAL 5 ml VIAL (1 mg/ml) ONE (08:11)
[2022-07-10] MEDS ORDERED: Metoprolol Tartrate 5 mg VIAL 5 ml VIAL (1 mg/ml) IV ONE (08:13)
[2022-07-10] MEDS ORDERED: Furosemide 40 mg/4 ml IV VIAL IV ONE (08:41)
[2022-07-10] MEDS ORDERED: Albuterol/Ipratropium NEB.SOL (2.5/0.5 MG) 3 ML NEB.SOLN INH PRN (08:41)
[2022-07-10] MEDS ORDERED: Levalbuterol 0.63MG/3ML NEB UNIT OF USE INH SCH (09:00)
[2022-07-10] MEDS: Levalbuterol 0.63MG/3ML NEB UNIT OF USE INH SCH ×2 (10:11→19:26)
[2022-07-10] MEDS: CMC:Cyclosporine 0.05% OPHTH (NF) 0.4 ML VIAL BOTH EYES SCH ×2 (11:34→20:18)
[2022-07-10] MEDS: Fluticasone NASAL SPRAY 50MCG 16 gm SPRAY BTL INTRANASAL PRN (11:35)
[2022-07-10] MEDS ORDERED: Benzocaine/Butamben/Tetracain (CETACAINE - SINGLE USE) 5 gm TOPICAL ONE (16:50)
[2022-07-10] MEDS ORDERED: Prochlorperazine 5 mg/ml 2 ml VIAL (10 mg) IV PRN (16:52)
[2022-07-10] MEDS ORDERED: HYDROcodone/ACETAMIN 5/325 mg TAB PO PRN (16:52)
[2022-07-10] MEDS ORDERED: oxyCODONE/Acetamin 5/325 mg TAB PO PRN (16:52)
[2022-07-10] MEDS ORDERED: Naloxone 0.4 mg VIAL 0.4 mg/ml 1 ml VIAL IV PRN (16:52)
[2022-07-10] MEDS ORDERED: fentaNYL 100 mcg/2 ml 50 MCG/ML VIAL IV PRN (16:52)
[2022-07-10] MEDS ORDERED: Succinylcholine 200 mg VIAL 20 mg/ml 10 ml VIAL (200 mg) ONE (17:00)
[2022-07-10] MEDS ORDERED: Lidocaine 2% PF 5 ML VIAL ONE (17:00)
[2022-07-10] MEDS ORDERED: Phenylephrine 40 mcg/mL 10mL (400mcg) SYRINGE ONE (17:02)
[2022-07-10] MEDS ORDERED: fentaNYL 100 mcg/2 ml 50 MCG/ML VIAL ONE (17:03)
[2022-07-10] MEDS ORDERED: Ondansetron 4 mg VIAL 2 MG/ML 2 ml VIAL ONE (17:15)
[2022-07-10] MEDS ORDERED: Dexamethasone IV 4 MG/ML VIAL 1 ml VIAL ONE (17:15)
[2022-07-10] MEDS: oxyCODONE SR 10 mg TAB PO PRN (18:39)
[2022-07-10] MEDS: Mometasone/Formoter 200/5 MDI INH SCH (19:29)
[2022-07-11] MEDS: methylPREDNISolone SOD SUCC 40 mg/ml 1 ml VIAL IV SCH ×2 (05:01→12:40)
[2022-07-11 06:20] LABS: Hematocrit 40 % (35-47); Mean Corpuscular HGB Conc 33 g/dL (31-36); Mean Corpuscular Hemoglobin 28 pg (27-31); Mean Corpuscular Volume 86 fL (80-97); Mean Platelet Volume 7.4 fL (7.4-10.4); Platelet Count 360 10^3/uL (150-450); Red Blood Count 4.67 10^6 /uL (3.70-4.87); Red Cell Distribution Width 16 % (10-15); White Blood Count 22.3 10^3/uL (3.5-10.8)
[2022-07-11 06:21] LABS: ABS Lymphocytes 0.4 10^3/ul (1.0-4.8); ABS Monocytes 0.8 10^3/ul (0-0.8); ABS Neutrophils 21.1 10^3/ul (1.5-7.7); Lymphocyte % 1.6 %
[2022-07-11 06:35] LABS: Calcium 9.4 mg/dL (8.6-10.3); eGFR CKD-EPI 76.4 (>60)
[2022-07-11] MEDS: Levalbuterol 0.63MG/3ML NEB UNIT OF USE INH SCH (07:08)
[2022-07-11] MEDS: Mometasone/Formoter 200/5 MDI INH SCH (07:09)
[2022-07-11] MEDS: Sodium Chloride(INHALANT) 3% 4 ML NEB.SOLN INH SCH (07:09)
[2022-07-11] MEDS: ZOSYN 3.375 GM Q8H per EXTENDED INFUSION IV SCH (08:32)
[2022-07-11] MEDS: CMC:Cyclosporine 0.05% OPHTH (NF) 0.4 ML VIAL BOTH EYES SCH (08:37)
[2022-07-11] MEDS: oxyCODONE SR 10 mg TAB PO PRN (08:45)
[2022-07-11] MEDS: Fluticasone NASAL SPRAY 50MCG 16 gm SPRAY BTL INTRANASAL PRN (08:45)
[2022-07-11 11:29] VITALS: BP 134/93
== END 2022-07-11 15:40 | disposition home or self-care (01) | DRG 163 ==
LOC: ED 09:58 → EDHOLD 09:58 → SUATTDRO 15:19 → MEDTELE 16:23
PROVIDERS: ADMIT Hospitalist; ATTEND Internal Medicine

== ENCOUNTER 2024-05-11 22:25 | Inpatient (IN) ==
[2024-05-12 00:56] LABS: ABS Basophils 0.1 10^3/uL (0.0-0.1); ABS Lymphocytes 0.2 10^3/uL (1.0-4.8); ABS Monocytes 0.2 10^3/uL (0.0-0.9); ABS Neutrophils 6.9 10^3/uL (1.5-7.6); ABS Nucleated RBC 0.02 10^3/ul; Hematocrit 37.9 % (35-45); Hemoglobin 12.7 g/dL (11.5-14.3); Lymphocyte % 2.1 %; Mean Corpuscular Hemoglobin 29.2 pg (27-33); Mean Corpuscular Hgb Conc 33.4 g/dL (31-36); Mean Corpuscular Volume 87.5 fL (80-97); Mean Platelet Volume 8.3 fL (7.5-11.2); Nucleated Red Blood Cells % 0.2 %/100WBC (0.0-0.8); Platelet Count 156 10^3/uL (150-450); Red Blood Count 4.33 10^6/uL (3.63-4.92); White Blood Count 7.3 10^3/uL (3.8-11.8)
[2024-05-12 02:45] LABS: Albumin 3.5 g/dL (3.2-5.2); Albumin/Globulin Ratio 1.6 (1-3); Calcium 8.9 mg/dL (8.6-10.3); Creatinine, Serum 0.8 mg/dL (0.51-0.95); Globulin 2.2 g/dL (2-4); Potassium 3.5 mmol/L (3.5-5.0); Total Bilirubin 1.2 mg/dL (0.2-1.0); Total Protein 5.7 g/dL (6.4-8.9); eGFR CKD-EPI 77.8 (>60)
[2024-05-12 03:52] LABS: Urine Appearance Clear; Urine Bacteria Absent /HPF (Absent); Urine Bilirubin Negative (Negative); Urine Blood 1+ (Negative); Urine Color Yellow; Urine Glucose 4+ (>=1000 mg/dL) (Negative); Urine Ketones 3+ (Negative); Urine Nitrite Negative (Negative); Urine Protein 2+ (>=100 mg/dL) (Negative); Urine Red Blood Cell 1+(3-5/hpf) /HPF (0-Trace); Urine Squamous Epithelial Cell Present /HPF (Absent); Urine Urobilinogen Negative (Negative); Urine White Blood Cell Absent /HPF (0-Trace); Urine pH 6.5 (5.0-8.0)
[2024-05-12 04:16] LABS: C Reactive Protein 288.56 mg/L (<8.01)
[2024-05-12] MEDS ORDERED: Albuterol 2.5mg/3 ml (0.083%) NEB.SOLN INH PRN (05:36)
[2024-05-12] MEDS ORDERED: Senna TAB 8.6 mg TAB PO PRN (05:36)
[2024-05-12 06:14] LABS: Direct Bilirubin 0.5 mg/dL (0.03-0.18); Indirect Bilirubin 0.7 mg/dL (0.3-1.0)
[2024-05-12 07:26] LABS: Folate > 20.00 ng/mL (5.90-24.80)
[2024-05-12 07:27] LABS: Vitamin B12 > 1450 pg/mL (180-914)
[2024-05-12] MEDS ORDERED: ACETAMINOPHEN 650 MG PO SCH (09:00)
[2024-05-12] MEDS: Cholecalciferol (VIT D3) 1,000 unit TAB PO SCH (09:18)
[2024-05-12] MEDS: Polyethylene Glycol 3350 17 GM PACKET PO SCH (09:21)
[2024-05-12] MEDS: FLUTICAS/UMECLI/VILANT 100-62.5-25 MDI (NF) INH SCH (09:23)
[2024-05-12 10:04] LABS: HDL Cholesterol 28.3 mg/dL
[2024-05-12 10:19] LABS: TSH Ultra Thyroid Stim Horm 0.94 mcIU/mL (0.34-5.60)
[2024-05-12] MEDS: ceFAZolin 2 GM PREMIX 2 GM/50 ML BAG IV SCH ×2 (10:33→21:21)
[2024-05-12] MEDS: oxyCODONE SR 10 mg TAB PO SCH (11:31)
[2024-05-12] MEDS: NS 0.9% 1000 ml BAG 1,000 ML IV SCH (11:48)
[2024-05-12] MEDS: Sulfur Hexaflouride MICROSPHR 25 MG VIAL IV ONE (14:31)
[2024-05-12] MEDS: Latanoprost 0.005% 2.5 ml BTL BOTH EYES SCH (23:32)
[2024-05-13 05:25] LABS: ABS Basophils 0.1 10^3/uL (0.0-0.1); ABS Eosinophils 0.1 10^3/uL (0.0-0.5); ABS Lymphocytes 0.2 10^3/uL (1.0-4.8); ABS Monocytes 0.6 10^3/uL (0.0-0.9); ABS Neutrophils 5.6 10^3/uL (1.5-7.6); Hematocrit 40.5 % (35-45); Hemoglobin 13.6 g/dL (11.5-14.3); Lymphocyte % 3.2 %; Mean Corpuscular Hemoglobin 29.1 pg (27-33); Mean Corpuscular Hgb Conc 33.5 g/dL (31-36); Mean Corpuscular Volume 86.8 fL (80-97); Mean Platelet Volume 8.6 fL (7.5-11.2); Nucleated Red Blood Cells % 0.1 %/100WBC (0.0-0.8); Platelet Count 107 10^3/uL (150-450); Red Blood Count 4.67 10^6/uL (3.63-4.92); White Blood Count 6.5 10^3/uL (3.8-11.8)
[2024-05-13 07:00] LABS: Calcium 8.4 mg/dL (8.6-10.3); Creatinine, Serum 0.53 mg/dL (0.51-0.95); Magnesium 1.7 mg/dL (1.9-2.7); Potassium 3.2 mmol/L (3.5-5.0); eGFR CKD-EPI 97.6 (>60)
[2024-05-13] MEDS: Magnesium Sulf 4 GM/100 ML IV 4,000 MG/100 ML BAG IVPB ONE (10:20)
[2024-05-13] MEDS: Potassium Chlor 20 meq TAB.ER PO ONE (10:20)
[2024-05-13] MEDS: NS 0.9% 500 ml BAG 500 ML IV ONE (19:44)
[2024-05-13 21:22] LABS: Adenovirus Undetected (Undetected); Bordetella parapertussis Undetected (Undetected); Bordetella pertussis Undetected (Undetected); Chlamydophila pneumoniae Undetected (Undetected); Coronavirus 229E Undetected (Undetected); Coronavirus HKU1 Undetected (Undetected); Coronavirus NL63 Undetected (Undetected); Coronavirus OC43 Undetected (Undetected); Human Metapneumovirus Undetected (Undetected); Human Rhinovirus/Enterovirus Undetected (Undetected); Influenza A Undetected (Undetected); Influenza B Undetected (Undetected); Mycoplasmoides pneumoniae Undetected (Undetected); Parainfluenza Virus 1 Undetected (Undetected); Parainfluenza Virus 2 Undetected (Undetected); Parainfluenza Virus 3 Undetected (Undetected); Parainfluenza Virus 4 Undetected (Undetected); Respiratory Syncytial Virus Undetected (Undetected); Specimen Source NASOPHARYNGEAL SWAB
[2024-05-13] MEDS: NS 0.9% 1000 ml BAG 1,000 ML IV ONE (21:54)
[2024-05-13] MEDS: Lactated Ringers 1000 ml BAG 1,000 ML IV ONE (23:58)
[2024-05-14 06:56] LABS: Albumin 2.6 g/dL (3.2-5.2); Albumin/Globulin Ratio 1.4 (1-3); Calcium 8.3 mg/dL (8.6-10.3); Creatinine, Serum 0.46 mg/dL (0.51-0.95); Globulin 1.8 g/dL (2-4); Magnesium 1.9 mg/dL (1.9-2.7); Potassium 4.1 mmol/L (3.5-5.0); Total Bilirubin 0.8 mg/dL (0.2-1.0); Total Protein 4.4 g/dL (6.4-8.9)
[2024-05-14 07:37] LABS: Hematocrit 38.8 % (35-45); Hemoglobin 13.4 g/dL (11.5-14.3); Mean Corpuscular Hemoglobin 29.6 pg (27-33); Mean Corpuscular Hgb Conc 34.4 g/dL (31-36); Mean Corpuscular Volume 85.9 fL (80-97); Mean Platelet Volume 9.7 fL (7.5-11.2); Platelet Count 97 10^3/uL (150-450); Red Blood Count 4.52 10^6/uL (3.63-4.92); Red Cell Distribution Width 15.3 % (12-17); White Blood Count 7.9 10^3/uL (3.8-11.8)
[2024-05-14] MEDS: Lactated Ringers 1000 ml BAG 1,000 ML IV SCH (11:38)
[2024-05-14 14:40] LABS: IgG Immunoblot Negative (Negative); IgM Immunoblot Negative (Negative)
[2024-05-14 15:08] LABS: Body Fluid Total Nucleated 154750 /mcL
[2024-05-14 15:17] LABS: Body Fluid Mono 17 %; Body Fluid Source Synovial Fluid; Body Fluid Total Cells Counted 200
[2024-05-14 15:18] LABS: Body Fluid Appearance Cloudy; Body Fluid Color Yellow
[2024-05-14] MEDS: fentaNYL 100 mcg/2 ml 50 MCG/ML VIAL ONE (17:12)
[2024-05-14 22:17] LABS: Anaplasma phagocytophilum Negative (Negative); B. miyamotoi PCR, B Negative (Negative); Babesia divergens/MO-1 Negative (Negative); Babesia ducani Negative (Negative); Ehrlichia chaffeensis Negative (Negative); Ehrlichia ewingii/canis Negative (Negative); Ehrlichia muris eauclairensis Negative (Negative)
[2024-05-15 02:53] LABS: Body Fluid Total Nucleated 10 /mcL
[2024-05-15 02:57] LABS: Body Fluid Source Synovial Fluid
[2024-05-15 02:58] LABS: Body Fluid Appearance Clear; Body Fluid Color Pink
[2024-05-15 03:03] LABS: Body Fluid Total Cells Counted 18
[2024-05-15 03:06] LABS: Body Fluid Total Nucleated 27199 /mcL
[2024-05-15 03:08] LABS: Body Fluid Appearance Cloudy; Body Fluid Color Yellow; Body Fluid Source Synovial Fluid
[2024-05-15 03:14] LABS: Body Fluid Total Cells Counted 200
[2024-05-15 03:16] LABS: Body Fluid Mono 12 %
[2024-05-15] MEDS ORDERED: ROPIVACAINE 5 MG/ML 30 ML BTL (0.5%) ONE ×2 (07:28→08:29)
[2024-05-15] MEDS ORDERED: Propofol 10 MG/ML 20 ML BTL ONE (07:46)
[2024-05-15] MEDS ORDERED: fentaNYL 100 mcg/2 ml 50 MCG/ML VIAL ONE ×2 (07:46→11:25)
[2024-05-15] MEDS ORDERED: KETAMINE HCL 10 MG/ML 20 ml VIAL (200 MG) ONE (07:46)
[2024-05-15] MEDS ORDERED: Midazolam 2 mg/2 ml VIAL 1 mg/ml 2 ml VIAL (2 mg) ONE (07:46)
[2024-05-15] MEDS ORDERED: Lidocaine 2% PF 5 ML VIAL ONE (07:50)
[2024-05-15] MEDS ORDERED: Dexamethasone IV 4 MG/ML VIAL 1 ml VIAL ONE (07:53)
[2024-05-15] MEDS ORDERED: Ondansetron 4 mg VIAL 2 MG/ML 2 ml VIAL ONE (07:53)
[2024-05-15] MEDS ORDERED: Naloxone 0.4 mg VIAL 0.4 mg/ml 1 ml VIAL IV PRN (08:12)
[2024-05-15 08:37] LABS: Hematocrit 35.9 % (35-45); Hemoglobin 12.2 g/dL (11.5-14.3); Mean Corpuscular Hemoglobin 29.3 pg (27-33); Mean Corpuscular Hgb Conc 34.1 g/dL (31-36); Mean Corpuscular Volume 86.1 fL (80-97); Mean Platelet Volume 8.7 fL (7.5-11.2); Platelet Count 129 10^3/uL (150-450); Red Blood Count 4.17 10^6/uL (3.63-4.92); Red Cell Distribution Width 15.3 % (12-17); White Blood Count 9.3 10^3/uL (3.8-11.8)
[2024-05-15] MEDS ORDERED: Buffered Lidocaine 1% SYRIN 1 ml ONE (08:52)
[2024-05-15 09:06] LABS: Creatinine, Serum 0.41 mg/dL (0.51-0.95); Magnesium 1.6 mg/dL (1.9-2.7); Potassium 3.9 mmol/L (3.5-5.0); eGFR CKD-EPI 103.8 (>60)
[2024-05-15] MEDS ORDERED: Phenylephrine IV 10 MG/ML 1 ml VIAL ONE (09:40)
[2024-05-15] MEDS ORDERED: Phenylephrine 40 mcg/mL 10mL (400mcg) SYRINGE ONE (09:40)
[2024-05-15] MEDS ORDERED: HYDROmorphone 0.5 MG/0.5 ML SYRINGE ONE (13:02)
[2024-05-15] MEDS ORDERED: Succinylcholine 200 mg VIAL 20 mg/ml 10 ml VIAL (200 mg) ONE (13:04)
[2024-05-15] MEDS ORDERED: ceFAZolin 2 GM in NS PREMIX 2 GM/100 ML BAG IVPB ONE (14:05)
[2024-05-15] MEDS ORDERED: Ondansetron ODT 4 mg TAB 4 MG TAB PO PRN (14:17)
[2024-05-15] MEDS ORDERED: Ondansetron 4 mg VIAL 2 MG/ML 2 ml VIAL IV PRN (14:17)
[2024-05-15] MEDS ORDERED: Magnesium Hydroxide LIQ 30 ML UDC PO PRN (14:17)
[2024-05-15] MEDS ORDERED: Calcium Carb (TUMS) 500 mg CHEW TAB PO PRN (14:17)
[2024-05-15] MEDS ORDERED: Lactulose 30 ml UDC PO PRN (14:17)
[2024-05-15] MEDS ORDERED: HYDROmorphone 1 MG/1 ML SYRINGE ONE (14:39)
[2024-05-15] MEDS ORDERED: Acetaminophen IV 1 GM/100ML 1,000 MG/100 ML BAG IV ONE (14:39)
[2024-05-15] MEDS: HYDROmorphone 1 MG/1 ML SYRINGE IV PRN (14:41)
[2024-05-15] MEDS: Acetaminophen IV 1 GM/100ML 1,000 MG/100 ML BAG IV ONE (14:48)
[2024-05-15] MEDS ORDERED: Lactated Ringers 1000 ml BAG 1,000 ML IV SCH (15:00)
[2024-05-15] MEDS: Magnesium Sulf 4 GM/100 ML IV 4,000 MG/100 ML BAG IVPB ONE (16:42)
[2024-05-15] MEDS: HYDROmorphone 0.5 MG/0.5 ML SYRINGE IV SLOW PU PRN (18:43)
[2024-05-15] MEDS: HYDROmorphone 1 MG/1 ML SYRINGE IV SLOW PU PRN (20:37)
[2024-05-15] MEDS: Lactated Ringers 1000 ml BAG 1,000 ML IV SCH (20:45)
[2024-05-15] MEDS ORDERED: Magnesium Hydroxide LIQ 30 ML UDC PO SCH (21:00)
[2024-05-15] MEDS: Senna TAB 8.6 mg TAB PO SCH (22:13)
[2024-05-16] MEDS ORDERED: Vitamin THERAPEUTIC TAB PO SCH (09:00)
[2024-05-16 12:45] LABS: ABS Eosinophils 0.1 10^3/uL (0.0-0.5); ABS Neutrophils 10.1 10^3/uL (1.5-7.6); Eosinophil % 0.5 %; Hematocrit 37.7 % (35-45); Hemoglobin 12.6 g/dL (11.5-14.3); Lymphocyte % 8.4 %; Mean Corpuscular Hemoglobin 29.1 pg (27-33); Mean Corpuscular Hgb Conc 33.4 g/dL (31-36); Mean Corpuscular Volume 87.1 fL (80-97); Mean Platelet Volume 8.1 fL (7.5-11.2); Platelet Count 236 10^3/uL (150-450); Red Blood Count 4.32 10^6/uL (3.63-4.92); Red Cell Distribution Width 15.7 % (12-17); White Blood Count 12.1 10^3/uL (3.8-11.8)
[2024-05-16 13:12] LABS: Albumin 2.3 g/dL (3.2-5.2); Creatinine, Serum 0.42 mg/dL (0.51-0.95); Globulin 2.3 g/dL (2-4); Total Bilirubin 0.4 mg/dL (0.2-1.0); Total Protein 4.6 g/dL (6.4-8.9); eGFR CKD-EPI 103.2 (>60)
[2024-05-16 13:31] LABS: Potassium 4.2 mmol/L (3.5-5.0)
[2024-05-16 15:57] LABS: B. burgdorferi PCR Negative (Negative); B. garinii/B. afzellii PCR Negative (Negative)
[2024-05-16] MEDS: Senna TAB 8.6 mg TAB PO SCH (21:09)
[2024-05-16] MEDS: guaiFENesin 100 mg/5 ml LIQ unit dose cup PO PRN (21:22)
[2024-05-16] MEDS ORDERED: fentaNYL 100 mcg/2 ml 50 MCG/ML VIAL IV PRN (22:06)
[2024-05-16] MEDS ORDERED: Naloxone 0.4 mg VIAL 0.4 mg/ml 1 ml VIAL IV PRN (22:06)
[2024-05-16] MEDS ORDERED: Metoclopramide 5 MG/ML VIAL (10 mg) IV PRN (22:06)
[2024-05-16] MEDS ORDERED: Ondansetron 4 mg VIAL 2 MG/ML 2 ml VIAL IV PRN (22:06)
[2024-05-16] MEDS ORDERED: NS 0.45% 1000 ml BAG 1,000 ML IV SCH (23:00)
[2024-05-16] MEDS: Magnesium Hydroxide LIQ 30 ML UDC PO SCH (23:24)
[2024-05-17 06:45] LABS: Hematocrit 35.9 % (35-45); Hemoglobin 12.1 g/dL (11.5-14.3); Mean Corpuscular Hemoglobin 29.4 pg (27-33); Mean Corpuscular Hgb Conc 33.6 g/dL (31-36); Mean Corpuscular Volume 87.6 fL (80-97); Mean Platelet Volume 7.9 fL (7.5-11.2); Platelet Count 266 10^3/uL (150-450); Red Cell Distribution Width 15.5 % (12-17)
[2024-05-17] MEDS: Lactated Ringers 1000 ml BAG 1,000 ML IV SCH (07:46)
[2024-05-17] MEDS: Buffered Lidocaine 1% SYRIN 1 ml INTRADERM ONE (07:47)
[2024-05-17] MEDS: Acetaminophen IV 1 GM/100ML 1,000 MG/100 ML BAG IV ONE (07:47)
[2024-05-17] MEDS: Scopolamine 1 mg/72hr PATCH TRANSDERM ONE (07:47)
[2024-05-17 07:53] LABS: Anion Gap 6 mmol/L (2-16); Blood Urea Nitrogen 11 mg/dL (6-24); CO2 Carbon Dioxide 30 mmol/L (22-32); Calcium 7.8 mg/dL (8.6-10.3); Chloride 102 mmol/L (101-111); Creatinine, Serum 0.43 mg/dL (0.51-0.95); Glucose 109 mg/dL (70-100); Sodium 138 mmol/L (135-145); eGFR CKD-EPI 102.6 (>60)
[2024-05-17 10:11] LABS: Magnesium 1.8 mg/dL (1.9-2.7)
[2024-05-17 10:17] LABS: Potassium, Whole Blood 4.2 mmol/L (3.4-4.5)
[2024-05-17] MEDS ORDERED: fentaNYL 100 mcg/2 ml 50 MCG/ML VIAL ONE (11:11)
[2024-05-17] MEDS ORDERED: Midazolam 2 mg/2 ml VIAL 1 mg/ml 2 ml VIAL (2 mg) ONE (11:11)
[2024-05-17] MEDS ORDERED: Propofol 10 MG/ML 20 ML BTL ONE ×2 (11:13→11:14)
[2024-05-17] MEDS ORDERED: Glycopyrrolate IV 0.2 MG/ML 1 ML VIAL ONE (11:13)
[2024-05-17] MEDS ORDERED: Sodium Chloride 0.9% 10 ML ONE (11:16)
[2024-05-17] MEDS ORDERED: Phenylephrine 40 mcg/mL 10mL (400mcg) SYRINGE ONE (11:29)
[2024-05-17] MEDS ORDERED: Lidocaine 1% MPF 2 ML VIAL ONE (12:00)
[2024-05-17] MEDS ORDERED: Dexmedetomidine 200 mcg/2 ml 2 ml VIAL (200 mcg) ONE (12:03)
[2024-05-17] MEDS: Oxacillin 2 GM in NS 0.9% 100 ml BAG 100 ML IVPB SCH (12:34)
[2024-05-17 17:49] VITALS: BP 112/74
[2024-05-17] MEDS: Magnesium Sulfate 2 gm BAG 2 GM/50 ML BAG IVPB ONE (17:53)
[2024-05-18 15:51] LABS: B. burgdorferi PCR Negative (Negative); B. garinii/B. afzellii PCR Negative (Negative); Lyme Disease Source SYNOVIAL FLUID
[2024-05-18 15:51] LABS: B. burgdorferi PCR Negative (Negative); B. garinii/B. afzellii PCR Negative (Negative)
== END 2024-05-17 20:00 | disposition short-term general hospital (02) | DRG 485 ==
LOC: EDHOLD 22:25 → ED 22:25 → SUATTDRO 05-12 04:18 → EDHOLD 05-12 06:13 → MED 05-12 17:45 → SUATTDRO 05-14 13:07
PROVIDERS: ADMIT Internal Medicine; ATTEND Family Medicine
PROC: O.CATEE (2024-05-17 13:30)

== ENCOUNTER 2024-07-03 09:22 | Inpatient (IN) ==
[2024-07-07] MEDS ORDERED: Albuterol HFA INHALER 8 gm MDI INH PRN (17:22)
[2024-07-07] MEDS: oxyCODONE SR 10 mg TAB PO SCH (18:28)
[2024-07-07] MEDS: Al Hydrox/Mg Hydrox/Simet LIQ 30 ML UDC PO PRN (20:53)
[2024-07-07] MEDS: Latanoprost 0.005% 2.5 ml BTL BOTH EYES SCH (20:54)
[2024-07-07] MEDS: Polyethyl Glycol/Propylene Gly OPHTH.SOLN BOTH EYES SCH (20:54)
[2024-07-07] MEDS: Enoxaparin 80 MG/0.8 ML SYR SUBCUT SCH (21:08)
[2024-07-08] MEDS: CMC:FLUTICAS/UMECLI/VILANT 100-62.5-25 MDI (NF) INH SCH (07:15)
[2024-07-08] MEDS: Cholecalciferol (VIT D3) 1,000 unit TAB PO SCH (09:08)
[2024-07-08] MEDS: Multivitamins/Minerals TAB PO SCH (09:09)
[2024-07-08] MEDS: Magnesium Chloride EC 64 mgTAB PO SCH (09:09)
[2024-07-08] MEDS: Polyethylene Glycol 3350 17 GM PACKET PO PRN (10:11)
[2024-07-08 19:39] LABS: ABS Basophils 0.1 10^3/uL (0.0-0.1); ABS Eosinophils 0.1 10^3/uL (0.0-0.5); ABS Lymphocytes 1.2 10^3/uL (1.0-4.8); ABS Monocytes 0.6 10^3/uL (0.0-0.9); ABS Neutrophils 6.6 10^3/uL (1.5-7.6); Eosinophil % 0.9 %; Hematocrit 35.3 % (35-45); Hemoglobin 11.4 g/dL (11.5-14.3); Lymphocyte % 13.9 %; Mean Corpuscular Hemoglobin 28.1 pg (27-33); Mean Corpuscular Hgb Conc 32.2 g/dL (31-36); Mean Corpuscular Volume 87.2 fL (80-97); Mean Platelet Volume 7.4 fL (7.5-11.2); Platelet Count 410 10^3/uL (150-450); Red Blood Count 4.05 10^6/uL (3.63-4.92); Red Cell Distribution Width 20.4 % (12-17); White Blood Count 8.6 10^3/uL (3.8-11.8)
[2024-07-08 19:50] LABS: Albumin 3.1 g/dL (3.2-5.2); Albumin/Globulin Ratio 0.9 (1-3); Calcium 9.2 mg/dL (8.6-10.3); Creatinine, Serum 0.62 mg/dL (0.51-0.95); Globulin 3.5 g/dL (2-4); Potassium 3.8 mmol/L (3.5-5.0); Total Bilirubin 0.6 mg/dL (0.2-1.0); Total Protein 6.6 g/dL (6.4-8.9)
[2024-07-09] MEDS: Senna TAB 8.6 mg TAB PO PRN (14:05)
[2024-07-09] MEDS: Iohexol 350 (CONTRAST) 500 ML MDV IV ONE (16:13)
[2024-07-10] MEDS: Enoxaparin 80 MG/0.8 ML SYR SUBCUT SCH (20:29)
[2024-07-12] MEDS ORDERED: Influenza Vaccine *TRI* 2024-25* 0.5 ML SYRINGE IM ONE (09:00)
[2024-07-12] MEDS: COVID VAC 24-25 (12+) (Moderna) Syringe 0.5 mL IM ONE (10:13)
[2024-07-13 05:34] VITALS: BP 110/71
== END 2024-07-13 14:30 | disposition home health service (06) | DRG 548 ==
LOC: SUATTDRO 07-07 10:52 → MED 07-07 10:52
PROVIDERS: ADMIT Student in an Organized Health Care Education/Training Program; ATTEND Internal Medicine